=== PATIENT | male | born 1940 | race African-American/Black ===

== ENCOUNTER 2016-12-21 21:10 | Inpatient (IN) | payer MEDICARE, OTHER ==
[~2016-12-21 21:10] MED LIST: ISOVUE-370 76%-LOCM 1 ML ONE
[2016-12-21 22:12] LABS: #Eosinphils 0.3 thou/uL (0.0-0.7); #Lymphocytes 2.7 thou/uL (1.20-3.40); #Monocytes 0.6 thou/uL (0.11-0.59); #Neutrophils 2.5 thou/uL (1.40-6.50); %Basophils 0.7 % (0.0-1.0); %Eosinophils 4.8 % (0.0-10.0); %Lymphocytes 43.1 % (21.0-51.0); %Monocytes 10.4 % (0.0-10.0); Hematocrit 37.5 % (42.0-52.0); Mean Platelet Volume 8.2 fL (7.4-10.4); Red Blood Cell (RBC) Count 4.52 mill/uL (4.70-6.10); White Blood Cell (WBC) Count 6.2 thou/uL (4.8-10.8)
[2016-12-21 22:21] LABS: PTT 27.6 SEC (22.9-36.1); Prothrombin Time 14.8 SEC (12.0-14.7)
--- NOTE | 2016-12-21 22:26 | RAD ---
CHEST ONE VIEW 12/21/16 HISTORY: Hypotension. Dyspnea. COMPARISON: 12/24/15. FINDINGS: The cardiac silhouette is magnified by projection. Pulmonary vasculature remains engorged, similar in appearance to the prior study, with patchy bibasilar infiltrates. Mediastinum is midline with aortic calcification and a dual lead left subclavian cardiac electronic device. No evidence of pneumothorax . Metallic clips overlie the right side of the neck. IMPRESSION: 1. Mild pulmonary vascular congestion. 2. Atherosclerosis. POS: [facility]
[2016-12-21 22:32] LABS: ALT (SGPT) 15 U/L (8-55); AST (SGOT) 15 U/L (5-34); Alkaline Phosphatase 99 U/L (40-150); Anion Gap 14 mmol/L (10-20); BUN (Urea Nitrogen) 19 mg/dL (8.4-25.7); Bilirubin, Total 0.5 mg/dL (0.2-1.2); CK (CPK) 137 U/L (30-200); Calc. Creatinine Clearance 0 mL/min (70-130); Carbon Dioxide 23 mmol/L (23-31); Chloride 109 mmol/L (98-107); Estimated GFR-MDRD 66; Globulin 3.5 g/dL (2.4-3.5); Protein, Total 7.2 g/dL (5.8-8.1)
[2016-12-21 22:36] LABS: Troponin I 0.012 ng/mL (< 0.028)
[2016-12-21] MEDS ORDERED: Furosemide 40 MG/4 ML VIAL ONE (22:46)
--- NOTE | 2016-12-21 23:37 | CT ---
CT ARTERIOGRAM CHEST WITH IV CONTRAST AND 3D MIP IMAGING 12/21/16 HISTORY: Chest pain. Dyspnea. FINDINGS: There is good contrast opacification of the pulmonary arteries and thoracic aorta with normal branchi ng of the great vessels from the aortic arch. There is calcification in the arterial structures. Scat tered areas of atelectasis are present within the lungs. There are healing bilateral rib fractures. N onspecific lymph nodes are scattered about the mediastinum. IMPRESSION: 1. No CT evidence of pulmonary embolus. 2. Atherosclerosis. POS: [facility]
[2016-12-22 01:41] LABS: Troponin I 0.016 ng/mL (< 0.028)
[2016-12-22] MEDS ORDERED: Nitroglycerin 0.4 MG TAB (25 Tab Bottle) SL PRN (03:11)
[2016-12-22] MEDS ORDERED: Benzonatate 100 MG CAP PO PRN (03:11)
[2016-12-22] MEDS ORDERED: Ondansetron HCl/PF 4 MG/2 ML Vial IVP PRN ×2 (03:11)
[2016-12-22] MEDS ORDERED: Loratadine 10 MG TAB PO PRN (03:11)
[2016-12-22] MEDS ORDERED: Calcium Carbonate 500 MG ChewTAB PO PRN (03:11)
[2016-12-22] MEDS ORDERED: hydrALAZINE 20 MG/ML VIAL SLOW IVP PRN (03:11)
[2016-12-22] MEDS ORDERED: Dextrose 50% Abboject 50 ML SYRINGE SLOW IVP PRN (03:11)
[2016-12-22] MEDS ORDERED: traMADol HCl 50 MG TAB PO PRN (03:11)
[2016-12-22] MEDS ORDERED: Bisacodyl 5 MG TAB PO PRN (03:11)
[2016-12-22] MEDS ORDERED: Diabetic Tussin 200 MG/10 ML UDCUP PO PRN (03:11)
[2016-12-22] MEDS ORDERED: cloNIDine 0.1 MG TAB PO PRN (03:11)
[2016-12-22] MEDS ORDERED: Ondansetron ODT 4 MG TAB SL PRN (03:11)
[2016-12-22] MEDS ORDERED: Insulin Regular 300 UNITS/3 ML VIAL SC PRN (03:11)
[2016-12-22] MEDS ORDERED: Dextrose 5% in Water 1,000 ML IV PRN (03:11)
[2016-12-22] MEDS ORDERED: Senokot 8.6 MG TAB PO PRN (03:11)
[2016-12-22] MEDS ORDERED: Mag-Al 1200 mg/1200 mg/30 ML UDCUP PO PRN (03:11)
[2016-12-22] MEDS ORDERED: Acetaminophen 325 MG TAB PO PRN ×2 (03:11)
[2016-12-22] MEDS ORDERED: HYDROcodone/Acetaminophen 5/325 mg Tablet PO PRN (03:11)
[2016-12-22] MEDS ORDERED: Nitroglycerin 0.4 MG TAB (25 Tab Bottle) SL SCH (03:30)
[2016-12-22] MEDS ORDERED: Carvedilol 25 MG TAB PO SCH ×2 (03:30→08:00)
[2016-12-22] MEDS ORDERED: Metoprolol Tartrate 5 MG/5 ML VIAL IVP PRN (04:06)
[2016-12-22 04:47] LABS: #Eosinphils 0.3 thou/uL (0.0-0.7); #Lymphocytes 2.3 thou/uL (1.20-3.40); #Monocytes 0.8 thou/uL (0.11-0.59); #Neutrophils 3.9 thou/uL (1.40-6.50); %Basophils 0.7 % (0.0-1.0); %Eosinophils 4.5 % (0.0-10.0); %Lymphocytes 31.5 % (21.0-51.0); %Monocytes 10.9 % (0.0-10.0); Hematocrit 41.3 % (42.0-52.0); Mean Platelet Volume 8.3 fL (7.4-10.4); Red Blood Cell (RBC) Count 4.98 mill/uL (4.70-6.10); White Blood Cell (WBC) Count 7.4 thou/uL (4.8-10.8)
[2016-12-22 04:51] LABS: Anion Gap 12 mmol/L (10-20); BUN (Urea Nitrogen) 18 mg/dL (8.4-25.7); Calc. Creatinine Clearance 70 mL/min (70-130); Calcium 9.3 mg/dL (7.8-10.44); Carbon Dioxide 27 mmol/L (23-31); Chloride 106 mmol/L (98-107); Estimated GFR-MDRD 66
[2016-12-22 04:52] LABS: Hemoglobin A1c 7.1 % (4.0-6.0)
[2016-12-22 04:57] LABS: Troponin I 0.012 ng/mL (< 0.028)
--- NOTE | 2016-12-22 05:29 | HP ---
DATE OF ADMISSION: 12/21/2016 PRIMARY CARE PHYSICIAN: [facility] and [place], [place]. CHIEF COMPLAINT: Chest pressures associated with shortness of breath. HISTORY OF PRESENT ILLNESS: Mr. Leal is a very pleasant 76-year-old -Pakistani male with pa st medical history of coronary artery disease and chronic diastolic congestive heart failure as well as diabetes and hypertension, who presented to the emergency room with the above-mentioned complaints . History is mainly obtained by the patient himself and electronic medical records have been reviewe d. The case has been discussed with the admitting ER physician, Dr. Aldridge. The patient was last a dmitted to our facility in 07/2016, at which time, he underwent Cardiolite stress test which was unre markable. The patient reports that he has been having on and off chest pain for almost a year now. He has a pa cemaker placed in [place], [place] within the last 6 months and is compliant with his medications. He repo rts the sensation as a squeezing sensation located in the left central chest. He described that he i s having a hard time lying in bed because these symptoms are exaggerated by lying flat. He is sleepi ng up in a recliner. If he lies in bed, he has to sleep propped up with the help of pillows. Today, he had shortness of breath associated with chest discomfort that made him seek emergency room care. Upon presentation, he was hemodynamically stable with blood pressure of 132/87 and pulse of 68. The re is no mention of hypoxia in the emergency room record, but his oxygen saturation noted at 94% on 4 liters oxygen. Further workup revealed normal cardiac enzymes and normal 12-lead EKG, which showed paced rhythm. Md s D-dimer was elevated at 0.[address] he underwent a CT angio of the thorax in the ER. It is negative f or any pulmonary embolism. His chest x-ray did show pulmonary vascular congestion and his BNP was fo und to be elevated to 650. Given these findings and his clinical presentation, presumptive diagnosis of acute CHF has been made and he is being admitted to telemetry floor for further treatment and fur ther investigation. He has received 40 mg of Lasix IV in the emergency room along with aspirin. Cur rently, his symptoms are somewhat better. PAST MEDICAL HISTORY: 1. Coronary artery disease, status post stenting in the past. 2. Chronic diastolic dysfunction with EF measured at 55%. 3. Type 2 diabetes mellitus. 4. Hypertension. 5. Dyslipidemia. 6. Questionable history of atrial fibrillation. PAST SURGICAL HISTORY: 1. Cardiac catheterization. 2. Pacemaker placement in 10/2015. 3. Right carotid endarterectomy. CODE STATUS: FULL CODE. SOCIAL HISTORY: He stopped drinking 4 years ago and he stopped smoking in 1994. Denies any drug abu se. ALLERGIES: No known medication allergies. FAMILY HISTORY: Multiple family members with coronary artery disease. CURRENT HOME MEDICATIONS: Include aspirin 325 mg daily, Plavix 75 mg daily, Lasix 40 mg daily, subli ngual nitroglycerin, atorvastatin 80 mg daily, folic acid 1 mg daily, thiamine 50 mg daily, carvedilo l 25 mg p.o. b.i.d., lisinopril 40 mg daily, amlodipine 10 mg daily, and multivitamin daily. REVIEW OF SYSTEMS: The following complete review of systems was negative, unless otherwise mentioned in the HPI or below: CONSTITUTIONAL: Weight loss or gain, ability to conduct usual activities. SKIN: Rash, itching. EYES: Double vision, pain. ENT/MOUTH: Nose bleeding, neck stiffness, pain, tenderness. CARDIOVASCULAR: Palpitations, dyspnea on exertion, orthopnea. RESPIRATORY: Shortness of breath, wheezing, cough, hemoptysis, fever or night sweats. GASTROINTESTINAL: Poor appetite, abdominal pain, heartburn, nausea, vomiting, constipation, or diarr hea. GENITOURINARY: Urgency, frequency, dysuria, nocturia. MUSCULOSKELETAL: Pain, swelling. NEUROLOGIC/PSYCHIATRIC: Anxiety, depression. ALLERGY/IMMUNOLOGIC: Skin rash, bleeding tendency. LABORATORY AND DIAGNOSTIC DATA: CBC shows WBCs at 6.2 with 41% neutrophils, hemoglobin 11.9, platele t count of 221. D-dimer 0.52. Serum chemistry: Chloride at 109, glucose 131, otherwise unremarkabl e. Troponin 0.012 with CK-MB of 1.9. Creatinine kinase is normal at 137. BNP elevated at 650. Joseline st x-ray by my review shows pulmonary vascular congestion without any evidence of infiltrates. A 12- lead EKG done in the emergency room showed normal sinus rhythm at 98 beats per minute which was repea demar, which showed ventricular paced rhythm at 125 beats per minute and the third EKG showed normal si nus rhythm at 108 beats per minute which is still ventricular paced. PHYSICAL EXAMINATION: VITAL SIGNS: Most recent temperature 98.4, pulse 126, respirations 24, saturating 92% on 4 liter oxy gen, blood pressure 138/67. GENERAL: No acute distress, awake, alert, oriented x3. Appears nontoxic, is able to converse in ful l sentences. No respiratory distress. HEENT: Mucous membrane is moist and pink. No oropharyngeal exudate or erythema. Head is normocepha lic, atraumatic. Pupils are equal, reactive to light and accommodation. Extraocular movements are i ntact. NECK: Supple without any lymphadenopathy, JVD, or bruit. CHEST: Clear to auscultation without any wheezing, rales, or rhonchi; however, decreased breath soun ds at bases are noticed. Rate and rhythm is regular without any murmur, rubs, or gallops. ABDOMEN: Obese, soft, nontender, nondistended with positive bowel sounds. EXTREMITIES: Free of any cyanosis, clubbing, or edema. NEUROLOGIC: Nonfocal. SKIN: Free of any rashes or bruises. Feels warm and dry to touch. PSYCHIATRIC: Normal affect. VASCULAR: +2 pedal pulses felt bilaterally. IMPRESSION AND PLAN: 1. Chest pain and dyspnea. This is most likely acute diastolic congestive heart failure exacerbatio n. Acute coronary syndrome is less likely. We will continue to trend serial cardiac enzymes and sta rt him on IV diuresis. Echocardiogram will be reordered. Because of his recent cardiac stress test a few months ago, at this time, we will not repeat it. We will consult Cardiology for further recomm endations. We will consult [facility] for outpatient followup and cardiac rehabilitation i npatient and outpatient followup. Continue his aspirin, beta jeffrey, statin, and SPRING inhibitor at t his time. Continue Plavix. 2. Acute diastolic congestive heart failure exacerbation. We will continue IV diuresis and monitor strict I's and O's. He will be in a fluid restricted heart healthy diet. 3. Tachycardia. We will repeat the EKG, given the patient's questionable history of atrial fibrilla tion. We will treat him with a beta jeffrey and monitor his symptoms. He is on telemetry at this ti me. 4. Diabetes mellitus. We will start him on insulin sliding scale and do frequent Accu-Cheks. It do es not seem like that he is on any medication for this at home. We will check a hemoglobin A1c as we ll. 5. History of coronary artery disease, status post stenting. The patient is on cardiac prudent medi cations and we will continue them as above. 6. History of hypertension. We will restart his amlodipine, lisinopril, and carvedilol at home dosa ges and monitor response. 7. Chronic diastolic congestive heart failure. 8. Code status: FULL CODE. 9. Deep venous thrombosis and gastrointestinal prophylaxis. 10. A p.r.n. medication order. DISPOSITION: Mr. Leal is being admitted for acute diastolic congestive heart failure exacerbation. Estimated l ength of stay is at least 2-3 midnights. Further management will depend upon his clinical course.
[2016-12-22] MEDS ORDERED: Furosemide 40 MG/4 ML VIAL SLOW IVP SCH (06:00)
[2016-12-22] MEDS: Furosemide 40 MG/4 ML VIAL SLOW IVP SCH ×2 (06:13→13:19)
[2016-12-22] MEDS: Carvedilol 25 MG TAB PO SCH ×2 (08:14→20:19)
[2016-12-22] MEDS: Aspirin 325 MG TAB PO SCH (08:14)
[2016-12-22] MEDS: Multivit, Therapeutic 1 TAB PO SCH (08:14)
[2016-12-22] MEDS: Famotidine 20 MG TAB PO SCH ×2 (08:14→20:19)
[2016-12-22] MEDS: Clopidogrel Bisulfate 75 MG TAB PO SCH (08:14)
[2016-12-22] MEDS: Folic Acid 1 MG TAB PO SCH (08:14)
[2016-12-22] MEDS ORDERED: FLU VACC TS2017-18 (>65YR) 0.5 ML SYRINGE IM ONE (09:00)
[2016-12-22] MEDS ORDERED: Enoxaparin Sodium 40 MG/0.4 ML SYRINGE SC SCH (09:00)
[2016-12-22] MEDS ORDERED: Amlodipine 10 MG TAB PO SCH (09:00)
[2016-12-22] MEDS ORDERED: Prevnar 13-Val Conj/PF 0.5 ML SYRINGE IM ONE (09:00)
[2016-12-22] MEDS ORDERED: Lisinopril 20 MG TAB PO SCH ×2 (09:00)
[2016-12-22] MEDS ORDERED: Aspirin 325 MG TAB PO SCH (09:00)
--- NOTE | 2016-12-22 15:38 | PDOC.EVN ---
Event Note - Event Note Event Note: Patient seen and examined. Chart reviewed. AM labs. Cont diuretics.
--- NOTE | 2016-12-22 17:08 | EKG ---
Test Reason : Blood Pressure : / mmHG Vent. Rate : 125 BPM Atrial Rate : 079 BPM P-R Int : 000 ms QRS Dur : 192 ms QT Int : 418 ms P-R-T Axes : 000 068 -50 degrees QTc Int : 603 ms Electronic ventricular pacemaker When compared with ECG of 22-DEC-2016 00:07, (Unconfirmed) Vent. rate has increased BY 17 BPM Confirmed by MELISA KENNEDY, SDestin ([id number]) on 12/22/2016 5:08:03 PM Referred By: EUNICE Confirmed By:DR. Francis VINCENT MD
[2016-12-22] MEDS ORDERED: Sodium Chloride 0.9% 1,000 ML IV SCH (17:15)
[2016-12-22] MEDS ORDERED: Communication Order-Pharmacy FS SCH (17:15)
--- NOTE | 2016-12-22 17:35 | CON ---
DATE OF SERVICE: 12/22/2016 TYPE OF CONSULTATION: Cardiology Consultation. REASON FOR CONSULTATION: Chest pain. HISTORY OF PRESENT ILLNESS: Mr. Leal is a 76-year-old -Swedish gentleman who comes to the hospital for chest pain and shortness of breath. He has been treated with IV Lasix, diuresed some. He states the pain was tightness in the mid sternal area, similar to what he felt when he needed stents back about a year and a half to two years ago. He had this done at the [place] due through the radial approach. He also had balloon angioplasty by Dr. Owens in the . He has been in the hospital at least twice since last year for the same reason, the first time no stress was done, but an echocardiogram was performed that showed a normal EF. The second time was back in July of this year and a stress was done that showed an EF of 44%, which has decreased from before. This time around, he comes in with chest pain. It was noted on his telemetry monitoring that his spacer was tracking and the heart rate in the 130s, so changes were made and now he is just A sensed, V paced, pacing at about 60-70 beats per minute. On his admission, he had a CT of the chest to make sure he did not have a blood clot and his CT was negative. He only had atherosclerosis of the coronary tree. PAST MEDICAL HISTORY: 1. Coronary artery disease, status post stenting about 2 years ago. 2. Type 2 diabetes. 3. Hypertension. 4. Hyperlipidemia. 5. History of atrial fibrillation in the past. 6. Diastolic heart failure. PAST SURGICAL HISTORY: 1. Cardiac catheterization as above. 2. Pacemaker placement in 10/2015. 3. Right carotid endarterectomy. SOCIAL HISTORY: Quit drinking 4 years ago and has not smoked since 1994. No drug use. OUTPATIENT MEDICATIONS: Include, 1. Aspirin 325 a day. 2. Plavix 75 mg a day. 3. Lasix 40 mg a day. 4. Sublingual nitro p.r.n. 5. Lipitor 80 mg a day. 6. Folic acid. 7. Thiamine. 8. Carvedilol 25 mg b.i.d. 9. Lisinopril 40 mg a day. 10. Amlodipine 10 mg a day. 11. Multivitamin daily. ALLERGIES: No known drug allergies. FAMILY HISTORY: Multiple family members with early coronary disease. REVIEW OF SYSTEMS: A 12-point review of systems was done and is all negative unless stated in the history of present illness. PHYSICAL EXAMINATION: VITAL SIGNS: Temperature 98.2, pulse 74, respiration rate is 18, satting 95% on 2 L, blood pressure 134/69. GENERAL: Awake, alert, oriented x3, in no distress. HEENT: Normocephalic, atraumatic. NECK: Supple. LUNGS: Clear. CARDIOVASCULAR: S1, S2, no S3, S4, no murmurs or rubs. ABDOMEN: Soft, positive bowel sounds. EXTREMITIES: No edema. SKIN: Warm and dry. LABORATORY WORK: Reviewed. CBC is unremarkable. Hemoglobin of 12, platelet count of 232. Coags were unremarkable. Chemistry showed a normal BUN of 18, creatinine 1.28, GFR 66. Hemoglobin A1c is 7.1. BNP was 650, troponin negative x2. Albumin of 3.7. ASSESSMENT AND PLAN: 1. Unstable angina. Continues to have episodes of chest pain. His last left ventricular function was reduced from before from normal to 44%. We will plan on further risk stratification with a heart catheterization. I have spoken with him at length about the risks and benefits of the procedure. The risks include, but not limited to stroke, myocardial infarction, , bleeding and need for blood transfusion, need for vessel repair, need for emergency bypass surgery, limb loss, organ loss, contrast reaction, and kidney reactions with contrast. The patient understands and verbalizes understanding of this. He agrees to proceed. Further recommendation per results of the coronary angiogram. 2. Pacemaker malfunction. pacer was tracking making his heart to be in the 130s. The settings have been changed and he is now just A sensed, V paced, he feels much better. 3. We will follow. [facility]
[2016-12-22] MEDS: Atorvastatin Calcium 40 MG TAB PO SCH (20:19)
[2016-12-23 05:13] LABS: Anion Gap 10 mmol/L (10-20); BUN (Urea Nitrogen) 15 mg/dL (8.4-25.7); BUN/Creatinine Ratio 14.29; Calc. Creatinine Clearance 86 mL/min (70-130); Calcium 8.8 mg/dL (7.8-10.44); Carbon Dioxide 26 mmol/L (23-31); Chloride 107 mmol/L (98-107); Estimated GFR-MDRD 84; Magnesium 1.9 mg/dL (1.6-2.6)
[2016-12-23] MEDS: Sodium Chloride 0.9% 1,000 ML IV SCH ×2 (05:31→14:30)
[2016-12-23] MEDS ORDERED: Heparin 1000 UNIT/NS 500ML(OR) 1,000 ML ONE (06:45)
[2016-12-23] MEDS ORDERED: Potassium Chloride 20 MEQ TAB PO SCH (07:00)
[2016-12-23] MEDS: Carvedilol 25 MG TAB PO SCH ×2 (08:07→21:06)
[2016-12-23] MEDS: Aspirin 325 MG TAB PO SCH (08:08)
[2016-12-23] MEDS: Famotidine 20 MG TAB PO SCH ×2 (08:23→21:06)
[2016-12-23] MEDS ORDERED: FLU VACC TS2017-18 (>65YR) 0.5 ML SYRINGE IM ONE (09:00)
[2016-12-23] MEDS ORDERED: Furosemide 100 MG/10 ML VIAL SLOW IVP SCH (09:15)
[2016-12-23] MEDS: Lisinopril 10 MG TAB PO SCH (09:26)
[2016-12-23] MEDS: Multivit, Therapeutic 1 TAB PO SCH (09:26)
[2016-12-23] MEDS: Folic Acid 1 MG TAB PO SCH (09:26)
[2016-12-23] MEDS: Clopidogrel Bisulfate 75 MG TAB PO SCH (09:28)
--- NOTE | 2016-12-23 11:44 | CON ---
DATE OF CONSULTATION: 12/23/2016 HISTORY: This is a 76-year-old gentleman who seeks care at the [facility]. He presented with chest p ain and shortness of breath of several months' duration. Apparently symptoms got worse recently. Most of his extensive workup has been done at the [facility] in [place] He is due for cardiac catheterization today for his chest pain. When he could not lay down. He has significant orthopnea and PND. Pap was discontinued. He was transferred to [facility]. His echo shows an EF of 44%. He had been coughing and wheezing, he has significant orthopnea and PND for a period of time, in fact he sleeps in a recliner. He snores according to his . He has got witnessed apnea, never had a previous sleep study done. He is a smoker and has quit smoking 20 years ago. No history of TB or known history of asthma. PAST MEDICAL HISTORY: Coronary artery disease, status post stenting and angioplasty, diabetes, hyper tension, hyperlipidemia, atrial fibrillation. PAST SURGICAL HISTORY: Previous caths, stent, pacemaker, right carotid surgery. MEDICATIONS: From home includes vitamins, Thiamine, Coreg 25 b.i.d., Plavix 75, lisinopril 40, amlod ipine 10, folic acid, Lasix 40, atorvastatin and nitro. SOCIAL/FAMILY HISTORY: Unremarkable. PHYSICAL EXAMINATION: VITAL SIGNS: Sats are 94%, blood pressure 129/72, respirations 18. CHEST: Diffuse wheezing. CARDIAC: Sinus tachycardia. ABDOMEN: Soft, no masses. LABORATORY: Electrolytes are normal. Glucose 134. His chest x-ray was otherwise unremarkable. CT angio showed no acute infiltrates. IMPRESSION: 1. Congestive heart failure. 2. Coronary artery disease, status post multiple stents, angioplasty. 3. Probably sleep apnea. 4. Chronic obstructive pulmonary disease. 5. Bronchospasm. PLAN: I have added nebs, steroids to his present regimen. I will follow.
--- NOTE | 2016-12-23 12:17 | PDOC.CTH ---
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 - Objective Vital Signs Temp Pulse Resp BP BP Pulse Ox 12/23/16 12:04 73 17 141/74 H 94 L 12/23/16 12:00 98.0 F 72 16 141/63 H 94 L 12/23/16 09:26 129/72 12/23/16 08:00 98.3 F 73 18 94 L Weight 216 lb 12/22/16 12/23/16 12/24/16 06:59 06:59 06:59 Intake Total 130 1570 Output Total 450 1300 Balance -320 270 - Physical Examination General/Neuro: alert & oriented x3 Neck: no JVD present Lungs: other: (Reduced breath sounds, no creackles. ) Heart: RRR Abdomen: NT/ND Extremities: + edema B (no edema) - Telemetry Telemetry Rhythm: NSR - Labs Result Diagrams: 12/22/16 04:07 12/23/16 04:37 Troponin/CKMB CK-MB (CK-2) 1.9 ng/mL (0-6.6) 12/21/16 22:00 Troponin I 0.012 ng/mL (< 0.028) 12/22/16 04:07 - Assessment/Plan 1. Chest pain 2. Acute on chronic systolic heart failure 3. Hypoxic respiratory insufficiency, improved. PLAN: - Will Restart IV lasix. - Physical exam consistent with a bronchospasm. Agree with steroids and nebs. - LHC can be done as an outpatient at a later date. - Ronald Torre
[2016-12-23] MEDS: Furosemide 100 MG/10 ML VIAL SLOW IVP SCH (13:20)
--- NOTE | 2016-12-23 14:21 | PDOC.PN ---
- Subjective Encounter Start Date: 12/23/16 Encounter Start Time: 14:19 Patient seen and examined. Patient seen at 0700 - No CP/SOB. 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 Required nonrebreather for hypoxia earlier. Was seen by Dr Luana hoff. No overnight events - Objective MAR Reviewed: Yes Vital Signs & Weight: Vital Signs (12 hours) Temp Pulse Resp BP BP Pulse Ox 12/23/16 12:17 98 12/23/16 12:14 63 16 12/23/16 12:04 73 17 141/74 H 94 L 12/23/16 12:00 98.0 F 72 16 141/63 H 94 L 12/23/16 09:26 129/72 12/23/16 08:00 98.3 F 73 18 94 L Weight Weight 216 lb I&O: 12/22/16 12/23/16 12/24/16 06:59 06:59 06:59 Intake Total 130 1570 490 Output Total 450 1300 1000 Balance -320 270 -510 Result Diagrams: 12/22/16 04:07 12/23/16 04:37 Additional Labs: Accuchecks 12/23/16 12/23/16 12/22/16 11:50 04:34 20:36 POC Glucose 166 H 126 H 155 H 12/22/16 17:17 POC Glucose 126 H EKG Reviewed by me: Yes (Tele SR) Phys Exam - Physical Examination Constitutional: NAD HEENT: PERRLA Respiratory: no wheezing, no rhonchi Scat rales at bases, Symmetrical Cardiovascular: RRR, no rub no heaves, pulsations Gastrointestinal: soft, non-tender, no distention, positive bowel sounds Musculoskeletal: edema present (trace) Neurological: non-focal, normal sensation, moves all 4 limbs Psychiatric: normal affect, A&O x 3 Dx/Plan (1) Unstable angina Status: Acute (2) Acute hypoxemic respiratory failure Code(s): J96.01 - ACUTE RESPIRATORY FAILURE WITH HYPOXIA Status: Acute (3) COPD exacerbation Code(s): J44.1 - CHRONIC OBSTRUCTIVE PULMONARY DISEASE W (ACUTE) EXACERBATION Status: Acute (4) Acute on chronic systolic heart failure Code(s): I50.23 - ACUTE ON CHRONIC SYSTOLIC (CONGESTIVE) HEART FAILURE Status : Acute (5) HTN (hypertension) Code(s): I10 - ESSENTIAL (PRIMARY) HYPERTENSION Status: Chronic Qualifiers: Hypertension type: essential hypertension Qualified Code(s): I10 - Essential (primary) hypertension (6) DM type 2 (diabetes mellitus, type 2) Status: Chronic Qualifiers: Diabetes mellitus complication status: without complication Diabetes mellitus jail insulin use: without jail use Qualified Code(s): E11.9 - Type 2 diabetes mellitus without complications (7) Coronary artery disease Code(s): I25.10 - ATHSCL HEART DISEASE OF [place] CORONARY ARTERY W/O ANG PCTRS Status: Chronic (8) Pacemaker malfunction Code(s): T82.111A - BREAKDOWN OF CARDIAC PULSE GENERATOR (BATTERY), INIT Status: Acute Comment: Setting updated. (9) Hypokalemia Code(s): E87.6 - HYPOKALEMIA Status: Acute - Plan cont current plan of care, DVT proph w/SCDs * Cont to monitor * Cath probably as outpt * Cont diuresis * AM labs * Cont to monitor * Cardiology/Pulmonary following * Low threshold to transfer to IMCU * Replace Potassium * Cont ASA/Plavix Review of Systems - Review of Systems Gastrointestinal: negative: Nausea, Vomiting, Abdominal Pain, Diarrhea, Constipation, Melena, Hematochezia, Other Neurological: negative: Weakness, Numbness, Incoordination, Change in Speech, Confusion, Seizures, Other - Medications/Allergies Allergies/Adverse Reactions: Allergies Allergy/AdvReac Type Severity Reaction Status Date / Time No Known Allergies Allergy Verified 12/22/16 03:30 Medications: Current Medications Acetaminophen (Tylenol) 650 mg PO Q4H PRN PRN Reason: Headache/Fever or Pain Hydrocodone Bitart/Acetaminophen (Sewaren 5/325) 1 tab PO Q4H PRN PRN Reason: Moderate Pain (4-6) Al Hydroxide/Mg Hydroxide (Maalox) 30 ml PO Q6H PRN PRN Reason: Heartburn or Indigestion Last Admin: 12/22/16 13:18 Dose: 30 ml Albuterol/Ipratropium (Duoneb) 3 ml NEB [id number] [facility] Last Admin: 12/23/16 12:14 Dose: 3 ml Aspirin (Aspirin) 325 mg PO DAILY [facility] Last Admin: 12/23/16 08:08 Dose: 325 mg Atorvastatin Calcium (Lipitor) 80 mg PO HS [facility] Last Admin: 12/22/16 20:19 Dose: 80 mg Benzonatate (Tessalon) 100 mg PO Q4H PRN PRN Reason: Cough Bisacodyl (Dulcolax) 10 mg PO DAILYPRN PRN PRN Reason: Constipation Calcium Carbonate (Tums) 1,000 mg PO Q4H PRN PRN Reason: Heartburn or Indigestion Carvedilol (Coreg) 25 mg PO BID [facility] Last Admin: 12/23/16 08:07 Dose: 25 mg Clonidine (Catapres) 0.1 mg PO Q4H PRN PRN Reason: Systolic BP > 160 Clopidogrel Bisulfate (Plavix) 75 mg PO DAILY [facility] Last Admin: 12/23/16 09:28 Dose: 75 mg Dextrose/Water (Dextrose 50%) 25 gm SLOW IVP PRN PRN PRN Reason: Hypoglycemia Famotidine (Pepcid) 20 mg PO BID [facility] Last Admin: 12/23/16 08:23 Dose: 20 mg Folic Acid (Folvite) 1 mg PO DAILY [facility] Last Admin: 12/23/16 09:26 Dose: 1 mg Furosemide (Lasix) 80 mg SLOW IVP 0600,1400 [facility] Last Admin: 12/23/16 13:20 Dose: 80 mg Glucagon (Glucagon) 1 mg IM PRN PRN PRN Reason: Hypoglycemia Guaifenesin (Robitussin Sf) 200 mg PO Q4H PRN PRN Reason: Cough Hydralazine HCl (Apresoline) 10 mg SLOW IVP Q4H PRN PRN Reason: Systolic BP > 170 Dextrose/Water (D5w) 1,000 mls @ 0 mls/hr IV .Q0M PRN; As Directed PRN Reason: Hypoglycemia Sodium Chloride (Normal Saline 0.9%) 1,000 mls @ 100 mls/hr IV .Q10H [facility] Last Admin: 12/23/16 05:31 Dose: 1,000 mls Insulin Human Regular (Humulin R) 0 units SC .MODERATE SLIDING SC PRN PRN Reason: Moderate Correctional Scale Insulin Human Regular (Humulin R) 0 units SC .BEDTIME SLIDING SC PRN PRN Reason: Bedtime Correctional Scale Lisinopril (Zestril) 10 mg PO DAILY [facility] Last Admin: 12/23/16 09:26 Dose: 10 mg Loratadine (Claritin) 10 mg PO DAILYPRN PRN PRN Reason: Sinus Symptoms Methylprednisolone Sodium Succinate (Solu-Medrol) 40 mg IVP Q6HR [facility] Last Admin: 12/23/16 13:20 Dose: 40 mg Mometasone Furoate/Formoterol Fumar (Dulera 200 Mcg/5 Mcg Inhaler) 2 puff INH BID-RT [facility] Multivitamins (Theragran) 1 tab PO DAILY [facility] Last Admin: 12/23/16 09:26 Dose: 1 tab Nitroglycerin (Nitrostat) 0.4 mg SL Q5MIN [facility] Ondansetron HCl (Zofran) 4 mg IVP Q6H PRN PRN Reason: Nausea/Vomiting Potassium Chloride (Klor-Con 10) 10 meq PO QPM-WM [facility] Senna (Senokot) 2 tab PO HSPRN PRN PRN Reason: Constipation Sodium Chloride (Flush - Normal Saline) 10 ml IVF Q12HR [facility] Last Admin: 12/23/16 09:28 Dose: 10 ml Sodium Chloride (Flush - Normal Saline) 10 ml IVF PRN PRN PRN Reason: Saline Flush Last Admin: 12/22/16 06:12 Dose: 10 ml Thiamine HCl (Thiamine) 50 mg PO DAILY [facility] Last Admin: 12/23/16 09:27 Dose: 50 mg Tramadol HCl (Ultram) 50 mg PO Q4H PRN PRN Reason: Moderate Pain (4-6)
[2016-12-23] MEDS: Potassium Chloride 10 MEQ TAB PO SCH (17:24)
[2016-12-23] MEDS: Insulin Regular 300 UNITS/3 ML VIAL SC PRN (17:56)
[2016-12-23] MEDS: Mometasone/Formoterol 120 PUFF INHALER INH SCH (18:36)
[2016-12-23] MEDS: Atorvastatin Calcium 40 MG TAB PO SCH (21:09)
[2016-12-24] MEDS: Sodium Chloride 0.9% 1,000 ML IV SCH ×2 (03:16→13:30)
[2016-12-24] MEDS: Furosemide 100 MG/10 ML VIAL SLOW IVP SCH ×2 (05:30→13:50)
[2016-12-24 05:39] LABS: Anion Gap 14 mmol/L (10-20); BUN (Urea Nitrogen) 21 mg/dL (8.4-25.7); Calc. Creatinine Clearance 82 mL/min (70-130); Calcium 9.3 mg/dL (7.8-10.44); Carbon Dioxide 25 mmol/L (23-31); Chloride 103 mmol/L (98-107); Estimated GFR-MDRD 77; Magnesium 2.1 mg/dL (1.6-2.6); Phosphorus 3.2 mg/dL (2.3-4.7)
[2016-12-24] MEDS: Mometasone/Formoterol 120 PUFF INHALER INH SCH (07:00)
[2016-12-24] MEDS: Carvedilol 25 MG TAB PO SCH ×2 (09:05→20:40)
[2016-12-24] MEDS: Folic Acid 1 MG TAB PO SCH (09:05)
[2016-12-24] MEDS: Aspirin 325 MG TAB PO SCH (09:05)
[2016-12-24] MEDS: Multivit, Therapeutic 1 TAB PO SCH (09:05)
[2016-12-24] MEDS: Clopidogrel Bisulfate 75 MG TAB PO SCH (09:05)
[2016-12-24] MEDS: Famotidine 20 MG TAB PO SCH ×2 (09:05→20:39)
[2016-12-24] MEDS: Lisinopril 10 MG TAB PO SCH (09:06)
--- NOTE | 2016-12-24 10:20 | PRG ---
DATE OF SERVICE: 12/24/2016 SUBJECTIVE: Mr. Leal is doing well today. Yesterday, they took him to the catheterization lab, b ut he was in congestive heart failure and the catheterization was canceled. He was sent back upstair s. He was in congestive heart failure. OBJECTIVE: VITAL SIGNS: Blood pressure today is 116/66, pulse 80. LUNGS: Clear. CARDIAC: Normal S1, normal S2. ABDOMEN: Soft, nontender. EXTREMITIES: No edema. Looking into the I's and O's, there is only a modest response to the recorded diuretic. ASSESSMENT: 1. Congestive heart failure, systolic. Clinically, seems to be better. 2. Coronary artery disease with previous stent implantation. 3. Hypercholesterolemia, on medicines. PLAN: 1. Continue intravenous furosemide. 2. Consideration for catheterization on Monday.
--- NOTE | 2016-12-24 13:14 | PRG ---
DATE OF SERVICE: 12/24/2016 SUBJECTIVE: He is better this morning, less cough, less shortness of breath. PHYSICAL EXAMINATION: VITAL SIGNS: Blood pressure 116/66, respirations 18, temperature 98. CHEST: No wheezing. CARDIAC: Normal S1, S2. ABDOMEN: Soft, no masses. LABORATORY DATA: Electrolytes are normal. IMPRESSION: 1. Congestive heart failure 2. Chronic obstructive pulmonary disease. 3. Bronchitis. PLAN: Continue PT and supportive care. I will follow.
[2016-12-24] MEDS: Insulin Regular 300 UNITS/3 ML VIAL SC PRN (16:57)
[2016-12-24] MEDS: Potassium Chloride 10 MEQ TAB PO SCH (17:02)
--- NOTE | 2016-12-24 19:06 | PDOC.PN ---
- Subjective Encounter Start Date: 12/24/16 Encounter Start Time: 10:00 Patient seen and examined. No new complaints. No overnight events. No SOB. Mild SOB on exertion. Feels better overall. - Objective MAR Reviewed: Yes Vital Signs & Weight: Vital Signs (12 hours) Temp Pulse Pulse Pulse Resp BP BP 12/24/16 18:33 71 16 12/24/16 17:06 66 100 157/70 H 12/24/16 15:40 97.8 F 73 20 12/24/16 13:31 63 12 12/24/16 12:30 98 F 69 20 12/24/16 09:06 116/66 12/24/16 08:00 98.4 F 75 16 BP BP Pulse Ox Pulse Ox Pulse Ox 12/24/16 18:33 92 L 12/24/16 17:06 182/82 H 93 L 97 12/24/16 15:40 114/75 93 L 12/24/16 13:31 12/24/16 12:30 131/74 93 L 12/24/16 09:06 12/24/16 08:00 116/66 96 Weight Weight 222 lb 4.8 oz I&O: 12/23/16 12/24/16 12/25/16 06:59 06:59 06:59 Intake Total 0493 011 5439 Output Total 1300 1000 1625 Balance 270 -270 -225 Result Diagrams: 12/22/16 04:07 12/24/16 04:57 Additional Labs: Accuchecks 12/24/16 12/23/16 16:55 21:01 POC Glucose 270 H 185 H EKG Reviewed by me: Yes (Tele SR) Phys Exam - Physical Examination Constitutional: NAD Respiratory: no wheezing, no rales, no rhonchi Cardiovascular: RRR, no rub Gastrointestinal: soft, non-tender, no distention, positive bowel sounds Musculoskeletal: no edema Neurological: moves all 4 limbs Dx/Plan (1) Unstable angina Status: Acute Comment: Cardiology following (2) Acute hypoxemic respiratory failure Code(s): J96.01 - ACUTE RESPIRATORY FAILURE WITH HYPOXIA Status: Acute Comment: Improving (3) COPD exacerbation Code(s): J44.1 - CHRONIC OBSTRUCTIVE PULMONARY DISEASE W (ACUTE) EXACERBATION Status: Acute Comment: Improving (4) Acute on chronic systolic heart failure Code(s): I50.23 - ACUTE ON CHRONIC SYSTOLIC (CONGESTIVE) HEART FAILURE Status : Acute Comment: on IV diuretics (5) HTN (hypertension) Code(s): I10 - ESSENTIAL (PRIMARY) HYPERTENSION Status: Chronic Qualifiers: Hypertension type: essential hypertension Qualified Code(s): I10 - Essential (primary) hypertension (6) DM type 2 (diabetes mellitus, type 2) Status: Chronic Qualifiers: Diabetes mellitus complication status: without complication Diabetes mellitus local intermodal truck driver insulin use: without local intermodal truck driver use Qualified Code(s): E11.9 - Type 2 diabetes mellitus without complications (7) Coronary artery disease Code(s): I25.10 - ATHSCL HEART DISEASE OF [place] CORONARY ARTERY W/O ANG PCTRS Status: Chronic (8) Pacemaker malfunction Code(s): T82.111A - BREAKDOWN OF CARDIAC PULSE GENERATOR (BATTERY), INIT Status: Acute Comment: Setting updated. (9) Hypokalemia Code(s): E87.6 - HYPOKALEMIA Status: Acute Comment: on replacement - Plan cont current plan of care, respiratory therapy, out of bed/ambulate, DVT proph w /SCDs * Cont PO Prednisone with nebs * Cont diuretics * Cardiology/Pulm following * AM labs * Cont Cardiac rehab * Cont other meds as below Review of Systems - Review of Systems Respiratory: SOB with Excertion. negative: Cough, Dry, Shortness of Breath, Hemoptysis, Pleuritic Pain, Sputum, Wheezing Cardiovascular: negative: Chest Pain, Palpitations, Orthopnea, Paroxysmal Noc. Dyspnea, Edema, Light Headedness, Other Gastrointestinal: negative: Nausea, Vomiting, Abdominal Pain, Diarrhea, Constipation, Melena, Hematochezia - Medications/Allergies Allergies/Adverse Reactions: Allergies Allergy/AdvReac Type Severity Reaction Status Date / Time No Known Allergies Allergy Verified 12/22/16 03:30 Medications: Current Medications Acetaminophen (Tylenol) 650 mg PO Q4H PRN PRN Reason: Headache/Fever or Pain Hydrocodone Bitart/Acetaminophen ([place] 5/325) 1 tab PO Q4H PRN PRN Reason: Moderate Pain (4-6) Al Hydroxide/Mg Hydroxide (Maalox) 30 ml PO Q6H PRN PRN Reason: Heartburn or Indigestion Last Admin: 12/22/16 13:18 Dose: 30 ml Albuterol/Ipratropium (Duoneb) 3 ml NEB [id number] [facility] Last Admin: 12/24/16 18:33 Dose: 3 ml Aspirin (Aspirin) 325 mg PO DAILY [facility] Last Admin: 12/24/16 09:05 Dose: 325 mg Atorvastatin Calcium (Lipitor) 80 mg PO HS [facility] Last Admin: 12/23/16 21:09 Dose: 80 mg Benzonatate (Tessalon) 100 mg PO Q4H PRN PRN Reason: Cough Bisacodyl (Dulcolax) 10 mg PO DAILYPRN PRN PRN Reason: Constipation Calcium Carbonate (Tums) 1,000 mg PO Q4H PRN PRN Reason: Heartburn or Indigestion Carvedilol (Coreg) 25 mg PO BID [facility] Last Admin: 12/24/16 09:05 Dose: 25 mg Clonidine (Catapres) 0.1 mg PO Q4H PRN PRN Reason: Systolic BP > 160 Clopidogrel Bisulfate (Plavix) 75 mg PO DAILY [facility] Last Admin: 12/24/16 09:05 Dose: 75 mg Dextrose/Water (Dextrose 50%) 25 gm SLOW IVP PRN PRN PRN Reason: Hypoglycemia Famotidine (Pepcid) 20 mg PO BID [facility] Last Admin: 12/24/16 09:05 Dose: 20 mg Folic Acid (Folvite) 1 mg PO DAILY [facility] Last Admin: 12/24/16 09:05 Dose: 1 mg Furosemide (Lasix) 80 mg SLOW IVP 0600,1400 [facility] Last Admin: 12/24/16 13:50 Dose: 80 mg Glucagon (Glucagon) 1 mg IM PRN PRN PRN Reason: Hypoglycemia Guaifenesin (Robitussin Sf) 200 mg PO Q4H PRN PRN Reason: Cough Hydralazine HCl (Apresoline) 10 mg SLOW IVP Q4H PRN PRN Reason: Systolic BP > 170 Dextrose/Water (D5w) 1,000 mls @ 0 mls/hr IV .Q0M PRN; As Directed PRN Reason: Hypoglycemia Insulin Human Regular (Humulin R) 0 units SC .MODERATE SLIDING SC PRN PRN Reason: Moderate Correctional Scale Last Admin: 12/24/16 16:57 Dose: 6 unit Insulin Human Regular (Humulin R) 0 units SC .BEDTIME SLIDING SC PRN PRN Reason: Bedtime Correctional Scale Lisinopril (Zestril) 10 mg PO DAILY [facility] Last Admin: 12/24/16 09:06 Dose: 10 mg Loratadine (Claritin) 10 mg PO DAILYPRN PRN PRN Reason: Sinus Symptoms Methylprednisolone Sodium Succinate (Solu-Medrol) 40 mg IVP Q6HR [facility] Last Admin: 12/24/16 17:02 Dose: 40 mg Multivitamins (Theragran) 1 tab PO DAILY [facility] Last Admin: 12/24/16 09:05 Dose: 1 tab Nitroglycerin (Nitrostat) 0.4 mg SL Q5MIN [facility] Ondansetron HCl (Zofran) 4 mg IVP Q6H PRN PRN Reason: Nausea/Vomiting Potassium Chloride (Klor-Con 10) 10 meq PO QPM-WM [facility] Last Admin: 12/24/16 17:02 Dose: 10 meq Prednisone (Prednisone) 20 mg PO QAM-WM [facility] Senna (Senokot) 2 tab PO HSPRN PRN PRN Reason: Constipation Sodium Chloride (Flush - Normal Saline) 10 ml IVF Q12HR [facility] Last Admin: 12/24/16 09:06 Dose: 10 ml Sodium Chloride (Flush - Normal Saline) 10 ml IVF PRN PRN PRN Reason: Saline Flush Last Admin: 12/22/16 06:12 Dose: 10 ml Thiamine HCl (Thiamine) 50 mg PO DAILY [facility] Last Admin: 12/24/16 09:05 Dose: 50 mg Tramadol HCl (Ultram) 50 mg PO Q4H PRN PRN Reason: Moderate Pain (4-6)
[2016-12-24] MEDS: Atorvastatin Calcium 40 MG TAB PO SCH (20:39)
[2016-12-25 05:45] LABS: #Lymphocytes 1.3 thou/uL (1.20-3.40); #Monocytes 0.5 thou/uL (0.11-0.59); #Neutrophils 10.5 thou/uL (1.40-6.50); %Eosinophils 0.1 % (0.0-10.0); %Lymphocytes 10.7 % (21.0-51.0); Hematocrit 41.2 % (42.0-52.0); Mean Platelet Volume 8.3 fL (7.4-10.4); White Blood Cell (WBC) Count 12.3 thou/uL (4.8-10.8)
[2016-12-25 05:47] LABS: Anion Gap 12 mmol/L (10-20); BUN (Urea Nitrogen) 26 mg/dL (8.4-25.7); Calc. Creatinine Clearance 85 mL/min (70-130); Calcium 8.8 mg/dL (7.8-10.44); Carbon Dioxide 26 mmol/L (23-31); Chloride 103 mmol/L (98-107); Estimated GFR-MDRD 80
[2016-12-25] MEDS: Furosemide 100 MG/10 ML VIAL SLOW IVP SCH (06:09)
[2016-12-25] MEDS: Clopidogrel Bisulfate 75 MG TAB PO SCH (08:51)
[2016-12-25] MEDS: Famotidine 20 MG TAB PO SCH ×2 (08:51→20:57)
[2016-12-25] MEDS: Multivit, Therapeutic 1 TAB PO SCH (08:51)
[2016-12-25] MEDS: predniSONE 20 MG TAB PO SCH (08:51)
[2016-12-25] MEDS: Carvedilol 25 MG TAB PO SCH ×2 (08:52→20:57)
[2016-12-25] MEDS: Folic Acid 1 MG TAB PO SCH (08:52)
[2016-12-25] MEDS: Lisinopril 10 MG TAB PO SCH (08:52)
[2016-12-25] MEDS: Aspirin 325 MG TAB PO SCH (08:56)
[2016-12-25] MEDS ORDERED: Communication Order-Pharmacy FS SCH (09:15)
--- NOTE | 2016-12-25 09:50 | PRG ---
DATE OF SERVICE: 12/25/2016 HISTORY: Mr. Leal is doing much better, feels better. He is breathing easier. PHYSICAL EXAMINATION: VITAL SIGNS: Blood pressure 136/68, pulse 74 regular. LUNGS: Clear. CARDIAC: Normal S1 and normal S2. ASSESSMENT: 1. Congestive heart failure, improved. 2. Coronary artery disease, stable. 3. Hypercholesterolemia, on medicines. PLAN: Proceed to cardiac catheterization tomorrow.
[2016-12-25] MEDS ORDERED: Furosemide 40 MG/4 ML VIAL SLOW IVP SCH (10:00)
--- NOTE | 2016-12-25 10:20 | PDOC.PN ---
- Subjective Encounter Start Date: 12/25/16 Encounter Start Time: 08:00 -: old records requested/rev Patient seen and examined. No new complaints. No overnight events - Objective MAR Reviewed: Yes Vital Signs & Weight: Vital Signs (12 hours) Temp Pulse Resp BP BP Pulse Ox 12/25/16 08:52 116/66 12/25/16 08:00 97.6 F 74 16 136/68 97 12/25/16 07:50 97.6 F 74 16 97 12/25/16 06:47 94 L 12/25/16 06:45 70 12 12/25/16 04:00 98.6 F 70 20 139/83 93 L 12/24/16 23:44 74 16 92 L Weight Weight 221 lb 1.6 oz I&O: 12/24/16 12/25/16 12/26/16 06:59 06:59 06:59 Intake Total 730 2710 Output Total 1000 2075 Balance -270 635 Result Diagrams: 12/25/16 05:22 12/25/16 05:22 Additional Labs: Accuchecks 12/25/16 12/24/16 12/24/16 05:15 20:16 16:55 POC Glucose 157 H 227 H 270 H EKG Reviewed by me: Yes Phys Exam - Physical Examination Constitutional: NAD HEENT: PERRLA, moist MMs, sclera anicteric Neck: no JVD, supple Respiratory: no wheezing, no rales, no rhonchi Cardiovascular: RRR, no significant murmur, no rub Gastrointestinal: soft, non-tender, no distention, positive bowel sounds Musculoskeletal: no edema, pulses present Neurological: non-focal, normal sensation, moves all 4 limbs Lymphatic: no nodes Psychiatric: normal affect, A&O x 3 Skin: no rash, normal turgor Dx/Plan (1) Acute hypoxemic respiratory failure Code(s): J96.01 - ACUTE RESPIRATORY FAILURE WITH HYPOXIA Status: Resolved Comment: (2) Acute on chronic systolic heart failure Code(s): I50.23 - ACUTE ON CHRONIC SYSTOLIC (CONGESTIVE) HEART FAILURE Status : Acute Comment: on IV diuretics (3) COPD exacerbation Code(s): J44.1 - CHRONIC OBSTRUCTIVE PULMONARY DISEASE W (ACUTE) EXACERBATION Status: Acute Comment: Improving (4) Hypokalemia Code(s): E87.6 - HYPOKALEMIA Status: Acute Comment: on replacement (5) Pacemaker malfunction Code(s): T82.111A - BREAKDOWN OF CARDIAC PULSE GENERATOR (BATTERY), INIT Status: Acute Comment: Setting updated. (6) Unstable angina Status: Acute Comment: Cardiology following (7) Coronary artery disease Code(s): I25.10 - ATHSCL HEART DISEASE OF [place] CORONARY ARTERY W/O ANG PCTRS Status: Chronic (8) DM type 2 (diabetes mellitus, type 2) Status: Chronic Qualifiers: Diabetes mellitus complication status: without complication Diabetes mellitus predatory animal exterminator insulin use: without assisted use Qualified Code(s): E11.9 - Type 2 diabetes mellitus without complications (9) HTN (hypertension) Code(s): I10 - ESSENTIAL (PRIMARY) HYPERTENSION Status: Chronic Qualifiers: Hypertension type: essential hypertension Qualified Code(s): I10 - Essential (primary) hypertension (10) Afib Code(s): I48.91 - UNSPECIFIED ATRIAL FIBRILLATION Status: Chronic Qualifiers: Atrial fibrillation type: chronic Qualified Code(s): I48.2 - Chronic atrial fibrillation - Plan cont current plan of care * plan for cardiac cathteterization tomorrow * medication reviewed as below * symptomatic treatment * now pt is euvolemic * COPD and CHF both controlled * continue current medical therapy. Review of Systems - Review of Systems Constitutional: negative: Fever, Chills, Sweats, Weakness, Malaise, Other ENT: negative: Ear Pain, Ear Discharge, Nose Pain, Nose Discharge, Nose Congestion, Mouth Pain, Mouth Swelling, Throat Pain, Throat Swelling, Other Respiratory: negative: Cough, Dry, Shortness of Breath, Hemoptysis, SOB with Excertion, Pleuritic Pain, Sputum, Wheezing Cardiovascular: negative: Chest Pain, Palpitations, Orthopnea, Paroxysmal Noc. Dyspnea, Edema, Light Headedness, Other Gastrointestinal: negative: Nausea, Vomiting, Abdominal Pain, Diarrhea, Constipation, Melena, Hematochezia, Other Genitourinary: negative: Dysuria, Frequency, Incontinence, Hematuria, Retention , Other Musculoskeletal: negative: Neck Pain, Shoulder Pain, Arm Pain, Back Pain, Hand Pain, Leg Pain, Foot Pain, Other Skin: negative: Rash, Lesions, Reza, Bruising, Other - Medications/Allergies Allergies/Adverse Reactions: Allergies Allergy/AdvReac Type Severity Reaction Status Date / Time No Known Allergies Allergy Verified 12/22/16 03:30 Medications: Current Medications Acetaminophen (Tylenol) 650 mg PO Q4H PRN PRN Reason: Headache/Fever or Pain Hydrocodone Bitart/Acetaminophen ([place] 5/325) 1 tab PO Q4H PRN PRN Reason: Moderate Pain (4-6) Al Hydroxide/Mg Hydroxide (Maalox) 30 ml PO Q6H PRN PRN Reason: Heartburn or Indigestion Last Admin: 12/22/16 13:18 Dose: 30 ml Albuterol/Ipratropium (Duoneb) 3 ml NEB [id number] [facility] Last Admin: 12/25/16 06:45 Dose: 3 ml Aspirin (Aspirin) 325 mg PO DAILY [facility] Last Admin: 12/25/16 08:56 Dose: 325 mg Atorvastatin Calcium (Lipitor) 80 mg PO HS [facility] Last Admin: 12/24/16 20:39 Dose: 80 mg Benzonatate (Tessalon) 100 mg PO Q4H PRN PRN Reason: Cough Bisacodyl (Dulcolax) 10 mg PO DAILYPRN PRN PRN Reason: Constipation Calcium Carbonate (Tums) 1,000 mg PO Q4H PRN PRN Reason: Heartburn or Indigestion Carvedilol (Coreg) 25 mg PO BID [facility] Last Admin: 12/25/16 08:52 Dose: 25 mg Clonidine (Catapres) 0.1 mg PO Q4H PRN PRN Reason: Systolic BP > 160 Clopidogrel Bisulfate (Plavix) 75 mg PO DAILY [facility] Last Admin: 12/25/16 08:51 Dose: 75 mg Dextrose/Water (Dextrose 50%) 25 gm SLOW IVP PRN PRN PRN Reason: Hypoglycemia Diazepam (Valium) 5 mg PO .WILLCALL [facility] Stop: 12/26/16 15:00 Famotidine (Pepcid) 20 mg PO BID [facility] Last Admin: 12/25/16 08:51 Dose: 20 mg Folic Acid (Folvite) 1 mg PO DAILY [facility] Last Admin: 12/25/16 08:52 Dose: 1 mg Furosemide (Lasix) 40 mg SLOW IVP 0600,1400 [facility] Stop: 12/26/16 06:00 Furosemide (Lasix) 40 mg SLOW IVP 1000 [facility] Stop: 12/25/16 12:00 Glucagon (Glucagon) 1 mg IM PRN PRN PRN Reason: Hypoglycemia Guaifenesin (Robitussin Sf) 200 mg PO Q4H PRN PRN Reason: Cough Hydralazine HCl (Apresoline) 10 mg SLOW IVP Q4H PRN PRN Reason: Systolic BP > 170 Dextrose/Water (D5w) 1,000 mls @ 0 mls/hr IV .Q0M PRN; As Directed PRN Reason: Hypoglycemia Insulin Human Regular (Humulin R) 0 units SC .MODERATE SLIDING SC PRN PRN Reason: Moderate Correctional Scale Last Admin: 12/24/16 16:57 Dose: 6 unit Insulin Human Regular (Humulin R) 0 units SC .BEDTIME SLIDING SC PRN PRN Reason: Bedtime Correctional Scale Last Admin: 12/24/16 23:33 Dose: 2 unit Lisinopril (Zestril) 10 mg PO DAILY [facility] Last Admin: 12/25/16 08:52 Dose: 10 mg Loratadine (Claritin) 10 mg PO DAILYPRN PRN PRN Reason: Sinus Symptoms Multivitamins (Theragran) 1 tab PO DAILY [facility] Last Admin: 12/25/16 08:51 Dose: 1 tab Nitroglycerin (Nitrostat) 0.4 mg SL Q5MIN [facility] Ondansetron HCl (Zofran) 4 mg IVP Q6H PRN PRN Reason: Nausea/Vomiting Potassium Chloride (Klor-Con 10) 10 meq PO QPM-WM [facility] Last Admin: 12/24/16 17:02 Dose: 10 meq Prednisone (Prednisone) 20 mg PO QAM-WM [facility] Last Admin: 12/25/16 08:51 Dose: 20 mg Senna (Senokot) 2 tab PO HSPRN PRN PRN Reason: Constipation Sodium Chloride (Flush - Normal Saline) 10 ml IVF Q12HR [facility] Last Admin: 12/25/16 08:56 Dose: 10 ml Sodium Chloride (Flush - Normal Saline) 10 ml IVF PRN PRN PRN Reason: Saline Flush Last Admin: 12/22/16 06:12 Dose: 10 ml Thiamine HCl (Thiamine) 50 mg PO DAILY [facility] Last Admin: 12/25/16 08:51 Dose: 50 mg Tramadol HCl (Ultram) 50 mg PO Q4H PRN PRN Reason: Moderate Pain (4-6)
[2016-12-25] MEDS: Insulin Regular 300 UNITS/3 ML VIAL SC PRN ×2 (11:23→17:14)
[2016-12-25] MEDS: Furosemide 40 MG/4 ML VIAL SLOW IVP SCH (14:15)
--- NOTE | 2016-12-25 14:19 | PRG ---
DATE OF SERVICE: 12/25/2016 SUBJECTIVE: He said he is much better this morning, less short of breath. PHYSICAL EXAMINATION: VITAL SIGNS: Blood pressure is 116/66, temperature 97, O2 sat 97%, pulse 74. CHEST: No wheezing. CARDIAC: Normal S1 and S2. ABDOMEN: Soft. LABORATORY DATA: White count 12,000, hemoglobin and hematocrit is 12 and 41. Electrolytes are delmi l. LV function is better. IMPRESSION: Congestive heart failure, chronic obstructive pulmonary disease, and bronchitis. PLAN: Improved, continue PT and supportive care. DISPOSITION: As per primary care physician.
[2016-12-25] MEDS: Potassium Chloride 10 MEQ TAB PO SCH (17:14)
[2016-12-25] MEDS: Atorvastatin Calcium 40 MG TAB PO SCH (20:57)
[2016-12-26] MEDS: Aspirin 325 MG TAB PO SCH (06:24)
[2016-12-26] MEDS: Lisinopril 10 MG TAB PO SCH (06:25)
[2016-12-26] MEDS: Clopidogrel Bisulfate 75 MG TAB PO SCH (06:27)
[2016-12-26] MEDS: Famotidine 20 MG TAB PO SCH ×2 (06:27→20:47)
[2016-12-26] MEDS: Folic Acid 1 MG TAB PO SCH (06:27)
[2016-12-26] MEDS: predniSONE 20 MG TAB PO SCH (06:27)
[2016-12-26] MEDS: Multivit, Therapeutic 1 TAB PO SCH (06:29)
[2016-12-26] MEDS: Carvedilol 25 MG TAB PO SCH ×2 (07:39→20:47)
[2016-12-26] MEDS: Furosemide 40 MG/4 ML VIAL SLOW IVP SCH (07:39)
[2016-12-26] MEDS ORDERED: Diazepam 5 MG TAB PO SCH (09:00)
--- NOTE | 2016-12-26 10:20 | PDOC.PN ---
- Subjective Encounter Start Date: 12/26/16 Encounter Start Time: 08:45 Patient seen and examined. No new complaints. No overnight events - Objective MAR Reviewed: Yes Vital Signs & Weight: Vital Signs (12 hours) Temp Pulse Resp BP BP Pulse Ox 12/26/16 07:52 96.9 F L 61 16 170/81 H 100 12/26/16 07:24 93 L 12/26/16 07:22 63 20 93 L 12/26/16 06:25 159/73 H 12/26/16 04:00 98.0 F 67 18 159/75 H 92 L 12/26/16 00:11 70 12 Weight Weight 219 lb 1.6 oz I&O: 12/25/16 12/26/16 12/27/16 06:59 06:59 06:59 Intake Total 2710 1320 Output Total 2074 2049 Balance 635 730 Result Diagrams: 12/25/16 05:22 12/25/16 05:22 Additional Labs: Accuchecks 12/26/16 12/25/16 12/25/16 06:06 20:22 16:53 POC Glucose 121 H 181 H 228 H 12/25/16 11:03 POC Glucose 249 H EKG Reviewed by me: Yes Phys Exam - Physical Examination Constitutional: NAD HEENT: PERRLA, moist MMs, sclera anicteric Neck: no JVD, supple Respiratory: no wheezing, no rales, no rhonchi Cardiovascular: no significant murmur, no rub, irregular Gastrointestinal: soft, non-tender, no distention, positive bowel sounds Musculoskeletal: no edema, pulses present Neurological: non-focal, normal sensation, moves all 4 limbs Psychiatric: normal affect, A&O x 3 Skin: no rash, normal turgor Dx/Plan (1) Acute hypoxemic respiratory failure Code(s): J96.01 - ACUTE RESPIRATORY FAILURE WITH HYPOXIA Status: Resolved Comment: (2) Acute on chronic systolic heart failure Code(s): I50.23 - ACUTE ON CHRONIC SYSTOLIC (CONGESTIVE) HEART FAILURE Status : Acute Comment: (3) COPD exacerbation Code(s): J44.1 - CHRONIC OBSTRUCTIVE PULMONARY DISEASE W (ACUTE) EXACERBATION Status: Acute Comment: (4) Hypokalemia Code(s): E87.6 - HYPOKALEMIA Status: Acute Comment: (5) Pacemaker malfunction Code(s): T82.111A - BREAKDOWN OF CARDIAC PULSE GENERATOR (BATTERY), INIT Status: Acute Comment: (6) Unstable angina Status: Acute Comment: (7) Coronary artery disease Code(s): I25.10 - ATHSCL HEART DISEASE OF [place] CORONARY ARTERY W/O ANG PCTRS Status: Chronic (8) DM type 2 (diabetes mellitus, type 2) Status: Chronic Qualifiers: Diabetes mellitus complication status: without complication Diabetes mellitus terminal operator insulin use: without terminal operator use Qualified Code(s): E11.9 - Type 2 diabetes mellitus without complications (9) HTN (hypertension) Code(s): I10 - ESSENTIAL (PRIMARY) HYPERTENSION Status: Chronic Qualifiers: Hypertension type: essential hypertension Qualified Code(s): I10 - Essential (primary) hypertension (10) Afib Code(s): I48.91 - UNSPECIFIED ATRIAL FIBRILLATION Status: Chronic Qualifiers: Atrial fibrillation type: chronic Qualified Code(s): I48.2 - Chronic atrial fibrillation - Plan cont current plan of care, plan discussed w/ family * today plan for cardiac cath * discussed with family bedside * medication reviewed as below * symptomatic treatment * stable otherwise. Review of Systems - Review of Systems ENT: negative: Ear Pain, Ear Discharge, Nose Pain, Nose Discharge, Nose Congestion, Mouth Pain, Mouth Swelling, Throat Pain, Throat Swelling, Other Respiratory: negative: Cough, Dry, Shortness of Breath, Hemoptysis, SOB with Excertion, Pleuritic Pain, Sputum, Wheezing Cardiovascular: negative: Chest Pain, Palpitations, Orthopnea, Paroxysmal Noc. Dyspnea, Edema, Light Headedness, Other Gastrointestinal: negative: Nausea, Vomiting, Abdominal Pain, Diarrhea, Constipation, Melena, Hematochezia, Other Genitourinary: negative: Dysuria, Frequency, Incontinence, Hematuria, Retention , Other Musculoskeletal: negative: Neck Pain, Shoulder Pain, Arm Pain, Back Pain, Hand Pain, Leg Pain, Foot Pain, Other Skin: negative: Rash, Lesions, Reza, Bruising, Other - Medications/Allergies Allergies/Adverse Reactions: Allergies Allergy/AdvReac Type Severity Reaction Status Date / Time No Known Allergies Allergy Verified 12/22/16 03:30 Medications: Current Medications Acetaminophen (Tylenol) 650 mg PO Q4H PRN PRN Reason: Headache/Fever or Pain Hydrocodone Bitart/Acetaminophen ([employer] 5/325) 1 tab PO Q4H PRN PRN Reason: Moderate Pain (4-6) Al Hydroxide/Mg Hydroxide (Maalox) 30 ml PO Q6H PRN PRN Reason: Heartburn or Indigestion Last Admin: 12/22/16 13:18 Dose: 30 ml Albuterol/Ipratropium (Duoneb) 3 ml NEB [id number] [facility] Last Admin: 12/26/16 07:22 Dose: 3 ml Aspirin (Aspirin) 325 mg PO DAILY [facility] Last Admin: 12/26/16 06:24 Dose: 325 mg Atorvastatin Calcium (Lipitor) 80 mg PO HS [facility] Last Admin: 12/25/16 20:57 Dose: 80 mg Benzonatate (Tessalon) 100 mg PO Q4H PRN PRN Reason: Cough Bisacodyl (Dulcolax) 10 mg PO DAILYPRN PRN PRN Reason: Constipation Calcium Carbonate (Tums) 1,000 mg PO Q4H PRN PRN Reason: Heartburn or Indigestion Carvedilol (Coreg) 25 mg PO BID [facility] Last Admin: 12/26/16 07:39 Dose: 25 mg Clonidine (Catapres) 0.1 mg PO Q4H PRN PRN Reason: Systolic BP > 160 Clopidogrel Bisulfate (Plavix) 75 mg PO DAILY [facility] Last Admin: 12/26/16 06:27 Dose: 75 mg Dextrose/Water (Dextrose 50%) 25 gm SLOW IVP PRN PRN PRN Reason: Hypoglycemia Diazepam (Valium) 5 mg PO .WILLCALL [facility] Stop: 12/26/16 15:00 Famotidine (Pepcid) 20 mg PO BID [facility] Last Admin: 12/26/16 06:27 Dose: 20 mg Folic Acid (Folvite) 1 mg PO DAILY [facility] Last Admin: 12/26/16 06:27 Dose: 1 mg Glucagon (Glucagon) 1 mg IM PRN PRN PRN Reason: Hypoglycemia Guaifenesin (Robitussin Sf) 200 mg PO Q4H PRN PRN Reason: Cough Hydralazine HCl (Apresoline) 10 mg SLOW IVP Q4H PRN PRN Reason: Systolic BP > 170 Dextrose/Water (D5w) 1,000 mls @ 0 mls/hr IV .Q0M PRN; As Directed PRN Reason: Hypoglycemia Insulin Human Regular (Humulin R) 0 units SC .MODERATE SLIDING SC PRN PRN Reason: Moderate Correctional Scale Last Admin: 12/25/16 17:14 Dose: 4 unit Insulin Human Regular (Humulin R) 0 units SC .BEDTIME SLIDING SC PRN PRN Reason: Bedtime Correctional Scale Last Admin: 12/24/16 23:33 Dose: 2 unit Lisinopril (Zestril) 10 mg PO DAILY [facility] Last Admin: 12/26/16 06:25 Dose: 10 mg Loratadine (Claritin) 10 mg PO DAILYPRN PRN PRN Reason: Sinus Symptoms Multivitamins (Theragran) 1 tab PO DAILY [facility] Last Admin: 12/26/16 06:29 Dose: 1 tab Nitroglycerin (Nitrostat) 0.4 mg SL Q5MIN [facility] Ondansetron HCl (Zofran) 4 mg IVP Q6H PRN PRN Reason: Nausea/Vomiting Potassium Chloride (Klor-Con 10) 10 meq PO QPM[facility] Last Admin: 12/25/16 17:14 Dose: 10 meq Prednisone (Prednisone) 20 mg PO QAM-WM [facility] Last Admin: 12/26/16 06:27 Dose: 20 mg Senna (Senokot) 2 tab PO HSPRN PRN PRN Reason: Constipation Sodium Chloride (Flush - Normal Saline) 10 ml IVF Q12HR [facility] Last Admin: 12/26/16 09:16 Dose: 10 ml Sodium Chloride (Flush - Normal Saline) 10 ml IVF PRN PRN PRN Reason: Saline Flush Last Admin: 12/26/16 07:40 Dose: 10 ml Thiamine HCl (Thiamine) 50 mg PO DAILY [facility] Last Admin: 12/26/16 06:28 Dose: 50 mg Tramadol HCl (Ultram) 50 mg PO Q4H PRN PRN Reason: Moderate Pain (4-6)
--- NOTE | 2016-12-26 11:01 | PRG ---
DATE OF SERVICE: 12/26/2016 SUBJECTIVE: This morning, he is having difficulty breathing, cough. He is due for a cardiac cathete rization. OBJECTIVE: VITAL SIGNS: Sats 100%, temperature 96, pulse 60, blood pressure 170/80. CHEST: Decreased breath sounds, no wheezing. CARDIAC: Normal S1, S2. ABDOMEN: Soft, no masses. IMPRESSION: 1. Congestive heart failure. 2. Coronary artery disease. 3. Chronic obstructive pulmonary disease. PLAN: Await input from Cardiology; otherwise, continue neb treatments and steroids. We will follow.
[2016-12-26] MEDS ORDERED: Heparin 1000 UNIT/NS 500ML(OR) 1,000 ML ONE (11:32)
[2016-12-26] MEDS ORDERED: Nitroglycerin 100MG/250ML BOT 250 ML ONE (11:55)
[2016-12-26] MEDS ORDERED: Heparin 10,000 UNITS/1 ML VIAL ONE (11:55)
[2016-12-26] MEDS ORDERED: Verapamil 5 MG/2 ML VIAL ONE (11:55)
[2016-12-26] MEDS ORDERED: Midazolam HCl 2 mg/2 ml Vial ONE (12:08)
[2016-12-26] MEDS ORDERED: Fentanyl 100 MCG/2 ML VIAL ONE (12:09)
[2016-12-26] MEDS ORDERED: Clopidogrel Bisulfate 300 MG TAB ONE (13:25)
[2016-12-26] MEDS ORDERED: Nitroglycerin 0.4 MG TAB 1 EACH SL PRN (13:27)
[2016-12-26] MEDS ORDERED: Morphine PF 1 MG/ML SYR IVP PRN (13:33)
[2016-12-26] MEDS ORDERED: Iopamidol 370 76% 100 ML VIAL ONE (17:11)
[2016-12-26] MEDS ORDERED: Iopamidol 370 76% 50 ML VIAL FS ONE (17:11)
[2016-12-26] MEDS: Insulin Regular 300 UNITS/3 ML VIAL SC PRN (17:36)
[2016-12-26] MEDS: Potassium Chloride 10 MEQ TAB PO SCH (17:36)
[2016-12-26] MEDS: Atorvastatin Calcium 40 MG TAB PO SCH (20:47)
[2016-12-27 05:18] LABS: ALT (SGPT) 20 U/L (8-55); AST (SGOT) 19 U/L (5-34); Alkaline Phosphatase 85 U/L (40-150); Anion Gap 10 mmol/L (10-20); BUN (Urea Nitrogen) 24 mg/dL (8.4-25.7); Bilirubin, Total 0.5 mg/dL (0.2-1.2); Calc. Creatinine Clearance 89 mL/min (70-130); Calcium 8.5 mg/dL (7.8-10.44); Carbon Dioxide 28 mmol/L (23-31); Chloride 103 mmol/L (98-107); Estimated GFR-MDRD 86; Globulin 3.4 g/dL (2.4-3.5); Protein, Total 6.9 g/dL (5.8-8.1)
[2016-12-27 05:54] LABS: Hematocrit 41.5 % (42.0-52.0); Neutrophil 51 % (42-75); Reactive Lymphocytes 3 % (0-10); White Blood Cell (WBC) Count 8.3 thou/uL (4.8-10.8)
[2016-12-27 06:41] VITALS: BMI 29.0
[2016-12-27] MEDS: Insulin Regular 300 UNITS/3 ML VIAL SC PRN (09:13)
[2016-12-27] MEDS: Aspirin 325 MG TAB PO SCH (09:14)
[2016-12-27] MEDS: Famotidine 20 MG TAB PO SCH (09:14)
[2016-12-27] MEDS: predniSONE 20 MG TAB PO SCH (09:14)
[2016-12-27] MEDS: Folic Acid 1 MG TAB PO SCH (09:14)
[2016-12-27] MEDS: Clopidogrel Bisulfate 75 MG TAB PO SCH (09:14)
[2016-12-27] MEDS: Carvedilol 25 MG TAB PO SCH (09:14)
[2016-12-27] MEDS: Lisinopril 10 MG TAB PO SCH (09:14)
[2016-12-27] MEDS: Multivit, Therapeutic 1 TAB PO SCH (09:15)
[2016-12-27 13:02] VITALS: BP 157/74; TEMP 98
--- NOTE | 2016-12-27 15:14 | PDOC.PN ---
- Subjective Encounter Start Date: 12/27/16 Encounter Start Time: 06:50 Patient seen and examined. No new complaints. No overnight events - Objective MAR Reviewed: Yes Vital Signs & Weight: Vital Signs (12 hours) Temp Pulse Resp BP BP Pulse Ox 12/27/16 12:13 98.0 F 60 18 157/74 H 92 L 12/27/16 09:14 169/83 H 12/27/16 07:58 97.6 F 64 18 169/83 H 92 L 12/27/16 07:53 97.6 F 64 18 92 L 12/27/16 07:31 72 16 95 12/27/16 04:00 98.1 F 63 20 155/72 H 92 L Weight Weight 220 lb 3.2 oz I&O: 12/26/16 12/27/16 12/28/16 06:59 06:59 06:59 Intake Total 1320 986 Output Total 2050 2200 Balance -480 -8146 Result Diagrams: 12/27/16 04:42 12/27/16 04:42 Additional Labs: Accuchecks 12/26/16 12/26/16 20:41 16:39 POC Glucose 142 H 204 H EKG Reviewed by me: Yes Phys Exam - Physical Examination Constitutional: NAD HEENT: PERRLA, moist MMs, sclera anicteric Neck: no JVD, supple Respiratory: no wheezing, no rales, no rhonchi Cardiovascular: RRR, no significant murmur, no rub Gastrointestinal: soft, non-tender, no distention Musculoskeletal: no edema, pulses present Neurological: non-focal, normal sensation Psychiatric: normal affect, A&O x 3 Skin: no rash, normal turgor Dx/Plan (1) Acute hypoxemic respiratory failure Code(s): J96.01 - ACUTE RESPIRATORY FAILURE WITH HYPOXIA Status: Resolved Comment: (2) Acute on chronic systolic heart failure Code(s): I50.23 - ACUTE ON CHRONIC SYSTOLIC (CONGESTIVE) HEART FAILURE Status : Acute Comment: (3) COPD exacerbation Code(s): J44.1 - CHRONIC OBSTRUCTIVE PULMONARY DISEASE W (ACUTE) EXACERBATION Status: Acute Comment: (4) Hypokalemia Code(s): E87.6 - HYPOKALEMIA Status: Acute Comment: (5) Pacemaker malfunction Code(s): T82.111A - BREAKDOWN OF CARDIAC PULSE GENERATOR (BATTERY), INIT Status: Acute Comment: (6) Unstable angina Status: Acute Comment: (7) Coronary artery disease Code(s): I25.10 - ATHSCL HEART DISEASE OF [place] CORONARY ARTERY W/O ANG PCTRS Status: Chronic (8) DM type 2 (diabetes mellitus, type 2) Status: Chronic Qualifiers: Diabetes mellitus complication status: without complication Diabetes mellitus detention insulin use: without ferry terminal supervisor use Qualified Code(s): E11.9 - Type 2 diabetes mellitus without complications (9) HTN (hypertension) Code(s): I10 - ESSENTIAL (PRIMARY) HYPERTENSION Status: Chronic Qualifiers: Hypertension type: essential hypertension Qualified Code(s): I10 - Essential (primary) hypertension (10) Afib Code(s): I48.91 - UNSPECIFIED ATRIAL FIBRILLATION Status: Chronic Qualifiers: Atrial fibrillation type: chronic Qualified Code(s): I48.2 - Chronic atrial fibrillation - Plan cont current plan of care * medication reviewed as below * symptomatic treatment * see discharge summery * pt is not on anticoagulation as he is high risk for bleeding with dual antiplatelet therapy. Review of Systems - Review of Systems ENT: negative: Ear Pain, Ear Discharge, Nose Pain, Nose Discharge, Nose Congestion, Mouth Pain, Mouth Swelling, Throat Pain, Throat Swelling, Other Respiratory: negative: Cough, Dry, Shortness of Breath, Hemoptysis, SOB with Excertion, Pleuritic Pain, Sputum, Wheezing Cardiovascular: negative: Chest Pain, Palpitations, Orthopnea, Paroxysmal Noc. Dyspnea, Edema, Light Headedness, Other Gastrointestinal: negative: Nausea, Vomiting, Abdominal Pain, Diarrhea, Constipation, Melena, Hematochezia, Other Genitourinary: negative: Dysuria, Frequency, Incontinence, Hematuria, Retention , Other Musculoskeletal: negative: Neck Pain, Shoulder Pain, Arm Pain, Back Pain, Hand Pain, Leg Pain, Foot Pain, Other Skin: negative: Rash, Lesions, Reza, Bruising, Other - Medications/Allergies Allergies/Adverse Reactions: Allergies Allergy/AdvReac Type Severity Reaction Status Date / Time No Known Allergies Allergy Verified 12/22/16 03:30
--- NOTE | 2016-12-27 16:19 | PRG ---
DATE OF SERVICE: 12/27/2016 SUBJECTIVE: Status post cardiac intervention. Less short of breath and less coughing. OBJECTIVE: VITAL SIGNS: Blood pressure is 169/83, sats are 92%, temperature 97.6, and respirations 18. CHEST: Decreased breath sounds. CARDIAC: Normal S1 and S2. No gallops. ABDOMEN: Soft. No masses. IMPRESSION: Congestive heart failure, respiratory failure. PLAN: Continue cardiac care. Continue PT and supportive care. We will follow.
--- NOTE | 2016-12-27 16:43 | DIS ---
DATE OF ADMISSION: 12/22/2016 DATE OF DISCHARGE: 12/27/2016 PRIMARY CARE PHYSICIAN: [facility]. DISCHARGE DISPOSITION: Home. PRIMARY DISCHARGE DIAGNOSES: 1. Acute on chronic diastolic congestive heart failure. 2. Chronic obstructive pulmonary disease exacerbation. 3. Hypokalemia, corrected. 4. Pacemaker malfunction. 5. Unstable angina. 6. Status post cardiac catheterization with stent placement. 7. Acute hypoxic respiratory failure, resolved. SECONDARY DISCHARGE DIAGNOSES: Hypertension, diabetes type 2, coronary artery disease, chronic atrial fibrillation. PRIMARY PROCEDURE/OPERATION: Cardiac catheterization with stent placement. RADIOLOGICAL INVESTIGATION: Chest x-ray showed pulmonary vascular congestion. CT angio negative for pulmonary embolism. Echocardiography showed EF 40%-45% when tachycardic and 50%-60% when heart rate normal, moderate LVH. SIGNIFICANT LABORATORY DATA: WBC 8.3, hemoglobin 12.9, platelet 221. INR 1.1. Sodium 137, creatinine 1.02. LFTs normal. DISCHARGE MEDICATIONS: Amlodipine 10 mg p.o. daily, aspirin 325 mg p.o. daily, Lipitor 80 mg p.o. at bedtime, Coreg 25 mg p.o. b.i.d., Plavix 75 mg p.o. daily , Pepcid 20 mg p.o. b.i.d., folic acid 1 mg p.o. daily, Lasix 40 mg p.o. daily, lisinopril 10 mg p.o. daily, Dulera 2 puffs inhalation b.i.d., multivitamin 1 tablet p.o. daily, nitroglycerin 0.4 mg sublingual p.r.n. for chest pain, prednisone 20 mg p.o. daily for 5 days, thiamine 50 mg daily, Ventolin inhaler 2 puffs q.6 hours p.r.n. CONTRAINDICATIONS: The patient is not on chronic anticoagulation in view of chronic atrial fibrillation because the patient requiring dual antiplatelet therapy and with anticoagulation. The patient is at high risk for bleeding. INPATIENT CONSULTANTS: Dr. Owens was following while in hospital. Dr. Craft was following while in hospital. TEST RESULTS PENDING ON DISCHARGE: None. ALLERGIES: No known drug allergy. DISCHARGE PLAN: Post hospital, the patient will follow up with [facility] as well as primary care physician. HOSPITAL COURSE: A 76-year-old male with the above mentioned medical problem who was admitted by Dr. Hsu. Please see her H&P for further details. This patient was admitted for unstable angina and at the same time, the patient was having acute on chronic congestive heart failure exacerbation and he was also hypoxic on admission, he was admitted to telemetry floor, Cardiology was consulted. Patient was treated with Lasix with significant improvement in his congestion. Cardiology did pacemaker interrogation during this admission and setting was adjusted. Cardiology did a cardiac catheterization and put in 2 stents, the patient was requiring aspirin and Plavix and that is why we did not prescribe any chronic anticoagulation therapy because he is at risk for bleeding. While in hospital, the patient's hypoxia completely improved. His congestive heart failure is now euvolemic. He also had mild COPD flareup and that is why Dr. Craft was following and he has also clinical improvement. During this time, echocardiography showed normal EF and his heart rate was under control and whenever he was tachycardic, then his EF was low. Cardiology cleared him for discharge. The patient is medically stable. All new medication prescription given. The patient is seen and examined at bedside today. Please see my progress note from today for further details. MTDD
--- NOTE | 2016-12-27 17:45 | PDOC.CTH ---
Cardiology Progress Note - Subjective He is doing well. he denies any chest pain, tightness, pressure, SOB. - Objective Vital Signs Temp Pulse Resp BP BP Pulse Ox 12/27/16 12:13 98.0 F 60 18 157/74 H 92 L 12/27/16 09:14 169/83 H 12/27/16 07:58 97.6 F 64 18 169/83 H 92 L 12/27/16 07:53 97.6 F 64 18 92 L 12/27/16 07:31 72 16 95 Weight 220 lb 3.2 oz 12/26/16 12/27/16 12/28/16 06:59 06:59 06:59 Intake Total 1320 986 Output Total 2050 2200 Balance -730 -1214 - Physical Examination General/Neuro: alert & oriented x3, NAD Neck: no JVD present Lungs: CTA, unlabored respirations Heart: RRR Abdomen: NT/ND Extremities: other: (no edema) - Telemetry Telemetry Rhythm: NSR - Labs Result Diagrams: 12/27/16 04:42 12/27/16 04:42 Troponin/CKMB CK-MB (CK-2) 1.9 ng/mL (0-6.6) 12/21/16 22:00 Troponin I 0.012 ng/mL (< 0.028) 12/22/16 04:07 - Assessment/Plan 1. CAD 2. S/P PCI to LCx, RCA and RPL. 3. Acute on chronic diastolic heart failure, improved. PLAN: - May be discharged home, - Aspirin and Plavix for at least one year. Rx for plavix given to him today. - Follow up in the office in 1 month.
--- NOTE | 2017-01-01 08:25 | EKG ---
Test Reason : POST STENT Blood Pressure : / mmHG Vent. Rate : 060 BPM Atrial Rate : 060 BPM P-R Int : 128 ms QRS Dur : 172 ms QT Int : 498 ms P-R-T Axes : 039 -59 120 degrees QTc Int : 498 ms AV sequential or dual chamber electronic pacemaker When compared with ECG of 22-DEC-2016 03:38, Vent. rate has decreased BY 65 BPM Confirmed by Cindy PARNELL ([id number]) on 01/01/2017 8:25:05 AM Referred By: CORI Confirmed By:Cindy PARNELL
--- NOTE | 2017-01-01 08:37 | EKG ---
Test Reason : Blood Pressure : / mmHG Vent. Rate : 060 BPM Atrial Rate : 060 BPM P-R Int : 104 ms QRS Dur : 200 ms QT Int : 512 ms P-R-T Axes : 014 -47 138 degrees QTc Int : 512 ms AV sequential or dual chamber electronic pacemaker When compared with ECG of 26-DEC-2016 14:19, (Unconfirmed) No significant change was found Confirmed by Cindy PARNELL ([id number]) on 01/01/2017 8:37:03 AM Referred By: CORI Confirmed By:Cindy PARNELL
--- NOTE | 2017-02-04 10:00 | EKG ---
Test Reason : Blood Pressure : / mmHG Vent. Rate : 098 BPM Atrial Rate : 098 BPM P-R Int : 000 ms QRS Dur : 194 ms QT Int : 436 ms P-R-T Axes : 000 -31 132 degrees QTc Int : 556 ms Ventricular-paced rhythm Abnormal ECG Confirmed by DEVEN KENNEDY, NATALI Verdugo ([id number]), news video editor JUSTINA FELIX ([id number]) on 02/04/2017 9:59:59 AM Referred By: Confirmed By:NATALI CARVALHO MD
--- NOTE | 2017-02-04 10:00 | EKG ---
Test Reason : Blood Pressure : / mmHG Vent. Rate : 125 BPM Atrial Rate : 066 BPM P-R Int : 000 ms QRS Dur : 188 ms QT Int : 426 ms P-R-T Axes : 000 -42 123 degrees QTc Int : 614 ms Ventricular-paced rhythm Abnormal ECG Confirmed by DEVEN KENNEDY, NATALI Verdugo ([id number]), assignment editor JUSTINA FELIX ([id number]) on 02/04/2017 10:00:01 AM Referred By: Confirmed By:NATALI CARVALHO MD
--- NOTE | 2017-02-04 10:00 | EKG ---
Test Reason : Blood Pressure : / mmHG Vent. Rate : 108 BPM Atrial Rate : 108 BPM P-R Int : 000 ms QRS Dur : 188 ms QT Int : 432 ms P-R-T Axes : 000 -41 112 degrees QTc Int : 578 ms Ventricular-paced rhythm Abnormal ECG Confirmed by DEVEN KENNEDY, NATALI Verdugo ([id number]), department editor JUSTINA FELIX ([id number]) on 02/04/2017 10:00:03 AM Referred By: Confirmed By:NATALI CARVALHO MD
== END 2016-12-27 14:40 | disposition home or self-care (01) | DRG 246 ==
LOC: ERS 21:10 → 2SW 12-22 00:35 → 2NO 12-23 15:02
PROVIDERS: ATTEND Internal Medicine
PROC: 4A023N7 Measurement of Cardiac Sampling and Pressure, Left Heart, Percutaneous Approach (ICD-10-PCS; principal; 2016-12-26)
PROC: 027135Z Dilation of Coronary Artery, Two Arteries with Two Drug-eluting Intraluminal Devices, Percutaneous Approach (ICD-10-PCS; 2016-12-26)
PROC: B2111ZZ Fluoroscopy of Multiple Coronary Arteries using Low Osmolar Contrast (ICD-10-PCS; 2016-12-26)
PROC: B2151ZZ Fluoroscopy of Left Heart using Low Osmolar Contrast (ICD-10-PCS; 2016-12-26)
DX: I11.0 Hypertensive heart disease with heart failure (principal); J96.01 Acute respiratory failure with hypoxia; J44.1 Chronic obstructive pulmonary disease with (acute) exacerbation; T82.111A Breakdown (mechanical) of cardiac pulse generator (battery), initial encounter; E11.9 Type 2 diabetes mellitus without complications; Z79.01 Long term (current) use of anticoagulants; I50.33 Acute on chronic diastolic (congestive) heart failure; Z95.0 Presence of cardiac pacemaker; Z87.891 Personal history of nicotine dependence; Z79.82 Long term (current) use of aspirin; E78.00 Pure hypercholesterolemia, unspecified; Z95.5 Presence of coronary angioplasty implant and graft; E87.6 Hypokalemia; I25.110 Atherosclerotic heart disease of native coronary artery with unstable angina pectoris; I48.2 Chronic atrial fibrillation; Z79.51 Long term (current) use of inhaled steroids
CPT/HCPCS: 36415; 36416; 71010; 71275; 80048; 80053; 80069; 82553; 83036; 83735; 83880; 84100; 84484; 85025; 85347; 85379; 85610; 85730; 92928; 92929; 93005; 93010; 93306; 93458; 93798; 94640; 96374; 99152; 99153; A4216; C1769; C1874; C1887; C9600; C9601; J1644; J1815; J1940; J2250; J2920; J3010; J7506; J7620

== ENCOUNTER 2017-12-15 13:23 | Inpatient (IN) | payer MEDICARE, OTHER, SELFPAY ==
[2017-12-15 14:01] LABS: #Eosinphils 0.3 thou/uL (0.0-0.7); #Lymphocytes 2.2 thou/uL (1.20-3.40); #Monocytes 0.6 thou/uL (0.11-0.59); #Neutrophils 2.2 thou/uL (1.40-6.50); %Basophils 0.3 % (0.0-1.0); %Eosinophils 5.3 % (0.0-10.0); %Lymphocytes 42.4 % (21.0-51.0); %Monocytes 10.6 % (0.0-10.0); %Neutrophils 41.4 % (42.0-75.0); Hemoglobin 12.3 g/dL (14.0-18.0); Mean Corpuscular HGB CONC 31.8 g/dL (32.0-36.0); Mean Corpuscular Hemoglobin 26.1 pg (27.0-31.0); Platelet Count 250 thou/uL (130-400); RBC Distribution Width 13.3 % (11.5-14.5); Red Blood Cell (RBC) Count 4.69 mill/uL (4.70-6.10); White Blood Cell (WBC) Count 5.3 thou/uL (4.8-10.8)
[2017-12-15 14:14] LABS: ALT (SGPT) 19 U/L (8-55); AST (SGOT) 20 U/L (5-34); Albumin 4.1 g/dL (3.4-4.8); Alkaline Phosphatase 114 U/L (40-150); Anion Gap 13 mmol/L (10-20); BUN (Urea Nitrogen) 23 mg/dL (8.4-25.7); Bilirubin, Total 0.3 mg/dL (0.2-1.2); Calc. Creatinine Clearance 0 mL/min (70-130); Calcium 9.2 mg/dL (7.8-10.44); Carbon Dioxide 23 mmol/L (23-31); Chloride 107 mmol/L (98-107); Estimated GFR-MDRD 56; Globulin 3.9 g/dL (2.4-3.5); Glucose 162 mg/dL (83-110); Lipase 31 U/L (8-78); Potassium 3.9 mmol/L (3.5-5.1); Sodium 139 mmol/L (136-145)
[2017-12-15 14:17] LABS: CKMB 2.2 ng/mL (0-6.6); Troponin I Less than 0.010 ng/mL (< 0.028)
--- NOTE | 2017-12-15 14:54 | RAD ---
CHEST 1 VIEW: Date: 12/15/17 HISTORY: Chest pain. COMPARISON: 12/21/16. FINDINGS: Cardiac silhouette is magnified by projection. Pulmonary vasculature upper limits of normal. Mediasti num is midline with aortic calcification and a dual lead left subclavian cardiac electronic device. N o lobar consolidation or evidence of pneumothorax. radiation monitor leads overlie the chest. IMPRESSION: Atherosclerosis. Chronic-type findings are stable. No active cardiopulmonary abnormalities are demons trated. POS: HERLINDA
[2017-12-15 16:01] LABS: Bilirubin Negative (Negative); Blood, Urine Negative (Negative); Clarity CLEAR (Clear); Glucose, Urine (Dipstick) Negative (Negative); Leukocyte Negative (Negative); Nitrite Negative (Negative); Protein, Urine (Dipstick) Negative (Neg-Trace); Specific Gravity, Urine 1.013 (1.002-1.036); Urobilinogen 0.2 mg/dL (0.2-1.0); pH, Urine 5.5 (5.0-9.0)
[2017-12-15] MEDS ORDERED: Ondansetron ODT 4 MG TAB PO PRN (16:13)
[2017-12-15] MEDS ORDERED: Acetaminophen 325 MG TAB PO PRN (16:13)
[2017-12-15] MEDS ORDERED: Zolpidem Tartrate 5 MG TAB PO PRN (16:13)
[2017-12-15 16:28] LABS: Hemoglobin A1c 7.6 % (4.0-6.0)
--- NOTE | 2017-12-15 16:35 | HP ---
DATE OF ADMISSION: 12/15/2017 PRIMARY CARE PROVIDER: [place], Dr. Novak. REASON FOR ADMISSION: Referred to the [facility] by [facility]. HISTORY OF PRESENT ILLNESS: The patient presents with an episode while he was walking 15 minutes wit h tightness in his anterior chest, associated with shortness of breath. He notes no radiation. The discomfort went away when he sat down and rested a while, did not recur. He had no sweats, nausea. PAST MEDICAL HISTORY: Pertinent for coronary artery disease post cardiac catheterization in 12/2016 with a PCI to the left circumflex, right coronary artery and another artery, it is noted to have norm al left ventricular function. He also has hypertension, diet controlled diabetes, history of diastol ic heart failure, dyslipidemia, chronic kidney disease stage 3. CURRENT MEDICATIONS: The patient brought them with him. They are listed as aspirin 81 mg a day, aml odipine 10 mg a day, thiamine 100 mg a day, Coreg 25 mg twice a day, Plavix 75 mg a day, Lasix 40 mg a day and folic acid 1 mg a day. ALLERGIES: No known drug allergies. PAST SURGICAL HISTORY: Cardiac catheterization with PCI x3 one year ago, pacemaker replacement 10/27 15, right carotid endarterectomy. SOCIAL HISTORY: He stopped smoking in 1994, stopped alcohol greater than 5 years ago[address] Denies any dr alvarado. Full code status. , Anjana surrogate decision maker. FAMILY HISTORY: Multiple members with coronary artery disease. REVIEW OF SYSTEMS: General: He has easy fatigue. Denies dizziness, fainting, headache, fever or ch ills. Eyes: No double vision, blurred vision, flashing lights. ENT: No ear pain or drainage. No nasal bleeding. No trouble swallowing. No oral pain. Cardiac: See present illness. No orthopnea or paroxysmal nocturnal dyspnea. Respirations: Occasional dry cough. No asthma or wheezing. Muscu loskeletal: He states his legs swell a bit, but he takes a diuretic for that. No pain in his muscle s or joints. Neurologic: No strokes, seizures or focal weakness. Psychiatric: No anxiety or depre ssion. Skin: No bruises, bleeding or rash. Heme/Lymph: No tender or swollen lymph nodes under his arms. No bruising. PHYSICAL EXAMINATION: GENERAL: Cooperative, pleasant, oriented x3 gentleman. VITAL SIGNS: Blood pressure 116/62, pulse 70, respirations 18, O2 sat 96 on room air. HEENT: Pupils equal, round and reactive to light. Extraocular movements are intact. Sclerae are wh ite. Tympanic membranes are clear. Nose clear. Oral mucous membranes are wet. No oral lesions. NECK: No jugular venous distention, adenopathy or thyromegaly. CHEST: Clear to auscultation and percussion. HEART: Regular rate and rhythm. First and second heart sounds are clear. There are no appreciated murmurs or gallops. ABDOMEN: Soft. Bowel sounds are normal. There is no hepatosplenomegaly, no mass, no rebound. EXTREMITIES: Reveal trace edema in his ankles. No cyanosis or clubbing. PULSES: Carotid, radial, femoral and dorsalis pedis pulses intact. SKIN: Warm and dry. No bruises or rash. HEME/LYMPH: No tender or swollen lymph nodes in his axilla, inguinal or cervical area. He has no pe techial hemorrhages in his mucous membranes or nail beds. NEUROLOGICAL: Cranial nerves II-XII are intact. Deep tendon reflexes symmetric. Moves all extremit ies. IMAGING: EKG, paced rhythm with wide complex ventricular paced, reviewed by me. Chest x-ray, no car diomegaly, CHF or infiltrate. He does have pacemaker in the left upper chest, reviewed by me. LABORATORY DATA: Comp metabolic profile, creatinine 1.48, blood sugar 162, otherwise normal. Cardia c enzymes normal x1. BNP 44.3. CBC, hemoglobin 12.3, white count 5.3, platelet count 250,000. ADMITTING DIAGNOSES: 1. Chest pain in patient with known coronary artery disease, 1 year post percutaneous coronary inter vention. 2. Hypertension. 3. Diabetes mellitus type 2. 4. Diastolic heart failure. 5. Dyslipidemia. 6. Chronic kidney disease stage 3. PLAN: Aspirin. Reinstitute home medicines. Serial enzymes. If enzymes remain negative, exercise C ardiolite stress test. If enzymes are positive, Cardiology consult with his radio artist.
[2017-12-15 21:32] LABS: Troponin I 0.012 ng/mL (< 0.028)
[2017-12-16 04:17] LABS: #Basophils 0.1 thou/uL (0.0-0.2); #Eosinphils 0.3 thou/uL (0.0-0.7); #Monocytes 0.6 thou/uL (0.11-0.59); #Neutrophils 2.1 thou/uL (1.40-6.50); %Basophils 1.1 % (0.0-1.0); %Eosinophils 5.8 % (0.0-10.0); %Lymphocytes 39.6 % (21.0-51.0); %Monocytes 11.2 % (0.0-10.0); %Neutrophils 42.3 % (42.0-75.0); Hemoglobin 12.2 g/dL (14.0-18.0); Mean Corpuscular HGB CONC 31.5 g/dL (32.0-36.0); Mean Corpuscular Hemoglobin 25.9 pg (27.0-31.0); Mean Corpuscular Volume 82.1 fL (78.0-98.0); Platelet Count 235 thou/uL (130-400); RBC Distribution Width 13.3 % (11.5-14.5); Red Blood Cell (RBC) Count 4.71 mill/uL (4.70-6.10)
[2017-12-16 04:42] LABS: Anion Gap 11 mmol/L (10-20); BUN (Urea Nitrogen) 16 mg/dL (8.4-25.7); Calc. Creatinine Clearance 104 mL/min (70-130); Calcium 9.1 mg/dL (7.8-10.44); Carbon Dioxide 25 mmol/L (23-31); Chloride 108 mmol/L (98-107); Estimated GFR-MDRD Greater than 90; Glucose 126 mg/dL (83-110); Sodium 140 mmol/L (136-145)
[2017-12-16] MEDS: Aspirin 325 MG TAB PO SCH (09:07)
[2017-12-16] MEDS: Enoxaparin Sodium 40 MG/0.4 ML SYRINGE SC SCH (09:07)
[2017-12-16] MEDS ORDERED: Regadenoson 0.4 MG/5 ML SYRINGE ONE (10:25)
--- NOTE | 2017-12-16 14:48 | PDOC.PN ---
- Subjective Encounter Start Date: 12/16/17 Encounter Start Time: 09:30 NO MORE CHEST PAIN - Objective Resuscitation Status: Resuscitation Status FULL:Full Resuscitation MAR Reviewed: Yes Vital Signs & Weight: Vital Signs (12 hours) Temp Pulse Resp BP Pulse Ox 12/16/17 11:35 98.5 F 67 16 160/77 H 98 12/16/17 08:04 98.4 F 68 16 157/75 H 96 12/16/17 06:10 98.2 F 68 18 131/72 93 L Weight Weight 247 lb 4.8 oz I&O: 12/15/17 12/16/17 12/17/17 06:59 06:59 06:59 Intake Total 230 Output Total 1350 Balance -1120 Result Diagrams: 12/16/17 03:22 12/16/17 03:22 Phys Exam - Physical Examination HEENT: PERRLA, moist MMs, sclera anicteric, TM's clear, oral pharynx no lesions , 2+ tonsils Neck: no nodes, no JVD, supple, full ROM Respiratory: no wheezing, no rales, no rhonchi, wheezing present, clear to auscultation bilateral Cardiovascular: RRR, no significant murmur, no rub, gallop, irregular Gastrointestinal: soft, non-tender, no distention, positive bowel sounds Musculoskeletal: edema present Neurological: non-focal, normal sensation, moves all 4 limbs Skin: no rash, normal turgor, cap refill <2 seconds Dx/Plan (1) Unstable angina Status: Acute Plan: Serial Troponin negative, requested cardiac stress test Comment: (2) Afib Code(s): I48.91 - UNSPECIFIED ATRIAL FIBRILLATION Status: Chronic Qualifiers: Comment: continue home medcine (3) Coronary artery disease Code(s): I25.10 - ATHSCL HEART DISEASE OF [place] CORONARY ARTERY W/O ANG PCTRS Status: Chronic Qualifiers: Coronary Disease-Associated Artery/Lesion type: [place] artery Associated angina: with unstable angina Comment: continue home meds (4) DM type 2 (diabetes mellitus, type 2) Status: Chronic Qualifiers: - Plan cont current plan of care, out of bed/ambulate, DVT proph w/lovenox, DVT proph w /SCDs * .
--- NOTE | 2017-12-16 15:43 | NM ---
NUCLEAR MEDICINE CARDIAC STRESS TEST WITH EJECTION FRACTION: HISTORY: Chest pain. COPD. CHF. Hypertension. Dyslipidemia. COMPARISON: Nuclear medicine exam from 2017. TECHNIQUE: Stress and rest was performed after the intravenous administration of 30 and 9.8 mCi technetium-99m s estamibi, respectively. FINDINGS: Normal left ventricular uptake of radiotracer. There is inferior wall ischemia. Hypokinesis of inferi or wall and of the septum. Ejection fraction calculated at 53%. IMPRESSION: Hypokinesis of inferior wall and septum with inferior wall reversible ischemia. POS: HERLINDA
[2017-12-16] MEDS ORDERED: Nitroglycerin 0.4 MG TAB (25 Tab Bottle) SL PRN (16:25)
[2017-12-16] MEDS: Carvedilol 25 MG TAB PO SCH (21:11)
[2017-12-16] MEDS: Atorvastatin Calcium 40 MG TAB PO SCH (21:11)
[2017-12-17] MEDS: Enoxaparin Sodium 40 MG/0.4 ML SYRINGE SC SCH (08:24)
[2017-12-17] MEDS: Aspirin 325 MG TAB PO SCH (08:26)
[2017-12-17] MEDS: Folic Acid 1 MG TAB PO SCH (08:28)
[2017-12-17] MEDS: Amlodipine 10 MG TAB PO SCH (08:28)
[2017-12-17] MEDS: Multivitamin W/ Minerals 1 TAB PO SCH (08:28)
[2017-12-17] MEDS: Furosemide 40 MG TAB PO SCH (08:28)
[2017-12-17] MEDS: Lisinopril 20 MG TAB PO SCH (08:28)
[2017-12-17] MEDS: Carvedilol 25 MG TAB PO SCH ×2 (08:28→20:26)
[2017-12-17] MEDS: Clopidogrel Bisulfate 75 MG TAB PO SCH (08:29)
[2017-12-17] MEDS ORDERED: Communication Order-Pharmacy FS SCH (13:30)
--- NOTE | 2017-12-17 14:22 | PDOC.PN ---
- Subjective Encounter Start Date: 12/17/17 Encounter Start Time: 10:45 Subjective: no more chest pain. PCI in 1994 - Objective Resuscitation Status: Resuscitation Status FULL:Full Resuscitation MAR Reviewed: Yes Vital Signs & Weight: Vital Signs (12 hours) Temp Pulse Resp BP BP Pulse Ox 12/17/17 11:32 98.3 F 60 16 105/57 L 92 L 12/17/17 08:28 60 12/17/17 07:10 98.8 F 60 20 146/74 H 92 L 12/17/17 03:52 98.2 F 73 18 115/62 95 Weight Weight 242 lb 11.2 oz I&O: 12/16/17 12/17/17 12/18/17 06:59 06:59 06:59 Intake Total 230 500 Output Total 1350 1150 100 Balance -1120 -650 -100 Result Diagrams: 12/16/17 03:22 12/16/17 03:22 Phys Exam - Physical Examination HEENT: PERRLA, moist MMs, sclera anicteric, TM's clear, oral pharynx no lesions , 2+ tonsils Neck: no nodes, no JVD, supple, full ROM Respiratory: no wheezing, no rales, no rhonchi, wheezing present, clear to auscultation bilateral Cardiovascular: RRR, no significant murmur, no rub, gallop, irregular Gastrointestinal: soft, non-tender, no distention, positive bowel sounds Musculoskeletal: no edema, pulses present Neurological: non-focal, normal sensation, moves all 4 limbs Psychiatric: normal affect, A&O x 3 Skin: no rash, normal turgor, cap refill <2 seconds Dx/Plan (1) Unstable angina Status: Acute (2) Afib Code(s): I48.91 - UNSPECIFIED ATRIAL FIBRILLATION Status: Chronic Qualifiers: Comment: continue home medcine (3) Coronary artery disease Code(s): I25.10 - ATHSCL HEART DISEASE OF [place] CORONARY ARTERY W/O ANG PCTRS Status: Chronic Qualifiers: Coronary Disease-Associated Artery/Lesion type: [place] artery Associated angina: with unstable angina Comment: continue home meds, reversible ischemia on stress test, WILLIAM Lopez , Cath soon. (4) DM type 2 (diabetes mellitus, type 2) Status: Chronic Qualifiers: Diabetes mellitus half-way insulin use: without terminal make up operator use Diabetes mellitus complication status: with circulatory complication Diabetes mellitus complication detail: with other circulatory complications Qualified Code(s): E11.59 - Type 2 diabetes mellitus with other circulatory complications - Plan cont current plan of care, plan discussed w/ family, out of bed/ambulate, DVT proph w/lovenox * .
--- NOTE | 2017-12-17 15:50 | CON ---
DATE OF CONSULTATION: 12/17/2017 HISTORY OF PRESENT ILLNESS: The patient is a pleasant 77-year-old gentleman with a long history of c oronary artery disease who presents with recurrent chest discomfort. The patient underwent coronary angioplasty back in the . More recently, the patient presented with unstable angina in 12/2016 and underwent cardiac catheterization and he was found to have severe coronary artery disease. He scott bsequently underwent PTCA and stent placement. He also has a history of placement of PTCA and stent placement of left circumflex and right coronary and posterior left ventricular branch. The patient a lso has a history of placement of an electronic ventricular pacemaker. The patient states that he smith s been having left-sided chest pain that occurs with and without exertion. The patient states he had an episode that lasted 15 minutes yesterday where he became very weak. He came to the emergency [facility] for further evaluation. The patient denies having any present chest discomfort. PAST MEDICAL HISTORY: Significant for, 1. Coronary artery disease. 2. Hypertension. 3. Dyslipidemia. 4. Chronic renal insufficiency. 5. History of pacemaker placement. PAST SURGICAL HISTORY: He had carotid endarterectomy. SOCIAL HISTORY: Former smoker. FAMILY HISTORY: Strong family history of heart disease. ALLERGIES: None. MEDICATIONS: See nursing list. REVIEW OF SYSTEMS: Ten-point system otherwise unremarkable. PHYSICAL EXAMINATION: GENERAL: Obese gentleman in no acute distress. VITAL SIGNS: Blood pressure 105/57. NECK: No jugular venous distention. LUNGS: Clear to auscultation. HEART: Regular rate and rhythm, normal S1, S2. ABDOMEN: Nondistended. EXTREMITIES: Showed trace edema. LABORATORY DATA AND IMAGING DATA: Sodium 140, potassium 4.0, chloride 108, bicarbonate 25, BUN 16, c reatinine is 0.97, glucose 120, troponin 0.012. White blood cell count 5.0, hemoglobin 12.2, hematoc rit 38.7, platelets 235. EKG reveals electronic ventricular pacemaker. Laboratory revealed him to h ave evidence of inferior ischemia with an ejection fraction of 53%. IMPRESSION: 1. Unstable angina. 2. History of coronary artery disease, status post percutaneous transluminal coronary angioplasty an d stent placement. 3. Hypertension. 4. History of pacemaker placement. 5. Chronic renal insufficiency. 6. Obesity. This gentleman presents with chest pain suggestive of angina. He has had multiple stents placed. Th ere is evidence of ischemia on his stress testing. Would recommend he undergo repeat cardiac cathete rization. Dr. Patricia will see tomorrow and most likely he will undergo this procedure. We will foll ow this patient with you through this hospitalization.
[2017-12-17] MEDS: Atorvastatin Calcium 40 MG TAB PO SCH (20:26)
[2017-12-18 04:12] LABS: Mean Corpuscular HGB CONC 31.6 g/dL (32.0-36.0); Mean Corpuscular Hemoglobin 25.9 pg (27.0-31.0); Mean Platelet Volume 7.8 fL (7.4-10.4); Platelet Count 233 thou/uL (130-400); RBC Distribution Width 13.2 % (11.5-14.5); Red Blood Cell (RBC) Count 4.65 mill/uL (4.70-6.10); White Blood Cell (WBC) Count 5.4 thou/uL (4.8-10.8)
[2017-12-18 04:29] LABS: Anion Gap 14 mmol/L (10-20); BUN (Urea Nitrogen) 14 mg/dL (8.4-25.7); Calc. Creatinine Clearance 98 mL/min (70-130); Calcium 8.9 mg/dL (7.8-10.44); Carbon Dioxide 21 mmol/L (23-31); Chloride 106 mmol/L (98-107); Estimated GFR-MDRD 87; Glucose 140 mg/dL (83-110); Potassium 4.1 mmol/L (3.5-5.1); Sodium 137 mmol/L (136-145)
[2017-12-18] MEDS: Amlodipine 10 MG TAB PO SCH (05:29)
[2017-12-18] MEDS: Lisinopril 20 MG TAB PO SCH (05:31)
[2017-12-18] MEDS: Carvedilol 25 MG TAB PO SCH ×2 (05:31→20:06)
[2017-12-18] MEDS: Clopidogrel Bisulfate 75 MG TAB PO SCH (05:31)
[2017-12-18] MEDS ORDERED: Lidocaine 1% (PF) 30 ML VIAL ONE (10:24)
[2017-12-18] MEDS ORDERED: Iopamidol 370 76% 50 ML VIAL FS ONE (10:34)
[2017-12-18] MEDS ORDERED: Iopamidol 370 76% 100 ML VIAL ONE (10:34)
[2017-12-18] MEDS ORDERED: Fentanyl 100 MCG/2 ML VIAL ONE (11:26)
[2017-12-18] MEDS ORDERED: Midazolam HCl 2 mg/2 ml Vial ONE (11:26)
[2017-12-18] MEDS ORDERED: Heparin 10,000 UNITS/1 ML VIAL ONE (11:40)
[2017-12-18] MEDS ORDERED: Clopidogrel Bisulfate 300 MG TAB ONE (11:55)
[2017-12-18] MEDS: Furosemide 40 MG TAB PO SCH (11:56)
[2017-12-18] MEDS: Multivitamin W/ Minerals 1 TAB PO SCH (11:56)
[2017-12-18] MEDS: Folic Acid 1 MG TAB PO SCH (11:56)
[2017-12-18] MEDS ORDERED: Sodium Chloride 0.9% 1,000 ML IV SCH (12:45)
--- NOTE | 2017-12-18 19:00 | PDOC.PN ---
- Subjective Encounter Start Date: 12/18/17 Encounter Start Time: 08:00 Patient seen and examined for [facility]. No CP. No new complaints. No overnight events - Objective Resuscitation Status: Resuscitation Status FULL:Full Resuscitation MAR Reviewed: Yes Vital Signs & Weight: Vital Signs (12 hours) Temp Pulse Resp BP Pulse Ox 12/18/17 08:15 93 L 12/18/17 08:05 97.9 F 63 18 149/69 H 93 L Weight Weight 241 lb 11.2 oz I&O: 12/17/17 12/18/17 12/19/17 06:59 06:59 06:59 Intake Total 500 240 Output Total 1150 525 Balance -650 -285 Result Diagrams: 12/18/17 03:26 12/18/17 03:26 EKG Reviewed by me: Yes (Tele SR) Phys Exam - Physical Examination Constitutional: NAD Respiratory: no wheezing, no rhonchi Cardiovascular: RRR, no rub Gastrointestinal: soft, non-tender, positive bowel sounds Musculoskeletal: no edema Neurological: moves all 4 limbs Dx/Plan - Plan DVT proph w/SCDs 1. Unstable angina Cath today Cont ASA/Coreg/Lisinopril and Statins 2. HTN Cont above meds 3. DM2 - A1c 7.6 Consult [employer] 4. HLD Cont Statins 5. Obesity BMI 31 6. CKD 2 / Other issues per previous notes Review of Systems - Review of Systems Respiratory: negative: Cough, Dry, Shortness of Breath, Hemoptysis, SOB with Excertion, Pleuritic Pain, Sputum, Wheezing Cardiovascular: negative: chest pain, palpitations, orthopnea, paroxysmal nocturnal dyspnea, edema, light headedness, other - Medications/Allergies Allergies/Adverse Reactions: Allergies Allergy/AdvReac Type Severity Reaction Status Date / Time No Known Allergies Allergy Verified 12/22/16 03:30 Medications: Current Medications Acetaminophen (Tylenol) 650 mg PO Q4H PRN PRN Reason: Headache/Fever/Mild Pain (1-3) Amlodipine Besylate (Norvasc) 10 mg PO DAILY [facility] Last Admin: 12/18/17 05:29 Dose: 10 mg Aspirin (Aspirin Chewable) 81 mg PO DAILY [facility] Last Admin: 12/18/17 05:31 Dose: 81 mg Atorvastatin Calcium (Lipitor) 80 mg PO HS [facility] Last Admin: 12/17/17 20:26 Dose: 80 mg Carvedilol (Coreg) 25 mg PO BID [facility] Last Admin: 12/18/17 05:31 Dose: 25 mg Clopidogrel Bisulfate (Plavix) 75 mg PO DAILY [facility] Last Admin: 12/18/17 05:31 Dose: 75 mg Folic Acid (Folvite) 1 mg PO DAILY [facility] Last Admin: 12/18/17 11:56 Dose: Not Given Furosemide (Lasix) 40 mg PO DAILY [facility] Last Admin: 12/18/17 11:56 Dose: Not Given Iron/Minerals/Multivitamins (Theragran M) 1 tab PO DAILY [facility] Last Admin: 12/18/17 11:56 Dose: Not Given Lisinopril (Zestril) 40 mg PO DAILY [facility] Last Admin: 12/18/17 05:31 Dose: 40 mg Nitroglycerin (Nitrostat) 0.4 mg SL Q5MIN PRN PRN Reason: Chest Pain Ondansetron HCl (Zofran Odt) 4 mg PO Q6H PRN PRN Reason: Nausea/Vomiting Thiamine HCl (Thiamine) 100 mg PO DAILY [facility] Last Admin: 12/18/17 11:56 Dose: Not Given Zolpidem Tartrate (Ambien) 5 mg PO HSPRN PRN PRN Reason: Insomnia
[2017-12-18] MEDS: Atorvastatin Calcium 40 MG TAB PO SCH (20:05)
[2017-12-19 04:19] LABS: #Eosinphils 0.3 thou/uL (0.0-0.7); #Lymphocytes 1.7 thou/uL (1.20-3.40); #Monocytes 0.6 thou/uL (0.11-0.59); #Neutrophils 2.6 thou/uL (1.40-6.50); %Basophils 0.5 % (0.0-1.0); %Eosinophils 5.4 % (0.0-10.0); %Lymphocytes 33.1 % (21.0-51.0); %Monocytes 11.1 % (0.0-10.0); %Neutrophils 49.8 % (42.0-75.0); Hemoglobin 12.6 g/dL (14.0-18.0); Mean Corpuscular HGB CONC 31.9 g/dL (32.0-36.0); Mean Corpuscular Hemoglobin 26.2 pg (27.0-31.0); Mean Corpuscular Volume 82.1 fL (78.0-98.0); Mean Platelet Volume 7.8 fL (7.4-10.4); Platelet Count 232 thou/uL (130-400); RBC Distribution Width 13.2 % (11.5-14.5); Red Blood Cell (RBC) Count 4.81 mill/uL (4.70-6.10); White Blood Cell (WBC) Count 5.2 thou/uL (4.8-10.8)
[2017-12-19 04:39] LABS: ALT (SGPT) 21 U/L (8-55); AST (SGOT) 22 U/L (5-34); Albumin 3.8 g/dL (3.4-4.8); Alkaline Phosphatase 92 U/L (40-150); Anion Gap 13 mmol/L (10-20); BUN (Urea Nitrogen) 14 mg/dL (8.4-25.7); Bilirubin, Total 0.5 mg/dL (0.2-1.2); Calc. Creatinine Clearance 97 mL/min (70-130); Calcium 9.1 mg/dL (7.8-10.44); Carbon Dioxide 20 mmol/L (23-31); Chloride 109 mmol/L (98-107); Estimated GFR-MDRD 86; Globulin 3.4 g/dL (2.4-3.5); Glucose 123 mg/dL (83-110); Magnesium 2.2 mg/dL (1.6-2.6); Potassium 4.2 mmol/L (3.5-5.1); Protein, Total 7.2 g/dL (5.8-8.1); Sodium 138 mmol/L (136-145)
[2017-12-19 05:30] VITALS: BMI 30.9
[2017-12-19] MEDS: Furosemide 40 MG TAB PO SCH (08:36)
[2017-12-19] MEDS: Carvedilol 25 MG TAB PO SCH (08:36)
[2017-12-19] MEDS: Folic Acid 1 MG TAB PO SCH (08:36)
[2017-12-19] MEDS: Multivitamin W/ Minerals 1 TAB PO SCH (08:36)
[2017-12-19] MEDS: Amlodipine 10 MG TAB PO SCH (08:36)
[2017-12-19] MEDS: Clopidogrel Bisulfate 75 MG TAB PO SCH (08:36)
[2017-12-19] MEDS: Lisinopril 20 MG TAB PO SCH (08:41)
--- NOTE | 2017-12-19 08:51 | EKG ---
Test Reason : POST STENTS Blood Pressure : / mmHG Vent. Rate : 060 BPM Atrial Rate : 060 BPM P-R Int : 136 ms QRS Dur : 160 ms QT Int : 472 ms P-R-T Axes : 037 -52 131 degrees QTc Int : 472 ms AV sequential or dual chamber electronic pacemaker When compared with ECG of 15-DEC-2017 13:32, (Unconfirmed) Vent. rate has decreased BY [address] Yelitza BRYSON ([id number]) on 12/19/2017 8:50:41 AM Referred By: CORI Confirmed By:DR. Yelitza BRYSON
[2017-12-19 11:46] VITALS: BP 150/70; TEMP 98.1
--- NOTE | 2017-12-19 15:00 | EKG ---
Test Reason : Blood Pressure : / mmHG Vent. Rate : 064 BPM Atrial Rate : 064 BPM P-R Int : 156 ms QRS Dur : 190 ms QT Int : 484 ms P-R-T Axes : 032 -52 117 degrees QTc Int : 499 ms Electronic ventricular pacemaker When compared with ECG of 18-DEC-2017 13:51, (Unconfirmed) Vent. rate has increased BY [address] Yelitza BRYSON ([id number]) on 12/19/2017 3:00:09 PM Referred By: CORI Confirmed By:DR. Yelitza BRYSON
--- NOTE | 2017-12-19 22:53 | DIS ---
DATE OF ADMISSION: 12/17/2017 DATE OF DISCHARGE: 12/19/2017 DISCHARGE DISPOSITION: Home. FOLLOWUP: Follow up with primary care physician at [facility] in 1 week. Follow up with Dr. Harshad ho Cardiology in 2 weeks. ALLERGIES: No known drug allergies. The patient was seen and examined on the day of discharge. Denies any new complaints. No chest pain , shortness of breath or palpitations. DISCHARGE MEDICATIONS: Same as admission medication. The patient will continue aspirin and Plavix. Sublingual nitroglycerin was added. BRIEF HOSPITAL COURSE: The patient is a 77-year-old male with coronary artery disease who presented to the hospital on 12/15/2017 with chest discomfort. Please refer to the history and physical dated 12/15/[address] Jewels Taylor for further details. The patient was admitted to the hospital with a diagnosis of unstable angina. Troponins remain negat liv. He was evaluated by Cardiology, Dr. Patricia. A cardiac catheterization was performed on 018 with stent placement to the RCA. The patient was found to have severe in-stent restenosis on the RCA. Lifestyle modification was emphasized. He was monitored overnight after stent placement. His creatinine on the day of discharge is 1.02 from 1.48 on admission. He has been cleared by consultan ts for discharge. FINAL DIAGNOSES: 1. Unstable angina. 2. Hypertension. 3. Diabetes mellitus type 2. 4. Hyperlipidemia. 5. Obesity with a BMI of 31. 6. Chronic kidney disease stage 2. 7. Coronary artery disease, status post RCA stent placement this admission for severe in-stent reste nosis.
== END 2017-12-19 13:38 | disposition home or self-care (01) | DRG 247 ==
LOC: ERS 13:23 → 2SW 17:29 → OBSVTOIN 12-17 19:06
PROVIDERS: ADMIT Internal Medicine; ATTEND Internal Medicine
PROC: 027034Z Dilation of Coronary Artery, One Artery with Drug-eluting Intraluminal Device, Percutaneous Approach (ICD-10-PCS; principal; 2017-12-17)
PROC: 4A023N7 Measurement of Cardiac Sampling and Pressure, Left Heart, Percutaneous Approach (ICD-10-PCS; 2017-12-17)
PROC: B2111ZZ Fluoroscopy of Multiple Coronary Arteries using Low Osmolar Contrast (ICD-10-PCS; 2017-12-17)
PROC: B2151ZZ Fluoroscopy of Left Heart using Low Osmolar Contrast (ICD-10-PCS; 2017-12-17)
DX: I25.110 Atherosclerotic heart disease of native coronary artery with unstable angina pectoris (principal); I13.0 Hypertensive heart and chronic kidney disease with heart failure and stage 1 through stage 4 chronic kidney disease, or unspecified chronic kidney disease; I50.32 Chronic diastolic (congestive) heart failure; T82.855A Stenosis of coronary artery stent, initial encounter; I48.91 Unspecified atrial fibrillation; E11.22 Type 2 diabetes mellitus with diabetic chronic kidney disease; N18.3 Chronic kidney disease, stage 3 (moderate); E66.9 Obesity, unspecified; E78.5 Hyperlipidemia, unspecified; Z79.899 Other long term (current) drug therapy; Z79.82 Long term (current) use of aspirin; Z79.02 Long term (current) use of antithrombotics/antiplatelets; Z95.0 Presence of cardiac pacemaker; Z87.891 Personal history of nicotine dependence; Z68.31 Body mass index [BMI] 31.0-31.9, adult
CPT/HCPCS: 36415; 71045; 78452; 80048; 80053; 81003; 82553; 83036; 83690; 83735; 83880; 84484; 85025; 85027; 85347; 92928; 93005; 93010; 93017; 93454; 99152; 99153; A9500; C1769; C1874; C1887; C9600; J1644; J1650; J2001; J2250; J2785; J3010

== ENCOUNTER 2018-05-06 07:07 | Emergency (ER) | payer OTHER, MEDICARE ==
[2018-05-06 07:48] LABS: #Eosinphils 0.3 thou/uL (0.0-0.7); #Lymphocytes 1.6 thou/uL (1.20-3.40); #Monocytes 0.5 thou/uL (0.11-0.59); #Neutrophils 3.1 thou/uL (1.40-6.50); %Basophils 0.9 % (0.0-1.0); %Eosinophils 4.7 % (0.0-10.0); %Lymphocytes 29.4 % (21.0-51.0); %Monocytes 8.9 % (0.0-10.0); %Neutrophils 56.1 % (42.0-75.0); Hemoglobin 12.2 g/dL (14.0-18.0); Mean Corpuscular HGB CONC 32.7 g/dL (32.0-36.0); Mean Corpuscular Hemoglobin 25.6 pg (27.0-31.0); Mean Corpuscular Volume 78.2 fL (78.0-98.0); Mean Platelet Volume 8.7 fL (7.4-10.4); Platelet Count 223 thou/uL (130-400); RBC Distribution Width 13.8 % (11.5-14.5); Red Blood Cell (RBC) Count 4.77 mill/uL (4.70-6.10); White Blood Cell (WBC) Count 5.5 thou/uL (4.8-10.8)
[2018-05-06 08:07] LABS: ALT (SGPT) 24 U/L (8-55); AST (SGOT) 20 U/L (5-34); Albumin 4.1 g/dL (3.4-4.8); Alkaline Phosphatase 133 U/L (40-150); Anion Gap 14 mmol/L (10-20); BUN (Urea Nitrogen) 17 mg/dL (8.4-25.7); Bilirubin, Total 0.5 mg/dL (0.2-1.2); Calc. Creatinine Clearance 0 mL/min (70-130); Calcium 9.8 mg/dL (7.8-10.44); Carbon Dioxide 25 mmol/L (23-31); Chloride 103 mmol/L (98-107); Estimated GFR-MDRD 63; Globulin 3.8 g/dL (2.4-3.5); Glucose 361 mg/dL (83-110); Potassium 4.2 mmol/L (3.5-5.1); Protein, Total 7.9 g/dL (5.8-8.1); Sodium 138 mmol/L (136-145)
--- NOTE | 2018-05-06 09:10 | CT ---
FCT angiogram of brain with and without contrast: DATE: 05/06/2018 12:00 AM HISTORY: Weakness and dizziness COMPARISON: CT of the brain dated August 18, 2015 TECHNIQUE: Noncontrast brain CT performed. Iodinated IV contrast injected. Bolus chasing technique scan performed through the head. Coronal and sagittal 3-D MIP reconstructions. FINDINGS: There is stable moderate chronic small vessel white matter ischemic change. There has been interval d evelopment of a small hypodensity involving the right thalamus on image 14 of series 2 which may refl ect interval remote right thalamic lacunar infarct. No acute infarct, hemorrhage or hydrocephalus is evident. No midline shift is noted. The skull and extrarenal soft tissues appear within normal limits . There are moderate calcifications involving the cavernous and supraclinoid ICAs bilaterally. No hemod ynamically significant stenosis, occlusion or aneurysmal formation is evident. No abnormal region of enhancement is noted. IMPRESSION: No hemodynamically significant stenosis, occlusion or aneurysmal dilation. Stable moderate chronic sm all vessel white matter ischemic change. Interval remote appearing right thalamic lacunar infarct whe n compared to a prior dated August 18, 2015.
[2018-05-06 10:10] LABS: Bilirubin Negative (Negative); Blood, Urine Trace (Negative); Glucose, Urine (Dipstick) >=1000 mg/dL (Negative); Leukocyte Negative (Negative); Nitrite Negative (Negative); Protein, Urine (Dipstick) Negative (Neg-Trace); Urobilinogen 0.2 mg/dL (0.2-1.0)
[2018-05-06 10:13] LABS: Clarity Clear (Clear)
[2018-05-06 10:22] LABS: Bacteria/HPF None Seen HPF (None Seen); Hyaline Casts/LPF NONE SEEN LPF (0-3 Hyaline); RBC/HPF 0-3 HPF (0-3); Squamous Epithelial None Seen HPF (0-3); WBC/HPF 0-3 HPF (0-3)
[2018-05-06] MEDS ORDERED: Aspirin Chewable 81 MG TAB ONE (11:58)
[2018-05-06] MEDS ORDERED: ISOVUE-370 76%-LOCM 1 ML ONE (15:42)
== END 2018-05-06 14:04 | disposition short-term general hospital (02) ==
LOC: ERS 07:07
DX: R42 Dizziness and giddiness (principal); I25.10 Atherosclerotic heart disease of native coronary artery without angina pectoris; E78.5 Hyperlipidemia, unspecified; E11.9 Type 2 diabetes mellitus without complications; I11.0 Hypertensive heart disease with heart failure; I50.9 Heart failure, unspecified; Z79.891 Long term (current) use of opiate analgesic; Z79.82 Long term (current) use of aspirin; Z79.899 Other long term (current) drug therapy
CPT/HCPCS: 70496; 80053; 81003; 81015; 84484; 85025; 93005; 96360; Q9966

== ENCOUNTER 2018-05-11 09:25 | Emergency (ER) | payer OTHER, MEDICARE ==
[2018-05-11 10:46] LABS: #Eosinphils 0.3 thou/uL (0.0-0.7); #Monocytes 0.5 thou/uL (0.11-0.59); #Neutrophils 2.3 thou/uL (1.40-6.50); %Basophils 0.6 % (0.0-1.0); %Eosinophils 6.4 % (0.0-10.0); %Lymphocytes 24.5 % (21.0-51.0); %Monocytes 12.2 % (0.0-10.0); %Neutrophils 56.4 % (42.0-75.0); Hemoglobin 10.9 g/dL (14.0-18.0); Mean Corpuscular HGB CONC 32.7 g/dL (32.0-36.0); Mean Corpuscular Hemoglobin 25.8 pg (27.0-31.0); Mean Corpuscular Volume 79.1 fL (78.0-98.0); Mean Platelet Volume 8.6 fL (7.4-10.4); Platelet Count 219 thou/uL (130-400); RBC Distribution Width 13.7 % (11.5-14.5); Red Blood Cell (RBC) Count 4.21 mill/uL (4.70-6.10); White Blood Cell (WBC) Count 4.1 thou/uL (4.8-10.8)
[2018-05-11 11:09] LABS: Anion Gap 10 mmol/L (10-20); BUN (Urea Nitrogen) 14 mg/dL (8.4-25.7); Calc. Creatinine Clearance 0 mL/min (70-130); Carbon Dioxide 25 mmol/L (23-31); Chloride 104 mmol/L (98-107); Estimated GFR-MDRD 68; Glucose 268 mg/dL (83-110); Sodium 135 mmol/L (136-145)
== END 2018-05-11 11:37 | disposition home or self-care (01) ==
LOC: ERS 09:25
DX: E11.65 Type 2 diabetes mellitus with hyperglycemia (principal); E11.319 Type 2 diabetes mellitus with unspecified diabetic retinopathy without macular edema; E78.5 Hyperlipidemia, unspecified; I25.10 Atherosclerotic heart disease of native coronary artery without angina pectoris; I11.0 Hypertensive heart disease with heart failure; I50.9 Heart failure, unspecified
CPT/HCPCS: 36415; 36416; 80048; 85025; 99284

== ENCOUNTER 2018-11-21 16:44 | Observation (INO) | payer MEDICARE, OTHER ==
--- NOTE | 2018-11-21 18:01 | RAD ---
Frontal view chest COMPARISON: 12/15/2017 CLINICAL HISTORY: Short of breath FINDINGS: There is enlargement of the cardiac silhouette and prominence of pulmonary vasculature. Pat holly bibasilar densities are present. There is left-sided cardiac pacing device redemonstrated. Leads overlie the chest limiting detail. IMPRESSION: CHF. Transcribed Date/Time: 11/21/2018 6:14 PM
[2018-11-21 18:48] LABS: #Eosinphils 0.3 thou/uL (0.0-0.7); #Lymphocytes 1.5 thou/uL (1.20-3.40); #Monocytes 0.5 thou/uL (0.11-0.59); %Basophils 0.3 % (0.0-1.0); %Eosinophils 4.3 % (0.0-10.0); %Lymphocytes 20.1 % (21.0-51.0); %Monocytes 6.6 % (0.0-10.0); %Neutrophils 68.8 % (42.0-75.0); Hemoglobin 10.9 g/dL (14.0-18.0); Mean Corpuscular HGB CONC 32.7 g/dL (32.0-36.0); Mean Corpuscular Hemoglobin 25.8 pg (27.0-31.0); Mean Platelet Volume 7.9 fL (7.4-10.4); Platelet Count 210 thou/uL (130-400); RBC Distribution Width 14.3 % (11.5-14.5); Red Blood Cell (RBC) Count 4.23 mill/uL (4.70-6.10); White Blood Cell (WBC) Count 7.3 thou/uL (4.8-10.8)
[2018-11-21 19:10] LABS: ALT (SGPT) 16 U/L (8-55); AST (SGOT) 18 U/L (5-34); Albumin 3.7 g/dL (3.4-4.8); Alkaline Phosphatase 96 U/L (40-110); Anion Gap 13 mmol/L (10-20); BUN (Urea Nitrogen) 18 mg/dL (8.4-25.7); Bilirubin, Total 0.3 mg/dL (0.2-1.2); Calc. Creatinine Clearance 0 mL/min (70-130); Calcium 8.8 mg/dL (7.8-10.44); Carbon Dioxide 25 mmol/L (23-31); Chloride 107 mmol/L (98-107); Estimated GFR-MDRD 73; Globulin 3.4 g/dL (2.4-3.5); Glucose 137 mg/dL (83-110); Potassium 3.5 mmol/L (3.5-5.1); Protein, Total 7.1 g/dL (5.8-8.1); Sodium 141 mmol/L (136-145)
[2018-11-21] MEDS ORDERED: Furosemide 40 MG/4 ML VIAL ONE (19:46)
[2018-11-21] MEDS ORDERED: Nitroglycerin 0.4 MG TAB (25 Tab Bottle) PO PRN (21:08)
[2018-11-21 22:03] VITALS: BMI 30.9
[2018-11-21] MEDS ORDERED: Acetaminophen 325 MG TAB PO PRN (22:06)
[2018-11-21] MEDS ORDERED: Ondansetron PF 4 MG/2 ML Vial IVP PRN (22:06)
[2018-11-21] MEDS ORDERED: Ondansetron ODT 4 MG TAB SL PRN (22:06)
--- NOTE | 2018-11-21 22:10 | PDOC.EVN ---
Event Note - Event Note Event Note: [id number]
[2018-11-21] MEDS ORDERED: Nitroglycerin 0.4 MG TAB (25 Tab Bottle) SL PRN (23:15)
[2018-11-22] MEDS: Carvedilol 25 MG TAB PO SCH ×3 (00:07→21:14)
[2018-11-22] MEDS: Amlodipine 10 MG TAB PO SCH ×2 (00:07→21:13)
[2018-11-22] MEDS ORDERED: Simethicone Chewable 80 MG TAB PO PRN (00:38)
--- NOTE | 2018-11-22 00:56 | HP ---
CHIEF COMPLAINT: Chest pain and shortness of breath. HISTORY OF PRESENT ILLNESS: Mr. Leal is a 78-year-old male with past medical history of coronary artery disease, COPD, congestive heart failure, atrial fibrillation, hypertension, type 2 diabetes, pacemaker, among others, presents to the emergency room with chest pain and shortness of breath. Initial workup in the emergency room including initial cardiac enzymes 0.02. BNP 74. Chest x-ray shows pulmonary vascular congestion. The patient is being admitted to the hospital for further management. The patient denies fevers, chills, nausea, vomiting, or abdominal pain. PAST MEDICAL HISTORY: 1. Hyperlipidemia. 2. Coronary artery disease. 3. Diabetes, type 2. 4. Hypertension. 5. Congestive heart failure. PAST SURGICAL HISTORY: 1. Cardiac pacemaker. 2. Balloon stents, carotid endarterectomy. SOCIAL HISTORY: He is a former cigarette smoker. Denies alcohol drinking. FAMILY HISTORY: Reviewed and noncontributory. HOME MEDICATIONS: Please see home medication reconciliation form for updated medications. ALLERGIES: NO KNOWN ALLERGIES. REVIEW OF SYSTEMS: Review of 14 systems negative except what is mentioned in the history of present illness. PHYSICAL EXAMINATION: GENERAL: The patient is awake, alert, in moderate distress. VITAL SIGNS: Blood pressure 117/75, pulse is 74, respiratory rate is 23, temperature 98.3, pulse oximetry is 92% on room air. HEAD AND NECK: Normocephalic, atraumatic. Neck is supple. No JVD. CHEST: Fair bilateral air entry. HEART: S1, S2. Regular. ABDOMEN: Soft, nontender. Bowel sounds present. NEUROLOGIC: Awake, alert, oriented. PSYCH: Normal mood. EXTREMITIES: No clubbing or cyanosis. EKG shows sinus rhythm with fusion complexes, nonspecific ST changes. LABORATORY DATA: As mentioned above in the history of present illness. ASSESSMENT: 1. Acute chest pain, rule out acute pain syndrome. 2. Acute dyspnea. 3. Hypertension. 4. Coronary artery disease. 5. Diabetes mellitus, type 2. 6. Congestive heart failure, chronic. PLAN: 1. Admit. 2. Telemetry monitoring. 3. Serial cardiac enzymes. 4. Aspirin. 5. Reconcile home medications. 6. We will keep the patient n.p.o. after midnight to be assessed in the morning for possible stress testing versus further cardiac workup. 7. DVT prophylaxis, SCDs/early ambulation. 8. Expected length of stay at least 1 midnight if patient is stable and further workup negative. Job ID: [id number]
[2018-11-22 01:08] LABS: Troponin I 0.046 ng/mL (< 0.028)
[2018-11-22] MEDS ORDERED: Dextrose 5% in Water 1,000 ML IV PRN (04:17)
[2018-11-22] MEDS ORDERED: Dextrose 50% Abboject 50 ML SYRINGE SLOW IVP PRN (04:17)
[2018-11-22] MEDS: Lisinopril 20 MG TAB PO SCH (08:01)
[2018-11-22] MEDS: Furosemide 40 MG TAB PO SCH (08:01)
[2018-11-22] MEDS: Folic Acid 1 MG TAB PO SCH (08:02)
[2018-11-22] MEDS: Enoxaparin Sodium 40 MG/0.4 ML SYRINGE SC SCH (08:02)
[2018-11-22] MEDS: Thiamine 100 MG TAB PO SCH (08:02)
[2018-11-22] MEDS: Aspirin 325 mg Enteric Coated Tablet PO SCH (08:02)
--- NOTE | 2018-11-22 17:43 | PDOC.HOSPP ---
- Subjective Encounter Date: 11/22/18 Encounter Time: 17:30 Subjective: f/u for CP and known CAD s/p multiple stents with elevated troponin. Current mgmt with ASA, Coreg, Lisinopril. - Objective Vital Signs & Weight: Vital Signs (12 hours) Temp Pulse Resp BP Pulse Ox 11/22/18 15:25 98.5 F 69 16 116/58 L 98 11/22/18 11:00 98.5 F 69 16 151/68 H 95 11/22/18 07:00 98.3 F 70 18 144/67 H 98 Weight Weight 230 lb 1.6 oz I&O: 11/21/18 11/22/18 11/23/18 06:59 06:59 06:59 Intake Total 480 Output Total 1350 Balance -870 Result Diagrams: 11/21/18 18:39 11/21/18 18:39 Additional Labs: Accuchecks 11/22/18 11/22/18 11/22/18 16:39 11:12 06:14 POC Glucose 108 102 101 11/21/18 22:20 POC Glucose 113 H EKG Reviewed by me: Yes (Tele - SR) Hospitalist ROS - Medication Medications: Active Medications Generic Name Dose Route Start Last Admin Trade Name Freq PRN Reason Stop Dose Admin Amlodipine Besylate 10 mg 11/22/18 21:00 11/22/18 00:07 Norvasc PO 10 mg HS YESENIA Administration Aspirin 325 mg 11/22/18 09:00 11/22/18 08:02 Ecotrin PO 325 mg DAILY YESENIA Administration Carvedilol 25 mg 11/22/18 09:00 11/22/18 08:02 Coreg PO Not Given BID YESENIA Enoxaparin Sodium 40 mg 11/22/18 09:00 11/22/18 08:02 Lovenox SC 40 mg 0900 YESENIA Administration Folic Acid 1 mg 11/22/18 09:00 11/22/18 08:02 Folvite PO 1 mg DAILY YESENIA Administration Furosemide 40 mg 11/22/18 09:00 11/22/18 08:01 Lasix PO 40 mg DAILY YESENIA Administration Lisinopril 40 mg 11/22/18 09:00 11/22/18 08:01 Zestril PO 40 mg DAILY YESENIA Administration Simethicone 80 mg 11/22/18 00:38 11/22/18 00:46 Mylicon Chewable PO 80 mg PCHS PRN Administration Gas Pain Sodium Chloride 10 ml 11/22/18 09:00 11/22/18 08:02 Flush - Normal Saline IVF 10 ml Q12HR YESENIA Administration Thiamine HCl 100 mg 11/22/18 09:00 11/22/18 08:02 Thiamine PO 100 mg DAILY YESENIA Administration - Exam General Appearance: NAD, awake alert Eye: PERRL, anicteric sclera ENT: normocephalic atraumatic, no oropharyngeal lesions Neck: supple, symmetric, no JVD, no thyromegaly Heart: RRR, no gallops, no rubs, normal peripheral pulses Respiratory: no rales, no ronchi Respiratory - other findings: diminished in bases Gastrointestinal: soft, non-tender, non-distended, normal bowel sounds, no palpable masses Extremities: no cyanosis, no clubbing, no edema Skin: normal turgor, no lesions Neurological: cranial nerve grossly intact, no focal deficits, no new deficit Musculoskeletal: normal tone, normal strength Psychiatric: normal affect, A&O x 3 Hosp A/P (1) Chest pain Code(s): R07.9 - CHEST PAIN, UNSPECIFIED Status: Acute Plan: Suspect angina given extensive CAD hx, continue ASA, appreciate Cardiology assistance, Cardiolite stress test pending, check 2D echo, consider Imdur for home (2) Dyspnea Code(s): R06.00 - DYSPNEA, UNSPECIFIED Status: Acute Plan: Suspect chronic component given hx of COPD, no acute exacerbation (3) Coronary artery disease Code(s): I25.10 - ATHSCL HEART DISEASE OF [place] CORONARY ARTERY W/O ANG PCTRS Status: Chronic Qualifiers: Coronary Disease-Associated Artery/Lesion type: [place] artery Associated angina: with unstable angina Plan: Continue ASA, Coreg, Lisinopril (4) DM type 2 (diabetes mellitus, type 2) Status: Chronic Qualifiers: Diabetes mellitus prison insulin use: without intermediate manager use Diabetes mellitus complication status: with circulatory complication Diabetes mellitus complication detail: with other circulatory complications Qualified Code(s): E11.59 - Type 2 diabetes mellitus with other circulatory complications Plan: Resume home Glargine, Metformin (5) HTN (hypertension) Code(s): I10 - ESSENTIAL (PRIMARY) HYPERTENSION Status: Chronic Qualifiers: Hypertension type: essential hypertension Qualified Code(s): I10 - Essential (primary) hypertension Plan: Continue Coreg, Amlodipine and Lisinopril - Plan respiratory therapy, out of bed/ambulate, DVT proph w/SCDs Stable currently 2D Echo pending Cardiolite Stress test pending Continue ASA/Coreg/Amlodipine Appreciate Cardiology assistance
[2018-11-22] MEDS ORDERED: FLU VACC TS2019-20(65YR UP)/PF 180 MCG/0.5 ML SYRINGE IM ONE (21:00)
[2018-11-22] MEDS: Insulin Glargine 17 UNITS in Pre-Filled Syringe 1 EACH SC SCH (21:13)
--- NOTE | 2018-11-23 01:17 | CON ---
DATE OF CONSULTATION: 11/22/2018 INDICATION FOR CONSULTATION: This is a 78-year-old gentleman with history of coronary artery disease, who presented with chest discomfort and had indeterminate cardiac enzymes. We were asked to see him. He also has multiple risk factors for coronary artery disease. HISTORY OF PRESENT ILLNESS: Please refer the notes already dictated by my nurse practitioner. This is a 78-year-old gentleman, who has a history of coronary artery disease, has undergone angioplasty and stent placement in the past by Dr. Patricia. Most recently, I believe was about one year ago, back in December, where he underwent angioplasty and stent placement to the right coronary artery. Previously, he had undergone angioplasties and stent placements in the past also. At his last cardiac catheterization in December 2017, he had 100% occlusion of the distal right coronary artery posterolateral branch, and the distal right coronary artery was 99% occluded where previous stents had been placed. He did have collateral filling [id number] from the diagonal branch to the distal right coronary artery. He also had severe stenosis noted in the left circumflex at that time and underwent angioplasty and stent placement for two 90% stenosis in the mid left circumflex and also in the second obtuse marginal branch of the left circumflex. These are relatively large size vessels. He underwent stent placement with 3.5 x 16 mm drug-coated stents. He has been doing relatively well, but says within the last week, he started noticing some chest discomfort. He mainly notices it at night, and he gets up and sits in the side of bed, it goes away. He said he could sit in his recliner during the day and does not have chest pain, but he has had 2 other episodes, one when he was walking with carrying some 10-pound bag of potatoes and a carton of milk or jug of milk in the grocery store, and by the time he got to the front, he said he was short of breath and fatigued. It lasted for about 10 minutes and then resolved after he rested, and then he also had an episode yesterday where he was taking the trash out, he said this lasted about 20 minutes. He notices some chest and bilateral arm pain with diaphoresis and shortness of breath and presented to the emergency room. EKG has not showed any significant changes; however, he does have a pacemaker and appears to be pacing. There are many a time he appears to have a bundle-branch block, so it will be very difficult to determine whether or not he has any significant EKG changes that would indicate ischemia. At this time, he is comfortable. He was given nitroglycerin, he said that is yesterday, and then the pain finally resolved but did not resolve immediately. PAST MEDICAL HISTORY: Significant for coronary artery disease as noted above, diabetes, hypertension, dyslipidemia, and history of congestive heart failure. I do not have a recent echocardiogram in this gentleman. He did have an echocardiogram a couple of years ago from what I can determine. I also do not see any ejection fraction noted at the time of last cardiac catheterization. He also has a history of peripheral vascular disease. He has undergone carotid endarterectomy on the right side and he continues to have a bruit on the left side. SOCIAL HISTORY: Please refer to the notes dictated by my nurse practitioner; however, the results are already in the chart by the [facility]. FAMILY HISTORY: Please refer to the notes dictated by my nurse practitioner; however, the results are already in the chart by the [facility]. MEDICATIONS: Please refer to the notes dictated by my nurse practitioner; however, the results are already in the chart by the [facility]. ALLERGIES: PLEASE REFER TO THE NOTES DICTATED BY MY NURSE PRACTITIONER; HOWEVER, THE RESULTS ARE ALREADY IN THE CHART BY THE [facility]. REVIEW OF SYSTEMS: Please refer to the notes dictated by my nurse practitioner; however, the results are already in the chart by the [facility]. PHYSICAL EXAMINATION: GENERAL: An elderly gentleman, who is in no acute distress at this time. VITAL SIGNS: Blood pressure is 116/58. He is afebrile. Heart rates in the 60s to 70s and shows 100% pacing. At this time, respiratory rate is 16 and O2 saturation is 98%. HEENT: Head to be normocephalic and atraumatic. He has a well-healed surgical incision over the right carotid area. He has a very soft bruit of the left carotid area. CHEST: His chest is actually clear to auscultation. CARDIOVASCULAR: Regular rate and rhythm at this time. He has a well-healed surgical incision over the pacemaker site in the left upper infraclavicular area. ABDOMEN: Obesity with positive bowel sounds. EXTREMITIES: No clubbing or cyanosis. I cannot palpate popliteal or pedal pulses. SKIN: Warm and dry. NEUROLOGICAL: He appears to be intact. LABORATORY DATA: Troponin I on admission was 0.02, increased up to 0.06, is now decreased down to 0.04. His chemistries are normal. Creatinine is 1.17. Potassium was 3.5. BNP was 74.5. His WBC was 7.3, hemoglobin was 10.9, and platelet count was 210,000. IMPRESSION: 1. This is an elderly gentleman with a history of significant coronary artery disease. I am uncertain of the ejection fraction. His last echocardiogram in the hospital at least was in 2017. At that time, it showed an ejection fraction of 40% to 45% when he was tachycardic, and it was mentioned on the echocardiogram that when the heart rate was under better control, ejection fraction was 55% to 60%. 2. Coronary artery disease in a gentleman who has undergone angioplasty and stent placement with probable cardiomyopathy, who presents again with chest discomfort. EKG is indeterminate due to the pacing and bundle-branch block pattern. Also, cardiac enzymes are indeterminate. We will continue to monitor the patient overnight. If he does have any further chest pain, may consider stress testing this gentleman, otherwise would suggest he undergo cardiac catheterization for re-evaluation of his coronary artery stents. He may have had restenosis of the circumflex stents. There was no mention of any significant stenosis in the left anterior descending artery. We will keep the patient n.p.o. overnight and make a decision tomorrow morning about whether to proceed with cardiac catheterization versus stress testing. 3. History of hypertension. This appears to be under reasonable control at this time. We will continue his present medications. 4. History of dyslipidemia. We will continue on his statin medications. 5. Diabetes. This will be dealt with by the primary care service. 6. History of peripheral vascular disease. He does have a left carotid bruit. I do not see a recent carotid ultrasound. He has undergone a carotid endarterectomy on the right side before. He has a history of pacemaker insertion, uncertain when the last time the pacemaker was checked. We will try to determine whether or not he has had a recent interrogation of the device. If not, he may need to undergo interrogation of the pacemaker. At this time, he appears to be relatively stable, and further recommendations will depend on the results of the echocardiogram, which has been ordered. We will await the results of that. I do not see that has been performed just yet, the echocardiogram. If he remains stable, would then probably suggest he undergo a stress test tomorrow morning for nuclear evaluation. Job ID: [id number]
--- NOTE | 2018-11-23 08:21 | CON ---
DATE OF CONSULTATION: PRIMARY CARE DOCTOR: [facility] in [place]. PRIMARY [employer] TACTICAL HELICOPTER: Dr. Patricia. REASON FOR CARDIOLOGY CONSULT: Elevated troponin. CAD with stent placement and the last one was in December 2017. HISTORY OF PRESENT ILLNESS: Mr. Leal is a very pleasant 78-year-old male with a significant history of coronary artery disease with multiple stent placements, last procedure was in December 2017; hypertension; hyperlipidemia; type 2 diabetes; atrial fibrillation; and heart failure. The patient was doing relatively well until 1 week ago, when he started having pressure or tightness like pain to epigastric area, which has happened only when he was sleeping in middle of the night. He woke up several times in middle of the night and after when he sat up for 10 to 15 minutes, the patient's symptom resolved. It has happened in the middle of the night, few times at night. However, two days ago, when he was pushing a garbage can outside, he started feeling that similar symptom of pressure and tightness like chest pain at the epigastric area at the daytime around 1600 hours for 20 to 30 minutes. The patient decided to present to the emergency department for further evaluation and treatment since the symptoms patient had in December 2017, and the patient had a stent placement at that time. The patient denied any shortness of breath, dizziness, lightheadedness, or any other cardiac complaints when the patient was having those symptoms. He did not take any nitroglycerin at home since his nitroglycerin is . However, when he was in ambulance, nitroglycerin was given to the patient and that alleviated the patient's symptoms. He has mild similar symptoms last night around 2300 hours. The patient's telemetry record did not show any abnormal rhythm at that time. He also coming now with mild exertion such as when he was walking to the mailbox and coming back, he was so exhausted and he had to rest for 15 to 30 minutes on the chair. He also complained of swelling of bilateral lower extremities for 1 week. The patient had a cardiac catheterization in December 2017 with drug-eluted stent and also the cardiac catheterization showed severe in-stent restenoses in RCA, occluded RPL, filling from left to right collateral. In 2016, the patient had stent placement in left circumflex, RPL, and RCA. The patient had echocardiogram done in December 2016 with EF 40% to 45% with tachycardic and 55% to 60% in sinus rhythm. Moderate left ventricle hypertrophy. Mildly dilated left atrium and mitral valve. Mild to moderate mitral valve regurgitation and mild tricuspid regurgitation. PAST MEDICAL HISTORY: 1. Coronary artery disease with multiple stent placements. 2. Hyperlipidemia. 3. Diabetes, type 2. 4. Hypertension. 5. Systolic congestive heart failure. 6. Atrial fibrillation in the past. PAST SURGICAL HISTORY: Multiple cardiac catheterizations, the last one was in December 2017, which was by Dr. Patricia. Pacemaker placement in 2015. Right CEA in 2011 at [place]. FAMILY HISTORY: There is strong coronary artery disease in the paternal side. The patient's father due to the myocardial infarction at the age of 51. The patient's sister has congenital heart failure. SOCIAL HISTORY: The patient is . The patient does not have any children. The patient is an ex-smoker, quit in 1994. Ex-EtOH abuse, quit in 2011. At that time, the patient had an EtOH withdrawal and the patient has stayed in the hospital for more than 1 month. He does not exercise. ALLERGIES: NO KNOWN DRUG ALLERGIES. HOME MEDICATIONS: 1. Carvedilol 25 mg twice a day. 2. Vitamin B1 of 100 mg once a day. 3. Plavix 75 mg once a day. 4. Aspirin 81 mg once a day. 5. once a day. 6. Folic acid 1 mg once a day. 7. Amlodipine 10 mg once a day. 8. Lasix 40 mg once a day. 9. Multivitamin 1 tablet once a day. 10. Lisinopril 40 mg once a day. 11. Nitroglycerin 0.4 mg sublingual every 5 minutes p.r.n. 12. Metformin 500 mg twice a day. 13. Insulin Lantus 17 units every night. 14. Refresh one drop each eye four times a day. REVIEW OF SYSTEMS: 12-point review of systems is negative unless otherwise mentioned in the HPI. When he takes metformin 2 tablets twice a day, it causes diarrhea; however, if he is on one tablet twice a day, he has not had any abnormal bowel movement. PHYSICAL EXAMINATION: VITAL SIGNS: Blood pressure 116/58, temperature 98.5, pulse is 69 and sinus rhythm, respiratory rate 16, and O2 saturation 98% on room air. GENERAL: The patient is alert and oriented x4, not in acute distress. HEAD: Normocephalic and atraumatic. EYES: Extraocular muscle movement. ENT: Mouth, oral, and nasal mucosa moist without lesion. NECK: Supple. Normal range of motion. No JVD. RESPIRATORY: Clear to auscultate bilaterally. No wheezing, rales, or rhonchi noted. CARDIOVASCULAR: Regular rate and rhythm. Normal S1 and S2. No S3 or S4. No significant murmur, hives, or thrill noted. 2+ pulses in bilateral upper and lower extremities. No edema in the lower extremity at this moment. Carotid pulses are present without bruits or thrill. ABDOMEN: Soft, nontender. No mass to palpate. Bowel sounds are present. MUSCULOSKELETAL: The patient is able to move all extremities. The patient denied claudication in the lower extremities. NEUROLOGIC: The patient is alert and oriented x4. Nonfocal. PSYCHIATRIC: The patient's mood is appropriate. LABORATORY DATA: 12-lead EKG shows V-pacing and heart rate of 70s, with AFib. WBC 7.3, hemoglobin 10.9, hematocrit 33.4, and platelets 210. Sodium 141, potassium 3.5, BUN 18, creatinine 1.17, glucose 137, calcium 8.8, AST 18, and ALT 16. Troponin 0.021, 0.060, and 0.046. BNP 74.5. DIAGNOSTIC DATA: Chest x-ray showing the patient has enlargement of cardiac silhouette and prominence of pulmonary vasculature. ASSESSMENT AND PLAN: 1. Chest pain, acute pain syndrome. The patient underwent cardiac catheterization twice in 2017 and 2017. The patient's cardiac enzyme is negative. The patient's 12-lead EKG does not show the ST-segment change or T-wave inversion. The patient is going to have another stress test tomorrow to rule out any acute coronary artery disease. He has been on carvedilol 25 mg twice a day, aspirin 325 mg, and Plavix. 2. Hypertension. The patient's blood pressure has been stable with current medication. 3. Coronary artery disease with history of stent placement, last case was in December 2017. He has been on aspirin at 325 mg once a day and carvedilol 25 mg twice a day. He is on Lovenox and lisinopril 40 mg once a day. We would like to continue to monitor on the telemetry. 4. Chronic systolic heart failure. Echo in 2017 showed the patient's EF is less than 50%. The patient's condition is stable at this moment with Lasix 40 mg once a day, carvedilol 25 mg twice a day, and lisinopril 40 mg once a day. We would like to continue with current medications. 5. Diabetes, type 2, which is managed by primary care doctor. 6. Pacemaker placement. Since Dr. Patricia is out of office tomorrow, Dr. Leach is going to follow up with this patient. Job ID: [id number]
[2018-11-23] MEDS: Thiamine 100 MG TAB PO SCH (08:55)
[2018-11-23] MEDS: Lisinopril 20 MG TAB PO SCH (08:55)
[2018-11-23] MEDS: Folic Acid 1 MG TAB PO SCH (08:55)
[2018-11-23] MEDS: Aspirin 325 mg Enteric Coated Tablet PO SCH (08:55)
[2018-11-23] MEDS: Enoxaparin Sodium 40 MG/0.4 ML SYRINGE SC SCH (08:56)
[2018-11-23] MEDS: Carvedilol 25 MG TAB PO SCH ×2 (12:47→21:32)
[2018-11-23] MEDS: Furosemide 40 MG TAB PO SCH (12:47)
--- NOTE | 2018-11-23 14:14 | PDOC.CPN ---
- Subjective Date: 11/23/18 Time: 14:22 Interval history: The pt seen and examined. No overnight events. No cardiac complaints. - Objective Allergies/Adverse Reactions: Allergies Allergy/AdvReac Type Severity Reaction Status Date / Time No Known Allergies Allergy Verified 11/21/18 22:05 Visit Medications: Current Medications Amlodipine Besylate (Norvasc) 10 mg PO [facility] Last Admin: 11/22/18 21:13 Dose: 10 mg Aspirin (Ecotrin) 325 mg PO DAILY [facility] Last Admin: 11/23/18 08:55 Dose: 325 mg Carvedilol (Coreg) 25 mg PO BID [facility] Last Admin: 11/23/18 12:47 Dose: 25 mg Dextrose/Water (Dextrose 50%) 25 gm SLOW IVP PRN PRN PRN Reason: Hypoglycemia Enoxaparin Sodium (Lovenox) 40 mg SC 0900 [facility] Last Admin: 11/23/18 08:56 Dose: 40 mg Folic Acid (Folvite) 1 mg PO DAILY [facility] Last Admin: 11/23/18 08:55 Dose: 1 mg Furosemide (Lasix) 40 mg PO DAILY [facility] Last Admin: 11/23/18 12:47 Dose: 40 mg Glucagon (Glucagon) 1 mg IM PRN PRN PRN Reason: Hypoglycemia Insulin Glargine 17 units/ (Miscellaneous Medication) 0.17 mls @ 0 mls/hr SC [facility] Last Admin: 11/22/18 21:13 Dose: 0.17 mls Dextrose/Water (D5w) 1,000 mls @ 0 mls/hr IV .Q0M PRN PRN Reason: Hypoglycemia Lisinopril (Zestril) 40 mg PO DAILY [facility] Last Admin: 11/23/18 08:55 Dose: 40 mg Nitroglycerin (Nitrostat) 0.4 mg PO Q5MIN PRN PRN Reason: Chest Pain Nitroglycerin (Nitrostat) 0.4 mg SL Q5MIN PRN PRN Reason: Chest Pain Simethicone (Mylicon Chewable) 80 mg PO [facility] PRN PRN Reason: Gas Pain Last Admin: 11/22/18 00:46 Dose: 80 mg Sodium Chloride (Flush - Normal Saline) 10 ml IVF Q12HR [facility] Last Admin: 11/23/18 08:55 Dose: 10 ml Sodium Chloride (Flush - Normal Saline) 10 ml IVF PRN PRN PRN Reason: Saline Flush Thiamine HCl (Thiamine) 100 mg PO DAILY [facility] Last Admin: 11/23/18 08:55 Dose: 100 mg Vital Signs & Weight: Vital Signs Temp Pulse Resp BP BP Pulse Ox 11/23/18 12:45 97.8 F 65 20 130/67 96 11/23/18 08:05 98.1 F 66 16 130/64 92 L 11/23/18 04:17 68 18 138/64 93 L Weight 230 lb 1.6 oz - Physical Exam General: alert & oriented x3 HEENT: mucus membranes moist Neck: supple neck Cardiac: regular rate and rhythm, S1/S2 Lungs: clear to auscultation Neuro: cranial nerve 2-12 intact Extremities: no cyanosis Skin: clear Musculoskeletal: normal range of motion - Labs Result Diagrams: 11/21/18 18:39 11/21/18 18:39 Troponin/CKMB Troponin I 0.046 ng/mL (< 0.028) H 11/22/18 00:36 - Telemetry Sinus rhythms and dysrhythmias: sinus rhythm - Assessment/Plan Assessment/Plan: 1. CP - Stress test was done today and the result is pending for now; No episodes at HS 2. CAD with hx of multiple stent (last procedure was in 12/2017) - On BBlocker, Lisinopril, Lipitor and ASA; will resume Plavix if Stress test is normal 3. Chronic systolic HF - On BBlocker,Lisinopril, and Lasix 4. Hx of PM placement 5. HTN - stable 6. HLD - 8. DM type 2 - 9. Prox Afib - remains in SR 10. hx of Rt CEA in 2011 - APR reviewed * From Monday, Dr Patricai will f/u with the pt. Pt. seen and eval. by me. The stress test does not indicate any significant ischemia. From a cardiac standpoint he could be d/c'd and f/u as an outpt. in the next 2-[address] Patricia. adri
--- NOTE | 2018-11-23 14:20 | NM ---
Radionucleotide stress and rest myocardial perfusion scan with CT attenuation correction and SPECT im aging HISTORY: Chest pain. COMPARISON: 12/16/2017. FINDINGS: Lexiscan protocol. There is heterogeneous uptake of radiotracer throughout the left ventric ular myocardium on the stress and rest images. On the stress and rest images, there is diminished uptake of the inferior wall. Planar images show elevation of the diaphragm, likely resulting in diaph ragmatic attenuation. Subtraction images of the CT attenuation corrected portion of the exam and evaluation of the images suggest no significant reversibility QGS analysis of gated SPECT images shows relative hypokinesis of the inferior wall and septum. Ejecti on fraction calculated at 49%. IMPRESSION: Scar and/or diaphragmatic attenuation most likely account for the fixed defect at the inf erior wall. No reliable evidence of ischemia. Borderline ejection fraction of 49%.
[2018-11-23] MEDS ORDERED: Regadenoson 0.4 MG/5 ML SYRINGE ONE (19:54)
[2018-11-23] MEDS ORDERED: Atorvastatin Calcium 40 MG TAB PO SCH (21:00)
[2018-11-23] MEDS: Amlodipine 10 MG TAB PO SCH (21:32)
[2018-11-23] MEDS: Insulin Glargine 17 UNITS in Pre-Filled Syringe 1 EACH SC SCH (21:32)
--- NOTE | 2018-11-24 01:12 | DIS ---
DATE OF ADMISSION: 11/21/2018 DATE OF DISCHARGE: 11/23/2018 CONSULTANTS: Dr. Leach, Cardiology Service. FINAL DIAGNOSES: 1. Chest pain, acute coronary syndrome was ruled out. 2. Coronary artery disease with history of multiple stenting. 3. Chronic systolic heart failure, on beta jeffrey, lisinopril, and Lasix. 4. History of pacemaker placement. 5. Hypertension. 6. Hyperlipidemia. 7. Diabetes mellitus type 2. 8. Paroxysmal atrial fibrillation, currently in sinus rhythm. 9. History of right carotid endarterectomy. HOSPITAL COURSE: The patient was a 78-year-old male with past medical history of coronary artery disease, COPD, congestive heart failure, atrial fibrillation, hypertension, type 2 diabetes, pacemaker among others, who presented to the emergency room with chest pain and shortness of breath. Initial workup in the emergency room showed cardiac enzymes, troponin 0.02 and BNP of 74. Chest x-ray showed pulmonary vascular congestion. The patient was admitted to the hospital for further management. He denied any fever, chills, nausea, vomiting, or abdominal pain. At the time of ER visit, his blood pressure was 117/75, pulse was 74, temperature 98.3, and he was saturating 92% on room air. He got admitted to the hospital on aspirin. Serial cardiac enzymes were done and Cardiology consultation was requested. The patient was seen by Dr. Leach for consultation. She requested cardiac stress test, which was done and there was no any acute ischemia. Ejection fraction of the left ventricle was calculated at 49%. The patient was cleared by Cardiology for discharge. He is doing well. His blood pressure is 130/67, pulse is 65, temperature is 97.8, respiratory rate is 20, and O2 saturation is 96% on room air. He is seen and examined before he is discharged. DISPOSITION: Home. ACTIVITIES: As tolerated. MEDICATIONS: At the time of discharge: 1. Amlodipine 10 mg at bedtime. 2. Aspirin 81 mg once a day. 3. Atorvastatin 80 mg at bedtime. 4. Carvedilol 25 mg twice a day. 5. Folic acid 1 mg once a day. 6. Furosemide 40 mg once a day. 7. Insulin Lantus 17 units at bedtime, subcu. 8. Clopidogrel 75 mg once a day. FOLLOWUP: He is going to follow up with Dr. Patricia in 2 weeks and [facility]. Job ID: [id number]
[2018-11-24 08:24] VITALS: BP 138/65; TEMP 98.1
--- NOTE | 2018-11-24 14:41 | EKG ---
Test Reason : Blood Pressure : / mmHG Vent. Rate : 070 BPM Atrial Rate : 070 BPM P-R Int : 138 ms QRS Dur : 190 ms QT Int : 496 ms P-R-T Axes : 039 -44 120 degrees QTc Int : 535 ms Demand pacemaker; interpretation is based on intrinsic rhythm Sinus rhythm with Fusion complexes Left axis deviation Non-specific intra-ventricular conduction block Abnormal ECG Confirmed by AKUA POWELL DO [id number]), editorial assistant HUGO WARREN ([id number]) on 11/24/2018 2:41:25 PM Referred By: Confirmed By:AKUA POWELL DO
--- NOTE | 2018-11-26 10:46 | STRESS ---
Acquisition Time: 2018-11-23 10:21:25 Total Exercise Time: 00:01:00 Test Indications: CHEST PAIN Medications: Protocol: LEXISCAN Max HR: 082 BPM 56% of Pred: 144 BPM Max BP: 144/064 mmHG Max Work Load: 1.0 METS RESTING ECG: NORMAL SINUS RHYTHM AT 62 BPM WITH LEFT AXIS DEVIATION AND COMPLETE LEFT BUNDLE BRANCH BLOCK SYMPTOMS: NONE NORMAL BP RESPONSE ECTOPY: NONE ECG STRESS: NO SIGNIFICANT CHANGES INTERPRETATION: AWAIT NUCLEAR IMAGES FOR DEFINITIVE DIAGNOSIS Confirmed by MONICA FUENTES ([id number]), editorial project manager ULISES LONDON ([id number]) on 11/26/2018 10:46:05 AM Referred By: MUSA LOYA Confirmed By:MONICA FUENTES
== END 2018-11-24 08:15 | disposition home or self-care (01) ==
LOC: ERS 16:44 → 2SW 21:51 → 2NO 11-22 14:52 → 2SW 11-22 14:57
PROVIDERS: ADMIT Internal Medicine; ATTEND Internal Medicine
DX: R07.89 Other chest pain (principal); I25.10 Atherosclerotic heart disease of native coronary artery without angina pectoris; I11.0 Hypertensive heart disease with heart failure; I50.22 Chronic systolic (congestive) heart failure; I08.1 Rheumatic disorders of both mitral and tricuspid valves; E11.9 Type 2 diabetes mellitus without complications; E78.5 Hyperlipidemia, unspecified; I48.0 Paroxysmal atrial fibrillation; J44.9 Chronic obstructive pulmonary disease, unspecified; Z79.82 Long term (current) use of aspirin; Z79.84 Long term (current) use of oral hypoglycemic drugs; Z79.899 Other long term (current) drug therapy; Z87.891 Personal history of nicotine dependence; Z95.0 Presence of cardiac pacemaker; Z95.5 Presence of coronary angioplasty implant and graft
CPT/HCPCS: 71045; 78452; 80053; 82962 ×4; 83880; 84484 ×3; 85025; 90662; 93005; 93017; 93306; 94760; 96372 ×2; 96374; 99285; A9500; G0008; G0378 ×5; 36415; 36416; 90471; J1650; J1815; J1940; J2785

== ENCOUNTER 2018-12-13 23:11 | Inpatient (IN) | payer MEDICARE, OTHER ==
[2018-12-13 23:27] LABS: #Eosinphils 0.3 thou/uL (0.0-0.7); #Lymphocytes 2.1 thou/uL (1.20-3.40); #Monocytes 0.5 thou/uL (0.11-0.59); #Neutrophils 3.2 thou/uL (1.40-6.50); %Basophils 0.7 % (0.0-1.0); %Eosinophils 5.3 % (0.0-10.0); %Lymphocytes 33.5 % (21.0-51.0); %Monocytes 8.5 % (0.0-10.0); Mean Corpuscular HGB CONC 32.3 g/dL (32.0-36.0); Mean Corpuscular Volume 80.5 fL (78.0-98.0); Mean Platelet Volume 7.8 fL (7.4-10.4); Platelet Count 230 thou/uL (130-400); Red Blood Cell (RBC) Count 4.25 mill/uL (4.70-6.10); White Blood Cell (WBC) Count 6.1 thou/uL (4.8-10.8)
[2018-12-13] MEDS ORDERED: Mag-Al 1200 mg/1200 mg/30 ML UDCUP ONE (23:30)
[2018-12-13] MEDS ORDERED: Lidocaine Viscous Sol 2% 15 ml UD Cup ONE (23:30)
--- NOTE | 2018-12-13 23:30 | RAD ---
EXAM: Single view of the chest HISTORY: Chest pain COMPARISON: 11/21/2018 FINDINGS: Single view of the chest shows an enlarged but stable cardiomediastinal silhouette. The pa cemaker is unchanged in position. Increased interstitial markings are present. There may be a small left pleural effusion. Degenerative changes in the spine. IMPRESSION: Possible small left pleural effusion
[2018-12-13 23:53] LABS: ALT (SGPT) 19 U/L (8-55); AST (SGOT) 18 U/L (5-34); Albumin 4.1 g/dL (3.4-4.8); Alkaline Phosphatase 100 U/L (40-110); Anion Gap 14 mmol/L (10-20); BUN (Urea Nitrogen) 19 mg/dL (8.4-25.7); Bilirubin, Total 0.3 mg/dL (0.2-1.2); CK (CPK) 142 U/L (30-200); Calc. Creatinine Clearance 0 mL/min (70-130); Calcium 9.4 mg/dL (7.8-10.44); Carbon Dioxide 23 mmol/L (23-31); Chloride 108 mmol/L (98-107); Estimated GFR-MDRD 66; Globulin 3.6 g/dL (2.4-3.5); Glucose 157 mg/dL (83-110); Potassium 3.6 mmol/L (3.5-5.1); Protein, Total 7.7 g/dL (5.8-8.1); Sodium 141 mmol/L (136-145)
[2018-12-14] MEDS ORDERED: Aspirin 81 mg Enteric Coated Tablet ONE (01:19)
[2018-12-14] MEDS ORDERED: Aspirin Chewable 81 MG TAB ONE ×3 (01:19→01:21)
[2018-12-14] MEDS ORDERED: Ketorolac Tromethamine 30 MG/ML VIAL ONE (02:01)
[2018-12-14] MEDS ORDERED: Ketamine 50 MG/ML (10ML VIAL) ONE (02:41)
[2018-12-14] MEDS ORDERED: Succinylcholine Chloride 20 MG/ML 10 ml SYRINGE FS ONE (02:51)
[2018-12-14] MEDS ORDERED: Sodium Bicarb 50 MEQ/50 ML VIAL ONE ×2 (02:54→03:46)
[2018-12-14 03:06] LABS: Troponin I 0.011 ng/mL (< 0.028)
[2018-12-14] MEDS ORDERED: fentaNYL Citrate/PF 2,000 MCG in Sodium Chloride 0.9% 60 ML IV SCH (03:13)
[2018-12-14 03:29] LABS: Actual Bicarbonate (HCO3a) 18.8 mEq/L (22-28); Analyzer IN Cardio ER; Base Excess (BEa) -16.3 mEq/L (-2.0 to +3.0); Calcium, Ionized 1.24 mmol/L (1.12-1.30); Carboxyhemoglobin (COHb) 0.1 gm% (0.0-3.0); Hemoglobin (Hb) 13.1 g/dL (14.0-18.0); Potassium - ABG Lab 4.71 mmol/L (3.70-5.30)
[2018-12-14 03:30] LABS: CO2 Tension 105.6 mmHg (35.0-45.0); Puncture Site LRA; pH, Arterial 6.87 (7.35-7.45)
[2018-12-14 03:40] LABS: Actual Bicarbonate (HCO3a) 17.6 mEq/L (22-28); Analyzer IN Cardio ER; Base Excess (BEa) -11.2 mEq/L (-2.0 to +3.0); CO2 Tension 51.9 mmHg (35.0-45.0); Calcium, Ionized 1.13 mmol/L (1.12-1.30); Carboxyhemoglobin (COHb) 0.2 gm% (0.0-3.0); Hemoglobin (Hb) 12.1 g/dL (14.0-18.0); O2 Tension (PaO2) 70.2 mmHg (> 70.0); Potassium - ABG Lab 4.17 mmol/L (3.70-5.30)
[2018-12-14 03:47] LABS: pH, Arterial 7.15 (7.35-7.45)
[2018-12-14 03:48] LABS: ALV-art Gradient 577.925 (0-20); Puncture Site LBA
[2018-12-14] MEDS ORDERED: DOBUTamine 500 mg/250 ml 250 ML ONE (03:55)
[2018-12-14] MEDS ORDERED: Enoxaparin Sodium 100 MG/ML SYRINGE ONE (04:01)
[2018-12-14] MEDS ORDERED: Enoxaparin Sodium 30 MG/0.3 ML SYRINGE ONE ×2 (04:01→04:07)
[2018-12-14] MEDS ORDERED: Norepinephrine 8 MG/0.9% NS 250 ML ONE (04:02)
[2018-12-14] MEDS ORDERED: Norepinephrine 8 MG/0.9% NS 250 ML IVPB SCH (04:06)
[2018-12-14] MEDS ORDERED: DOPamine 400 MG/D5W 250 ML 250 ML ONE (05:22)
[2018-12-14 05:26] VITALS: BMI 31.9
--- NOTE | 2018-12-14 05:35 | PDOC.HHP ---
Hospitalist HPI - History of Present Illness Chest pain History of Present Illness: Patient is a 78 year old male with PMH CAD, COPD, CHF, atrial fibrillation, HTN , T2DM, PPM who presented to the ED after developing shortness of breath and chest pain 5pm, it resolved on its own, when patient went to bed, he had to sit on the side of the bed, started sweating and complained of chest pain, pain continued to come and go and family went to ED at that point. Patient normally goes to [facility], Anjana at bedside [phone] who is next of kin. She does not know who his doctors are but all are with [facility]. Patient has DM on insulin, pacemaker, stents (does not remember when last once placed). Patient does not smoke, quit 30 years ago. confirms full code, patient has had this level of illness before and she believes he would want full measures. He took 2 nitro and ASA at home. Patient was originally slightly hypotensive, got fluids and BP recovered, pain resolved with GI cocktail, EKG initially Vpaced, patient was originally slated for transfer to [place], EMS was about to take patient, however patient pain came back, repeat BP was systolic 80s, patient was then kept in ED , decompensated rapidly, became hypoxic, I discussed with Dr Wayne who also discussed with Dr Johnson of cardiology and Dr Silvestre of ICU, who has already seen patient. Patient was intubated when ABG performed and revealed pH 6.9, at that time patient had recieved pain medication however was anxious and hyperventilating and was given ketamine however BP and sats continued to drop so was intubated at that time. Hospitalist ROS - Review of Systems ROS unobtainable: due to endotracheal tube Hospitalist History - Past Medical History Other Medical History: HLD CAD T2DM HTN CHF - Past Surgical History Other Surgical History: pacemaker endartarectomy stents - Family History Other Family History: reviewed and noncontributory - Social History Smoking Status: Former smoker - Exam General - other findings: intubated, sedated Eye: PERRL ENT: normocephalic atraumatic, moist mucosa ENT - other findings: ET tube in place Neck: supple, no JVD Heart: RRR, no murmur, no gallops, no rubs Respiratory: CTAB, no wheezes, no rales Gastrointestinal: soft, non-tender, non-distended, normal bowel sounds Extremities: no cyanosis, no clubbing, no edema Skin: no lesions, no rashes Neurological - other findings: intubated, sedated Musculoskeletal: normal tone, normal strength Psychiatric - other findings: unable to evaluate Hospitalist Results - Labs Result Diagrams: 12/13/18 23:17 12/13/18 23:17 Lab results: WBC 6.1 thou/uL (4.8-10.8) 12/13/18 23:17 Hgb 11.0 g/dL (14.0-18.0) L 12/13/18 23:17 Hct 34.2 % (42.0-52.0) L 12/13/18 23:17 MCV 80.5 fL (78.0-98.0) 12/13/18 23:17 Plt Count 230 thou/uL (130-400) 12/13/18 23:17 Neutrophils % 52.0 % (42.0-75.0) 12/13/18 23:17 ABG pH 7.15 (7.35-7.45) L* 12/14/18 03:36 ABG pCO2 51.9 mmHg (35.0-45.0) H 12/14/18 03:36 ABG pO2 70.2 mmHg (> 70.0) H 12/14/18 03:36 Sodium 141 mmol/L (136-145) 12/13/18 23:17 Potassium 3.6 mmol/L (3.5-5.1) 12/13/18 23:17 Chloride 108 mmol/L (98-107) H 12/13/18 23:17 Carbon Dioxide 23 mmol/L (23-31) 12/13/18 23:17 BUN 19 mg/dL (8.4-25.7) 12/13/18 23:17 Creatinine 1.29 mg/dL (0.7-1.3) 12/13/18 23:17 Glucose 157 mg/dL (83-110) H 12/13/18 23:17 Lactic Acid 2.7 mmol/L (0.5-2.2) H 12/14/18 02:33 Calcium 9.4 mg/dL (7.8-10.44) 12/13/18 23:17 Total Bilirubin 0.3 mg/dL (0.2-1.2) 12/13/18 23:17 AST 18 U/L (5-34) 12/13/18 23:17 ALT 19 U/L (8-55) 12/13/18 23:17 Alkaline Phosphatase 100 U/L (40-110) 12/13/18 23:17 Creatine Kinase 142 U/L (30-200) 12/13/18 23:17 Troponin I 0.011 ng/mL (< 0.028) 12/14/18 02:33 Serum Total Protein 7.7 g/dL (5.8-8.1) 12/13/18 23:17 Albumin 4.1 g/dL (3.4-4.8) 12/13/18 23:17 Lipase 33 U/L (8-78) 12/13/18 23:17 Hospitalist H&P A/P - Problem (1) Acute respiratory failure with hypoxia Code(s): J96.01 - ACUTE RESPIRATORY FAILURE WITH HYPOXIA Status: Acute Assessment and Plan: currently intubated and sedated in ICU, appreciate evaluation by critical care Dr Silvestre (2) Acute on chronic systolic heart failure Code(s): I50.23 - ACUTE ON CHRONIC SYSTOLIC (CONGESTIVE) HEART FAILURE Status : Acute (3) Chest pain Code(s): R07.9 - CHEST PAIN, UNSPECIFIED Status: Acute Qualifiers: Ischemic chest pain type: unstable angina pectoris Assessment and Plan: Dr Johnson discussed case with ER physician and will follow along with us. trend troponins. - follow up echocardiogram (4) DM type 2 (diabetes mellitus, type 2) Status: Chronic Qualifiers: Diabetes mellitus intermodal truck driver insulin use: without intermodal truck driver use Diabetes mellitus complication status: with circulatory complication Diabetes mellitus complication detail: with other circulatory complications Qualified Code(s): E11.59 - Type 2 diabetes mellitus with other circulatory complications Assessment and Plan: will order q6h SSI and A1c (5) HTN (hypertension) Code(s): I10 - ESSENTIAL (PRIMARY) HYPERTENSION Status: Chronic Qualifiers: Hypertension type: essential hypertension Qualified Code(s): I10 - Essential (primary) hypertension Assessment and Plan: hold home meds for now, address BP if becomes elevated (6) Shock Code(s): R57.9 - SHOCK, UNSPECIFIED Status: Acute Assessment and Plan: on levophed, continue for goal MAP 65 while inital workup pending (7) Full code status Code(s): Z78.9 - OTHER SPECIFIED HEALTH STATUS Status: Acute Assessment and Plan: Patient normally goes to [place], Anjana at bedside [phone] who is next of kin. She confirms full code. - Plan Plan: 62 minutes critical care time, patinet critically ill with one or more organ system failure and requiring ventilator to sustain life
[2018-12-14] MEDS ORDERED: Dextrose 50% Abboject 50 ML SYRINGE IVP PRN (05:41)
[2018-12-14] MEDS ORDERED: Dextrose 5% in Water 1,000 ML IV PRN ×2 (05:41→06:37)
[2018-12-14] MEDS ORDERED: Sodium Chloride 0.45% 1,000 ML IV SCH (05:45)
[2018-12-14] MEDS ORDERED: DOPamine 400 MG/D5W 250 ML 250 ML IVPB SCH (05:45)
[2018-12-14 05:46] LABS: Actual Bicarbonate (HCO3a) 21.8 mEq/L (22-28); Base Excess (BEa) -4.1 mEq/L (-2.0 to +3.0); CO2 Tension 43.3 mmHg (35.0-45.0); Calcium, Ionized 1.13 mmol/L (1.12-1.30); Carboxyhemoglobin (COHb) 0.7 gm% (0.0-3.0); Hemoglobin (Hb) 11.6 g/dL (14.0-18.0); O2 Tension (PaO2) 69.6 mmHg (> 70.0); Potassium - ABG Lab 4.28 mmol/L (3.70-5.30); pH, Arterial 7.32 (7.35-7.45)
[2018-12-14] MEDS ORDERED: Propofol 1,000 MG/100 ML VIAL IV ONE (05:46)
[2018-12-14] MEDS: Propofol 1,000 MG/100 ML VIAL IV PRN ×3 (06:00→21:51)
[2018-12-14] MEDS ORDERED: DISCONTINUE PREVIOUS NARCOTIC PAIN MEDICATIONS AND BENZODIAZEPINES FS SCH (06:06)
[2018-12-14] MEDS ORDERED: Morphine 2 MG/ML SYRINGE SLOW IVP PRN (06:06)
[2018-12-14] MEDS ORDERED: Fentanyl BOLUS 250 ML IVPB PRN (06:06)
[2018-12-14] MEDS ORDERED: Propofol BOLUS 1,000 MG/100 ML VIAL IV PRN (06:06)
[2018-12-14 06:12] LABS: Lactic Acid 2.3 mmol/L (0.5-2.2)
[2018-12-14 06:22] LABS: #Lymphocytes 1.6 thou/uL (1.20-3.40); #Monocytes 0.8 thou/uL (0.11-0.59); #Neutrophils 7.3 thou/uL (1.40-6.50); %Basophils 0.1 % (0.0-1.0); %Eosinophils 0.4 % (0.0-10.0); %Lymphocytes 16.5 % (21.0-51.0); %Monocytes 8.6 % (0.0-10.0); %Neutrophils 74.4 % (42.0-75.0); Hemoglobin 10.6 g/dL (14.0-18.0); Mean Corpuscular HGB CONC 31.2 g/dL (32.0-36.0); Mean Corpuscular Hemoglobin 25.2 pg (27.0-31.0); Mean Corpuscular Volume 80.7 fL (78.0-98.0); Mean Platelet Volume 7.7 fL (7.4-10.4); Platelet Count 259 thou/uL (130-400); White Blood Cell (WBC) Count 9.8 thou/uL (4.8-10.8)
[2018-12-14 06:25] LABS: Troponin I 2.252 ng/mL (< 0.028)
[2018-12-14 06:28] LABS: Puncture Site RA
[2018-12-14 06:29] LABS: ALV-art Gradient 589.275 (0-20)
[2018-12-14] MEDS ORDERED: Bisacodyl 5 MG TAB PO PRN (06:37)
[2018-12-14] MEDS ORDERED: Acetaminophen 325 MG TAB PO PRN (06:37)
[2018-12-14] MEDS ORDERED: Dextrose 50% Abboject 50 ML SYRINGE SLOW IVP PRN (06:37)
[2018-12-14] MEDS ORDERED: Bisacodyl 10 MG SUPP PR PRN (06:37)
[2018-12-14] MEDS ORDERED: Ondansetron PF 4 MG/2 ML Vial IVP PRN (06:37)
[2018-12-14] MEDS ORDERED: HYDROcodone/Acetaminophen 5/325 mg Tablet PO PRN (06:37)
[2018-12-14] MEDS ORDERED: Senokot S 8.6-50 MG TAB PO PRN (06:37)
[2018-12-14 06:41] LABS: Anion Gap 12 mmol/L (10-20); BUN (Urea Nitrogen) 22 mg/dL (8.4-25.7); Calc. Creatinine Clearance 66 mL/min (70-130); Calcium 8.1 mg/dL (7.8-10.44); Carbon Dioxide 26 mmol/L (23-31); Chloride 107 mmol/L (98-107); Estimated GFR-MDRD 56; Glucose 193 mg/dL (83-110); Sodium 141 mmol/L (136-145)
[2018-12-14 07:23] LABS: CKMB 41.3 ng/mL (0-6.6)
--- NOTE | 2018-12-14 07:57 | RAD ---
Exam: Chest one view HISTORY:Chest pain Comparison: 12/13/2018 FINDINGS: Cardiac silhouette:Persistent upper normal cardiac silhouette. Aorta: Stable atherosclerosis Pulmonary vessels: Prominent Costophrenic angles: Small bilateral effusions may be present LUNGS: Increasing bilateral perihilar interstitial and alveolar. Pneumothorax: None Pacemaker: Stable left-sided transvenous pacemaker Osseous abnormalities: None IMPRESSION: Congestive heart failure
--- NOTE | 2018-12-14 08:03 | RAD ---
CHEST 1 VIEW: HISTORY: Respiratory failure, chest pain, ___ edema, hypertension. COMPARISON: Earlier exam of 12/14/2018. FINDINGS: Life support tubes remain in place and stable. Improvement in the bilateral interstitial and alveola r edema from the early study with some persistent disease and small left pleural effusion. IMPRESSION: Overall improvement in the appearance of the chest. Continued short-term followup. POS: TPC
--- NOTE | 2018-12-14 08:05 | RAD ---
PORTABLE CHEST: HISTORY: Line placement. COMPARISON: Earlier exam of the same day. FINDINGS: Heart size is within normal limits. Endotracheal and NG tubes are in satisfactory position. A righ t subclavian line is now present. Catheter tip overlies the superior vena cava and there are no sign s of pneumothorax. The interstitial alveolar lung changes are definitely increased as compared to th e prior examination of 12/13/2018. IMPRESSION: 1. Worsening pulmonary edema change as compared to 12/13/2018. 2. Endotracheal and nasogastric tubes in satisfactory position. 3. Placement of a right subclavian line. No signs of pneumothorax. POS: OFF
--- NOTE | 2018-12-14 08:07 | RAD ---
PORTABLE SUPINE CHEST: HISTORY: Intubation. COMPARISON: Prior exam. FINDINGS: An endotracheal tube has been placed in satisfactory position. The NG tube is difficult to definitel y visualize on this exam. The parahilar lung markings are again noted consistent with pulmonary shauna a change. This actually appears slightly worsened as compared to that prior study. IMPRESSION: 1. Worsening pulmonary edema. 2. Endotracheal tube in satisfactory position. The tip of the nasogastric tube is not definitely vi sualized on this exam. POS: OFF
[2018-12-14] MEDS ORDERED: Heparin 25,000 units/D5W 500 ML IV SCH ×2 (08:15→16:00)
[2018-12-14] MEDS ORDERED: Heparin 10,000 UNITS/ 10 ML VIAL SLOW IVP SCH ×6 (08:15→16:00)
--- NOTE | 2018-12-14 08:24 | CON ---
DATE OF CONSULTATION: 12/14/2018 CRITICAL CARE TIME: 4:30 a.m. to 6:00 a.m., 90 minutes total critical care time. HISTORY OF PRESENT ILLNESS: Mr. Annika Leal is a gentleman, 78 years of age. He was recently in the hospital and underwent a nuclear stress testing, which showed diminished uptake in the inferior wall. No significant reversibility with the interpretation of the nuclear study. Ejection fraction was calculated at 49%. He has been having chest pain on and off apparently since discharge. He came to the emergency room just before midnight and requested to be transferred to the [facility]. As they were in the process of moving him from the emergency department to the ambulance, he started having chest pain again. He became hypotensive, short of breath and eventually was intubated. Chest radiograph had changed dramatically showing diffuse infiltrates consistent with pulmonary edema. I was consulted to assist in his management because of difficulty ventilating him. PAST MEDICAL HISTORY: Remarkable for: 1. Diabetes. 2. History of coronary artery disease. 3. History of cardiac catheterization documented in Dr. Leach notes from November. 4. History of COPD. 5. History of atrial fibrillation. 6. History of hypertension. 7. History of pacemaker. 8. History of lipid disorder. 9. History of multiple coronary stents. 10. History of carotid endarterectomy. SOCIAL HISTORY: He is a former smoker nondrinker. ALLERGIES: HE HAS NO REPORTED DRUG ALLERGIES. MEDICATIONS: Prior to admission based on the last discharge summary were remarkable for a baby aspirin every day, statin if I would recall correctly Norvasc. The computer system is not letting me pull up the discharge summary at this time, but I did review this earlier. I have written admission orders for the ICU. REVIEW OF SYSTEMS: Not obtainable. PHYSICAL EXAMINATION: GENERAL: He is on Levophed. VITAL SIGNS: Blood pressure is 110 systolic when he arrived in the ICU. He is afebrile. Respiratory rate was per mechanical ventilation at a rate of 30. He is 100% on oxygen. When I saw him in the emergency department, he was on one of the trauma ventilators and his saturations were in the low 70s. He switched to bilevel when he arrived in the ICU. We have now weaned him down to 60% oxygen and a PEEP from 14-12. HEAD AND NECK: Unremarkable. LUNGS: Remarkable for rhonchi bilaterally. HEART: Regular rhythm. ABDOMEN: Soft. EXTREMITIES: Without edema. NEURO: Could not be assessed. LABORATORY DATA: White count is 9.8, hemoglobin 10.6, platelets 259. Electrolytes are normal. Creatinine is 1.48. Blood gas showed a pH of 6.87 at 2:48 a.m. this morning, 7.15 at 3:36 a.m. and last blood gas 7.32, CO2 43, and PO2 69. IMPRESSION: 1. Flash pulmonary edema, most likely secondary to coronary artery disease ? secondary to a plaque rupture. His initial troponin was normal, but it now is 3.5 and CK-MB is 41. 2. He appears to be stabilizing. Job ID: [id number] [facility]
[2018-12-14] MEDS ORDERED: Sodium Bicarb 50 MEQ/50 ML Abboject 8.4% SYRINGE ONE (09:00)
[2018-12-14] MEDS ORDERED: Aspirin 81 mg Enteric Coated Tablet PO SCH (09:00)
[2018-12-14] MEDS ORDERED: EPINEPHrine 1 MG/10 ML Abboject SYRINGE ONE (09:00)
[2018-12-14] MEDS ORDERED: EPINEPHRINE IN SOD CHLOR,ISO 1 MG/10 ML SYRINGE IV ONE (09:00)
[2018-12-14] MEDS ORDERED: Aspirin 325 MG TAB PO SCH (09:00)
[2018-12-14] MEDS ORDERED: Aspirin Chewable 81 MG TAB PO SCH (09:00)
[2018-12-14] MEDS ORDERED: Enoxaparin Sodium 40 MG/0.4 ML SYRINGE SC SCH (09:00)
[2018-12-14] MEDS: Clopidogrel Bisulfate 75 MG TAB PO SCH (09:42)
[2018-12-14] MEDS: Famotidine 20 MG TAB PO SCH ×2 (09:42→20:09)
[2018-12-14] MEDS ORDERED: Sodium Chloride 0.9% 500 ML IV SCH (11:30)
[2018-12-14 11:57] LABS: Bilirubin Small (Negative); Blood, Urine Moderate (Negative); Glucose, Urine (Dipstick) Negative (Negative); Leukocyte Small (Negative); Nitrite Negative (Negative); Protein, Urine (Dipstick) 30 mg/dL (Neg-Trace); Urobilinogen 0.2 mg/dL (Less than 2)
[2018-12-14 12:04] LABS: Clarity CLOUDY (Clear)
[2018-12-14 12:05] LABS: Bacteria/HPF 1+ HPF (None Seen); Squamous Epithelial 0-3 HPF (0-3)
[2018-12-14 12:06] LABS: Urine Culture Reflex Yes Yes
[2018-12-14 12:07] LABS: INR-International Normal Ratio 1.1; PTT 31.7 SEC (22.9-36.1); Prothrombin Time 14.3 SEC (12.0-14.7)
[2018-12-14 12:17] LABS: Creatinine, Urine 396.51 mg/dL (63-166); Protein, Urine Random Quant 76 mg/dL (1-14); Sodium, Urine Less than 20 mmol/L (Not Available)
[2018-12-14 12:19] LABS: Urea Nitrogen, Random Urine Greater than 1200 mg/dl
[2018-12-14 12:24] LABS: ALT (SGPT) 23 U/L (8-55); AST (SGOT) 70 U/L (5-34); Albumin 3.4 g/dL (3.4-4.8); Alkaline Phosphatase 83 U/L (40-110); Anion Gap 12 mmol/L (10-20); BUN (Urea Nitrogen) 24 mg/dL (8.4-25.7); Bilirubin, Total 0.4 mg/dL (0.2-1.2); Calc. Creatinine Clearance 76 mL/min (70-130); Calcium 8.3 mg/dL (7.8-10.44); Carbon Dioxide 24 mmol/L (23-31); Chloride 110 mmol/L (98-107); Estimated GFR-MDRD 66; Glucose 106 mg/dL (83-110); Potassium 3.2 mmol/L (3.5-5.1); Protein, Total 6.4 g/dL (5.8-8.1); Sodium 143 mmol/L (136-145)
[2018-12-14] MEDS: fentaNYL Citrate/PF 2,000 MCG in Sodium Chloride 0.9% 60 ML IV SCH ×2 (13:23→22:39)
--- NOTE | 2018-12-14 14:19 | EKG ---
Test Reason : Blood Pressure : / mmHG Vent. Rate : 063 BPM Atrial Rate : 063 BPM P-R Int : 186 ms QRS Dur : 160 ms QT Int : 482 ms P-R-T Axes : 066 -57 157 degrees QTc Int : 493 ms Electronic ventricular pacemaker When compared with ECG of 14-DEC-2018 04:05, (Unconfirmed) Vent. rate has decreased BY [address] Sue HUA ([id number]) on 12/14/2018 2:18:40 PM Referred By: LICO Confirmed By:DR. Sue HUA
--- NOTE | 2018-12-14 14:28 | PDOC.HOSPP ---
- Subjective Encounter Date: 12/14/18 Encounter Time: 14:23 Subjective: 78 y/o male with known history of COPD, CHF, CAD, A fib, DM, HTN and others who presented with recurrent chest pain associated with SOB and hypotension. Treated initially with IVF with improvement of hypotension. Acute CT was ruled out with serial troponin and he was to be transfered to [facility] but chest pain recurred associated with respiratory distress and hypotension hence was intubated emergently and started on pressors. Still on pressors as well as heparin anticoagulation. patient is making little or no urine. - Objective Vital Signs & Weight: Vital Signs (12 hours) Temp Pulse Resp BP Pulse Ox 12/14/18 12:36 99.3 F 12/14/18 12:00 98.6 F 30 H 12/14/18 11:03 72 115/58 L 12/14/18 10:37 102 F H 104 H 16 100 12/14/18 10:00 30 H 12/14/18 08:00 30 H 100 12/14/18 07:25 62 138/67 12/14/18 07:00 97.7 F 12/14/18 06:00 97.5 F L 30 H 12/14/18 05:16 78 12/14/18 05:15 93 L Weight Admit Weight 242 lb 1.081 oz Weight 242 lb 1.081 oz Most Recent Monitor Data Heart Rate from ECG 85 NIBP 85/54 NIBP BP-Mean 64 Respiration from ECG 30 SpO2 95 I&O: 12/13/18 12/14/18 12/15/18 06:59 06:59 06:59 Intake Total 0 Output Total 40 100 Balance -40 -100 Result Diagrams: 12/14/18 06:06 12/14/18 11:35 Additional Labs: Accuchecks 12/14/18 12/14/18 09:56 02:23 POC Glucose 139 H 177 H Hospitalist ROS - Medication Medications: Active Medications Generic Name Dose Route Start Last Admin Trade Name Freq PRN Reason Stop Dose Admin Aspirin 81 mg 12/14/18 09:00 12/14/18 09:45 Ecotrin PO Not Given DAILY YESENIA Clopidogrel Bisulfate 75 mg 12/14/18 09:00 12/14/18 09:42 Plavix PO 75 mg DAILY [facility] Administration Famotidine 20 mg 12/14/18 09:00 12/14/18 09:42 Pepcid PO 20 mg BID YESENIA Administration Sodium Chloride 1,000 mls @ 50 mls/hr 12/14/18 05:45 12/14/18 05:55 1/2 Normal Saline IV 1,000 mls .Q20H YESENIA Administration Fentanyl Citrate 2,000 mcg/ 100 mls @ 0 mls/hr 12/14/18 06:06 12/14/18 13:23 Sodium Chloride IV 01/13/19 06:06 100 mls INF YESENIA Administration Protocol Per Protocol Potassium Chloride 40 meq 12/14/18 13:45 12/14/18 13:48 Klor-Con PER TUBE 12/14/18 15:00 40 meq NOW YESENIA Administration Propofol 1,000 mg 12/14/18 06:06 12/14/18 13:48 Diprivan IV 01/13/19 06:06 1,000 mg INF PRN Administration TO ACHIEVE GOAL RASS Protocol Sodium Chloride 10 ml 12/14/18 09:00 12/14/18 09:44 Flush - Normal Saline IVF 10 ml Q12HR YESENIA Administration Sodium Chloride 10 ml 12/14/18 07:00 12/14/18 09:43 Flush - Normal Saline IVF 10 ml PRN PRN Administration Saline Flush - Exam General - other findings: sedated Eye: anicteric sclera ENT: normocephalic atraumatic ENT - other findings: ET and NG tubes noted Neck: no JVD Heart: RRR Respiratory - other findings: ventilator transmitted sound heard in all lung zones Gastrointestinal: soft, non-distended, normal bowel sounds Gastrointestinal - other findings: obese Extremities: no edema Skin - other findings: rather dry skin Neurological - other findings: sedated Hosp A/P (1) Acute CT Code(s): I21.9 - ACUTE MYOCARDIAL INFARCTION, UNSPECIFIED Status: Acute (2) Acute respiratory failure with hypoxia Code(s): J96.01 - ACUTE RESPIRATORY FAILURE WITH HYPOXIA Status: Acute (3) Acute on chronic systolic heart failure Code(s): I50.23 - ACUTE ON CHRONIC SYSTOLIC (CONGESTIVE) HEART FAILURE Status : Acute (4) Shock Code(s): R57.9 - SHOCK, UNSPECIFIED Status: Acute (5) Flash pulmonary edema Code(s): J81.0 - ACUTE PULMONARY EDEMA Status: Acute (6) Paroxysmal atrial fibrillation Code(s): I48.0 - PAROXYSMAL ATRIAL FIBRILLATION Status: Acute (7) SLIM (acute kidney injury) Code(s): N17.9 - ACUTE KIDNEY FAILURE, UNSPECIFIED Status: Acute (8) Volume depletion Code(s): E86.9 - VOLUME DEPLETION, UNSPECIFIED Status: Acute (9) Chest pain Code(s): R07.9 - CHEST PAIN, UNSPECIFIED Status: Acute Qualifiers: Ischemic chest pain type: unstable angina pectoris (10) Hypokalemia Code(s): E87.6 - HYPOKALEMIA Status: Acute (11) DM type 2 (diabetes mellitus, type 2) Status: Chronic Qualifiers: Diabetes mellitus detention insulin use: without detention use Diabetes mellitus complication status: with circulatory complication Diabetes mellitus complication detail: with other circulatory complications Qualified Code(s): E11.59 - Type 2 diabetes mellitus with other circulatory complications - Plan Continue antithrombotoc therapy Give NS 500 bolus to see if urine output will improve. Increase NS to 80 cc/hr given clinical picture of volume depletion and low urinary sodium. Continue Pressors as per 3d specialist. Cardiology following. Replete serum potassium. Get Repeat BMP and magnesium in the am. Monitor blood glucose and treat with insulin.
[2018-12-14] MEDS: Lorazepam 2 MG/ML VIAL SLOW IVP PRN ×2 (14:45→16:57)
[2018-12-14] MEDS: Sodium Chloride 0.45% 1,000 ML IV SCH ×2 (14:48→21:39)
[2018-12-14 15:17] LABS: CKMB 43.4 ng/mL (0-6.6)
--- NOTE | 2018-12-14 17:31 | CON ---
DATE OF CONSULTATION: 12/14/2018 REASON FOR CONSULTATION: Non-STEMI. HISTORY OF PRESENT ILLNESS: Mr. Leal is a pleasant 78-year-old gentleman, who comes to the hospital for chest pain. He presented yesterday with chest pain and EKG was a paced rhythm. He has a history of coronary artery disease with previous stenting to the circumflex and RCA. He presented about 2 years ago with in-stent restenosis and he had a very complex intervention on the circumflex, but with good results. He also had in-stent restenosis of an RCA stent that was left alone as it was subtotaled and he had very good collaterals from left to right. He had done well. He comes in with chest pain. Suddenly, he became extremely short of breath, went into flash pulmonary edema, had to be intubated. On my evaluation, he remains intubated and sedated. He has been off sedation for a little bit and is following commands, but still somewhat sedated. PAST MEDICAL HISTORY: 1. Coronary artery disease, status post stenting in 2016 and again 2017. 2. Type 2 diabetes. 3. Hypertension. 4. Hyperlipidemia. 5. History of atrial fibrillation in the past. 6. Systolic heart failure. PAST SURGICAL HISTORY: 1. Cardiac catheterization and stenting as above. 2. Pacemaker placement in 2016. 3. Right carotid endarterectomy. SOCIAL HISTORY: Quit drinking about 6 years ago. Stop smoking in 1994. No drug use. OUTPATIENT MEDICATIONS: 1. Insulin. 2. Plavix 75 mg a day. 3. Atorvastatin 80 mg a day. 4. Aspirin 81 a day. 5. Metformin 500 mg b.i.d. 6. Vitamin B1. 7. Sublingual nitro p.r.n. 8. Multivitamin daily. 9. Lisinopril 40 mg a day. 10. Lasix 40 mg a day. 11. Folic acid. 12. Carvedilol 25 mg b.i.d. 13. Refresh Celluvisc. 14. Amlodipine 10 mg at bedtime. ALLERGIES: NO KNOWN DRUG ALLERGIES. FAMILY HISTORY: Noncontributory. REVIEW OF SYSTEMS: Unobtainable as the patient is intubated. PHYSICAL EXAMINATION: VITAL SIGNS: Temperature 99.1, pulse 72, respiratory rate 20, saturating 97% on 40% FiO2, and blood pressure 151/69. GENERAL: Sedated and intubated. HEENT: Normocephalic and atraumatic. NECK: Supple. LUNGS: Mild crackles at bases. CARDIOVASCULAR: S1 and S2. No S3 or S4. There is a grade 2/6 systolic murmur at the right upper sternal border. ABDOMEN: Soft. Positive bowel sounds. EXTREMITIES: 1+ edema. SKIN: Warm and dry. LABORATORY DATA: Laboratory work was reviewed. White count of 6, hemoglobin 11 , hematocrit of 34, and platelet count 230. Coags were reviewed. ABGs were reviewed. Initial ABG with pH of 6.8 up to 7.32, and the latest one chemistries were reviewed. His troponin initially was normal at 0.01, but has since increased to 2.2, then 3.5 and most recently at 20. CK-MB at 43. UA seems to be positive for possible UTI. EKG was reviewed. ASSESSMENT: 1. Uak-PS-sckdlwaib myocardial infarction. 2. Flash pulmonary edema. 3. Acute hypoxic respiratory insufficiency. 4. Ischemic cardiomyopathy. PLAN: 1. He had a recent stress test that was negative for ischemia, only inferior scar with an EF of 49%. The echocardiogram was very difficult technically and cannot see much of the LV but looks similar to the one done about a month ago. 2. Once he is more stable, we will plan on doing a heart catheterization for further risk stratification. 3. Continue supportive care. 4. Continue to wean the ventilator per Pulmonary Critical Care. Thank you for letting us participate in the care of your patient. We will follow. 45 minutes critical care at bedside. Job ID: [id number] [facility]
[2018-12-14] MEDS: Atorvastatin Calcium 40 MG TAB PO SCH (20:09)
[2018-12-14] MEDS: Enoxaparin Sodium 100 MG/ML SYRINGE SC SCH (20:09)
[2018-12-14] MEDS: Insulin Glargine 17 UNITS in Pre-Filled Syringe 1 EACH SC SCH (20:10)
[2018-12-14] MEDS ORDERED: Non-Formulary Item 1 EACH (Atorvastatin Calcium [Atorvastatin Calcium] 80 MG) PO SCH (21:00)
--- NOTE | 2018-12-14 22:50 | PDOC.EVN ---
Event Note - Event Note Event Note: Notified by RN, patient with 1 of 2 cultures positive for gram positive cocci ( clusters). No WBC count, but patient had spiked a temp during the day. Will add-on procalcitonin level. 1 time dose of Vanc given, as per Dr. Castaneda. Day team to assess and continue abx if indicated. Urine culture pending.
[2018-12-14] MEDS ORDERED: Vancomycin HCl 1 GM in Premix Bag 1 BAG IVPB SCH (23:00)
[2018-12-14 23:12] LABS: Critical Call Chem Troponin I RESULT DECREASING
[2018-12-15] LABS: CKMB 18.7 ng/mL (0-6.6); Critical Call CKMB RESULT DECREASING
[2018-12-15 05:17] LABS: Anion Gap 14 mmol/L (10-20); BUN (Urea Nitrogen) 22 mg/dL (8.4-25.7); Calc. Creatinine Clearance 80 mL/min (70-130); Calcium 7.8 mg/dL (7.8-10.44); Carbon Dioxide 22 mmol/L (23-31); Chloride 108 mmol/L (98-107); Estimated GFR-MDRD 70; Glucose 80 mg/dL (83-110); Sodium 141 mmol/L (136-145)
[2018-12-15 05:27] LABS: Potassium 2.9 mmol/L (3.5-5.1)
[2018-12-15] MEDS ORDERED: Potassium Chloride 40 MEQ in Premix Bag 1 BAG IVPB SCH (05:45)
[2018-12-15 05:48] LABS: Band 3 % (5-11); Eosinophils 2 % (0-10); Hemoglobin 9.5 g/dL (14.0-18.0); Lymphocytes 26 % (21-51); MDiff Complete? YES; Mean Corpuscular HGB CONC 33.2 g/dL (32.0-36.0); Mean Corpuscular Hemoglobin 26.3 pg (27.0-31.0); Mean Corpuscular Volume 79.2 fL (78.0-98.0); Mean Platelet Volume 8.1 fL (7.4-10.4); Monocytes 9 % (0-10); Neutrophil 60 % (42-75); Platelet Count 200 thou/uL (130-400); Platelet Morphology Comment Appears Adequate; RBC Distribution Width 15.3 % (11.5-14.5); Red Blood Cell (RBC) Count 3.61 mill/uL (4.70-6.10); White Blood Cell (WBC) Count 5.6 thou/uL (4.8-10.8)
[2018-12-15] MEDS: Propofol 1,000 MG/100 ML VIAL IV PRN ×2 (06:01→22:17)
[2018-12-15 06:29] LABS: Critical Call Chem Troponin I RESULT DECREASING
[2018-12-15 06:45] LABS: Actual Bicarbonate (HCO3a) 19.2 mEq/L (22-28); Base Excess (BEa) -1.1 mEq/L (-2.0 to +3.0); Calcium, Ionized 1.06 mmol/L (1.12-1.30); Carboxyhemoglobin (COHb) 0.5 gm% (0.0-3.0); Hemoglobin (Hb) 9.9 g/dL (14.0-18.0); O2 Tension (PaO2) 67.6 mmHg (> 70.0); Potassium - ABG Lab 3.17 mmol/L (3.70-5.30)
[2018-12-15 06:54] LABS: CKMB 14.7 ng/mL (0-6.6); Critical Call CKMB RESULT DECREASING
[2018-12-15 07:35] LABS: CO2 Tension 20.2 mmHg (35.0-45.0); Puncture Site LRA
[2018-12-15] MEDS: fentaNYL Citrate/PF 2,000 MCG in Sodium Chloride 0.9% 60 ML IV SCH (08:41)
[2018-12-15] MEDS: Enoxaparin Sodium 100 MG/ML SYRINGE SC SCH ×2 (09:32→20:10)
[2018-12-15] MEDS: Aspirin Chewable 81 MG TAB PO SCH (09:33)
[2018-12-15] MEDS: Famotidine 20 MG TAB PO SCH ×2 (09:33→20:10)
[2018-12-15] MEDS: Clopidogrel Bisulfate 75 MG TAB PO SCH (09:33)
--- NOTE | 2018-12-15 11:31 | PDOC.HOSPP ---
- Subjective Encounter Date: 12/15/18 Encounter Time: 10:29 Subjective: 78 y/o male with known history of COPD, CHF, CAD, A fib, DM, HTN and others who presented with recurrent chest pain associated with SOB and hypotension. Treated initially with IVF with improvement of hypotension. Acute [place] was ruled out with serial troponin and he was to be transfered to [facility] but chest pain recurred associated with respiratory distress and hypotension hence was intubated emergently and started on pressors. Hemodynamically improved but still intubated. Had a transient fever and 1/2 bottles of blood culture grew gram positive on 12/14/2018 hence recieved 1 dose of IV vanc. - Objective Vital Signs & Weight: Vital Signs (12 hours) Temp Pulse Resp BP Pulse Ox 12/15/18 11:15 77 96/52 L 12/15/18 10:00 13 12/15/18 08:00 13 100 12/15/18 07:00 99.6 F 12/15/18 06:37 76 105/56 L 12/15/18 06:00 20 12/15/18 04:00 99.1 F 20 12/15/18 02:25 75 96/51 L 12/15/18 02:00 20 12/15/18 00:00 99.6 F 20 Weight Admit Weight 242 lb 1.081 oz Weight 242 lb 1.081 oz Most Recent Monitor Data Heart Rate from ECG 78 NIBP 96/52 NIBP BP-Mean 66 Respiration from ECG 15 SpO2 100 I&O: 12/14/18 12/15/18 12/16/18 06:59 06:59 06:59 Intake Total 0 2036.4 Output Total 40 933 45 Balance -40 1103.4 -45 Result Diagrams: 12/15/18 03:55 12/15/18 03:55 Additional Labs: Accuchecks 12/15/18 12/15/18 12/14/18 10:11 04:00 22:09 POC Glucose 93 82 91 12/14/18 16:10 POC Glucose 121 H Hospitalist ROS - Medication Medications: Active Medications Generic Name Dose Route Start Last Admin Trade Name Freq PRN Reason Stop Dose Admin Aspirin 81 mg 12/15/18 09:00 12/15/18 09:33 Aspirin Chewable PO 81 mg DAILY YESENIA Administration Atorvastatin Calcium 80 mg 12/14/18 21:00 12/14/18 20:09 Lipitor PO 80 mg HS YESENIA Administration Clopidogrel Bisulfate 75 mg 12/14/18 09:00 12/15/18 09:33 Plavix PO 75 mg DAILY YESENIA Administration Enoxaparin Sodium 100 mg 12/14/18 21:00 12/15/18 09:32 Lovenox SC 100 mg 0900,2100 YESENIA Administration Famotidine 20 mg 12/14/18 09:00 12/15/18 09:33 Pepcid PO 20 mg BID YESENIA Administration Fentanyl Citrate 2,000 mcg/ 100 mls @ 0 mls/hr 12/14/18 06:06 12/15/18 08:41 Sodium Chloride IV 01/13/19 06:06 100 mls INF YESENIA Administration Protocol Per Protocol Insulin Glargine 17 units/ 0.17 mls @ 0 mls/hr 12/14/18 21:00 12/14/18 20:10 Miscellaneous Medication SC 0.17 mls HS YESENIA Administration Sodium Chloride 1,000 mls @ 80 mls/hr 12/14/18 14:45 12/14/18 21:39 1/2 Normal Saline IV 1,000 mls .[id number] YESENIA Administration Lorazepam 2 mg 12/14/18 06:06 12/14/18 16:57 Ativan SLOW IVP 01/13/19 06:06 2 mg Q1H PRN Administration Breakthrough agitation Potassium Chloride 40 meq 12/15/18 08:45 12/15/18 09:35 Klor-Con PER TUBE 12/15/18 12:46 40 meq Q4H YESENIA Administration Propofol 1,000 mg 12/14/18 06:06 12/15/18 06:01 Diprivan IV 01/13/19 06:06 1,000 mg INF PRN Administration TO ACHIEVE GOAL RASS Protocol Sodium Chloride 10 ml 12/14/18 09:00 12/14/18 20:47 Flush - Normal Saline IVF 10 ml Q12HR YESENIA Administration Sodium Chloride 10 ml 12/14/18 07:00 12/14/18 09:43 Flush - Normal Saline IVF 10 ml PRN PRN Administration Saline Flush - Exam General - other findings: sedated. Eye: anicteric sclera Eye - other findings: ET and OG tubes in place ENT: normocephalic atraumatic Neck: symmetric, no JVD Heart: RRR Respiratory: no wheezes, no ronchi, normal chest expansion Respiratory - other findings: fair air entry with ventilator transmitted sound Gastrointestinal: soft, non-distended, normal bowel sounds Gastrointestinal - other findings: Armando catheter in place Extremities: no cyanosis, no edema Neurological - other findings: Sedated Hosp A/P (1) UTI (urinary tract infection) Status: Acute (2) Positive blood culture Code(s): R78.81 - BACTEREMIA Status: Acute (3) Fever Code(s): R50.9 - FEVER, UNSPECIFIED Status: Acute (4) Acute [place] Code(s): I21.9 - ACUTE MYOCARDIAL INFARCTION, UNSPECIFIED Status: Acute (5) Acute respiratory failure with hypoxia Code(s): J96.01 - ACUTE RESPIRATORY FAILURE WITH HYPOXIA Status: Acute (6) Acute on chronic systolic heart failure Code(s): I50.23 - ACUTE ON CHRONIC SYSTOLIC (CONGESTIVE) HEART FAILURE Status : Acute (7) Shock Code(s): R57.9 - SHOCK, UNSPECIFIED Status: Acute (8) Flash pulmonary edema Code(s): J81.0 - ACUTE PULMONARY EDEMA Status: Acute (9) Paroxysmal atrial fibrillation Code(s): I48.0 - PAROXYSMAL ATRIAL FIBRILLATION Status: Acute (10) SLIM (acute kidney injury) Code(s): N17.9 - ACUTE KIDNEY FAILURE, UNSPECIFIED Status: Acute (11) Volume depletion Code(s): E86.9 - VOLUME DEPLETION, UNSPECIFIED Status: Acute (12) Chest pain Code(s): R07.9 - CHEST PAIN, UNSPECIFIED Status: Acute Qualifiers: Ischemic chest pain type: unstable angina pectoris (13) Hypokalemia Code(s): E87.6 - HYPOKALEMIA Status: Acute (14) DM type 2 (diabetes mellitus, type 2) Status: Chronic Qualifiers: Diabetes mellitus correction insulin use: without ocean transportation intermediary use Diabetes mellitus complication status: with circulatory complication Diabetes mellitus complication detail: with other circulatory complications Qualified Code(s): E11.59 - Type 2 diabetes mellitus with other circulatory complications (15) Anemia Code(s): D64.9 - ANEMIA, UNSPECIFIED Status: Acute - Plan Start empirical antibiotic for possible UTI. Positive blood culture considered contaminant. No further vancomycin. We will get repeat culture is patient spike temp again. Continue antithrombotoc therapy Replete serum potassium. Vent management as per musculoskeletal physician AMI treatment as per cardiology Monitor blood glucose and treat with insulin. Monitor electrolytes and correct as needed
[2018-12-15] MEDS: cefTRIAXone\\ROCEPHIN 1 GM in Sodium Chloride 0.9% 100 ML IVPB SCH (11:59)
[2018-12-15] MEDS: Sodium Chloride 0.45% 1,000 ML IV SCH (12:03)
--- NOTE | 2018-12-15 12:15 | PDOC.CPN ---
- Subjective Date: 12/15/18 Time: 12:14 Interval history: Remains sedated and intubated. - Review of Systems ROS unobtainable: due to endotracheal tube - Objective Allergies/Adverse Reactions: Allergies Allergy/AdvReac Type Severity Reaction Status Date / Time No Known Allergies Allergy Verified 11/21/18 22:05 Visit Medications: Current Medications Acetaminophen (Tylenol) 650 mg PO Q4H PRN PRN Reason: Headache/Fever/Mild Pain (1-3) Hydrocodone Bitart/Acetaminophen ([place] 5/325) 1 tab PO Q4H PRN PRN Reason: Moderate Pain (4-6) Aspirin (Aspirin Chewable) 81 mg PO DAILY [facility] Last Admin: 12/15/18 09:33 Dose: 81 mg Atorvastatin Calcium (Lipitor) 80 mg PO HS [facility] Last Admin: 12/14/18 20:09 Dose: 80 mg Bisacodyl (Dulcolax) 10 mg AL DAILYPRN PRN PRN Reason: Constipation Bisacodyl (Dulcolax) 10 mg PO DAILYPRN PRN PRN Reason: Constipation Clopidogrel Bisulfate (Plavix) 75 mg PO DAILY [facility] Last Admin: 12/15/18 09:33 Dose: 75 mg Dextrose/Water (Dextrose 50%) 25 gm IVP PRN PRN PRN Reason: HYPOGLYCEMIA PROTOCOL Enoxaparin Sodium (Lovenox) 100 mg SC 0900,2100 [facility] Last Admin: 12/15/18 09:32 Dose: 100 mg Famotidine (Pepcid) 20 mg PO BID [facility] Last Admin: 12/15/18 09:33 Dose: 20 mg Glucagon (Glucagon) 1 mg IM PRN PRN PRN Reason: HYPOGLYCEMIA PROTOCOL Norepinephrine Bitartrate (Levophed) 250 mls @ 0 mls/hr IVPB INF [facility]; Protocol Dopamine HCl/Dextrose (Dopamine 400 Mg/D5w 250 Ml) 250 mls @ 0 mls/hr IVPB INF YESENIA; Protocol Dextrose/Water (D5w) 1,000 mls @ 0 mls/hr IV INF PRN PRN Reason: HYPOGLYCEMIA PROTOCOL Fentanyl Citrate 2,000 mcg/ (Sodium Chloride) 100 mls @ 0 mls/hr IV INF YESENIA; Protocol Stop: 01/13/19 06:06 Last Admin: 12/15/18 08:41 Dose: 100 mls Fentanyl Citrate (Fentanyl Bolus) 250 mls @ 0 mls/hr IVPB PRN PRN PRN Reason: Breakthrough pain/agitation Stop: 01/13/19 06:06 Insulin Glargine 17 units/ (Miscellaneous Medication) 0.17 mls @ 0 mls/hr SC HS [facility] Last Admin: 12/14/18 20:10 Dose: 0.17 mls Sodium Chloride (1/2 Normal Saline) 1,000 mls @ 80 mls/hr IV .[id number] [facility] Last Admin: 12/15/18 12:03 Dose: 1,000 mls Ceftriaxone Sodium 1 gm/ (Sodium Chloride) 100 mls @ 200 mls/hr IVPB 1200 YESENIA Last Admin: 12/15/18 11:59 Dose: 100 mls Insulin Human Lispro (Humalog) 0 units SC .MILD SLIDING SCALE PRN PRN Reason: Mild Correctional Scale Insulin Human Regular (Humulin R) 0 units SC .MODERATE SLIDING SC PRN; Protocol PRN Reason: MODERATE SLIDING SCALE Lorazepam (Ativan) 2 mg SLOW IVP Q1H PRN PRN Reason: Breakthrough agitation Stop: 01/13/19 06:06 Last Admin: 12/14/18 16:57 Dose: 2 mg Morphine Sulfate (Morphine) 2 mg SLOW IVP Q1H PRN PRN Reason: BREAKTHROUGH PAIN/Agitation Stop: 01/13/19 06:06 Discontinue Previous Narcotic Pain Medications And Benzodiazepines 1 each FS .ONE [facility] Stop: 01/13/19 06:06 Ondansetron HCl (Zofran) 4 mg IVP Q6H PRN PRN Reason: Nausea/Vomiting Potassium Chloride (Klor-Con) 40 meq PER TUBE Q4H [facility] Stop: 12/15/18 12:46 Last Admin: 12/15/18 11:59 Dose: 40 meq Propofol (Diprivan) 1,000 mg IV INF PRN; Protocol PRN Reason: TO ACHIEVE GOAL RASS Stop: 01/13/19 06:06 Last Admin: 12/15/18 06:01 Dose: 1,000 mg Propofol (Diprivan Bolus) 20 mg IV Q5MIN PRN PRN Reason: BREAKTHROUGH AGITATION Stop: 01/13/19 06:06 Senna/Docusate Sodium (Senokot S) 2 tab PO BID PRN PRN Reason: Constipation Sodium Chloride (Flush - Normal Saline) 10 ml IVF Q12HR [facility] Last Admin: 12/15/18 09:00 Dose: 10 ml Sodium Chloride (Flush - Normal Saline) 10 ml IVF PRN PRN PRN Reason: Saline Flush Last Admin: 12/14/18 09:43 Dose: 10 ml Vital Signs & Weight: Vital Signs Temp Pulse Resp BP Pulse Ox 12/15/18 11:15 77 96/52 L 12/15/18 10:00 13 12/15/18 08:00 13 100 12/15/18 07:00 99.6 F 12/15/18 06:37 76 105/56 L 12/15/18 06:00 20 12/15/18 04:00 99.1 F 20 12/15/18 02:25 75 96/51 L 12/15/18 02:00 20 Admit Weight 242 lb 1.081 oz Weight 242 lb 1.081 oz - Physical Exam General: no apparent distress HEENT: mucus membranes moist, normocephaly Neck: supple neck Cardiac: regular rate and rhythm Lungs: clear to auscultation Neuro: other (sedated, intubated) Abdomen: active bowel sounds Extremities: 1+ LE edema Skin: clear Musculoskeletal: no fluid collection - Labs Result Diagrams: 12/15/18 03:55 12/15/18 03:55 Troponin/CKMB CK-MB (CK-2) 14.7 ng/mL (0-6.6) H* 12/15/18 03:55 Troponin I 11.475 ng/mL (< 0.028) H* 12/15/18 03:55 - Telemetry Sinus rhythms and dysrhythmias: sinus rhythm - Assessment/Plan Assessment/Plan: 1. NSTEMI 2. Acute on chronic systolic and diastolic heart failure 3. Flash pulmonary edema 4. Acute hypoxic respiratory insufficiency 5. CAD 6. Hypokalemia PLAN: - Replace K. - Will plan on [facility] monday - Wean vent per pulmonary - Continue full anticoagulation. - Critical Care Time Critical care time (mins): 45
[2018-12-15] MEDS ORDERED: predniSONE 20 MG TAB PO SCH (12:30)
[2018-12-15] MEDS ORDERED: Magnesium 2 GM/50 ML 2 GM in Premix Bag 1 BAG IVPB SCH (12:45)
--- NOTE | 2018-12-15 13:06 | PRG ---
DATE OF SERVICE: 12/15/2018 SERVICE: Pulmonary Medicine. INTERVAL HISTORY: The patient has had a profound improvement in oxygenation over the last 24 hours. He went from bilevel, has been subsequently changed over to pressure support ventilation. His FiO2 has been weaned down to the mid 20s. His PEEP has been dropped to 5. He is on minimal settings at this point. We made a fairly large change. If he sustains this for the next 2 hours, we will likely consider a spontaneous breathing trial today. Otherwise, he cannot provide additional elements of the history, because he is requiring some sedation to maintain comfort. PHYSICAL EXAMINATION: VITAL SIGNS: Afebrile, pulse 82, blood pressure 98/48, respirations 11, and saturation 97% on 27% FiO2, PEEP of 5. GENERAL: The patient is intubated and sedated. HEENT: Normocephalic and atraumatic. Sclerae white. Conjunctivae pink. Oral mucosa is moist without lesions. LUNGS: Decent air entry. Dependent crackles are present. There is a prolonged expiratory phase. No wheezing is appreciated; however. HEART: Normal rate. Regular. ABDOMEN: Soft, nontender, and nondistended. Bowel sounds are absent. NEUROLOGIC: Grossly nonfocal. LABORATORY DATA: WBC 5.6, hemoglobin 9.5, and platelets 200,000. A pH of 7.60, pCO2 of 20, pO2 of 67, corresponding to a saturation of 95%. Potassium 2.9. Magnesium 1.9. Creatinine 1.22, which is gently downtrending. Troponin 11, which is also downtrending. Procalcitonin 0.5. Urinalysis is minimally remarkable. Blood cultures growing coag-negative Staph in 1/2. Urine cultures negative to-date. IMAGING: Echocardiogram demonstrates 40% to 50% ejection fraction. Left atrium is mildly dilated. Small effusion is present without any tamponade physiology. ASSESSMENT: 1. Acute hypoxic and hypercapnic respiratory failure. 2. Acute on chronic systolic heart failure. 3. Chronic obstructive pulmonary disease with acute exacerbation. 4. Flash pulmonary edema, suspected. DISCUSSION AND PLAN: At this point, he has returned to pretty close to euvolemia. As such, I will back off the diuretics. Potassium and magnesium will be aggressively replaced today. We will initiate some nebulized medications, and steroids. His chest x-ray demonstrates some degree of hyperexpansion. Pulmonary/Critical Care will continue to follow along. If he meets criteria, extubation will be considered shortly. CRITICAL CARE TIME: 30 minutes. Job ID: [id number]
[2018-12-15] MEDS ORDERED: Norepinephrine 8 MG/0.9% NS 250 ML ONE (13:50)
[2018-12-15] MEDS: Norepinephrine 8 MG/0.9% NS 250 ML IVPB SCH ×3 (14:00→22:25)
[2018-12-15] MEDS ORDERED: Sodium Chloride 0.9% 1,000 ML IV SCH (14:15)
[2018-12-15] MEDS ORDERED: Vasopressin 40 UNIT, Admixture Fee 1 EACH in Sodium Chloride 0.9% 100 ML IV SCH (14:30)
[2018-12-15 14:39] LABS: Base Excess (BEa) -7.1 mEq/L (-2.0 to +3.0); CO2 Tension 34.6 mmHg (35.0-45.0); Calcium, Ionized 1.11 mmol/L (1.12-1.30); Carboxyhemoglobin (COHb) 0.7 gm% (0.0-3.0); Hemoglobin (Hb) 10.8 g/dL (14.0-18.0); O2 Tension (PaO2) 54.6 mmHg (> 70.0); Potassium - ABG Lab 4.53 mmol/L (3.70-5.30); Puncture Site LRA; pH, Arterial 7.33 (7.35-7.45)
[2018-12-15] MEDS ORDERED: DOPamine 400 MG/D5W 250 ML 250 ML ONE (15:02)
[2018-12-15] MEDS ORDERED: DOBUTamine 500 mg/250 ml 250 ML ONE (15:04)
[2018-12-15] MEDS ORDERED: EPINEPHrine 1 MG/10 ML Abboject SYRINGE IVP SCH (15:45)
[2018-12-15] MEDS: EPINEPHrine 4 MG in Dextrose 5% in Water 250 ML IV SCH (15:55)
--- NOTE | 2018-12-15 16:08 | RAD ---
Exam: Chest one view: HISTORY: Hypoxemia, decreased blood pressure COMPARISON: 12/14/2018 FINDINGS: Stable life-support tubes. Possibly slightly progressive bilateral interstitial and alveolar opacity changes particularly in the perihilar regions and small pleural effusions IMPRESSION: Possibly slightly progressive bilateral parenchymal changes.
[2018-12-15 16:39] LABS: Hemoglobin 11.1 g/dL (14.0-18.0)
[2018-12-15 17:01] LABS: Anion Gap 22 mmol/L (10-20); BUN (Urea Nitrogen) 20 mg/dL (8.4-25.7); Calc. Creatinine Clearance 60 mL/min (70-130); Calcium 7.5 mg/dL (7.8-10.44); Carbon Dioxide 12 mmol/L (23-31); Chloride 110 mmol/L (98-107); Estimated GFR-MDRD 50; Glucose 186 mg/dL (83-110); Potassium 5.5 mmol/L (3.5-5.1); Sodium 138 mmol/L (136-145)
[2018-12-15 17:07] LABS: Troponin I 14.171 ng/mL (< 0.028)
[2018-12-15 17:08] LABS: Lactic Acid 6.1 mmol/L (0.5-2.2)
[2018-12-15] MEDS ORDERED: Calcium Chloride 1 GM/10 ML Abboject SYRINGE IVP SCH (17:30)
[2018-12-15] MEDS ORDERED: Sodium Bicarb 50 MEQ/50 ML VIAL IVP SCH (17:30)
[2018-12-15] MEDS: Atorvastatin Calcium 40 MG TAB PO SCH (20:10)
[2018-12-15 20:56] LABS: Actual Bicarbonate (HCO3a) 13.6 mEq/L (22-28); CO2 Tension 30.3 mmHg (35.0-45.0); Calcium, Ionized 1.19 mmol/L (1.12-1.30); Carboxyhemoglobin (COHb) 0.6 gm% (0.0-3.0); Hemoglobin (Hb) 12.2 g/dL (14.0-18.0); O2 Tension (PaO2) 75.1 mmHg (> 70.0); pH, Arterial 7.27 (7.35-7.45)
[2018-12-15 21:35] LABS: Puncture Site RRA
[2018-12-15 21:36] LABS: ALV-art Gradient 592.895 (0-20)
[2018-12-15] MEDS: Insulin Glargine 17 UNITS in Pre-Filled Syringe 1 EACH SC SCH (22:17)
[2018-12-15] MEDS: HumaLOG 300 UNITS/3 ML VIAL SC PRN (22:21)
[2018-12-15 23:35] LABS: CKMB 103.5 ng/mL (0-6.6)
[2018-12-16] MEDS: EPINEPHrine 4 MG in Dextrose 5% in Water 250 ML IV SCH ×3 (00:09→10:21)
--- NOTE | 2018-12-16 00:25 | PRG ---
DATE OF SERVICE: SUBJECTIVE: I was called to his bedside given worsening hypotension. He had a non-STEMI. His troponin was already coming down from 20, trending down all the way down to 11. After the episode of hypotension, it went up to 14 and now it is up to 109. He remains on both epinephrine and norepinephrine. I added 5 mcg per hour of dobutamine as he needs a little bit of forward flow as well. I had a long conversation with his about his prognosis and the situation and possibly taken him down to the cardiac catheterization technician for an emergent revascularization and possibly placing an Impella for LV support as he is in cardiogenic shock versus a balloon pump. The currently is not interested in any invasive interventions. She tells me that he would not be interested in any invasive interventions. She wants him to be treated medically and supported medically. He is severely ill. I told her that we can continue doing. We are trying to wean some of these pressors and inotrope down, but I am hopeful that he will make it through the night, but he is extremely ill and would not be unexpected. She understands, verbalized understanding of this, but she continues to want him to be conservative with his care. Reviewed vital signs. Physical exam is unchanged from this morning, except for his blood pressure currently in the 130s on inotropic and pressor support. He is still responsive with the peripheral pulses. ASSESSMENT: 1. Cardiogenic shock. 2. Acute IN 3. Fever 2 days ago? no recurrence. 4. Acute hypoxic respiratory insufficiency. RECOMMENDATIONS: 1. Continue supportive care with inotropic support and pressor support. 2. Currently, the family wants to be conservative and not do a heart catheterization or placing an Impella or balloon pump. 3. Severely ill and would not be unexpected. Forty-five minutes of critical care were delivered at bedside this evening. Job ID: [id number] MTDD
[2018-12-16] MEDS: Propofol 1,000 MG/100 ML VIAL IV PRN ×3 (03:57→21:39)
[2018-12-16] MEDS: DOBUTamine 500 mg/250 ml 250 ML IVPB SCH ×2 (03:57→21:44)
[2018-12-16] MEDS: HumaLOG 300 UNITS/3 ML VIAL SC PRN (04:11)
[2018-12-16 04:26] LABS: Hemoglobin 9.6 g/dL (14.0-18.0)
[2018-12-16 04:43] LABS: Albumin 2.9 g/dL (3.4-4.8); Anion Gap 14 mmol/L (10-20); BUN (Urea Nitrogen) 19 mg/dL (8.4-25.7); BUN/Creatinine Ratio 12.42; Calc. Creatinine Clearance 64 mL/min (70-130); Calcium 7.9 mg/dL (7.8-10.44); Carbon Dioxide 17 mmol/L (23-31); Chloride 107 mmol/L (98-107); Estimated GFR-MDRD 54; Glucose 338 mg/dL (83-110); Lactic Acid 4.2 mmol/L (0.5-2.2); Sodium 134 mmol/L (136-145)
[2018-12-16 05:32] LABS: CKMB 95.5 ng/mL (0-6.6); Critical Call CKMB RESULT DECREASING
[2018-12-16] MEDS: fentaNYL Citrate/PF 2,000 MCG in Sodium Chloride 0.9% 60 ML IV SCH (07:20)
[2018-12-16] MEDS: Enoxaparin Sodium 100 MG/ML SYRINGE SC SCH ×2 (09:29→21:30)
[2018-12-16] MEDS: Famotidine 20 MG TAB PO SCH ×2 (09:29→21:31)
[2018-12-16] MEDS: Aspirin Chewable 81 MG TAB PO SCH (09:29)
[2018-12-16] MEDS: Clopidogrel Bisulfate 75 MG TAB PO SCH (09:29)
[2018-12-16] MEDS: predniSONE 20 MG TAB PO SCH (09:30)
[2018-12-16] MEDS ORDERED: Insulin Regular 300 UNITS/3 ML VIAL SC PRN (09:53)
[2018-12-16] MEDS: Insulin Regular 300 UNITS/3 ML VIAL SC PRN ×2 (10:20→16:21)
--- NOTE | 2018-12-16 11:38 | PDOC.HOSPP ---
- Subjective Encounter Date: 12/16/18 Encounter Time: 10:35 Subjective: 78 y/o male with known history of COPD, CHF, CAD, A fib, DM, HTN and others who presented with recurrent chest pain associated with SOB and hypotension. Treated initially with IVF with improvement of hypotension. Acute MO was ruled out with serial troponin and he was to be transfered to [facility] but chest pain recurred associated with respiratory distress and hypotension hence was intubated emergently and started on pressors. Troponin subsequent bumped tremendously. Hemodynamics improved but patient developed hypotension requiring multiple pressors and ionotropic agent for cardiogenic shock. S/p thrombolysis on 12/15/2018. Still requriing presssors and ionotrope but hemodynamics is stable. No further fever. - Objective Vital Signs & Weight: Vital Signs (12 hours) Temp Pulse Resp BP Pulse Ox 12/16/18 10:44 80 139/65 12/16/18 10:00 19 12/16/18 08:00 99.0 F 12/16/18 07:21 93 139/65 12/16/18 07:20 93 19 99 12/16/18 06:00 19 12/16/18 04:00 99.1 F 20 12/16/18 02:00 19 12/16/18 00:00 99.3 F 19 Weight Admit Weight 242 lb 1.081 oz Weight 242 lb 1.081 oz Most Recent Monitor Data Heart Rate from ECG 89 NIBP 149/66 NIBP BP-Mean 93 Respiration from ECG 19 SpO2 100 I&O: 12/15/18 12/16/18 12/17/18 06:59 06:59 06:59 Intake Total 2036.4 4795.1 136.2 Output Total 933 1595 480 Balance 1103.4 3200.1 -343.8 Result Diagrams: 12/16/18 04:00 12/16/18 04:00 Additional Labs: Accuchecks 12/16/18 12/16/18 12/15/18 09:45 04:11 22:18 POC Glucose 267 H 337 H 311 H 12/15/18 14:09 POC Glucose 97 Hospitalist ROS - Medication Medications: Active Medications Generic Name Dose Route Start Last Admin Trade Name Freq PRN Reason Stop Dose Admin Albuterol/Ipratropium 3 ml 12/15/18 13:00 12/16/18 07:20 Duoneb NEB 3 ml [id number] YESENIA Administration Aspirin 81 mg 12/15/18 09:00 12/16/18 09:29 Aspirin Chewable PO 81 mg DAILY YESENIA Administration Atorvastatin Calcium 80 mg 12/14/18 21:00 12/15/18 20:10 Lipitor PO 80 mg HS YESENIA Administration Clopidogrel Bisulfate 75 mg 12/14/18 09:00 12/16/18 09:29 Plavix PO 75 mg DAILY YESENIA Administration Enoxaparin Sodium 100 mg 12/14/18 21:00 12/16/18 09:29 Lovenox SC 100 mg 0900,2100 YESENIA Administration Famotidine 20 mg 12/14/18 09:00 12/16/18 09:29 Pepcid PO 20 mg BID YESENIA Administration Fentanyl Citrate 2,000 mcg/ 100 mls @ 0 mls/hr 12/14/18 06:06 12/16/18 07:20 Sodium Chloride IV 01/13/19 06:06 100 mls INF YESENIA Administration Protocol Per Protocol Insulin Glargine 17 units/ 0.17 mls @ 0 mls/hr 12/14/18 21:00 12/15/18 22:17 Miscellaneous Medication SC 0.17 mls HS YESENIA Administration Ceftriaxone Sodium 1 gm/ 100 mls @ 200 mls/hr 12/15/18 12:00 12/15/18 11:59 Sodium Chloride IVPB 100 mls 1200 YESENIA Administration Norepinephrine Bitartrate 250 mls @ 0 mls/hr 12/15/18 14:15 12/15/18 22:25 Levophed IVPB 250 mls INF YESENIA Administration Protocol Titrate Vasopressin 40 unit/ 102 mls @ 0 mls/hr 12/15/18 14:30 12/15/18 14:47 Miscellaneous Medication 1 IV 102 mls each/ Sodium Chloride INF YESENIA Administration Protocol As Directed Dobutamine HCl/Dextrose 250 mls @ 16.47 mls/hr 12/15/18 15:15 12/16/18 03:57 Dobutamine 500 Mg/250 Ml IVPB 250 mls INF YESENIA Administration 5 MCG/KG/MIN Epinephrine 4 mg/ Dextrose/ 254 mls @ 0 mls/hr 12/15/18 16:30 12/16/18 10:21 Water IV 254 mls INF YESENIA Administration Protocol Titrate Insulin Human Regular 0 units 12/14/18 05:41 12/16/18 10:20 Humulin R SC 6 unit .MODERATE SLIDING SC PRN Administration MODERATE SLIDING SCALE Protocol Prednisone 40 mg 12/16/18 08:00 12/16/18 09:30 Prednisone PO 12/20/18 08:01 40 mg QAM-WM YESENIA Administration Propofol 1,000 mg 12/14/18 06:06 12/16/18 03:57 Diprivan IV 01/13/19 06:06 1,000 mg INF PRN Administration TO ACHIEVE GOAL RASS Protocol Sodium Chloride 10 ml 12/14/18 09:00 12/16/18 10:01 Flush - Normal Saline IVF 10 ml Q12HR YESENIA Administration Sodium Chloride 10 ml 12/14/18 07:00 12/14/18 09:43 Flush - Normal Saline IVF 10 ml PRN PRN Administration Saline Flush - Exam General - other findings: sedated Eye: PERRL ENT: normocephalic atraumatic Neck: no JVD Heart: RRR Respiratory: no wheezes, no rales, no ronchi, normal chest expansion Respiratory - other findings: fair air entry with vent transmitted sound Gastrointestinal: soft, non-distended, normal bowel sounds Extremities: no cyanosis Extremities - other findings: mild edema of left hand Neurological - other findings: sedated Hosp A/P (1) Cardiogenic shock Code(s): R57.0 - CARDIOGENIC SHOCK Status: Acute (2) Acute MO Code(s): I21.9 - ACUTE MYOCARDIAL INFARCTION, UNSPECIFIED Status: Acute (3) UTI (urinary tract infection) Status: Acute (4) Positive blood culture Code(s): R78.81 - BACTEREMIA Status: Acute (5) Fever Code(s): R50.9 - FEVER, UNSPECIFIED Status: Acute (6) Acute respiratory failure with hypoxia Code(s): J96.01 - ACUTE RESPIRATORY FAILURE WITH HYPOXIA Status: Acute (7) Acute on chronic systolic heart failure Code(s): I50.23 - ACUTE ON CHRONIC SYSTOLIC (CONGESTIVE) HEART FAILURE Status : Acute (8) Flash pulmonary edema Code(s): J81.0 - ACUTE PULMONARY EDEMA Status: Acute (9) Paroxysmal atrial fibrillation Code(s): I48.0 - PAROXYSMAL ATRIAL FIBRILLATION Status: Acute (10) SLIM (acute kidney injury) Code(s): N17.9 - ACUTE KIDNEY FAILURE, UNSPECIFIED Status: Acute (11) Volume depletion Code(s): E86.9 - VOLUME DEPLETION, UNSPECIFIED Status: Acute (12) Chest pain Code(s): R07.9 - CHEST PAIN, UNSPECIFIED Status: Acute Qualifiers: Ischemic chest pain type: unstable angina pectoris (13) Hypokalemia Code(s): E87.6 - HYPOKALEMIA Status: Acute (14) DM type 2 (diabetes mellitus, type 2) Status: Chronic Qualifiers: Diabetes mellitus half-way insulin use: without terminal operations supervisor use Diabetes mellitus complication status: with circulatory complication Diabetes mellitus complication detail: with other circulatory complications Qualified Code(s): E11.59 - Type 2 diabetes mellitus with other circulatory complications (15) Anemia Code(s): D64.9 - ANEMIA, UNSPECIFIED Status: Acute (16) COPD with acute exacerbation Code(s): J44.1 - CHRONIC OBSTRUCTIVE PULMONARY DISEASE W (ACUTE) EXACERBATION Status: Acute (17) Hypophosphatemia Code(s): E83.39 - OTHER DISORDERS OF PHOSPHORUS METABOLISM Status: Acute - Plan Continue pressors and ionotrope. Wean as tolerated. Medical mgt of acute MO to continue and patients spouse did not invasive treatment Continue empirical antibiotic for possible UTI/COPD exacerbation. Positive blood culture considered contaminant. No further vancomycin. Continue antithrombotoc therapy. Replete serum potassium. Vent management as per hand silvering supervisor Monitor blood glucose and treat with insulin. Cahnge to moderate sliding scale Monitor electrolytes and correct as needed
[2018-12-16] MEDS: cefTRIAXone\\ROCEPHIN 1 GM in Sodium Chloride 0.9% 100 ML IVPB SCH (11:45)
--- NOTE | 2018-12-16 11:57 | PRG ---
DATE OF SERVICE: 12/16/2018 SERVICE: Pulmonary Medicine. INTERVAL HISTORY: The patient did extremely poorly yesterday. As we are weaning our pressure support, in PEEP, he had a sudden onset of tachycardia with a wide-complex. His troponin started up trending once again, and he dropped his pressures. All this happened over a period of 30 to 45 minutes. Ultimately, he got escalated up to four pressors. This did not have any significant improvement in his symptoms. He was too unstable to go anywhere else and we elected to give him tPA in the event that he was either having an acute AK, or an acute PE. Whatever happened, he ended up starting to stabilize afterwards and over the night, he is on half as much epinephrine, still on the dobutamine, but the norepinephrine and vasopressin have been deescalated completely. His mentation is there. He is not following any simple commands, but he does have purposeful movement. His urine output has actually picked up remarkably. Otherwise, there is no interval change to his condition. He did not have any fevers overnight. PHYSICAL EXAMINATION: VITAL SIGNS: Afebrile. Pulse 89, blood pressure 149/66, respirations are19, and saturation 100%, currently on 63% FiO2 and a PEEP of 5. GENERAL: The patient is intubated and sedated. HEENT: Normocephalic and atraumatic. Sclerae white. Conjunctivae pink. Oral mucosa is moist without lesions. LUNGS: Wonderful air entry. There is crackles present today. No prolonged expiratory phase or wheezing is appreciated. HEART: Normal rate, regular. ABDOMEN: Soft, nontender, and nondistended. Bowel sounds are positive. MUSCULOSKELETAL: No cyanosis or clubbing. There is no pitting in the bilateral lower extremities. NEUROLOGIC: Grossly nonfocal. LABORATORY DATA: Hemoglobin 9.6. PH 7.27, pCO2 of 30, PO2 of 75. Albumin 2.9 and phosphorus 2.0. Potassium 4.0 and sodium 134. Creatinine is gently downtrending to 1.53. Lactate has improved to 4.2, troponin has improved. Blood cultures x2 are unremarkable. Urine culture is negative to date. IMAGING: Chest x-ray demonstrates endotracheal tube roughly 4 cm above the level of the sherry. There is interstitial fullness throughout bilateral lung darby as well as cephalization noted. That being said, it appears to be better than presentation, but a little bit worse than yesterday morning. ASSESSMENT: 1. Acute hypoxic respiratory failure. 2. Cardiogenic shock. 3. Acute systolic heart failure. 4. [id number] elevation myocardial infarction. 5. Acute kidney injury, improving. 6. Chronic obstructive pulmonary disease with acute exacerbation. DISCUSSION AND PLAN: At this point, the patient seems to be settling down fairly well. We will continue to wean pressors and FiO2 through time. Hopefully over the next 24 to 48 hours, we will be able to liberate him from mechanical ventilation. The tPA is the thing that helped him. It is not clear whether or not this resolved an AK we could not see on EKG, or whether this improved a pulmonary embolism. Either way, within a couple of hours after this medication, his heart started to strengthen up. Phosphorus will be replaced and we will continue to trend laboratories through time. Pulmonary Critical Care will continue to follow along. CRITICAL CARE TIME: 120 minutes. Job ID: [id number] MTDD
[2018-12-16] MEDS ORDERED: Sodium Phosphate 30 MMOL in Sodium Chloride 0.9% 250 ML 250 ML IVPB SCH (12:00)
--- NOTE | 2018-12-16 13:03 | PDOC.CPN ---
- Subjective Date: 12/16/18 Time: 12:58 Interval history: Remains intubated and sedated. - Review of Systems ROS unobtainable: due to endotracheal tube - Objective Allergies/Adverse Reactions: Allergies Allergy/AdvReac Type Severity Reaction Status Date / Time No Known Allergies Allergy Verified 11/21/18 22:05 Visit Medications: Current Medications Acetaminophen (Tylenol) 650 mg PO Q4H PRN PRN Reason: Headache/Fever/Mild Pain (1-3) Hydrocodone Bitart/Acetaminophen (Merrill 5/325) 1 tab PO Q4H PRN PRN Reason: Moderate Pain (4-6) Albuterol/Ipratropium (Duoneb) 3 ml NEB [id number] [facility] Last Admin: 12/16/18 07:20 Dose: 3 ml Aspirin (Aspirin Chewable) 81 mg PO DAILY [facility] Last Admin: 12/16/18 09:29 Dose: 81 mg Atorvastatin Calcium (Lipitor) 80 mg PO HS [facility] Last Admin: 12/15/18 20:10 Dose: 80 mg Bisacodyl (Dulcolax) 10 mg VT DAILYPRN PRN PRN Reason: Constipation Bisacodyl (Dulcolax) 10 mg PO DAILYPRN PRN PRN Reason: Constipation Clopidogrel Bisulfate (Plavix) 75 mg PO DAILY [facility] Last Admin: 12/16/18 09:29 Dose: 75 mg Dextrose/Water (Dextrose 50%) 25 gm IVP PRN PRN PRN Reason: HYPOGLYCEMIA PROTOCOL Enoxaparin Sodium (Lovenox) 100 mg SC 0900,2100 [facility] Last Admin: 12/16/18 09:29 Dose: 100 mg Famotidine (Pepcid) 20 mg PO BID [facility] Last Admin: 12/16/18 09:29 Dose: 20 mg Glucagon (Glucagon) 1 mg IM PRN PRN PRN Reason: HYPOGLYCEMIA PROTOCOL Dextrose/Water (D5w) 1,000 mls @ 0 mls/hr IV INF PRN PRN Reason: HYPOGLYCEMIA PROTOCOL Fentanyl Citrate 2,000 mcg/ (Sodium Chloride) 100 mls @ 0 mls/hr IV INF [facility]; Protocol Stop: 01/13/19 06:06 Last Admin: 12/16/18 07:20 Dose: 100 mls Fentanyl Citrate (Fentanyl Bolus) 250 mls @ 0 mls/hr IVPB PRN PRN PRN Reason: Breakthrough pain/agitation Stop: 12/08/19 06:06 Insulin Glargine 17 units/ (Miscellaneous Medication) 0.17 mls @ 0 mls/hr SC HS [facility] Last Admin: 12/15/18 22:17 Dose: 0.17 mls Ceftriaxone Sodium 1 gm/ (Sodium Chloride) 100 mls @ 200 mls/hr IVPB 1200 YESENIA Last Admin: 12/16/18 11:45 Dose: 100 mls Dobutamine HCl/Dextrose (Dobutamine 500 Mg/250 Ml) 250 mls @ 16.47 mls/hr IVPB INF [facility] Last Admin: 12/16/18 03:57 Dose: 250 mls Epinephrine 4 mg/ Dextrose/ (Water) 254 mls @ 0 mls/hr IV INF YESENIA; Protocol Last Admin: 12/16/18 10:21 Dose: 254 mls Sodium Phosphate 30 mmol/ (Sodium Chloride) 260 mls @ 43.333 mls/hr IVPB NOW [facility] Stop: 12/16/18 17:59 Last Admin: 12/16/18 12:32 Dose: 260 mls Insulin Human Regular (Humulin R) 0 units SC .MODERATE SLIDING SC PRN; Protocol PRN Reason: MODERATE SLIDING SCALE Last Admin: 12/16/18 10:20 Dose: 6 unit Insulin Human Regular (Humulin R) 0 units SC .AGGRESSIVE SLIDING PRN; Protocol PRN Reason: AGGRESSIVE SLIDING SCALE Discontinue Previous Narcotic Pain Medications And Benzodiazepines 1 each FS .ONE [facility] Stop: 01/13/19 06:06 Ondansetron HCl (Zofran) 4 mg IVP Q6H PRN PRN Reason: Nausea/Vomiting Prednisone (Prednisone) 40 mg PO QA-[facility] Stop: 12/20/18 08:01 Last Admin: 12/16/18 09:30 Dose: 40 mg Propofol (Diprivan) 1,000 mg IV INF PRN; Protocol PRN Reason: TO ACHIEVE GOAL RASS Stop: 01/13/19 06:06 Last Admin: 12/16/18 11:45 Dose: 1,000 mg Propofol (Diprivan Bolus) 20 mg IV Q5MIN PRN PRN Reason: BREAKTHROUGH AGITATION Stop: 01/13/19 06:06 Senna/Docusate Sodium (Senokot S) 2 tab PO BID PRN PRN Reason: Constipation Sodium Chloride (Flush - Normal Saline) 10 ml IVF Q12HR YESENIA Last Admin: 12/16/18 10:01 Dose: 10 ml Sodium Chloride (Flush - Normal Saline) 10 ml IVF PRN PRN PRN Reason: Saline Flush Last Admin: 12/14/18 09:43 Dose: 10 ml Vital Signs & Weight: Vital Signs Temp Pulse Resp BP Pulse Ox 12/16/18 12:00 98.8 F 19 12/16/18 10:44 80 139/65 12/16/18 10:00 19 12/16/18 08:00 99.0 F 19 100 12/16/18 07:21 93 139/65 12/16/18 07:20 93 19 99 12/16/18 06:00 19 12/16/18 04:00 99.1 F 20 12/16/18 02:00 19 Admit Weight 242 lb 1.081 oz Weight 242 lb 1.081 oz - Physical Exam General: other (S/I) HEENT: normocephaly Neck: supple neck Cardiac: regular rate and rhythm, no murmur Lungs: clear to auscultation Neuro: no lateralizing findings, other Abdomen: active bowel sounds, soft, non-tender Extremities: 1+ LE edema Skin: clear Musculoskeletal: no fluid collection - Labs Result Diagrams: 12/16/18 04:00 12/16/18 04:00 Troponin/CKMB CK-MB (CK-2) 95.5 ng/mL (0-6.6) H* 12/16/18 04:00 Troponin I 70.271 ng/mL (< 0.028) H* 12/16/18 04:00 - Telemetry Sinus rhythms and dysrhythmias: other (Paced.) - Assessment/Plan Assessment/Plan: 1. Acute NH 2. Acute on chronic systolic and diastolic heart failure 3. Flash pulmonary edema 4. Acute hypoxic respiratory insufficiency 5. CAD 6. Cardiogenic shock. PLAN: - Spoke with family yesterday and they wish to do conservative therapy for now. - He has improved since TPA given yesterday. - He is down to just needing Epi drip, dobutamine drip is mainly to improve forward flow. - Likely had Acute NH yesterday tipping him over into cardiogenic shock. I offered emergent LHC and possible Impella or Balloon pump placement and family decided on conservative therapy. - Continue full anticoagulation now after TPA. - Continue supportive care. Wean pressors as tolerated.
[2018-12-16] MEDS: Atorvastatin Calcium 40 MG TAB PO SCH (21:30)
[2018-12-16] MEDS: Insulin Glargine 17 UNITS in Pre-Filled Syringe 1 EACH SC SCH (21:31)
[2018-12-17 05:09] LABS: Phosphorus 2.4 mg/dL (2.3-4.7)
[2018-12-17 05:14] LABS: #Lymphocytes 1.1 thou/uL (1.20-3.40); #Monocytes 0.6 thou/uL (0.11-0.59); #Neutrophils 4.9 thou/uL (1.40-6.50); %Basophils 0.5 % (0.0-1.0); %Eosinophils 0.4 % (0.0-10.0); %Lymphocytes 16.2 % (21.0-51.0); %Monocytes 9.3 % (0.0-10.0); %Neutrophils 73.6 % (42.0-75.0); Hemoglobin 7.8 g/dL (14.0-18.0); Mean Corpuscular HGB CONC 32.4 g/dL (32.0-36.0); Mean Corpuscular Hemoglobin 25.6 pg (27.0-31.0); Mean Corpuscular Volume 79.1 fL (78.0-98.0); Mean Platelet Volume 7.9 fL (7.4-10.4); Platelet Count 165 thou/uL (130-400); RBC Distribution Width 14.8 % (11.5-14.5); Red Blood Cell (RBC) Count 3.04 mill/uL (4.70-6.10); White Blood Cell (WBC) Count 6.7 thou/uL (4.8-10.8)
[2018-12-17] MEDS ORDERED: Pantoprazole 40 MG VIAL IVP SCH (09:00)
[2018-12-17] MEDS ORDERED: Sodium Chloride 0.9% (PF) 10 ML VIAL FS PRN (09:04)
[2018-12-17] MEDS: predniSONE 20 MG TAB PO SCH (09:29)
[2018-12-17] MEDS: Aspirin Chewable 81 MG TAB PO SCH (09:29)
[2018-12-17] MEDS: Pantoprazole 40 MG VIAL IVP SCH (09:29)
[2018-12-17] MEDS: Clopidogrel Bisulfate 75 MG TAB PO SCH (09:29)
[2018-12-17] MEDS: Propofol 1,000 MG/100 ML VIAL IV PRN ×3 (09:29→20:36)
[2018-12-17] MEDS: Enoxaparin Sodium 100 MG/ML SYRINGE SC SCH (09:33)
[2018-12-17 10:39] LABS: Iron 10 ug/dL (65-175); Iron Binding Capacity, Total 186 mcg/dL (261-462)
[2018-12-17 10:55] LABS: Actual Bicarbonate (HCO3a) 22.6 mEq/L (22-28); Base Excess (BEa) -2.9 mEq/L (-2.0 to +3.0); CO2 Tension 41.7 mmHg (35.0-45.0); Calcium, Ionized 1.17 mmol/L (1.12-1.30); Carboxyhemoglobin (COHb) 0.2 gm% (0.0-3.0); Hemoglobin (Hb) 9.8 g/dL (14.0-18.0); O2 Tension (PaO2) 67.8 mmHg (> 70.0); Potassium - ABG Lab 3.69 mmol/L (3.70-5.30); pH, Arterial 7.35 (7.35-7.45)
[2018-12-17 10:59] LABS: ALV-art Gradient 186.665 (0-20); Puncture Site RBA
[2018-12-17] MEDS ORDERED: Iopamidol 370 76% 100 ML VIAL ONE (11:25)
[2018-12-17] MEDS ORDERED: Iopamidol 370 76% 50 ML VIAL FS ONE (11:25)
--- NOTE | 2018-12-17 12:48 | PDOC.HOSPP ---
- Subjective Encounter Date: 12/17/18 Encounter Time: 10:46 Subjective: 78 y/o male with known history of COPD, CHF, CAD, A fib, DM, HTN and others who presented with recurrent chest pain associated with SOB and hypotension. Treated initially with IVF with improvement of hypotension. Acute TN was ruled out with serial troponin and he was to be transfered to [facility] but chest pain recurred associated with respiratory distress and hypotension hence was intubated emergently and started on pressors. Troponin subsequent bumped tremendously. Hemodynamics improved but patient later developed hypotension requiring multiple pressors and ionotropic agent for cardiogenic shock. S/p thrombolysis on 12/15/2018 as patient spouse did not want invasive treatmnt. Clinically improved. Off pressors and ionotropes. Still intubated. No further fever. - Objective Vital Signs & Weight: Vital Signs (12 hours) Temp Pulse Resp BP 12/17/18 11:06 78 105/58 L 12/17/18 07:40 93 91/51 L 12/17/18 06:00 17 12/17/18 04:00 98.8 F 17 12/17/18 02:00 17 Weight Admit Weight 242 lb 1.081 oz Weight 242 lb 1.081 oz Most Recent Monitor Data Heart Rate from ECG 80 NIBP 108/60 NIBP BP-Mean 76 Respiration from ECG 14 SpO2 98 I&O: 12/16/18 12/17/18 12/18/18 06:59 06:59 06:59 Intake Total 4795.1 1992.7 Output Total 1595 3004 Balance 3200.1 -1011.3 Result Diagrams: 12/17/18 04:15 12/16/18 04:00 Additional Labs: Accuchecks 12/17/18 12/17/18 12/16/18 09:59 04:27 21:36 POC Glucose 98 86 128 H 12/16/18 16:16 POC Glucose 208 H Hospitalist ROS - Medication Medications: Active Medications Generic Name Dose Route Start Last Admin Trade Name Freq PRN Reason Stop Dose Admin Albuterol/Ipratropium 3 ml 12/15/18 13:00 12/17/18 07:40 Duoneb NEB 3 ml [id number] YESENIA Administration Aspirin 81 mg 12/15/18 09:00 12/17/18 09:29 Aspirin Chewable PO 81 mg DAILY YESENIA Administration Atorvastatin Calcium 80 mg 12/14/18 21:00 12/16/18 21:30 Lipitor PO 80 mg HS YESENIA Administration Clopidogrel Bisulfate 75 mg 12/14/18 09:00 12/17/18 09:29 Plavix PO 75 mg DAILY YESENIA Administration Enoxaparin Sodium 100 mg 12/14/18 21:00 12/17/18 09:33 Lovenox SC 100 mg 0900,2100 YESENIA Administration Fentanyl Citrate 2,000 mcg/ 100 mls @ 0 mls/hr 12/14/18 06:06 12/16/18 07:20 Sodium Chloride IV 01/13/19 06:06 100 mls INF YESENIA Administration Protocol Per Protocol Insulin Glargine 17 units/ 0.17 mls @ 0 mls/hr 12/14/18 21:00 12/16/18 21:31 Miscellaneous Medication SC 0.17 mls HS YESENIA Administration Ceftriaxone Sodium 1 gm/ 100 mls @ 200 mls/hr 12/15/18 12:00 12/16/18 11:45 Sodium Chloride IVPB 100 mls 1200 YESENIA Administration Dobutamine HCl/Dextrose 250 mls @ 16.47 mls/hr 12/15/18 15:15 12/16/18 21:44 Dobutamine 500 Mg/250 Ml IVPB 250 mls INF YESENIA Administration 5 MCG/KG/MIN Epinephrine 4 mg/ Dextrose/ 254 mls @ 0 mls/hr 12/15/18 16:30 12/16/18 10:21 Water IV 254 mls INF YESENIA Administration Protocol Titrate Insulin Human Regular 0 units 12/14/18 05:41 12/16/18 16:21 Humulin R SC 4 unit .MODERATE SLIDING SC PRN Administration MODERATE SLIDING SCALE Protocol Pantoprazole Sodium 40 mg 12/17/18 09:00 12/17/18 09:29 Protonix IVP 40 mg DAILY YESENIA Administration Prednisone 40 mg 12/16/18 08:00 12/17/18 09:29 Prednisone PO 12/20/18 08:01 40 mg QAM-WM YESENIA Administration Propofol 1,000 mg 12/14/18 06:06 12/17/18 09:29 Diprivan IV 01/13/19 06:06 1,000 mg INF PRN Administration TO ACHIEVE GOAL RASS Protocol Sodium Chloride 10 ml 12/14/18 09:00 12/17/18 09:33 Flush - Normal Saline IVF 10 ml Q12HR YESENIA Administration Sodium Chloride 10 ml 12/14/18 07:00 12/14/18 09:43 Flush - Normal Saline IVF 10 ml PRN PRN Administration Saline Flush Sodium Chloride 10 ml 12/17/18 09:04 12/17/18 09:29 Normal Saline Pf FS 10 ml PRN PRN Administration RECONSTITUTION - Exam General Appearance: awake alert Eye: anicteric sclera ENT: normocephalic atraumatic ENT - other findings: ET and OG tubes in place Neck: symmetric, no JVD Heart: RRR Respiratory: no wheezes, no ronchi, normal chest expansion Respiratory - other findings: fair air entry with ventilator transmitted sound. Gastrointestinal: soft, non-distended, normal bowel sounds Extremities: no edema Neurological - other findings: sedated Hosp A/P (1) Cardiogenic shock Code(s): R57.0 - CARDIOGENIC SHOCK Status: Acute (2) Acute TN Code(s): I21.9 - ACUTE MYOCARDIAL INFARCTION, UNSPECIFIED Status: Acute (3) UTI (urinary tract infection) Status: Acute (4) Positive blood culture Code(s): R78.81 - BACTEREMIA Status: Acute (5) Fever Code(s): R50.9 - FEVER, UNSPECIFIED Status: Acute (6) Acute respiratory failure with hypoxia Code(s): J96.01 - ACUTE RESPIRATORY FAILURE WITH HYPOXIA Status: Acute (7) Acute on chronic systolic heart failure Code(s): I50.23 - ACUTE ON CHRONIC SYSTOLIC (CONGESTIVE) HEART FAILURE Status : Acute (8) Flash pulmonary edema Code(s): J81.0 - ACUTE PULMONARY EDEMA Status: Acute (9) Paroxysmal atrial fibrillation Code(s): I48.0 - PAROXYSMAL ATRIAL FIBRILLATION Status: Acute (10) SLIM (acute kidney injury) Code(s): N17.9 - ACUTE KIDNEY FAILURE, UNSPECIFIED Status: Acute (11) Volume depletion Code(s): E86.9 - VOLUME DEPLETION, UNSPECIFIED Status: Acute (12) Chest pain Code(s): R07.9 - CHEST PAIN, UNSPECIFIED Status: Acute Qualifiers: Ischemic chest pain type: unstable angina pectoris (13) Hypokalemia Code(s): E87.6 - HYPOKALEMIA Status: Acute (14) DM type 2 (diabetes mellitus, type 2) Status: Chronic Qualifiers: Diabetes mellitus longterm insulin use: without longterm use Diabetes mellitus complication status: with circulatory complication Diabetes mellitus complication detail: with other circulatory complications Qualified Code(s): E11.59 - Type 2 diabetes mellitus with other circulatory complications (15) Anemia Code(s): D64.9 - ANEMIA, UNSPECIFIED Status: Acute (16) COPD with acute exacerbation Code(s): J44.1 - CHRONIC OBSTRUCTIVE PULMONARY DISEASE W (ACUTE) EXACERBATION Status: Acute (17) Hypophosphatemia Code(s): E83.39 - OTHER DISORDERS OF PHOSPHORUS METABOLISM Status: Acute (18) Acute blood loss anemia Code(s): D62 - ACUTE POSTHEMORRHAGIC ANEMIA Status: Acute (19) Iron deficiency anemia Code(s): D50.9 - IRON DEFICIENCY ANEMIA, UNSPECIFIED Status: Acute - Plan Replete iron store with IV iron therapy. Get stool occult blood. Monitor H/H and transfuse as needed Get repeat blood cultures. patient had 2/2 coag positive staph in blood. Continue empirical antibiotic for possible UTI/COPD exacerbation. 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 Monitor electrolytes and correct as needed
[2018-12-17 13:01] LABS: Hemoglobin 7.9 g/dL (14.0-18.0)
[2018-12-17] MEDS: cefTRIAXone\\ROCEPHIN 1 GM in Sodium Chloride 0.9% 100 ML IVPB SCH (13:27)
[2018-12-17] MEDS ORDERED: Lidocaine 1% (PF) 30 ML VIAL ONE (14:14)
[2018-12-17] MEDS ORDERED: Heparin (Artline) 1,000 ML ONE (14:14)
[2018-12-17] MEDS: Sodium Chloride 0.9% 1,000 ML IV SCH (14:40)
[2018-12-17] MEDS ORDERED: Heparin 10,000 UNITS/1 ML VIAL ONE ×2 (15:46→16:00)
[2018-12-17] MEDS ORDERED: Norepinephrine 4 MG/4 ML VIAL ONE ×2 (16:00→16:06)
[2018-12-17] MEDS ORDERED: Heparin (Artline) 500 ML ONE (16:13)
[2018-12-17] MEDS ORDERED: TICAGRELOR 90 MG TABLET ONE (16:13)
[2018-12-17] MEDS ORDERED: Norepinephrine 8 MG/0.9% NS 250 ML IVPB SCH (16:30)
[2018-12-17] MEDS ORDERED: Norepinephrine 8 MG in Dextrose 5% in Water 242 ML IVPB SCH (16:30)
--- NOTE | 2018-12-17 16:53 | EKG ---
Test Reason : Blood Pressure : / mmHG Vent. Rate : 081 BPM Atrial Rate : 080 BPM P-R Int : 000 ms QRS Dur : 166 ms QT Int : 466 ms P-R-T Axes : 000 -47 135 degrees QTc Int : 541 ms Ventricular-paced rhythm Abnormal ECG When compared with ECG of 14-DEC-2018 06:24, Vent. rate has increased BY [address] Sue HUA (3) on 12/17/2018 4:53:08 PM Referred By: LICO Confirmed By:DR. Sue HUA
--- NOTE | 2018-12-17 16:54 | EKG ---
Test Reason : Blood Pressure : / mmHG Vent. Rate : 109 BPM Atrial Rate : 109 BPM P-R Int : 146 ms QRS Dur : 164 ms QT Int : 384 ms P-R-T Axes : 087 -07 170 degrees QTc Int : 517 ms Atrial-sensed ventricular-paced rhythm Abnormal ECG When compared with ECG of 15-DEC-2018 06:27, (Unconfirmed) Vent. rate has increased BY [address] Sue HUA (3) on 12/17/2018 4:54:28 PM Referred By: ADDY Confirmed By:DR. Sue HUA
[2018-12-17] MEDS: Insulin Glargine 17 UNITS in Pre-Filled Syringe 1 EACH SC SCH (21:47)
[2018-12-17] MEDS: Atorvastatin Calcium 40 MG TAB PO SCH (21:48)
[2018-12-17] MEDS: Iron, Sodium Ferric Gluconate 250 MG in Sodium Chloride 0.9% 100 ML IVPB SCH (22:01)
[2018-12-17 23:13] LABS: Hemoglobin 7.8 g/dL (14.0-18.0)
[2018-12-18] MEDS: Propofol 1,000 MG/100 ML VIAL IV PRN ×2 (01:16→05:08)
[2018-12-18 05:42] LABS: #Lymphocytes 1.4 thou/uL (1.20-3.40); #Monocytes 0.8 thou/uL (0.11-0.59); #Neutrophils 5.7 thou/uL (1.40-6.50); %Basophils 0.1 % (0.0-1.0); %Eosinophils 0.3 % (0.0-10.0); %Monocytes 10.6 % (0.0-10.0); Hemoglobin 6.3 g/dL (14.0-18.0); Mean Corpuscular HGB CONC 33.1 g/dL (32.0-36.0); Mean Corpuscular Hemoglobin 26.3 pg (27.0-31.0); Mean Corpuscular Volume 79.4 fL (78.0-98.0); Mean Platelet Volume 8.2 fL (7.4-10.4); Platelet Count 217 thou/uL (130-400); RBC Distribution Width 14.8 % (11.5-14.5); Red Blood Cell (RBC) Count 2.38 mill/uL (4.70-6.10); White Blood Cell (WBC) Count 7.9 thou/uL (4.8-10.8)
[2018-12-18 06:05] LABS: ALT (SGPT) 233 U/L (8-55); AST (SGOT) 125 U/L (5-34); Albumin 2.8 g/dL (3.4-4.8); Alkaline Phosphatase 85 U/L (40-110); Anion Gap 11 mmol/L (10-20); BUN (Urea Nitrogen) 18 mg/dL (8.4-25.7); Bilirubin, Total 0.3 mg/dL (0.2-1.2); Calc. Creatinine Clearance 87 mL/min (70-130); Calcium 7.8 mg/dL (7.8-10.44); Carbon Dioxide 24 mmol/L (23-31); Chloride 111 mmol/L (98-107); Estimated GFR-MDRD 77; Globulin 2.9 g/dL (2.4-3.5); Glucose 86 mg/dL (83-110); Magnesium 2.3 mg/dL (1.6-2.6); Potassium 3.7 mmol/L (3.5-5.1); Protein, Total 5.7 g/dL (5.8-8.1); Sodium 142 mmol/L (136-145)
[2018-12-18] MEDS ORDERED: Furosemide 40 MG/4 ML VIAL ONE (06:21)
[2018-12-18 06:56] LABS: Phosphorus 3.3 mg/dL (2.3-4.7)
[2018-12-18] MEDS: Sodium Chloride 0.9% 1,000 ML IV SCH (07:53)
[2018-12-18] MEDS: predniSONE 20 MG TAB PO SCH (08:30)
[2018-12-18] MEDS: Clopidogrel Bisulfate 75 MG TAB PO SCH (08:30)
[2018-12-18] MEDS: Iron, Sodium Ferric Gluconate 250 MG in Sodium Chloride 0.9% 100 ML IVPB SCH (08:30)
[2018-12-18] MEDS: Aspirin Chewable 81 MG TAB PO SCH (08:30)
[2018-12-18] MEDS: Pantoprazole 40 MG VIAL IVP SCH (08:31)
[2018-12-18 09:22] LABS: Hemoglobin 8.1 g/dL (14.0-18.0)
[2018-12-18] MEDS: Polyethylene Glycol 3350 17 GM Packet PER TUBE SCH (10:17)
[2018-12-18] MEDS: cefTRIAXone\\ROCEPHIN 1 GM in Sodium Chloride 0.9% 100 ML IVPB SCH (11:32)
--- NOTE | 2018-12-18 12:34 | PDOC.HOSPP ---
- Subjective Encounter Date: 12/18/18 Encounter Time: 11:32 Subjective: 78 y/o male with known history of COPD, CHF, CAD, A fib, DM, HTN and others who presented with recurrent chest pain associated with SOB and hypotension. Treated initially with IVF with improvement of hypotension. Acute PA was ruled out with serial troponin and he was to be transfered to [facility] but chest pain recurred associated with respiratory distress and hypotension hence was intubated emergently and started on pressors. Hemodynamics improved but patient later developed hypotension requiring multiple pressors and ionotropic agent for cardiogenic shock. S/p thrombolysis on 12/15/2018 as patient spouse did not want invasive treatment. Clinically improved. Spouse later agreed to [facility] and patient had cardiac cath 12/17/2018 with stent placement for instent restenosis. Off pressors and ionotropes. Still intubated but otherwise comfortable. - Objective Vital Signs & Weight: Vital Signs (12 hours) Temp Pulse BP Pulse Ox 12/18/18 10:28 87 143/86 H 12/18/18 08:00 98 12/18/18 07:21 79 125/60 12/18/18 07:00 98.0 F 12/18/18 04:00 99.1 F Weight Admit Weight 242 lb 1.081 oz Weight 242 lb 1.081 oz Most Recent Monitor Data Heart Rate from ECG 93 NIBP 153/74 NIBP BP-Mean 100 Respiration from ECG 20 SpO2 98 I&O: 12/17/18 12/18/18 12/19/18 06:59 06:59 06:59 Intake Total 1992.7 1907.8 177.7 Output Total 3004 3645 435 Balance -1011.3 -1737.2 -257.3 Result Diagrams: 12/18/18 09:06 12/18/18 04:35 Additional Labs: Accuchecks 12/18/18 12/17/18 12/17/18 09:52 22:29 17:48 POC Glucose 83 114 H 157 H Hospitalist ROS - Medication Medications: Active Medications Generic Name Dose Route Start Last Admin Trade Name Freq PRN Reason Stop Dose Admin Albuterol/Ipratropium 3 ml 12/15/18 13:00 12/18/18 07:21 Duoneb NEB 3 ml [id number] YESENIA Administration Aspirin 81 mg 12/15/18 09:00 12/18/18 08:30 Aspirin Chewable PO 81 mg DAILY YESENIA Administration Atorvastatin Calcium 80 mg 12/14/18 21:00 12/17/18 21:48 Lipitor PO 80 mg HS YESENIA Administration Clopidogrel Bisulfate 75 mg 12/14/18 09:00 12/18/18 08:30 Plavix PO 75 mg DAILY YESENIA Administration Fentanyl Citrate 2,000 mcg/ 100 mls @ 0 mls/hr 12/14/18 06:06 12/16/18 07:20 Sodium Chloride IV 01/13/19 06:06 100 mls INF YESENIA Administration Protocol Per Protocol Insulin Glargine 17 units/ 0.17 mls @ 0 mls/hr 12/14/18 21:00 12/17/18 21:47 Miscellaneous Medication SC 0.17 mls HS YESENIA Administration Ceftriaxone Sodium 1 gm/ 100 mls @ 200 mls/hr 12/15/18 12:00 12/18/18 11:32 Sodium Chloride IVPB 100 mls 1200 YESENIA Administration Sodium Chloride 1,000 mls @ 50 mls/hr 12/17/18 13:45 12/18/18 07:53 Normal Saline 0.9% IV 1,000 mls .Q20H YESENIA Administration Norepinephrine Bitartrate 8 mg 250 mls @ 0 mls/hr 12/17/18 16:30 12/17/18 17: 31 / Dextrose/Water IVPB 250 mls INF YESENIA Administration Protocol As Directed Insulin Human Regular 0 units 12/14/18 05:41 12/16/18 16:21 Humulin R SC 4 unit .MODERATE SLIDING SC PRN Administration MODERATE SLIDING SCALE Protocol Ondansetron HCl 4 mg 12/14/18 06:37 12/18/18 11:32 Zofran IVP 4 mg Q6H PRN Administration Nausea/Vomiting Pantoprazole Sodium 40 mg 12/17/18 09:00 12/18/18 08:31 Protonix IVP 40 mg DAILY YESENIA Administration Polyethylene Glycol 17 gm 12/18/18 09:00 12/18/18 10:17 Miralax PER TUBE 17 gm DAILY YESENIA Administration Prednisone 40 mg 12/16/18 08:00 12/18/18 08:30 Prednisone PO 12/20/18 08:01 40 mg QAM-WM YESENIA Administration Propofol 1,000 mg 12/14/18 06:06 12/18/18 05:08 Diprivan IV 01/13/19 06:06 1,000 mg INF PRN Administration TO ACHIEVE GOAL RASS Protocol Sodium Chloride 10 ml 12/14/18 09:00 12/18/18 08:51 Flush - Normal Saline IVF 10 ml Q12HR YESENIA Administration Sodium Chloride 10 ml 12/14/18 07:00 12/14/18 09:43 Flush - Normal Saline IVF 10 ml PRN PRN Administration Saline Flush Sodium Chloride 10 ml 12/17/18 09:04 12/17/18 09:29 Normal Saline Pf FS 10 ml PRN PRN Administration RECONSTITUTION - Exam General Appearance: awake alert Eye: anicteric sclera ENT: normocephalic atraumatic ENT - other findings: ET and NG tubes in place Neck: symmetric, no JVD Heart: RRR Respiratory - other findings: fair air entry bilaterally with vent transmitted sound Gastrointestinal: soft, non-tender, non-distended, normal bowel sounds Extremities - other findings: mild edema of both hands. No edema of lower extremities Neurological: cranial nerve grossly intact Neurological - other findings: obeying simple commands Hosp A/P (1) Cardiogenic shock Code(s): R57.0 - CARDIOGENIC SHOCK Status: Acute (2) Acute PA Code(s): I21.9 - ACUTE MYOCARDIAL INFARCTION, UNSPECIFIED Status: Acute (3) UTI (urinary tract infection) Status: Acute (4) Positive blood culture Code(s): R78.81 - BACTEREMIA Status: Acute (5) Fever Code(s): R50.9 - FEVER, UNSPECIFIED Status: Acute (6) Acute respiratory failure with hypoxia Code(s): J96.01 - ACUTE RESPIRATORY FAILURE WITH HYPOXIA Status: Acute (7) Acute on chronic systolic heart failure Code(s): I50.23 - ACUTE ON CHRONIC SYSTOLIC (CONGESTIVE) HEART FAILURE Status : Acute (8) Flash pulmonary edema Code(s): J81.0 - ACUTE PULMONARY EDEMA Status: Acute (9) Paroxysmal atrial fibrillation Code(s): I48.0 - PAROXYSMAL ATRIAL FIBRILLATION Status: Acute (10) SLIM (acute kidney injury) Code(s): N17.9 - ACUTE KIDNEY FAILURE, UNSPECIFIED Status: Acute (11) Volume depletion Code(s): E86.9 - VOLUME DEPLETION, UNSPECIFIED Status: Acute (12) Chest pain Code(s): R07.9 - CHEST PAIN, UNSPECIFIED Status: Acute Qualifiers: Ischemic chest pain type: unstable angina pectoris (13) Hypokalemia Code(s): E87.6 - HYPOKALEMIA Status: Acute (14) DM type 2 (diabetes mellitus, type 2) Status: Chronic Qualifiers: Diabetes mellitus logging specialist insulin use: without senior care use Diabetes mellitus complication status: with circulatory complication Diabetes mellitus complication detail: with other circulatory complications Qualified Code(s): E11.59 - Type 2 diabetes mellitus with other circulatory complications (15) Anemia Code(s): D64.9 - ANEMIA, UNSPECIFIED Status: Acute (16) COPD with acute exacerbation Code(s): J44.1 - CHRONIC OBSTRUCTIVE PULMONARY DISEASE W (ACUTE) EXACERBATION Status: Acute (17) Hypophosphatemia Code(s): E83.39 - OTHER DISORDERS OF PHOSPHORUS METABOLISM Status: Acute (18) Acute blood loss anemia Code(s): D62 - ACUTE POSTHEMORRHAGIC ANEMIA Status: Acute (19) Iron deficiency anemia Code(s): D50.9 - IRON DEFICIENCY ANEMIA, UNSPECIFIED Status: Acute - Plan Monitor H/H and transfuse as needed Get repeat blood cultures. patient had 2/2 coag positive staph in blood which was considered contaminant Continue empirical antibiotic for possible UTI/COPD exacerbation. Vent management as per bilingual customer service Monitor blood glucose and treat with insulin. Monitor electrolytes and correct as needed Tube feeding contemplated.
[2018-12-18] MEDS: Furosemide 40 MG/4 ML VIAL ONE (12:53)
[2018-12-18] MEDS ORDERED: Furosemide 100 MG/10 ML VIAL SLOW IVP SCH (13:00)
--- NOTE | 2018-12-18 15:42 | PDOC.PALCO ---
Palliative Care Consult - Consult Details Requesting Physician: Dr Silvestre Reason for Consult: goals of care, family support Family Members Present: - Pertinent HPI Presented to the emergency room 12/14 for shortness of brehat and chest pain that onset at 5pm, resolved without interventions, and at bedtime he experienced diaphoresis, angina, patient took two nitro and asa and family transported patient to the emergency room. Patient is usually seen at the [facility]. Decompensated in the emergency room and patient was intubated and admitted for further medical management. - Pertinent PMH CAD, DM II, HTN, CHF, HDL - Social History Smoking Status: Former smoker Smoking: quit greater than 1 year Alcohol Use: none Drug Use History: none Living Situation: ( 30+ years) - Medications MAR Reviewed: Yes - Allergies Allergies/Adverse Reactions: Allergies Allergy/AdvReac Type Severity Reaction Status Date / Time No Known Allergies Allergy Verified 11/21/18 22:05 - Subjective Extubated this afternoon. Awake and alert. Complains of being hard of hearing and "tired", slight dry cough. Denies shortness of breath, chest pain or discomfort, nausea, vomiting, headache, blurry vision, difficultly swallowing, numbness, tingling to extremities. Armando in place draining to bedside. - Objective Vital Signs: Vital Signs - Most Recent Temp Pulse Resp BP Pulse Ox 100.4 F H 108 H 30 H 132/65 92 L 12/18/18 12:00 12/18/18 13:01 12/18/18 13:01 12/18/18 12:58 12/18/18 13:01 Palliative Performance Scale: 30 - Physical Exam Constitutional: NAD HEENT: moist MMs, sclera anicteric, EOMI Respiratory: unlabored breathing Cardiovascular: irregular Gastrointestinal: soft, non-tender, positive bowel sounds Musculoskeletal: pulses present, no cyanosis, edema present Deviation from normal: Edema to hands, negative to feet Neurological: moves all 4 limbs Psychiatric: normal affect Deviation from normal: ALert and oreinted, slight confusion Skin: cap refill <2 seconds - Problem List (1) Palliative care encounter Code(s): Z51.5 - ENCOUNTER FOR PALLIATIVE CARE Current Visit: Yes Status: Acute (2) Full code status Code(s): Z78.9 - OTHER SPECIFIED HEALTH STATUS Current Visit: Yes Status: Acute (3) Acute on chronic systolic heart failure Code(s): I50.23 - ACUTE ON CHRONIC SYSTOLIC (CONGESTIVE) HEART FAILURE Current Visit: No Status: Acute (4) Acute hypoxemic respiratory failure Code(s): J96.01 - ACUTE RESPIRATORY FAILURE WITH HYPOXIA Current Visit: No Status: Resolved - Plan/Recommendations Plan: Tatiana Mantilla and Lucina Ruiz RN's for Palliative Care also engaged with patient. Extubated today, awake and alert. Patient and 30+ years. Care for son at home. [facility], was going to be transferred from the emergency room before he became medically unstable to transfer. Introduced Palliative Care. Due to patient recently being extubated Palliative Care will follow up and discuss the following: *Resuscitation status *Goals of care in relation to disease trajectory and possible resources that may be needed at home *Continue support for Please also refer to Palliative Care notes for additional information/visits under notes section. [45] minutes spent on this encounter with >50% of the time in counseling and coordination of care. Thank you for this very appropriate consult.
--- NOTE | 2018-12-18 19:03 | PRG ---
DATE OF SERVICE: 12/17/2018 SUBJECTIVE: Events over the weekend have been reviewed. Apparently, he had flash pulmonary edema, again almost coded. He is empirically given tPA, which led to resolution of his symptoms. I talked to Dr. Patricia today, he plans to take him to the [facility] lab technician later today. His hemodynamics have been stable since the event over the weekend. OBJECTIVE: HEAD AND NECK: Unremarkable. He makes eye contact. LUNGS: Clear. HEART: Regular rhythm. ABDOMEN: Soft. EXTREMITIES: Without asymmetry or edema. LABORATORY DATA: White count 6.7, hemoglobin 7.8, platelets 165,000. Electrolytes have not been ordered. Blood gas shows a pH of 7.35, CO2 of 41, PO2 of 67. Sodium 137, potassium 3.6, chloride 110, bicarb 1.1. IMPRESSION: 1. Respiratory failure associated with flash pulmonary edema, likely related to coronary artery disease. 2. Myocardial infarction. 3. Status post tPA. PLAN: Cardiac catheterization, hopefully something will be amenable to percutaneous intervention. If so, then we can consider weaning and extubation tomorrow. He appears to have suffered no neurological insults, considering his multiple decompensations. Critical care time 30 minutes. Job ID: [id number]
--- NOTE | 2018-12-18 19:36 | PRG ---
DATE OF SERVICE: 12/18/2018 SUBJECTIVE: Annika Leal quickly made eye contact. Moved all his extremities to commands. OBJECTIVE: VITAL SIGNS: Heart rate was in the 80s to 100 range this morning. LUNGS: Clear. HEART: Regular rhythm. ABDOMEN: Soft. EXTREMITIES: Without asymmetry. LABORATORY DATA: White count 7.9, hemoglobin 6.3, received blood. His followup hemoglobin was 8.1, platelets 217,000. Sodium 142, potassium 3.7, chloride 111, bicarb 24, BUN 18, creatinine 1.12. Blood gas yesterday showed a pH 7.35, CO2 of 41, pO2 of 67. Oximetry was in the high 90s today when I was in the room. IMPRESSION: Status post coronary stenting with in-stent stenosis, likely was the culprit lesion for his flash pulmonary edema. Hopefully, he is fixed and will be stable. I recommended extubation. This has been done successfully. He has had no postextubation respiratory distress. He is given 60 mg of Lasix IV at the time of extubation and has had an excellent diuresis this afternoon. He will remain in the critical care unit for now. Dr. Patricia's assistance is appreciated. CRITICAL CARE TIME: 35 minutes. Job ID: [id number]
--- NOTE | 2018-12-18 20:03 | PDOC.CPN ---
- Subjective Date: 12/18/18 Time: 20:01 Interval history: He was extubated this afternoon. Doing much better. No chest pain. - Review of Systems General: denies: fever/chills, weight/appetite/sleep changes, night sweats, fatigue Respiratory: reports: cough. denies: congestion, shortness of breath, exercise intolerance Cardiovascular: denies: chest pain, palpitation, edema, paroxysmal nocturnal dyspnea, orthopnea Gastrointestinal: denies: nausea, vomiting, diarrhea, constipation, abd pain, GI bleeding Musculoskeletal: denies: pain, tenderness, stiffness, swelling, arthritis/ arthralgias Neurological: denies: numbness, syncope, seizure, weakness - Objective Allergies/Adverse Reactions: Allergies Allergy/AdvReac Type Severity Reaction Status Date / Time No Known Allergies Allergy Verified 11/21/18 22:05 Visit Medications: Current Medications Acetaminophen (Tylenol) 650 mg PO Q4H PRN PRN Reason: Headache/Fever/Mild Pain (1-3) Hydrocodone Bitart/Acetaminophen ([place] 5/325) 1 tab PO Q4H PRN PRN Reason: Moderate Pain (4-6) Albuterol/Ipratropium (Duoneb) 3 ml NEB [id number] [facility] Last Admin: 12/18/18 19:04 Dose: 3 ml Aspirin (Aspirin Chewable) 81 mg PO DAILY [facility] Last Admin: 12/18/18 08:30 Dose: 81 mg Atorvastatin Calcium (Lipitor) 80 mg PO HS [facility] Last Admin: 12/17/18 21:48 Dose: 80 mg Bisacodyl (Dulcolax) 10 mg PA DAILYPRN PRN PRN Reason: Constipation Bisacodyl (Dulcolax) 10 mg PO DAILYPRN PRN PRN Reason: Constipation Clopidogrel Bisulfate (Plavix) 75 mg PO DAILY [facility] Last Admin: 12/18/18 08:30 Dose: 75 mg Dextrose/Water (Dextrose 50%) 25 gm IVP PRN PRN PRN Reason: HYPOGLYCEMIA PROTOCOL Glucagon (Glucagon) 1 mg IM PRN PRN PRN Reason: HYPOGLYCEMIA PROTOCOL Dextrose/Water (D5w) 1,000 mls @ 0 mls/hr IV INF PRN PRN Reason: HYPOGLYCEMIA PROTOCOL Insulin Glargine 17 units/ (Miscellaneous Medication) 0.17 mls @ 0 mls/hr SC [facility] Last Admin: 12/17/18 21:47 Dose: 0.17 mls Sodium Chloride (Normal Saline 0.9%) 1,000 mls @ 50 mls/hr IV .Q20H [facility] Last Admin: 12/18/18 07:53 Dose: 1,000 mls Insulin Human Regular (Humulin R) 0 units SC .MODERATE SLIDING SC PRN; Protocol PRN Reason: MODERATE SLIDING SCALE Last Admin: 12/16/18 16:21 Dose: 4 unit Ondansetron HCl (Zofran) 4 mg IVP Q6H PRN PRN Reason: Nausea/Vomiting Last Admin: 12/18/18 11:32 Dose: 4 mg Pantoprazole Sodium (Protonix) 40 mg IVP DAILY [facility] Last Admin: 12/18/18 08:31 Dose: 40 mg Polyethylene Glycol (Miralax) 17 gm PER TUBE DAILY [facility] Last Admin: 12/18/18 10:17 Dose: 17 gm Prednisone (Prednisone) 20 mg PO QAM-WM [facility] Stop: 12/20/18 08:01 Propofol (Diprivan) 1,000 mg IV INF PRN; Protocol PRN Reason: TO ACHIEVE GOAL RASS Stop: 01/13/19 06:06 Last Admin: 12/18/18 05:08 Dose: 1,000 mg Propofol (Diprivan Bolus) 20 mg IV Q5MIN PRN PRN Reason: BREAKTHROUGH AGITATION Stop: 01/13/19 06:06 Senna/Docusate Sodium (Senokot S) 2 tab PO BID PRN PRN Reason: Constipation Sodium Chloride (Flush - Normal Saline) 10 ml IVF Q12HR [facility] Last Admin: 12/18/18 08:51 Dose: 10 ml Sodium Chloride (Flush - Normal Saline) 10 ml IVF PRN PRN PRN Reason: Saline Flush Last Admin: 12/14/18 09:43 Dose: 10 ml Sodium Chloride (Normal Saline Pf) 10 ml FS PRN PRN PRN Reason: RECONSTITUTION Last Admin: 12/17/18 09:29 Dose: 10 ml Vital Signs & Weight: Vital Signs Temp Pulse Resp BP Pulse Ox 12/18/18 19:04 119 H 30 H 100 12/18/18 16:00 98.8 F 100 12/18/18 13:01 108 H 30 H 92 L 12/18/18 12:58 101 H 132/65 12/18/18 12:55 106 H 24 H 12/18/18 12:00 100.4 F H 17 12/18/18 10:28 87 143/86 H Admit Weight 242 lb 1.081 oz Weight 242 lb 1.081 oz - Physical Exam General: alert & oriented x3 HEENT: mucus membranes moist Neck: supple neck Cardiac: regular rate and rhythm Lungs: clear to auscultation Neuro: grossly intact Abdomen: active bowel sounds Extremities: no edema Skin: clear Musculoskeletal: no pain - Labs Result Diagrams: 12/18/18 09:06 12/18/18 04:35 Troponin/CKMB CK-MB (CK-2) 95.5 ng/mL (0-6.6) H* 12/16/18 04:00 Troponin I 70.271 ng/mL (< 0.028) H* 12/16/18 04:00 - Telemetry Sinus rhythms and dysrhythmias: sinus rhythm - Assessment/Plan Assessment/Plan: 1. Acute [place] 2. Acute on chronic systolic and diastolic heart failure 3. Flash pulmonary edema 4. Acute hypoxic respiratory insufficiency 5. CAD 6. Cardiogenic shock. PLAN: - Off pressors and innotropes. - S/P PCI to LCx. MARGE. - Off the vent, doing much better. - ADEBAYO for 1 yr minimum.
[2018-12-18] MEDS: Insulin Glargine 17 UNITS in Pre-Filled Syringe 1 EACH SC SCH (21:28)
[2018-12-18] MEDS: Atorvastatin Calcium 40 MG TAB PO SCH (21:28)
[2018-12-18 23:09] LABS: Hemoglobin 8.1 g/dL (14.0-18.0)
[2018-12-19 04:54] LABS: ALT (SGPT) 185 U/L (8-55); AST (SGOT) 85 U/L (5-34); Alkaline Phosphatase 88 U/L (40-110); Anion Gap 10 mmol/L (10-20); BUN (Urea Nitrogen) 16 mg/dL (8.4-25.7); Bilirubin, Total 0.4 mg/dL (0.2-1.2); Calc. Creatinine Clearance 87 mL/min (70-130); Calcium 8.2 mg/dL (7.8-10.44); Carbon Dioxide 27 mmol/L (23-31); Chloride 110 mmol/L (98-107); Estimated GFR-MDRD 77; Globulin 2.9 g/dL (2.4-3.5); Glucose 84 mg/dL (83-110); Magnesium 2.1 mg/dL (1.6-2.6); Potassium 3.4 mmol/L (3.5-5.1); Protein, Total 5.9 g/dL (5.8-8.1); Sodium 144 mmol/L (136-145)
[2018-12-19 04:56] LABS: Phosphorus 2.4 mg/dL (2.3-4.7)
[2018-12-19 05:15] LABS: Band 2 % (5-11); Eosinophils 1 % (0-10); Hemoglobin 7.5 g/dL (14.0-18.0); Lymphocytes 17 % (21-51); MDiff Complete? YES; Mean Corpuscular HGB CONC 32.1 g/dL (32.0-36.0); Mean Corpuscular Hemoglobin 25.6 pg (27.0-31.0); Mean Corpuscular Volume 79.6 fL (78.0-98.0); Monocytes 8 % (0-10); Neutrophil 72 % (42-75); Platelet Count 194 thou/uL (130-400); RBC Distribution Width 14.9 % (11.5-14.5); Red Blood Cell (RBC) Count 2.91 mill/uL (4.70-6.10); White Blood Cell (WBC) Count 7.2 thou/uL (4.8-10.8)
[2018-12-19] MEDS: Sodium Chloride 0.9% 1,000 ML IV SCH (07:55)
[2018-12-19] MEDS: Polyethylene Glycol 3350 17 GM Packet PER TUBE SCH (07:57)
[2018-12-19] MEDS ORDERED: predniSONE 20 MG TAB PO SCH (08:00)
[2018-12-19] MEDS: Pantoprazole 40 MG VIAL IVP SCH (08:58)
--- NOTE | 2018-12-19 09:10 | RAD ---
PORTABLE CHEST 1 VIEW: DATE 12/19/2018. TIME: 12:45 a.m. HISTORY: CHF, respiratory distress. FINDINGS/IMPRESSION: Comparison is made with the exam of 12/15/2018. Endotracheal and nasogastric tubes have been removed in the interim. A left-sided pacing device and right subclavian central line remain in place. The heart size is borderline. There is mild prominen ce of pulmonary vascularity with bibasilar infiltrates, left larger than right, and accompanying effu sions. No pneumothoraces are seen. POS: HERLINDA
[2018-12-19] MEDS ORDERED: Potassium Chloride 20 MEQ TAB PO SCH (09:30)
[2018-12-19] MEDS: Insulin Regular 300 UNITS/3 ML VIAL SC PRN ×2 (10:51→16:17)
[2018-12-19] MEDS ORDERED: Clopidogrel Bisulfate 75 MG TAB PO SCH (13:00)
[2018-12-19] MEDS ORDERED: Aspirin Chewable 81 MG TAB PO SCH (13:00)
[2018-12-19] MEDS: Loperamide HCl 2 MG CAP PO PRN ×2 (13:13→18:38)
--- NOTE | 2018-12-19 13:29 | PRG ---
DATE OF SERVICE: 12/19/2018 OBJECTIVE: VITAL SIGNS: Mr. Leal's heart rate in the 80s, blood pressure 114/58, respiratory rate is 20, and oximetry is 96%. LUNGS: Clear. HEART: Regular rhythm. S1 and S2 are normal. ABDOMEN: Soft and nontender. EXTREMITIES: Without edema. LABORATORY DATA: White count 7.2, hemoglobin 7.5, platelets 194. Sodium 144, potassium 3.4, chloride 110, bicarb 27, BUN 16, creatinine 1.12, glucose 84. AST is 85 and ALT is 185. IMPRESSION: 1. Status post cardiogenic shock secondary to critical coronary lesion that now has been stented. 2. Pulmonary edema secondary to coronary ischemia. Chest radiograph is slowly improving. 3. Anemia with hemoglobin 11 on presentation this admission and a decreased mean corpuscular volume. It is unclear whether or not he has had a screening colonoscopy. 4. Mild hyperchloremic acidosis secondary to volume resuscitation. 5. Volume resuscitation and diuresis. 6. Elevated liver enzymes? Fatty liver. 7. Past history of coronary artery disease with in-stent stenosis this admission. 8. Status post tPA this admission when he developed recurrence of flash pulmonary edema. Overall, he appears to be stabilizing. The only problem is he has had 6 bowel movements today. It would not be unreasonable to give him Imodium if this persists. 9. Clostridium difficile was ordered by the hospitalist. His prednisone will be discontinued at this point. Sedation protocol is still on his MAR and will be discontinued. 10. He is not on any antibiotics at this time, which I feel is appropriate. Decision to move out of the Critical Care Unit will be made by Cardiology. Job ID: [id number]
--- NOTE | 2018-12-19 15:05 | PDOC.HOSPP ---
- Subjective Encounter Date: 12/19/18 Encounter Time: 11:22 Subjective: 78 y/o male with known history of COPD, CHF, CAD, A fib, DM, HTN and others who presented with recurrent chest pain associated with SOB and hypotension. Treated initially with IVF with improvement of hypotension. Acute NV was ruled out with serial troponin and he was to be transfered to [facility] but chest pain recurred associated with respiratory distress and hypotension hence was intubated emergently and started on pressors. Hemodynamics improved but patient later developed recurrent flash pulm edema associated hypotension requiring multiple pressors and ionotropic agent for cardiogenic shock hence was treated with thrombolysis on 12/15/2018 as patient's spouse did not want invasive treatment. Spouse later agreed to [facility] and patient had cardiac cath 12/17/2018 with stent placement for instent restenosis. Off pressors and ionotropes. Extubated 12/18/2018 and doing well. Having frequent loose stools after receiving miralax for constipation. - Objective Vital Signs & Weight: Vital Signs (12 hours) Temp Pulse Pulse Pulse Resp BP BP 12/19/18 13:55 85 85 116/63 131/57 L 12/19/18 13:01 91 23 H 12/19/18 12:00 98.8 F 12/19/18 08:00 12/19/18 07:11 12/19/18 07:10 83 18 12/19/18 07:00 98.8 F 12/19/18 04:00 98.9 F Pulse Ox Pulse Ox Pulse Ox 12/19/18 13:55 97 98 12/19/18 13:01 100 12/19/18 12:00 12/19/18 08:00 96 12/19/18 07:11 100 12/19/18 07:10 100 12/19/18 07:00 12/19/18 04:00 Weight Admit Weight 242 lb 1.081 oz Weight 242 lb 1.081 oz Most Recent Monitor Data Heart Rate from ECG 86 NIBP 131/57 NIBP BP-Mean 86 Respiration from ECG 20 SpO2 94 I&O: 12/18/18 12/19/18 12/20/18 06:59 06:59 06:59 Intake Total 1907.8 1613.7 1537 Output Total 0315 4255 415 Balance -1737.2 -2641.3 1122 Result Diagrams: 12/19/18 04:00 12/19/18 04:00 Additional Labs: Accuchecks 12/19/18 12/19/18 12/18/18 10:48 04:05 21:27 POC Glucose 179 H 89 145 H 12/18/18 16:12 POC Glucose 112 H Hospitalist ROS - Medication Medications: Active Medications Generic Name Dose Route Start Last Admin Trade Name Freq PRN Reason Stop Dose Admin Albuterol/Ipratropium 3 ml 12/15/18 13:00 12/19/18 13:01 Duoneb NEB 3 ml [id number] YESENIA Administration Atorvastatin Calcium 80 mg 12/14/18 21:00 12/18/18 21:28 Lipitor PO 80 mg HS YESENIA Administration Insulin Glargine 17 units/ 0.17 mls @ 0 mls/hr 12/14/18 21:00 12/18/18 21:28 Miscellaneous Medication SC 0.17 mls HS YESENIA Administration Insulin Human Regular 0 units 12/14/18 05:41 12/19/18 10:51 Humulin R SC 2 unit .MODERATE SLIDING SC PRN Administration MODERATE SLIDING SCALE Protocol Loperamide HCl 2 mg 12/19/18 12:45 12/19/18 13:13 Imodium PO 2 mg PRN PRN Administration Diarrhea/Loose Stools Ondansetron HCl 4 mg 12/14/18 06:37 12/18/18 11:32 Zofran IVP 4 mg Q6H PRN Administration Nausea/Vomiting Pantoprazole Sodium 40 mg 12/17/18 09:00 12/19/18 08:58 Protonix IVP 40 mg DAILY YESENIA Administration Polyethylene Glycol 17 gm 12/18/18 09:00 12/19/18 07:57 Miralax PER TUBE Not Given DAILY YESENIA Sodium Chloride 10 ml 12/14/18 09:00 12/19/18 09:00 Flush - Normal Saline IVF 10 ml Q12HR YESENIA Administration Sodium Chloride 10 ml 12/14/18 07:00 12/14/18 09:43 Flush - Normal Saline IVF 10 ml PRN PRN Administration Saline Flush Sodium Chloride 10 ml 12/17/18 09:04 12/17/18 09:29 Normal Saline Pf FS 10 ml PRN PRN Administration RECONSTITUTION - Exam General Appearance: awake alert General - other findings: fatigued Eye: anicteric sclera ENT: normocephalic atraumatic Neck: symmetric, no JVD Heart: RRR Respiratory: no wheezes, no ronchi Respiratory - other findings: fair air entry with bibasal crackles Gastrointestinal: soft, non-tender, non-distended, normal bowel sounds Extremities: no cyanosis, no edema Neurological: cranial nerve grossly intact, no focal deficits Psychiatric: A&O x 3 Hosp A/P (1) Cardiogenic shock Code(s): R57.0 - CARDIOGENIC SHOCK Status: Acute (2) Acute NV Code(s): I21.9 - ACUTE MYOCARDIAL INFARCTION, UNSPECIFIED Status: Acute (3) UTI (urinary tract infection) Status: Acute (4) Positive blood culture Code(s): R78.81 - BACTEREMIA Status: Acute (5) Fever Code(s): R50.9 - FEVER, UNSPECIFIED Status: Acute (6) Acute respiratory failure with hypoxia Code(s): J96.01 - ACUTE RESPIRATORY FAILURE WITH HYPOXIA Status: Acute (7) Acute on chronic systolic heart failure Code(s): I50.23 - ACUTE ON CHRONIC SYSTOLIC (CONGESTIVE) HEART FAILURE Status : Acute (8) Flash pulmonary edema Code(s): J81.0 - ACUTE PULMONARY EDEMA Status: Acute (9) Paroxysmal atrial fibrillation Code(s): I48.0 - PAROXYSMAL ATRIAL FIBRILLATION Status: Acute (10) SLIM (acute kidney injury) Code(s): N17.9 - ACUTE KIDNEY FAILURE, UNSPECIFIED Status: Acute (11) Volume depletion Code(s): E86.9 - VOLUME DEPLETION, UNSPECIFIED Status: Acute (12) Chest pain Code(s): R07.9 - CHEST PAIN, UNSPECIFIED Status: Acute Qualifiers: Ischemic chest pain type: unstable angina pectoris (13) Hypokalemia Code(s): E87.6 - HYPOKALEMIA Status: Acute (14) DM type 2 (diabetes mellitus, type 2) Status: Chronic Qualifiers: Diabetes mellitus jail insulin use: without jail use Diabetes mellitus complication status: with circulatory complication Diabetes mellitus complication detail: with other circulatory complications Qualified Code(s): E11.59 - Type 2 diabetes mellitus with other circulatory complications (15) Anemia Code(s): D64.9 - ANEMIA, UNSPECIFIED Status: Acute (16) COPD with acute exacerbation Code(s): J44.1 - CHRONIC OBSTRUCTIVE PULMONARY DISEASE W (ACUTE) EXACERBATION Status: Acute (17) Hypophosphatemia Code(s): E83.39 - OTHER DISORDERS OF PHOSPHORUS METABOLISM Status: Acute (18) Acute blood loss anemia Code(s): D62 - ACUTE POSTHEMORRHAGIC ANEMIA Status: Acute (19) Iron deficiency anemia Code(s): D50.9 - IRON DEFICIENCY ANEMIA, UNSPECIFIED Status: Acute (20) Frequent loose stools Code(s): R19.7 - DIARRHEA, UNSPECIFIED Status: Acute (21) GI bleeding Code(s): K92.2 - GASTROINTESTINAL HEMORRHAGE, UNSPECIFIED Status: Suspected - Plan DC IVF Get C dif toxin assay. Monitor H/H and transfuse as needed Continue empirical antibiotic for possible UTI/COPD exacerbation. 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 Monitor electrolytes and correct as needed Awaiting GI input.
--- NOTE | 2018-12-19 18:43 | PDOC.CPN ---
- Subjective Date: 12/19/18 Time: 18:41 Interval history: He has had several bowel movements today. He had a laxative yesterday apparently. He denies any chest pain, tightness, pressure. His stool os dark brown but nurse tells me it does not look like melena. His Hgb has dropped since admission. - Review of Systems General: denies: fever/chills, weight/appetite/sleep changes, night sweats, fatigue Respiratory: denies: cough, congestion, shortness of breath, exercise intolerance Cardiovascular: denies: chest pain, palpitation, edema, paroxysmal nocturnal dyspnea, orthopnea Gastrointestinal: denies: nausea, vomiting, diarrhea, constipation, abd pain, GI bleeding Musculoskeletal: denies: pain, tenderness, stiffness, swelling, arthritis/ arthralgias Neurological: denies: numbness, syncope, seizure, weakness - Objective Allergies/Adverse Reactions: Allergies Allergy/AdvReac Type Severity Reaction Status Date / Time No Known Allergies Allergy Verified 11/21/18 22:05 Visit Medications: Current Medications Acetaminophen (Tylenol) 650 mg PO Q4H PRN PRN Reason: Headache/Fever/Mild Pain (1-3) Hydrocodone Bitart/Acetaminophen ([place] 5/325) 1 tab PO Q4H PRN PRN Reason: Moderate Pain (4-6) Albuterol/Ipratropium (Duoneb) 3 ml NEB [id number] [facility] Last Admin: 12/19/18 13:01 Dose: 3 ml Aspirin (Aspirin Chewable) 81 mg PO DAILY [facility] Atorvastatin Calcium (Lipitor) 80 mg PO HS [facility] Last Admin: 12/18/18 21:28 Dose: 80 mg Bisacodyl (Dulcolax) 10 mg AR DAILYPRN PRN PRN Reason: Constipation Bisacodyl (Dulcolax) 10 mg PO DAILYPRN PRN PRN Reason: Constipation Clopidogrel Bisulfate (Plavix) 75 mg PO DAILY [facility] Dextrose/Water (Dextrose 50%) 25 gm IVP PRN PRN PRN Reason: HYPOGLYCEMIA PROTOCOL Glucagon (Glucagon) 1 mg IM PRN PRN PRN Reason: HYPOGLYCEMIA PROTOCOL Dextrose/Water (D5w) 1,000 mls @ 0 mls/hr IV INF PRN PRN Reason: HYPOGLYCEMIA PROTOCOL Insulin Glargine 17 units/ (Miscellaneous Medication) 0.17 mls @ 0 mls/hr SC [facility] Last Admin: 12/18/18 21:28 Dose: 0.17 mls Insulin Human Regular (Humulin R) 0 units SC .MODERATE SLIDING SC PRN; Protocol PRN Reason: MODERATE SLIDING SCALE Last Admin: 12/19/18 16:17 Dose: 2 unit Loperamide HCl (Imodium) 2 mg PO PRN PRN PRN Reason: Diarrhea/Loose Stools Last Admin: 12/19/18 18:38 Dose: 2 mg Ondansetron HCl (Zofran) 4 mg IVP Q6H PRN PRN Reason: Nausea/Vomiting Last Admin: 12/18/18 11:32 Dose: 4 mg Pantoprazole Sodium (Protonix) 40 mg IVP DAILY [facility] Last Admin: 12/19/18 08:58 Dose: 40 mg Polyethylene Glycol (Miralax) 17 gm PER TUBE DAILY [facility] Last Admin: 12/19/18 07:57 Dose: Not Given Senna/Docusate Sodium (Senokot S) 2 tab PO BID PRN PRN Reason: Constipation Sodium Chloride (Flush - Normal Saline) 10 ml IVF Q12HR [facility] Last Admin: 12/19/18 09:00 Dose: 10 ml Sodium Chloride (Flush - Normal Saline) 10 ml IVF PRN PRN PRN Reason: Saline Flush Last Admin: 12/14/18 09:43 Dose: 10 ml Sodium Chloride (Normal Saline Pf) 10 ml FS PRN PRN PRN Reason: RECONSTITUTION Last Admin: 12/17/18 09:29 Dose: 10 ml Vital Signs & Weight: Vital Signs Temp Pulse Pulse Pulse Resp BP BP 12/19/18 16:00 98.8 F 12/19/18 13:55 85 85 116/63 131/57 L 12/19/18 13:01 91 23 H 12/19/18 12:00 98.8 F 12/19/18 08:00 12/19/18 07:11 12/19/18 07:10 83 18 12/19/18 07:00 98.8 F Pulse Ox Pulse Ox Pulse Ox 12/19/18 16:00 12/19/18 13:55 97 98 12/19/18 13:01 100 12/19/18 12:00 12/19/18 08:00 96 12/19/18 07:11 100 12/19/18 07:10 100 12/19/18 07:00 Admit Weight 242 lb 1.081 oz Weight 242 lb 1.081 oz - Physical Exam General: alert & oriented x3, no apparent distress HEENT: mucus membranes moist Neck: supple neck Cardiac: regular rate and rhythm, no murmur Lungs: clear to auscultation Neuro: grossly intact Abdomen: active bowel sounds Extremities: no edema Skin: clear Musculoskeletal: no pain - Labs Result Diagrams: 12/19/18 04:00 12/19/18 04:00 Troponin/CKMB CK-MB (CK-2) 95.5 ng/mL (0-6.6) H* 12/16/18 04:00 Troponin I 70.271 ng/mL (< 0.028) H* 12/16/18 04:00 - Telemetry Sinus rhythms and dysrhythmias: sinus rhythm - Assessment/Plan Assessment/Plan: 1. Acute [place] 2. Acute on chronic systolic and diastolic heart failure 3. Flash pulmonary edema 4. Acute hypoxic respiratory insufficiency 5. CAD 6. Cardiogenic shock. 7. Anemia PLAN: - Would want his Hgb to be closer to 10. - Will give one unit PRBC's. - S/P PCI to LCx, MARGE. - ADEBAYO for 1 yr minimum. - Would keep in ICU overnight and after blood transfusion if stable transfer to telemetry. - Out of the seven bowel movements one looked black melena like but the rest have been brown.
[2018-12-19] MEDS: Atorvastatin Calcium 40 MG TAB PO SCH (20:09)
[2018-12-19] MEDS: Insulin Glargine 17 UNITS in Pre-Filled Syringe 1 EACH SC SCH (20:10)
[2018-12-20 04:14] LABS: #Eosinphils 0.2 thou/uL (0.0-0.7); #Lymphocytes 1.6 thou/uL (1.20-3.40); #Monocytes 0.8 thou/uL (0.11-0.59); #Neutrophils 4.1 thou/uL (1.40-6.50); %Basophils 0.4 % (0.0-1.0); %Lymphocytes 23.6 % (21.0-51.0); %Monocytes 11.7 % (0.0-10.0); %Neutrophils 61.3 % (42.0-75.0); Hemoglobin 7.5 g/dL (14.0-18.0); Mean Corpuscular HGB CONC 32.3 g/dL (32.0-36.0); Mean Corpuscular Hemoglobin 25.5 pg (27.0-31.0); Mean Platelet Volume 7.5 fL (7.4-10.4); Platelet Count 205 thou/uL (130-400); RBC Distribution Width 14.9 % (11.5-14.5); Red Blood Cell (RBC) Count 2.93 mill/uL (4.70-6.10); White Blood Cell (WBC) Count 6.6 thou/uL (4.8-10.8)
[2018-12-20 04:25] LABS: Phosphorus 2.3 mg/dL (2.3-4.7)
[2018-12-20 04:26] LABS: ALT (SGPT) 138 U/L (8-55); AST (SGOT) 56 U/L (5-34); Alkaline Phosphatase 85 U/L (40-110); Anion Gap 7 mmol/L (10-20); BUN (Urea Nitrogen) 10 mg/dL (8.4-25.7); Bilirubin, Total 0.4 mg/dL (0.2-1.2); Calc. Creatinine Clearance 100 mL/min (70-130); Calcium 8.1 mg/dL (7.8-10.44); Carbon Dioxide 26 mmol/L (23-31); Chloride 111 mmol/L (98-107); Estimated GFR-MDRD 90; Globulin 2.9 g/dL (2.4-3.5); Glucose 89 mg/dL (83-110); Potassium 3.2 mmol/L (3.5-5.1); Protein, Total 5.9 g/dL (5.8-8.1); Sodium 141 mmol/L (136-145)
[2018-12-20] MEDS ORDERED: Potassium Chloride 20 MEQ TAB PO SCH (08:00)
[2018-12-20] MEDS ORDERED: Potassium Phosphate 30 MMOL in Sodium Chloride 0.9% 500 ML IVPB SCH (08:00)
--- NOTE | 2018-12-20 08:47 | CON ---
DATE OF CONSULTATION: 12/19/2018 REASON FOR CONSULTATION: Anemia, positive occult blood in stool. HISTORY OF PRESENT ILLNESS: Mr. Roblero is a very pleasant 78-year-old male with longstanding coronary artery disease, status post stent placement done. The patient also has had a pacemaker implant in the past. The patient was hospitalized almost 5 days ago with acute NV, flash pulmonary edema, heart failure, He was on the ventilator until yesterday. He was extubated yesterday and done well since extubation. He is awake, alert, and communicative. Apparently , the patient has had stent occlusion and has had a revision done. He also had a dose of tPA a couple of days ago. The patient's admitting hemoglobin was 11.9. It is dropping down to slowly and he has been transfused. Admitting hemoglobin is 7.9 , dropping to 6.3 and today 7.5. Hematocrit is 23.2. Platelet count is 194,000. The patient had a fecal occult blood testing because of drop in blood count. The fecal occult blood came back positive. The stool is dark, but not actually black. The patient denies abdominal pain, nausea, or vomiting. No prior history of peptic ulcer. No hematochezia. Bowel movements are regular. He had a colonoscopy at [facility] at least 2 or 3 times. He tells me one time he had 8 polyps removed and had to go back in 6 months' time to have repeat colonoscopy. He exactly does not recall how long it was ago. Bowel movements are fairly regular. He has not seen any black tarry stool, anemia, or hematochezia. At the present time, denies any indigestion, heartburn, abdominal pain, nausea, or vomiting. No other relevant history. MEDICAL ILLNESSES: 1. Longstanding coronary artery disease, status post stent placement. 2. Type 2 diabetes mellitus. 3. Hypertension. 4. Hyperlipidemia. 5. Atrial fibrillation. 6. Systolic heart failure. SURGERIES: 1. Cardiac cath with stenting. 2. Pacemaker implant in 2016. 3. Right carotid endarterectomy. SOCIAL HISTORY: The patient stopped smoking in 1995. Stopped drinking alcohol 6 years ago. No history of drug use. ALLERGIES: NONE. MEDICATIONS: List which reviewed, which include: 1. Insulin. 2. Plavix. 3. Atorvastatin. 4. Aspirin. 5. He is also on metformin. 6. Vitamin B1. 7. Nitroglycerin p.r.n. 8. Multivitamin. 9. Lisinopril. 10. Lasix. 11. Folic acid. 12. Coreg 25 mg twice a day. 13. Amlodipine 10 mg once a day. FAMILY HISTORY: Unremarkable. There is no family history of any stroke. No history of any cancer significant. REVIEW OF SYSTEMS: A 10-point system reviewed. CONSTITUTIONAL: No history of fever. No weight loss. Has good exercise tolerance until recently when he came into heart failure and acute NV. HEAD: No syncope. No chronic headache. EYES: No impaired vision. No diplopia. ENT: No hearing loss. No nose bleed. No sore throat. LUNGS: No chronic coughing, hemoptysis, dyspnea. CARDIOVASCULAR SYSTEM: He came with some dyspnea and was found to have heart failure. At the present time, no dyspnea. No chest pain. No palpitations. GI: No abdominal pain. No nausea or vomiting. No dysphagia or odynophagia. : No dysuria or hematuria. MUSCULOSKELETAL: Nonrelevant. NEUROLOGIC: Nonrelevant. ENDOCRINE: Nonrelevant. HEMATOLOGICAL: Nonrelevant. PHYSICAL EXAMINATION: GENERAL: He is a very pleasant, obese, male, appears very comfortable. He is awake, alert, oriented to time, place, and person. VITAL SIGNS: Afebrile. Pulse is 80, blood pressure is 134/63. HEENT: Conjunctivae are clear. NECK: Supple. No adenitis or thyromegaly noted. CARDIOVASCULAR SYSTEM: First and second heart sounds are normal. LUNGS: Clear to auscultation. ABDOMEN: Soft. No organomegaly. No tenderness. No masses. EXTREMITIES: Reveal no edema. LABORATORY DATA: From today WBC 7200, hemoglobin 7.5, hematocrit 23.2, MCV 79.6 , platelet count 194,000, polymorphs 72, lymphocytes 17. Chemistry panel; sodium 144, potassium 3.4, chloride 110, bicarb 27, BUN is 16, creatinine 1.12, glucose 84, calcium 8.2, magnesium 2.1, bilirubin 0.4, AST is 85, ALT 185, alkaline phosphatase 88, albumin 3, total protein 5.9. Fecal occult blood test in the stool is positive. IMPRESSION: 1. A 78-year-old with acute myocardial infarction, flash pulmonary edema, heart failure. He also had respiratory failure and was kept on the ventilator. He is off the ventilator at the present time. There are no specific GI symptoms. 2. Occult gastrointestinal bleed, anemia, most likely from the blood thinners and aspirin. Also, he got some tPA couple of days ago. There is no overt bleeding. 3. Hypertension. 4. Diabetes mellitus. 5. Hyperlipidemia. 6. Coronary artery disease, status post myocardial infarction and stent placement. 7. Pacemaker implant. I did discuss the case with Dr. Patricia and he feels he should probably wait for couple of weeks before endoscopic studies. The patient has no overt bleeding. He has somewhat positive stool guaiac. RECOMMENDATION: 1. IV PPI. 2. Serial H and H. 3. Transfuse p.r.n. _Will hold off endoscopic studies, because of recent NV and stent revision. Job ID: [id number] MIRIAM
[2018-12-20] MEDS: Clopidogrel Bisulfate 75 MG TAB PO SCH (09:08)
[2018-12-20] MEDS: Aspirin Chewable 81 MG TAB PO SCH (09:08)
[2018-12-20] MEDS: Pantoprazole 40 MG VIAL IVP SCH (09:10)
[2018-12-20] MEDS: Polyethylene Glycol 3350 17 GM Packet PER TUBE SCH (09:11)
--- NOTE | 2018-12-20 11:02 | PDOC.HOSPP ---
- Subjective Encounter Date: 12/20/18 Encounter Time: 11:00 Subjective: 78 y/o male with known history of COPD, CHF, CAD, A fib, DM, HTN and others who presented with recurrent chest pain associated with SOB and hypotension. Treated initially with IVF with improvement of hypotension. Acute CA was ruled out with serial troponin and he was to be transfered to [facility] but chest pain recurred associated with respiratory distress and hypotension hence was intubated emergently and started on pressors. Hemodynamics improved but patient later developed recurrent flash pulm edema associated hypotension requiring multiple pressors and ionotropic agent for cardiogenic shock hence was treated with thrombolysis on 12/15/2018 as patient's spouse did not want invasive treatment. Spouse later agreed to [facility] and patient had cardiac cath with stent placement for instent restenosis on 12/17/2018. Extubated 12/18/2018. Loose stools have subsided. Feeling great - Objective Vital Signs & Weight: Vital Signs (12 hours) Temp Pulse Resp Pulse Ox 12/20/18 08:00 98.9 F 96 12/20/18 07:08 97 12/20/18 07:06 86 21 H 97 12/20/18 04:00 98.8 F 12/19/18 23:44 78 22 H 95 Weight Admit Weight 242 lb 1.081 oz Weight 242 lb 1.081 oz Most Recent Monitor Data Heart Rate from ECG 113 NIBP 131/69 NIBP BP-Mean 89 Respiration from ECG 21 SpO2 99 I&O: 12/19/18 12/20/18 12/21/18 06:59 06:59 06:59 Intake Total 1613.7 1897 240 Output Total 4255 1530 200 Balance -2641.3 367 40 Result Diagrams: 12/20/18 03:50 12/20/18 03:50 Additional Labs: Accuchecks 12/20/18 12/19/18 12/19/18 03:57 20:06 16:06 POC Glucose 92 170 H 157 H Hospitalist ROS - Medication Medications: Active Medications Generic Name Dose Route Start Last Admin Trade Name Freq PRN Reason Stop Dose Admin Albuterol/Ipratropium 3 ml 12/15/18 13:00 12/20/18 07:06 Duoneb NEB 3 ml [id number] YESENIA Administration Aspirin 81 mg 12/20/18 09:00 12/20/18 09:08 Aspirin Chewable PO 81 mg DAILY YESENIA Administration Atorvastatin Calcium 80 mg 12/14/18 21:00 12/19/18 20:09 Lipitor PO 80 mg HS YESENIA Administration Clopidogrel Bisulfate 75 mg 12/20/18 09:00 12/20/18 09:08 Plavix PO 75 mg DAILY YESENIA Administration Insulin Glargine 17 units/ 0.17 mls @ 0 mls/hr 12/14/18 21:00 12/19/18 20:10 Miscellaneous Medication SC 0.17 mls HS YESENIA Administration Potassium Phosphate 30 mmol/ 510 mls @ 83.3 mls/hr 12/20/18 08:00 12/20/18 09 :10 Sodium Chloride IVPB 12/20/18 12:00 510 mls NOW YESENIA Administration Insulin Human Regular 0 units 12/14/18 05:41 12/19/18 16:17 Humulin R SC 2 unit .MODERATE SLIDING SC PRN Administration MODERATE SLIDING SCALE Protocol Loperamide HCl 2 mg 12/19/18 12:45 12/19/18 18:38 Imodium PO 2 mg PRN PRN Administration Diarrhea/Loose Stools Ondansetron HCl 4 mg 12/14/18 06:37 12/18/18 11:32 Zofran IVP 4 mg Q6H PRN Administration Nausea/Vomiting Pantoprazole Sodium 40 mg 12/17/18 09:00 12/20/18 09:10 Protonix IVP 40 mg DAILY YESENIA Administration Sodium Chloride 10 ml 12/14/18 09:00 12/20/18 09:10 Flush - Normal Saline IVF 10 ml Q12HR YESENIA Administration Sodium Chloride 10 ml 12/14/18 07:00 12/14/18 09:43 Flush - Normal Saline IVF 10 ml PRN PRN Administration Saline Flush Sodium Chloride 10 ml 12/17/18 09:04 12/17/18 09:29 Normal Saline Pf FS 10 ml PRN PRN Administration RECONSTITUTION - Exam General Appearance: awake alert Eye: anicteric sclera ENT: normocephalic atraumatic Neck: supple, symmetric, no JVD Heart: RRR, no murmur Respiratory: no wheezes, no rales, no ronchi, normal chest expansion Gastrointestinal: soft, non-tender, non-distended Extremities: no cyanosis, no edema Neurological: cranial nerve grossly intact, no focal deficits Psychiatric: normal affect, A&O x 3 Hosp A/P (1) Cardiogenic shock Code(s): R57.0 - CARDIOGENIC SHOCK Status: Acute (2) Acute CA Code(s): I21.9 - ACUTE MYOCARDIAL INFARCTION, UNSPECIFIED Status: Acute (3) UTI (urinary tract infection) Status: Acute (4) Positive blood culture Code(s): R78.81 - BACTEREMIA Status: Acute (5) Fever Code(s): R50.9 - FEVER, UNSPECIFIED Status: Acute (6) Acute respiratory failure with hypoxia Code(s): J96.01 - ACUTE RESPIRATORY FAILURE WITH HYPOXIA Status: Acute (7) Acute on chronic systolic heart failure Code(s): I50.23 - ACUTE ON CHRONIC SYSTOLIC (CONGESTIVE) HEART FAILURE Status : Acute (8) Flash pulmonary edema Code(s): J81.0 - ACUTE PULMONARY EDEMA Status: Acute (9) Paroxysmal atrial fibrillation Code(s): I48.0 - PAROXYSMAL ATRIAL FIBRILLATION Status: Acute (10) SLIM (acute kidney injury) Code(s): N17.9 - ACUTE KIDNEY FAILURE, UNSPECIFIED Status: Acute (11) Volume depletion Code(s): E86.9 - VOLUME DEPLETION, UNSPECIFIED Status: Acute (12) Chest pain Code(s): R07.9 - CHEST PAIN, UNSPECIFIED Status: Acute Qualifiers: Ischemic chest pain type: unstable angina pectoris (13) Hypokalemia Code(s): E87.6 - HYPOKALEMIA Status: Acute (14) DM type 2 (diabetes mellitus, type 2) Status: Chronic Qualifiers: Diabetes mellitus intermediate accountant insulin use: without intermediate accountant use Diabetes mellitus complication status: with circulatory complication Diabetes mellitus complication detail: with other circulatory complications Qualified Code(s): E11.59 - Type 2 diabetes mellitus with other circulatory complications (15) Anemia Code(s): D64.9 - ANEMIA, UNSPECIFIED Status: Acute (16) COPD with acute exacerbation Code(s): J44.1 - CHRONIC OBSTRUCTIVE PULMONARY DISEASE W (ACUTE) EXACERBATION Status: Acute (17) Hypophosphatemia Code(s): E83.39 - OTHER DISORDERS OF PHOSPHORUS METABOLISM Status: Acute (18) Acute blood loss anemia Code(s): D62 - ACUTE POSTHEMORRHAGIC ANEMIA Status: Acute (19) Iron deficiency anemia Code(s): D50.9 - IRON DEFICIENCY ANEMIA, UNSPECIFIED Status: Acute (20) Frequent loose stools Code(s): R19.7 - DIARRHEA, UNSPECIFIED Status: Acute (21) GI bleeding Code(s): K92.2 - GASTROINTESTINAL HEMORRHAGE, UNSPECIFIED Status: Suspected - Plan Replete potassium with potassium phosphate given associated low phosphate. Give IV iron.Monitor H/H and transfuse as needed Monitor blood glucose and treat with insulin. Monitor electrolytes and correct as needed Awaiting GI input. Transfer to Tele PT eval and treat.
[2018-12-20] MEDS: Iron, Sodium Ferric Gluconate 250 MG in Sodium Chloride 0.9% 100 ML IVPB SCH ×2 (12:04→21:30)
[2018-12-20] MEDS ORDERED: Nitroglycerin 0.4 MG TAB (25 Tab Bottle) ONE (13:45)
--- NOTE | 2018-12-20 15:40 | PRG ---
DATE OF SERVICE: 12/20/2018 SUBJECTIVE: Annika Leal did well overnight. He is in a chair all morning. He is moved out to telemetry today. He had an episode of chest pain that resolved with nitroglycerin once he was on the telemetry unit. When I evaluated him, he denied having any pain or shortness of breath. OBJECTIVE: VITAL SIGNS: Heart rate 79, respiratory rate 20, oximetry is 98% on 3 L, and blood pressure 120/63. LUNGS: Clear. HEART: Regular rhythm. ABDOMEN: Soft. IMPRESSION: 1. Coronary artery disease with history of multiple stents. 2. Status post stenting recently for in-stent stenosis with a lesion that was felt to be causing flash pulmonary edema. We will continue to follow. I have discussed the above with Dr. Patricia. Continue the current plan of care. He might benefit from transfusing him up to a hemoglobin of 10. Job ID: [id number]
--- NOTE | 2018-12-20 18:55 | PDOC.CPN ---
- Subjective Date: 12/20/18 Time: 18:53 Interval history: He had an episode of chest pain that improved with SL nitro. Currently no more chest pain. EKG remains unchanged for now. No overt bleeding as far as he can tell. - Review of Systems General: denies: fever/chills, weight/appetite/sleep changes, night sweats, fatigue Respiratory: denies: cough, congestion, shortness of breath, exercise intolerance Cardiovascular: denies: chest pain, palpitation, edema, paroxysmal nocturnal dyspnea, orthopnea Gastrointestinal: denies: nausea, vomiting, diarrhea, constipation, abd pain, GI bleeding Musculoskeletal: denies: pain, tenderness, stiffness, swelling, arthritis/ arthralgias Neurological: denies: numbness, syncope, seizure, weakness - Objective Allergies/Adverse Reactions: Allergies Allergy/AdvReac Type Severity Reaction Status Date / Time No Known Allergies Allergy Verified 11/21/18 22:05 Visit Medications: Current Medications Acetaminophen (Tylenol) 650 mg PO Q4H PRN PRN Reason: Headache/Fever/Mild Pain (1-3) Hydrocodone Bitart/Acetaminophen ([place] 5/325) 1 tab PO Q4H PRN PRN Reason: Moderate Pain (4-6) Albuterol/Ipratropium (Duoneb) 3 ml NEB [id number] [facility] Last Admin: 12/20/18 18:27 Dose: 3 ml Aspirin (Aspirin Chewable) 81 mg PO DAILY [facility] Last Admin: 12/20/18 09:08 Dose: 81 mg Atorvastatin Calcium (Lipitor) 80 mg PO HS [facility] Last Admin: 12/19/18 20:09 Dose: 80 mg Bisacodyl (Dulcolax) 10 mg [place] DAILYPRN PRN PRN Reason: Constipation Bisacodyl (Dulcolax) 10 mg PO DAILYPRN PRN PRN Reason: Constipation Clopidogrel Bisulfate (Plavix) 75 mg PO DAILY [facility] Last Admin: 12/20/18 09:08 Dose: 75 mg Dextrose/Water (Dextrose 50%) 25 gm IVP PRN PRN PRN Reason: HYPOGLYCEMIA PROTOCOL Glucagon (Glucagon) 1 mg IM PRN PRN PRN Reason: HYPOGLYCEMIA PROTOCOL Dextrose/Water (D5w) 1,000 mls @ 0 mls/hr IV INF PRN PRN Reason: HYPOGLYCEMIA PROTOCOL Insulin Glargine 17 units/ (Miscellaneous Medication) 0.17 mls @ 0 mls/hr SC HS YESENIA Last Admin: 12/19/18 20:10 Dose: 0.17 mls Ferric Sodium Gluconate Complex 250 mg/ Sodium Chloride 120 mls @ 60 mls/hr IVPB Q12H [facility] Stop: 12/21/18 00:59 Last Admin: 12/20/18 12:04 Dose: 120 mls Insulin Human Regular (Humulin R) 0 units SC .MODERATE SLIDING SC PRN; Protocol PRN Reason: MODERATE SLIDING SCALE Last Admin: 12/19/18 16:17 Dose: 2 unit Loperamide HCl (Imodium) 2 mg PO PRN PRN PRN Reason: Diarrhea/Loose Stools Last Admin: 12/19/18 18:38 Dose: 2 mg Ondansetron HCl (Zofran) 4 mg IVP Q6H PRN PRN Reason: Nausea/Vomiting Last Admin: 12/18/18 11:32 Dose: 4 mg Pantoprazole Sodium (Protonix) 40 mg IVP DAILY [facility] Last Admin: 12/20/18 09:10 Dose: 40 mg Senna/Docusate Sodium (Senokot S) 2 tab PO BID PRN PRN Reason: Constipation Sodium Chloride (Flush - Normal Saline) 10 ml IVF Q12HR [facility] Last Admin: 12/20/18 09:10 Dose: 10 ml Sodium Chloride (Flush - Normal Saline) 10 ml IVF PRN PRN PRN Reason: Saline Flush Last Admin: 12/14/18 09:43 Dose: 10 ml Sodium Chloride (Normal Saline Pf) 10 ml FS PRN PRN PRN Reason: RECONSTITUTION Last Admin: 12/17/18 09:29 Dose: 10 ml Vital Signs & Weight: Vital Signs Temp Pulse Pulse Pulse Resp BP BP 12/20/18 18:27 101 H 16 12/20/18 16:44 98.1 F 84 28 H 12/20/18 14:31 79 20 12/20/18 12:00 98.9 F 12/20/18 11:07 93 96 144/79 H 115/67 12/20/18 08:00 98.9 F 12/20/18 07:08 12/20/18 07:06 86 21 H BP Pulse Ox 12/20/18 18:27 93 L 12/20/18 16:44 88/53 L 97 12/20/18 14:31 98 12/20/18 12:00 12/20/18 11:07 12/20/18 08:00 96 12/20/18 07:08 97 12/20/18 07:06 97 Admit Weight 242 lb 1.081 oz Weight 242 lb 1.081 oz - Physical Exam General: alert & oriented x3 HEENT: normocephaly Neck: midline trachea Cardiac: regular rate and rhythm Lungs: clear to auscultation Neuro: grossly intact Abdomen: active bowel sounds, soft, non-tender Extremities: no edema Skin: clear Musculoskeletal: no pain - Labs Result Diagrams: 12/20/18 03:50 12/20/18 03:50 Troponin/CKMB CK-MB (CK-2) 95.5 ng/mL (0-6.6) H* 12/16/18 04:00 Troponin I 70.271 ng/mL (< 0.028) H* 12/16/18 04:00 - Telemetry Sinus rhythms and dysrhythmias: sinus rhythm - Assessment/Plan Assessment/Plan: 1. Acute CO 2. Acute on chronic systolic and diastolic heart failure 3. Flash pulmonary edema 4. Acute hypoxic respiratory insufficiency 5. CAD 6. Cardiogenic shock. 7. Anemia PLAN: - Would want his Hgb to be closer to 10. Agree with 2 units PRBC's transfusion. - S/P PCI to LCx, MARGE. - ADEBAYO for 1 yr minimum. - No overt bleeding for now.
[2018-12-20] MEDS: Atorvastatin Calcium 40 MG TAB PO SCH (21:25)
[2018-12-20] MEDS: Insulin Glargine 17 UNITS in Pre-Filled Syringe 1 EACH SC SCH (21:25)
[2018-12-21 04:40] LABS: Eosinophils 6 % (0-10); Hemoglobin 10.3 g/dL (14.0-18.0); Lymphocytes 20 % (21-51); MDiff Complete? YES; Mean Corpuscular HGB CONC 32.5 g/dL (32.0-36.0); Mean Corpuscular Hemoglobin 25.8 pg (27.0-31.0); Mean Corpuscular Volume 79.4 fL (78.0-98.0); Mean Platelet Volume 8.2 fL (7.4-10.4); Monocytes 5 % (0-10); Neutrophil 69 % (42-75); Platelet Count 240 thou/uL (130-400); Platelet Morphology Comment Appears Adequate; RBC Distribution Width 15.5 % (11.5-14.5); Red Blood Cell (RBC) Count 3.99 mill/uL (4.70-6.10); White Blood Cell (WBC) Count 8.5 thou/uL (4.8-10.8)
[2018-12-21 04:44] LABS: ALT (SGPT) 121 U/L (8-55); AST (SGOT) 47 U/L (5-34); Albumin 3.5 g/dL (3.4-4.8); Alkaline Phosphatase 95 U/L (40-110); Anion Gap 13 mmol/L (10-20); BUN (Urea Nitrogen) 9 mg/dL (8.4-25.7); Bilirubin, Total 0.6 mg/dL (0.2-1.2); Calc. Creatinine Clearance 95 mL/min (70-130); Calcium 8.8 mg/dL (7.8-10.44); Carbon Dioxide 25 mmol/L (23-31); Chloride 108 mmol/L (98-107); Estimated GFR-MDRD 86; Globulin 3.3 g/dL (2.4-3.5); Glucose 97 mg/dL (83-110); Magnesium 2.1 mg/dL (1.6-2.6); Potassium 3.6 mmol/L (3.5-5.1); Protein, Total 6.8 g/dL (5.8-8.1); Sodium 142 mmol/L (136-145)
[2018-12-21 04:49] LABS: Phosphorus 3.1 mg/dL (2.3-4.7)
[2018-12-21] MEDS: Aspirin Chewable 81 MG TAB PO SCH (09:14)
[2018-12-21] MEDS: Clopidogrel Bisulfate 75 MG TAB PO SCH (09:14)
[2018-12-21] MEDS: Pantoprazole 40 MG VIAL IVP SCH (09:15)
[2018-12-21] MEDS ORDERED: Carvedilol 3.125 MG TAB PO SCH ×4 (10:45→21:00)
--- NOTE | 2018-12-21 11:04 | PRG ---
DATE OF SERVICE: 12/21/2018 SUBJECTIVE: Annika Leal says he is feeling well. He wants to go home. He has had no chest pain since yesterday. He was transfused up to just over a hemoglobin of 10. OBJECTIVE: VITAL SIGNS: He is afebrile. Heart rate is 95, respiratory rate is 18, oximetry is 95% on 3 L, blood pressure 138/65. LUNGS: Clear. HEART: Regular rhythm. ABDOMEN: Soft. His last colonoscopy 10 months ago showed no colon lesions. IMPRESSION: 1. Anemia. TIBC is less than 250, so it suggests that this is not iron deficiency anemia, even though he has low percent saturation, low total iron. It is more likely be anemia of chronic disease. 2. Critical coronary artery disease. 3. Chest pain yesterday, suggestive of angina. 4. Status post flash pulmonary edema, which ultimately led to tPA and then later coronary artery stenting. He is stable at this point in time. He probably needs to be more active before he is discharged home given that he had been having chest pain for quite some time prior to admission to the hospital. Job ID: [id number]
[2018-12-21 12:07] VITALS: TEMP 98.6
[2018-12-21 13:07] VITALS: BP 157/74
--- NOTE | 2018-12-21 16:01 | PDOC.CPN ---
- Subjective Date: 12/21/18 Time: 15:59 Interval history: He is doing very well. No chest pain. He has been walking around the halls without issues. - Review of Systems General: denies: fever/chills, weight/appetite/sleep changes, night sweats, fatigue Respiratory: denies: cough, congestion, shortness of breath, exercise intolerance Cardiovascular: denies: chest pain, palpitation, edema, paroxysmal nocturnal dyspnea, orthopnea Gastrointestinal: denies: nausea, vomiting, diarrhea, constipation, abd pain, GI bleeding Musculoskeletal: denies: pain, tenderness, stiffness, swelling, arthritis/ arthralgias Neurological: denies: numbness, syncope, seizure, weakness - Objective Allergies/Adverse Reactions: Allergies Allergy/AdvReac Type Severity Reaction Status Date / Time No Known Allergies Allergy Verified 11/21/18 22:05 Visit Medications: Current Medications Acetaminophen (Tylenol) 650 mg PO Q4H PRN PRN Reason: Headache/Fever/Mild Pain (1-3) Hydrocodone Bitart/Acetaminophen ([place] 5/325) 1 tab PO Q4H PRN PRN Reason: Moderate Pain (4-6) Albuterol/Ipratropium (Duoneb) 3 ml NEB [id number] [facility] Last Admin: 12/21/18 12:47 Dose: 3 ml Aspirin (Aspirin Chewable) 81 mg PO DAILY [facility] Last Admin: 12/21/18 09:14 Dose: 81 mg Atorvastatin Calcium (Lipitor) 80 mg PO HS [facility] Last Admin: 12/20/18 21:25 Dose: 80 mg Bisacodyl (Dulcolax) 10 mg [place] DAILYPRN PRN PRN Reason: Constipation Bisacodyl (Dulcolax) 10 mg PO DAILYPRN PRN PRN Reason: Constipation Carvedilol (Coreg) 3.125 mg PO BID [facility] Clopidogrel Bisulfate (Plavix) 75 mg PO DAILY [facility] Last Admin: 12/21/18 09:14 Dose: 75 mg Dextrose/Water (Dextrose 50%) 25 gm IVP PRN PRN PRN Reason: HYPOGLYCEMIA PROTOCOL Glucagon (Glucagon) 1 mg IM PRN PRN PRN Reason: HYPOGLYCEMIA PROTOCOL Dextrose/Water (D5w) 1,000 mls @ 0 mls/hr IV INF PRN PRN Reason: HYPOGLYCEMIA PROTOCOL Insulin Glargine 17 units/ (Miscellaneous Medication) 0.17 mls @ 0 mls/hr SC HS [facility] Last Admin: 12/20/18 21:25 Dose: 0.17 mls Insulin Human Regular (Humulin R) 0 units SC .MODERATE SLIDING SC PRN; Protocol PRN Reason: MODERATE SLIDING SCALE Last Admin: 12/19/18 16:17 Dose: 2 unit Loperamide HCl (Imodium) 2 mg PO PRN PRN PRN Reason: Diarrhea/Loose Stools Last Admin: 12/19/18 18:38 Dose: 2 mg Ondansetron HCl (Zofran) 4 mg IVP Q6H PRN PRN Reason: Nausea/Vomiting Last Admin: 12/18/18 11:32 Dose: 4 mg Pantoprazole Sodium (Protonix) 40 mg IVP DAILY [facility] Last Admin: 12/21/18 09:15 Dose: 40 mg Senna/Docusate Sodium (Senokot S) 2 tab PO BID PRN PRN Reason: Constipation Sodium Chloride (Flush - Normal Saline) 10 ml IVF Q12HR [facility] Last Admin: 12/21/18 09:15 Dose: 10 ml Sodium Chloride (Flush - Normal Saline) 10 ml IVF PRN PRN PRN Reason: Saline Flush Last Admin: 12/14/18 09:43 Dose: 10 ml Sodium Chloride (Normal Saline Pf) 10 ml FS PRN PRN PRN Reason: RECONSTITUTION Last Admin: 12/17/18 09:29 Dose: 10 ml Vital Signs & Weight: Vital Signs Temp Pulse Pulse Pulse Pulse Resp BP 12/21/18 12:47 88 18 12/21/18 11:51 98.6 F 94 18 12/21/18 11:02 128 H 88 98 157/74 H 12/21/18 07:26 97.7 F 95 18 12/21/18 06:35 90 16 12/21/18 05:00 12/21/18 04:00 98.3 F 95 20 BP BP Pulse Ox Pulse Ox Pulse Ox Pulse Ox 12/21/18 12:47 91 L 12/21/18 11:51 139/69 93 L 12/21/18 11:02 186/84 H 88 L 93 L 92 L 12/21/18 07:26 138/65 95 12/21/18 06:35 90 L 12/21/18 05:00 98 12/21/18 04:00 148/72 H 93 L Admit Weight 242 lb 1.081 oz Weight 241 lb - Physical Exam General: alert & oriented x3 HEENT: mucus membranes moist Neck: supple neck Cardiac: regular rate and rhythm, no murmur Lungs: clear to auscultation Neuro: grossly intact Abdomen: active bowel sounds, soft, non-tender Extremities: no edema Skin: clear Musculoskeletal: no pain - Labs Result Diagrams: 12/21/18 03:50 12/21/18 03:50 Troponin/CKMB CK-MB (CK-2) 95.5 ng/mL (0-6.6) H* 12/16/18 04:00 Troponin I 70.271 ng/mL (< 0.028) H* 12/16/18 04:00 - Telemetry Sinus rhythms and dysrhythmias: sinus rhythm - Assessment/Plan Assessment/Plan: 1. Acute [place] 2. Acute on chronic systolic and diastolic heart failure 3. Flash pulmonary edema 4. Acute hypoxic respiratory insufficiency 5. CAD 6. Cardiogenic shock. 7. Anemia PLAN: - Feels much better after transfusion. - S/P PCI to LCx, MARGE. - ADEBAYO for 1 yr minimum. - No evidence of active bleeding. - May discharge home/. - Follow up in the office as scheduled.
--- NOTE | 2018-12-23 04:34 | PDOC.EVN ---
Event Note - Event Note Event Note: Discharge summary dictated. #[id number]
--- NOTE | 2018-12-23 05:03 | DIS ---
DATE OF ADMISSION: 12/14/2018 DATE OF DISCHARGE: 12/21/2018 PRIMARY CARE PROVIDER: [facility]. DISCHARGE DIAGNOSES: 1. Cardiogenic shock. 2. Acute myocardial infarction. 3. Acute respiratory failure with hypoxia. 4. Acute on chronic systolic heart failure. 5. Recurrent flash pulmonary edema. 6. Paroxysmal atrial fibrillation. 7. Acute kidney injury. 8. Volume depletion. 9. Sepsis: Present on admission. 10. Fever. 11. Chronic obstructive pulmonary disease with acute exacerbation. 12. Urinary tract infection: Present on admission. 13. Hypophosphatemia. 14. Acute blood loss anemia. 15. Iron deficiency anemia. 16. Acute gastrointestinal bleeding. 17. Type 2 diabetes mellitus. 18. Hypokalemia. 19. Chest pain. 20. Positive blood culture, considered contaminant. CONSULTS: 1. Pulmonary and Critical Care. 2. Cardiology. PROCEDURES PERFORMED: 1. Endotracheal tube placement. 2. Central line placement. 3. Thrombolysis for acute myocardial infarction. 4. Left heart catheterization with stent placement. HOSPITAL COURSE: A 78-year-old male with known history of Crohn's, COPD, CHF, coronary artery disease, paroxysmal atrial fibrillation, diabetes and hypertension, amongst others, who presented to the hospital with recurrent chest pain associated with shortness of breath. The patient was found to be hypotensive. He was treated initially with IV fluids with improvement in hypotension. Serial troponin obtained initially was unremarkable and the patient was deemed stable for transfer to [facility] for further evaluation of chest pain. However, before transportation could be effected, the patient developed recurrence of chest pain, but this time was associated with respiratory distress and hypotension. The patient decompensated acutely and was in respiratory distress and hypoxemic, and was subsequently intubated emergently and started on pressors. Further evaluation with troponin showed acute elevation in troponin. The patient however was requiring significant pressure support on the ventilator, hence was deemed not to be appropriate for cardiac catheterization at that point and was treated medically with antithrombotic therapy with anticoagulation and antiplatelet. Hemodynamics did improve and the patient was doing well and extubation was considered, but he however decompensated again with acute development of flash pulmonary edema and cardiogenic shock requiring inotropic agent as well as multiple pressors. At this point, discussion was had with the patient's spouse for emergent cardiac catheterization, but spouse declined this, hence the patient received thrombolysis with tPA. Hemodynamics improved subsequently and pressors and inotropic agents were weaned off. Further discussion with was had and at this point, she was amenable to invasive treatment and the patient was taken to record label internship and had left heart catheterization where he was found to have in-stent restenosis requiring two stent placement. Post stent placement, the patient recovered and was hemodynamically stable with improvement in respiratory status and was subsequently extubated on December 18, 2018. Hospital course was complicated by development of acute kidney injury, which was felt to be prerenal related to cardiogenic shock as well as diuretic therapy. With improvement of hemodynamics and holding of diuretics, renal function improved. The patient also had acute drop in hemoglobin and had some bloody drainage from the NG tube. He also had an episode of frequent loose stools with one of the stool being bloody, hence GI bleeding was considered in view of the recent thrombolysis. He was treated with Protonix and GI consult was obtained, but it was felt that now it is not the time for further evaluation. The patient also was found to have iron deficiency anemia and was treated with both IV iron therapy and blood transfusion to get the hemoglobin above 10 as recommended by Cardiology. Post extubation, the patient made significant strides in his recovery and was walking around, hence was subsequently discharged home. PHYSICAL EXAMINATION: VITAL SIGNS: Temperature 98.6, pulse 94, respiratory rate 18, SpO2 of 93% on room air, blood pressure is 139/69. GENERAL: Healthy-looking elderly male, in no obvious distress. Afebrile, anicteric, and acyanotic. HEENT: Normocephalic, atraumatic. Oral mucosa is moist. CARDIOVASCULAR: Regular rhythm and rate with normal heart sounds 1 and 2. RESPIRATORY: Fair air entry bilaterally with few transmitted breath sounds. GI: Full, soft, nontender, nondistended with normal bowel sounds. EXTREMITIES: Grossly normal looking, atraumatic with no obvious edema or erythema. INVESTOR RELATIONS ANALYST: Conscious, alert, oriented x3 with appropriate mental status. Cranial nerves 2 through 12 are grossly intact. The patient is ambulant. DISCHARGE CONDITION: Improved. DISCHARGE DISPOSITION: Home. FOLLOWUP: 1. With [facility] in 7 days. 2. With log preparer, Dr. Patricia on December 26, at 11:00. 3. With [facility] on January 11, at 1 p.m. DISCHARGE MEDICATIONS: 1. Aspirin 81 mg p.o. daily. 2. Plavix 75 mg p.o. daily. 3. Folic acid 1 mg p.o. daily. 4. Insulin 17 units subcutaneously daily at bedtime. 5. Metformin 500 mg p.o. b.i.d. 6. Multivitamin with iron and folic acid 1 tablet p.o. daily. 7. Thiamine 100 mg p.o. daily. 8. Sublingual nitroglycerin 0.4 mg q.5 p.r.n. for chest pain. 9. Lipitor 80 mg p.o. daily at bedtime. 10. Carvedilol 3.125 mg p.o. b.i.d. 11. Lasix 20 mg p.o. daily. 12. Lisinopril 20 mg p.o. daily. This discharge took more than 40 minutes. Job ID: [id number]
--- NOTE | 2018-12-23 16:18 | EKG ---
Test Reason : Blood Pressure : / mmHG Vent. Rate : 093 BPM Atrial Rate : 093 BPM P-R Int : 136 ms QRS Dur : 180 ms QT Int : 442 ms P-R-T Axes : 093 -31 123 degrees QTc Int : 549 ms Atrial-sensed ventricular-paced rhythm Abnormal ECG When compared with ECG of 15-DEC-2018 14:18, Vent. rate has decreased BY [address] Yelitza BRYSON ([id number]) on 12/23/2018 4:17:58 PM Referred By: CORI Confirmed By:DR. Yelitza BRYSON
== END 2018-12-21 17:00 | disposition home or self-care (01) | DRG 853 ==
LOC: ERS 23:11 → CCU 12-14 05:09 → 2NO 12-20 13:39
PROVIDERS: ADMIT Internal Medicine; ATTEND Internal Medicine
PROC: 3E033XZ Introduction of Vasopressor into Peripheral Vein, Percutaneous Approach (ICD-10-PCS; 2018-12-14)
PROC: 0BH17EZ Insertion of Endotracheal Airway into Trachea, Via Natural or Artificial Opening (ICD-10-PCS; 2018-12-14)
PROC: 5A1945Z Respiratory Ventilation, 24-96 Consecutive Hours (ICD-10-PCS; 2018-12-14)
PROC: 3E03317 Introduction of Other Thrombolytic into Peripheral Vein, Percutaneous Approach (ICD-10-PCS; 2018-12-15)
PROC: 027035Z Dilation of Coronary Artery, One Artery with Two Drug-eluting Intraluminal Devices, Percutaneous Approach (ICD-10-PCS; principal; 2018-12-17)
PROC: B2111ZZ Fluoroscopy of Multiple Coronary Arteries using Low Osmolar Contrast (ICD-10-PCS; 2018-12-17)
PROC: 30233N1 Transfusion of Nonautologous Red Blood Cells into Peripheral Vein, Percutaneous Approach (ICD-10-PCS; 2018-12-19)
DX: A41.9 Sepsis, unspecified organism (principal); J96.01 Acute respiratory failure with hypoxia; I50.23 Acute on chronic systolic (congestive) heart failure; I21.4 Non-ST elevation (NSTEMI) myocardial infarction; R57.0 Cardiogenic shock; J81.0 Acute pulmonary edema; I25.110 Atherosclerotic heart disease of native coronary artery with unstable angina pectoris; N17.9 Acute kidney failure, unspecified; N39.0 Urinary tract infection, site not specified; J44.1 Chronic obstructive pulmonary disease with (acute) exacerbation; D62 Acute posthemorrhagic anemia; E87.2 Acidosis; K92.2 Gastrointestinal hemorrhage, unspecified; K50.90 Crohn's disease, unspecified, without complications; E78.5 Hyperlipidemia, unspecified; I48.0 Paroxysmal atrial fibrillation; E86.9 Volume depletion, unspecified; E87.6 Hypokalemia; E11.59 Type 2 diabetes mellitus with other circulatory complications; I25.5 Ischemic cardiomyopathy; E83.39 Other disorders of phosphorus metabolism; Z51.5 Encounter for palliative care; R19.7 Diarrhea, unspecified; Z87.891 Personal history of nicotine dependence; Z95.0 Presence of cardiac pacemaker; Z95.5 Presence of coronary angioplasty implant and graft; Z79.02 Long term (current) use of antithrombotics/antiplatelets; Z79.82 Long term (current) use of aspirin; Z79.4 Long term (current) use of insulin; Z79.899 Other long term (current) drug therapy
CPT/HCPCS: 36415; 36416; 36430; 71045; 76942; 80048; 80053; 80069; 81001; 82271; 82274; 82550; 82553; 82570; 82728; 82805; 83540; 83550; 83605; 83690; 83735; 84100; 84145; 84156; 84300; 84484; 84540; 85007; 85014; 85018; 85025; 85027; 85347; 85379; 85520; 85610; 85730; 86850; 86900; 86901; 87040; 87086; 87149; 87324; 87449; 92928; 93005; 93010; 93306; 93454; 93798; 94002; 94003; 94640; 94760; C1769; C1874; C9113; C9600; J0171; J0696; J1250; J1265; J1644; J1650; J1815; J1885; J1940; J2001; J2060; J2405; J2704; J2916; J2997; J3010; J3370; J3475; J3480; J3490; J7050; J7070; J7512; J7620; P9016; Q9967

== ENCOUNTER 2020-03-12 18:20 | Inpatient (IN) | payer MEDICARE, OTHER, SELFPAY ==
[2020-03-12 19:04] LABS: #Eosinphils 0.4 thou/uL (0.0-0.7); #Lymphocytes 2.2 thou/uL (1.20-3.40); #Monocytes 0.7 thou/uL (0.11-0.59); %Basophils 0.8 % (0.0-1.0); %Eosinophils 7.5 % (0.0-10.0); %Lymphocytes 41.4 % (21.0-51.0); %Monocytes 12.5 % (0.0-10.0); %Neutrophils 37.8 % (42.0-75.0); Hemoglobin 11.3 g/dL (14.0-18.0); Mean Corpuscular HGB CONC 31.8 g/dL (32.0-36.0); Mean Corpuscular Hemoglobin 25.7 pg (27.0-31.0); Mean Corpuscular Volume 81.1 fL (78.0-98.0); Mean Platelet Volume 7.8 fL (7.4-10.4); Platelet Count 243 thou/uL (130-400); RBC Distribution Width 13.8 % (11.5-14.5); Red Blood Cell (RBC) Count 4.37 mill/uL (4.70-6.10); White Blood Cell (WBC) Count 5.4 thou/uL (4.8-10.8)
[2020-03-12 19:50] LABS: ALT (SGPT) 26 U/L (8-55); AST (SGOT) 23 U/L (5-34); Albumin 3.8 g/dL (3.4-4.8); Alkaline Phosphatase 107 U/L (40-110); Anion Gap 16 mmol/L (10-20); BUN (Urea Nitrogen) 17 mg/dL (8.4-25.7); Bilirubin, Total 0.2 mg/dL (0.2-1.2); Calc. Creatinine Clearance 0 mL/min (70-130); Calcium 8.9 mg/dL (7.8-10.44); Carbon Dioxide 24 mmol/L (23-31); Chloride 106 mmol/L (98-107); Glucose 128 mg/dL (83-110); Potassium 3.6 mmol/L (3.5-5.1); Protein, Total 7.8 g/dL (5.8-8.1); Sodium 142 mmol/L (136-145)
[2020-03-12 21:59] LABS: Phosphorus 3.4 mg/dL (2.3-4.7)
[2020-03-12] MEDS ORDERED: Aspirin Chewable 81 MG TAB ONE (23:52)
[2020-03-13 01:53] LABS: Troponin I 0.038 ng/mL (< 0.028)
[2020-03-13] MEDS ORDERED: Acetaminophen 650 MG Suppository PR PRN (02:05)
[2020-03-13] MEDS ORDERED: Acetaminophen 325 MG TAB PO PRN (02:05)
[2020-03-13] MEDS ORDERED: Nitroglycerin 0.4 MG TAB (25 Tab Bottle) SL PRN ×2 (02:21→08:45)
[2020-03-13] MEDS ORDERED: Dextrose 5% in Water 1,000 ML IV PRN (02:25)
[2020-03-13] MEDS ORDERED: HumaLOG 300 UNITS/3 ML VIAL SC PRN ×2 (02:25)
[2020-03-13] MEDS ORDERED: Dextrose 50% Abboject 50 ML SYRINGE SLOW IVP PRN (02:25)
[2020-03-13 02:59] LABS: #Basophils 0.1 thou/uL (0.0-0.2); #Eosinphils 0.3 thou/uL (0.0-0.7); #Lymphocytes 2.4 thou/uL (1.20-3.40); #Monocytes 0.7 thou/uL (0.11-0.59); #Neutrophils 3.7 thou/uL (1.40-6.50); %Basophils 0.7 % (0.0-1.0); %Lymphocytes 33.9 % (21.0-51.0); %Monocytes 9.2 % (0.0-10.0); %Neutrophils 52.2 % (42.0-75.0); Hemoglobin 11.5 g/dL (14.0-18.0); Mean Corpuscular Hemoglobin 25.9 pg (27.0-31.0); Mean Corpuscular Volume 80.9 fL (78.0-98.0); Mean Platelet Volume 7.9 fL (7.4-10.4); Platelet Count 234 thou/uL (130-400); RBC Distribution Width 13.8 % (11.5-14.5); Red Blood Cell (RBC) Count 4.43 mill/uL (4.70-6.10); White Blood Cell (WBC) Count 7.1 thou/uL (4.8-10.8)
[2020-03-13] MEDS ORDERED: Aspirin 325 MG TAB PO SCH (03:00)
[2020-03-13 03:19] LABS: Anion Gap 13 mmol/L (10-20); BUN (Urea Nitrogen) 15 mg/dL (8.4-25.7); Calc. Creatinine Clearance 92 mL/min (70-130); Calcium 8.9 mg/dL (7.8-10.44); Carbon Dioxide 25 mmol/L (23-31); Cardiac Risk 2.8 (Less than 4.5); Chloride 107 mmol/L (98-107); Cholesterol 139 mg/dl (< 200 Desired); Glucose 137 mg/dL (83-110); HDL Cholesterol 49 mg/dL (>60 Neg Risk); LDL Cholesterol, Calculated 79 mg/dL; Potassium 3.9 mmol/L (3.5-5.1); Sodium 141 mmol/L (136-145); Triglycerides 53 mg/dL (Less than 150)
[2020-03-13 03:27] LABS: Troponin I 0.045 ng/mL (< 0.028)
[2020-03-13 05:14] LABS: Lactic Acid 0.9 mmol/L (0.5-2.2)
[2020-03-13 06:46] LABS: SARS-CoV-2 PCR by NAA Not Detected (NotDetected)
[2020-03-13] MEDS ORDERED: Famotidine 20 MG TAB ONE (08:57)
[2020-03-13] MEDS ORDERED: Folic Acid 1 MG TAB ONE (09:50)
[2020-03-13] MEDS ORDERED: Clopidogrel Bisulfate 75 MG TAB ONE (09:50)
[2020-03-13] MEDS: Furosemide 20 MG TAB PO SCH (09:55)
[2020-03-13] MEDS: metFORMIN 500 MG TAB PO SCH (09:55)
[2020-03-13] MEDS: Folic Acid 1 MG TAB PO SCH (09:55)
[2020-03-13] MEDS: Clopidogrel Bisulfate 75 MG TAB PO SCH (09:55)
[2020-03-13] MEDS: Famotidine 20 MG TAB PO SCH ×2 (09:55→20:45)
[2020-03-13] MEDS ORDERED: Ondansetron ODT 4 MG TAB SL PRN (19:15)
[2020-03-13] MEDS ORDERED: Ondansetron PF 4 MG/2 ML Vial IVP PRN (19:15)
[2020-03-13] MEDS: Atorvastatin Calcium 40 MG TAB PO SCH (20:45)
[2020-03-13] MEDS: Carvedilol 6.25 MG TAB PO SCH (20:45)
[2020-03-13] MEDS: Insulin Glargine 17 UNITS in Pre-Filled Syringe 1 EACH SC SCH (22:31)
[2020-03-14] MEDS: metFORMIN 500 MG TAB PO SCH (09:58)
[2020-03-14] MEDS: Aspirin Chewable 81 MG TAB PO SCH (09:58)
[2020-03-14] MEDS: Lisinopril 20 MG TAB PO SCH (09:59)
[2020-03-14] MEDS: Multivitamin W/ Minerals 1 TAB PO SCH (09:59)
[2020-03-14] MEDS: Furosemide 20 MG TAB PO SCH (09:59)
[2020-03-14] MEDS: Famotidine 20 MG TAB PO SCH ×2 (10:00→20:08)
[2020-03-14] MEDS: Thiamine 100 MG TAB PO SCH (10:01)
[2020-03-14] MEDS: Folic Acid 1 MG TAB PO SCH (10:02)
[2020-03-14] MEDS: Carvedilol 6.25 MG TAB PO SCH ×3 (10:06→16:12)
[2020-03-14] MEDS: Clopidogrel Bisulfate 75 MG TAB PO SCH (10:06)
[2020-03-14] MEDS: Atorvastatin Calcium 40 MG TAB PO SCH (20:09)
[2020-03-15] MEDS: Insulin Glargine 17 UNITS in Pre-Filled Syringe 1 EACH SC SCH ×2 (04:01→21:33)
[2020-03-15] MEDS: Famotidine 20 MG TAB PO SCH ×2 (08:50→21:32)
[2020-03-15] MEDS: Ezetimibe 10 MG TAB PO SCH (08:50)
[2020-03-15] MEDS: Multivitamin W/ Minerals 1 TAB PO SCH (08:50)
[2020-03-15] MEDS: Thiamine 100 MG TAB PO SCH (08:50)
[2020-03-15] MEDS: Furosemide 20 MG TAB PO SCH (08:50)
[2020-03-15] MEDS: Aspirin Chewable 81 MG TAB PO SCH (08:50)
[2020-03-15] MEDS: Lisinopril 20 MG TAB PO SCH (08:51)
[2020-03-15] MEDS: Folic Acid 1 MG TAB PO SCH (08:51)
[2020-03-15] MEDS: Carvedilol 6.25 MG TAB PO SCH ×3 (08:51→16:41)
[2020-03-15] MEDS: metFORMIN 500 MG TAB PO SCH (08:51)
[2020-03-15] MEDS ORDERED: Communication Order-Pharmacy FS SCH (20:30)
[2020-03-15] MEDS: Atorvastatin Calcium 40 MG TAB PO SCH (21:32)
[2020-03-16 05:33] LABS: #Eosinphils 0.4 thou/uL (0.0-0.7); #Monocytes 0.6 thou/uL (0.11-0.59); #Neutrophils 3.1 thou/uL (1.40-6.50); %Basophils 0.7 % (0.0-1.0); %Eosinophils 6.8 % (0.0-10.0); %Lymphocytes 32.2 % (21.0-51.0); %Monocytes 10.4 % (0.0-10.0); %Neutrophils 49.9 % (42.0-75.0); Hemoglobin 12.2 g/dL (14.0-18.0); Mean Corpuscular HGB CONC 34.9 g/dL (32.0-36.0); Mean Corpuscular Hemoglobin 28.4 pg (27.0-31.0); Mean Corpuscular Volume 81.5 fL (78.0-98.0); Mean Platelet Volume 7.8 fL (7.4-10.4); Platelet Count 229 thou/uL (130-400); RBC Distribution Width 13.7 % (11.5-14.5); White Blood Cell (WBC) Count 6.2 thou/uL (4.8-10.8)
[2020-03-16 05:51] LABS: Anion Gap 13 mmol/L (10-20); BUN (Urea Nitrogen) 18 mg/dL (8.4-25.7); Calc. Creatinine Clearance 91 mL/min (70-130); Calcium 8.7 mg/dL (7.8-10.44); Carbon Dioxide 22 mmol/L (23-31); Chloride 106 mmol/L (98-107); Glucose 89 mg/dL (83-110); Potassium 3.7 mmol/L (3.5-5.1); Sodium 137 mmol/L (136-145)
[2020-03-16] MEDS: Sodium Chloride 0.9% 1,000 ML IV SCH ×2 (06:04→16:43)
[2020-03-16] MEDS: Folic Acid 1 MG TAB PO SCH (06:47)
[2020-03-16] MEDS: Multivitamin W/ Minerals 1 TAB PO SCH (06:48)
[2020-03-16] MEDS: Lisinopril 20 MG TAB PO SCH (06:48)
[2020-03-16] MEDS: Thiamine 100 MG TAB PO SCH (06:48)
[2020-03-16] MEDS: Ezetimibe 10 MG TAB PO SCH (06:48)
[2020-03-16] MEDS: Aspirin Chewable 81 MG TAB PO SCH (06:48)
[2020-03-16] MEDS: Famotidine 20 MG TAB PO SCH ×2 (06:48→21:19)
[2020-03-16] MEDS: Carvedilol 6.25 MG TAB PO SCH ×3 (06:50→16:45)
[2020-03-16] MEDS ORDERED: Iopamidol 370 76% 100 ML VIAL ONE (09:45)
[2020-03-16] MEDS ORDERED: Midazolam HCl 2 mg/2 ml Vial ONE (14:55)
[2020-03-16] MEDS ORDERED: Fentanyl 100 MCG/2 ML VIAL ONE (14:55)
[2020-03-16] MEDS ORDERED: Acetaminophen/Codeine 30-300mg Tablet PO PRN (15:14)
[2020-03-16] MEDS ORDERED: Sodium Chloride 0.9% 200 ML IV PRN (15:14)
[2020-03-16] MEDS: Furosemide 20 MG TAB PO SCH (16:45)
[2020-03-16] MEDS: metFORMIN 500 MG TAB PO SCH (16:45)
[2020-03-16] MEDS ORDERED: Communication Order-Pharmacy FS SCH (17:24)
[2020-03-16 18:14] LABS: Hemoglobin A1c 6.8 % (4.0-6.0)
[2020-03-16] MEDS: Atorvastatin Calcium 40 MG TAB PO SCH (21:18)
[2020-03-16] MEDS: Insulin Glargine 17 UNITS in Pre-Filled Syringe 1 EACH SC SCH (21:19)
[2020-03-17] MEDS: Sodium Chloride 0.9% 1,000 ML IV SCH ×2 (00:43→13:19)
[2020-03-17 05:06] LABS: #Eosinphils 0.5 thou/uL (0.0-0.7); #Lymphocytes 1.9 thou/uL (1.20-3.40); #Monocytes 0.6 thou/uL (0.11-0.59); %Basophils 0.8 % (0.0-1.0); %Eosinophils 7.8 % (0.0-10.0); %Lymphocytes 31.3 % (21.0-51.0); %Monocytes 10.3 % (0.0-10.0); %Neutrophils 49.8 % (42.0-75.0); Hemoglobin 11.9 g/dL (14.0-18.0); Mean Corpuscular HGB CONC 32.9 g/dL (32.0-36.0); Mean Corpuscular Hemoglobin 26.2 pg (27.0-31.0); Mean Corpuscular Volume 79.6 fL (78.0-98.0); Mean Platelet Volume 7.5 fL (7.4-10.4); Platelet Count 252 thou/uL (130-400); RBC Distribution Width 13.7 % (11.5-14.5); Red Blood Cell (RBC) Count 4.53 mill/uL (4.70-6.10); White Blood Cell (WBC) Count 5.9 thou/uL (4.8-10.8)
[2020-03-17] MEDS: Lisinopril 20 MG TAB PO SCH (05:19)
[2020-03-17] MEDS: Carvedilol 6.25 MG TAB PO SCH (05:20)
[2020-03-17 05:25] LABS: Anion Gap 14 mmol/L (10-20); BUN (Urea Nitrogen) 15 mg/dL (8.4-25.7); Calc. Creatinine Clearance 96 mL/min (70-130); Calcium 8.8 mg/dL (7.8-10.44); Carbon Dioxide 22 mmol/L (23-31); Chloride 107 mmol/L (98-107); Glucose 97 mg/dL (83-110); Potassium 3.9 mmol/L (3.5-5.1); Sodium 139 mmol/L (136-145)
[2020-03-17] MEDS ORDERED: Vancomycin 1.5 GRAM/300 ML BAG ONE (06:04)
[2020-03-17] MEDS ORDERED: Albumin 5% 500 ML ONE (06:28)
[2020-03-17] MEDS ORDERED: Midazolam HCl 2 mg/2 ml Vial ONE (06:32)
[2020-03-17] MEDS ORDERED: Fentanyl 100 MCG/2 ML VIAL ONE (06:32)
[2020-03-17] MEDS ORDERED: Midazolam HCl 5 mg/5 ml Vial ONE (06:32)
[2020-03-17] MEDS ORDERED: Dexmedetomidine 200 MCG/2 ML VIAL ONE (06:33)
[2020-03-17] MEDS ORDERED: Vecuronium 10 MG VIAL ONE ×3 (06:33→11:02)
[2020-03-17] MEDS ORDERED: CABG-Vancomycin 1.5 GM in Sodium Chloride 0.9% 250 ML 300 ML IVPB SCH (06:45)
[2020-03-17] MEDS ORDERED: Heparin 10,000 UNITS/1 ML VIAL 30,000 UNITS in Sodium Chloride 0.9% 1,000 ML FS SCH (07:00)
[2020-03-17] MEDS ORDERED: Insulin Regular 300 UNITS/3 ML VIAL ONE (09:52)
[2020-03-17] MEDS ORDERED: PHENYLEPHRINE-NS 100 MCG/ML 10 ML SYRINGE ONE ×3 (10:12→11:02)
[2020-03-17] MEDS ORDERED: Ketorolac Tromethamine 30 MG/ML VIAL ONE (11:02)
[2020-03-17] MEDS ORDERED: Thrombin 5000 UNITS/5 ML VIAL ONE (11:02)
[2020-03-17] MEDS ORDERED: Calcium Chloride 1 GM/10 ML Abboject SYRINGE ONE (11:02)
[2020-03-17] MEDS ORDERED: Ondansetron PF 4 MG/2 ML Vial ONE (11:02)
[2020-03-17] MEDS ORDERED: Mannitol 12.5 GM/50 ML ONE (11:02)
[2020-03-17] MEDS ORDERED: Heparin 5,000 UNITS/ML VIAL ONE (11:02)
[2020-03-17] MEDS ORDERED: Nitroglycerin 50 MG/250 ML BOT ONE (11:02)
[2020-03-17] MEDS ORDERED: Lidocaine 2% PF 100 mg/5 ml Syringe ONE (11:02)
[2020-03-17] MEDS ORDERED: Glycopyrrolate 0.2 MG/ML 5 ML SYRINGE ONE (11:02)
[2020-03-17] MEDS ORDERED: Papaverine 60 MG/2 ML VIAL ONE (11:02)
[2020-03-17] MEDS ORDERED: ePHEDrine 50 MG/ML VIAL ONE (11:02)
[2020-03-17] MEDS ORDERED: Protamine Sulfate 250 MG/25 ML VIAL ONE (11:02)
[2020-03-17] MEDS ORDERED: Aminocaproic Acid 5 GM/20 ML VIAL ONE (11:02)
[2020-03-17] MEDS ORDERED: Cardioplegic Soln 1,000 ML BAG ONE (11:02)
[2020-03-17] MEDS ORDERED: Norepinephrine 4 MG/4 ML VIAL ONE (11:02)
[2020-03-17] MEDS ORDERED: Heparin 30,000 units/30 ml VIAL ONE (11:02)
[2020-03-17] MEDS ORDERED: Sodium Bicarb 50 MEQ/50 ML Abboject 8.4% SYRINGE ONE (11:02)
[2020-03-17] MEDS ORDERED: Ondansetron PF 4 MG/2 ML Vial IVP PRN (12:48)
[2020-03-17] MEDS ORDERED: HYDROcodone/Acetaminophen 5/325 mg Tablet PO PRN (12:48)
[2020-03-17] MEDS ORDERED: Hetastarch 6% 500 ML 500 ML IVPB PRN (12:48)
[2020-03-17] MEDS ORDERED: Morphine 2 MG/ML VIAL SLOW IVP PRN (12:48)
[2020-03-17] MEDS ORDERED: Bisacodyl 5 MG TAB PO PRN (12:48)
[2020-03-17] MEDS ORDERED: niCARdipine 25 MG in Sodium Chloride 0.9% 250 ML 240 ML IVPB PRN (12:48)
[2020-03-17] MEDS ORDERED: Mag-Al 1200 mg/1200 mg/30 ML UDCUP PO PRN (12:48)
[2020-03-17] MEDS ORDERED: Norepinephrine 8 MG/0.9% NS 250 ML IVPB PRN (12:48)
[2020-03-17] MEDS ORDERED: Nitroglycerin 50 MG/250 ML BOT 250 ML IVPB PRN (12:48)
[2020-03-17] MEDS ORDERED: Bisacodyl 10 MG SUPP PR PRN (12:48)
[2020-03-17] MEDS ORDERED: Post-Op Insulin Drip Protocol IVPB ONE (12:48)
[2020-03-17] MEDS ORDERED: hydrALAZINE 20 MG/ML VIAL SLOW IVP PRN (12:48)
[2020-03-17] MEDS ORDERED: Potassium Chloride 20 MEQ/100 ML PREMIX BAG IVPB PRN (12:48)
[2020-03-17] MEDS ORDERED: Fentanyl 100 MCG/2 ML VIAL SLOW IVP PRN (12:48)
[2020-03-17] MEDS ORDERED: Acetaminophen 325 MG TAB PO PRN (12:48)
[2020-03-17] MEDS ORDERED: Guaifenesin DM 100-10/5 ML UDCUP PO PRN (12:48)
[2020-03-17] MEDS ORDERED: Insulin Regular 300 UNITS/3 ML VIAL SC PRN (13:00)
[2020-03-17] MEDS ORDERED: HUMULIN R 100 UNITS in Sodium Chloride 0.9% 100 ML IVPB SCH (13:00)
[2020-03-17] MEDS ORDERED: Dextrose 5% in Water 1,000 ML IV PRN (13:00)
[2020-03-17] MEDS ORDERED: Dextrose 50% Abboject 50 ML SYRINGE SLOW IVP PRN (13:00)
[2020-03-17 13:08] LABS: #Eosinphils 0.2 thou/uL (0.0-0.7); #Lymphocytes 1.5 thou/uL (1.20-3.40); #Monocytes 1.1 thou/uL (0.11-0.59); #Neutrophils 12.5 thou/uL (1.40-6.50); %Basophils 0.1 % (0.0-1.0); %Eosinophils 1.4 % (0.0-10.0); %Lymphocytes 9.9 % (21.0-51.0); %Monocytes 7.1 % (0.0-10.0); %Neutrophils 81.6 % (42.0-75.0); Hemoglobin 10.8 g/dL (14.0-18.0); Mean Corpuscular HGB CONC 32.5 g/dL (32.0-36.0); Mean Corpuscular Hemoglobin 26.4 pg (27.0-31.0); Mean Corpuscular Volume 81.2 fL (78.0-98.0); Mean Platelet Volume 7.5 fL (7.4-10.4); Platelet Count 238 thou/uL (130-400); White Blood Cell (WBC) Count 15.3 thou/uL (4.8-10.8)
[2020-03-17 13:14] LABS: Actual Bicarbonate (HCO3a) 22.8 mEq/L (22-28); Base Excess (BEa) -3.4 mEq/L (-2.0 to +3.0); CO2 Tension 45.7 mmHg (35.0-45.0); Calcium, Ionized (arterial) 0.99 mmol/L (1.12-1.30); Carboxyhemoglobin (COHb) 0.1 gm% (0.0-3.0); Hemoglobin (Hb) 11.4 g/dL (14.0-18.0); O2 Tension (PaO2), arterial 73.6 mmHg (> 70.0); Potassium - ABG Lab 4.07 mmol/L (3.70-5.30); Puncture Site Arterial Line; pH, Arterial 7.32 (7.35-7.45)
[2020-03-17 13:15] LABS: INR-International Normal Ratio 1.3; Prothrombin Time 16.5 sec (12.0-14.7)
[2020-03-17] MEDS: Docusate 100 MG CAP PO SCH ×2 (13:20→22:42)
[2020-03-17 13:41] LABS: Anion Gap 14 mmol/L (10-20); BUN (Urea Nitrogen) 14 mg/dL (8.4-25.7); Calc. Creatinine Clearance 111 mL/min (70-130); Calcium 6.9 mg/dL (7.8-10.44); Carbon Dioxide 21 mmol/L (23-31); Chloride 110 mmol/L (98-107); Glucose 136 mg/dL (83-110); Potassium 4.1 mmol/L (3.5-5.1); Sodium 141 mmol/L (136-145)
[2020-03-17] MEDS: Fentanyl 100 MCG/2 ML VIAL SLOW IVP PRN ×2 (14:09→19:21)
[2020-03-17 19:23] LABS: Hemoglobin 10.8 g/dL (14.0-18.0)
[2020-03-17 20:03] LABS: Potassium 4.6 mmol/L (3.5-5.1)
[2020-03-17] MEDS: Famotidine/PF 20 mg/2ml Vial SLOW IVP SCH (22:42)
[2020-03-18] MEDS: HYDROcodone/Acetaminophen 5/325 mg Tablet PO PRN ×3 (02:11→21:22)
[2020-03-18] MEDS: Sodium Chloride 0.9% 1,000 ML IV SCH (02:16)
[2020-03-18 04:13] LABS: #Eosinphils 0.1 thou/uL (0.0-0.7); #Lymphocytes 1.5 thou/uL (1.20-3.40); #Monocytes 0.8 thou/uL (0.11-0.59); #Neutrophils 5.8 thou/uL (1.40-6.50); %Eosinophils 0.6 % (0.0-10.0); %Lymphocytes 18.5 % (21.0-51.0); %Neutrophils 70.8 % (42.0-75.0); Mean Corpuscular HGB CONC 33.3 g/dL (32.0-36.0); Mean Corpuscular Hemoglobin 26.9 pg (27.0-31.0); Mean Corpuscular Volume 80.7 fL (78.0-98.0); Mean Platelet Volume 7.8 fL (7.4-10.4); Platelet Count 250 thou/uL (130-400); RBC Distribution Width 13.9 % (11.5-14.5); Red Blood Cell (RBC) Count 3.72 mill/uL (4.70-6.10); White Blood Cell (WBC) Count 8.2 thou/uL (4.8-10.8)
[2020-03-18 04:35] LABS: Anion Gap 13 mmol/L (10-20); BUN (Urea Nitrogen) 16 mg/dL (8.4-25.7); Calc. Creatinine Clearance 100 mL/min (70-130); Calcium 7.3 mg/dL (7.8-10.44); Carbon Dioxide 20 mmol/L (23-31); Chloride 110 mmol/L (98-107); Glucose 119 mg/dL (83-110); Potassium 3.9 mmol/L (3.5-5.1); Sodium 139 mmol/L (136-145)
[2020-03-18] MEDS: Famotidine/PF 20 mg/2ml Vial SLOW IVP SCH (07:36)
[2020-03-18] MEDS: Docusate 100 MG CAP PO SCH ×2 (07:36→21:20)
[2020-03-18] MEDS: Insulin Regular 300 UNITS/3 ML VIAL SC PRN (11:10)
[2020-03-18] MEDS ORDERED: Guaifenesin DM 100-10/5 ML UDCUP PO PRN (13:47)
[2020-03-18] MEDS ORDERED: Zolpidem Tartrate 5 MG TAB PO PRN (13:47)
[2020-03-18] MEDS ORDERED: Nitroglycerin 0.4 MG TAB (25 Tab Bottle) SL PRN (13:47)
[2020-03-18] MEDS ORDERED: Mineral Oil ENEMA PR PRN (13:47)
[2020-03-18] MEDS ORDERED: diphenhydrAMINE 25 MG CAP PO PRN (13:47)
[2020-03-18] MEDS ORDERED: Bisacodyl 5 MG TAB PO PRN (13:47)
[2020-03-18] MEDS: CARBOXYMETHYLCELLULOSE SODIUM R EYE SCH (13:47)
[2020-03-18] MEDS ORDERED: Bisacodyl 10 MG SUPP PR PRN (13:47)
[2020-03-18] MEDS ORDERED: Mag-Al 1200 mg/1200 mg/30 ML UDCUP PO PRN (13:47)
[2020-03-18] MEDS: Artificial Tear Sol 15 ML BOT R EYE SCH ×3 (15:38→21:20)
[2020-03-18] MEDS: Furosemide 40 MG/4 ML VIAL SLOW IVP SCH (15:39)
[2020-03-18] MEDS: Carvedilol 3.125 MG TAB PO SCH (21:20)
[2020-03-19 04:35] LABS: #Eosinphils 0.2 thou/uL (0.0-0.7); #Lymphocytes 1.9 thou/uL (1.20-3.40); #Monocytes 1.1 thou/uL (0.11-0.59); #Neutrophils 6.4 thou/uL (1.40-6.50); %Basophils 0.2 % (0.0-1.0); %Eosinophils 2.4 % (0.0-10.0); %Lymphocytes 19.7 % (21.0-51.0); %Monocytes 11.1 % (0.0-10.0); %Neutrophils 66.7 % (42.0-75.0); Hemoglobin 10.3 g/dL (14.0-18.0); Mean Corpuscular HGB CONC 32.5 g/dL (32.0-36.0); Mean Corpuscular Hemoglobin 26.6 pg (27.0-31.0); Mean Corpuscular Volume 81.8 fL (78.0-98.0); Platelet Count 221 thou/uL (130-400); RBC Distribution Width 14.2 % (11.5-14.5); Red Blood Cell (RBC) Count 3.88 mill/uL (4.70-6.10); White Blood Cell (WBC) Count 9.6 thou/uL (4.8-10.8)
[2020-03-19 04:55] LABS: Anion Gap 13 mmol/L (10-20); BUN (Urea Nitrogen) 23 mg/dL (8.4-25.7); Calc. Creatinine Clearance 75 mL/min (70-130); Calcium 8.2 mg/dL (7.8-10.44); Carbon Dioxide 21 mmol/L (23-31); Chloride 108 mmol/L (98-107); Glucose 136 mg/dL (83-110); Potassium 4.3 mmol/L (3.5-5.1); Sodium 138 mmol/L (136-145)
[2020-03-19] MEDS: Furosemide 40 MG/4 ML VIAL SLOW IVP SCH (06:02)
[2020-03-19 06:40] VITALS: BMI 32.8
[2020-03-19] MEDS: CARBOXYMETHYLCELLULOSE SODIUM R EYE SCH ×2 (08:25→08:26)
[2020-03-19] MEDS: Carvedilol 3.125 MG TAB PO SCH ×2 (08:37→21:10)
[2020-03-19] MEDS: Docusate 100 MG CAP PO SCH ×2 (08:37→21:11)
[2020-03-19] MEDS: Artificial Tear Sol 15 ML BOT R EYE SCH ×4 (08:37→21:10)
[2020-03-19] MEDS: Insulin Regular 300 UNITS/3 ML VIAL SC PRN (11:54)
[2020-03-19] MEDS: Atorvastatin Calcium 40 MG TAB PO SCH (21:10)
[2020-03-20 04:41] LABS: Anion Gap 12 mmol/L (10-20); BUN (Urea Nitrogen) 18 mg/dL (8.4-25.7); Calc. Creatinine Clearance 107 mL/min (70-130); Calcium 8.3 mg/dL (7.8-10.44); Carbon Dioxide 24 mmol/L (23-31); Chloride 106 mmol/L (98-107); Glucose 120 mg/dL (83-110); Potassium 4.2 mmol/L (3.5-5.1); Sodium 138 mmol/L (136-145)
[2020-03-20 05:24] LABS: #Eosinphils 0.3 thou/uL (0.0-0.7); #Lymphocytes 2.2 thou/uL (1.20-3.40); #Monocytes 1.3 thou/uL (0.11-0.59); #Neutrophils 5.5 thou/uL (1.40-6.50); %Basophils 0.2 % (0.0-1.0); %Eosinophils 3.1 % (0.0-10.0); %Lymphocytes 23.7 % (21.0-51.0); %Monocytes 14.1 % (0.0-10.0); %Neutrophils 58.9 % (42.0-75.0); Hemoglobin 9.8 g/dL (14.0-18.0); Mean Corpuscular HGB CONC 32.4 g/dL (32.0-36.0); Mean Corpuscular Hemoglobin 26.5 pg (27.0-31.0); Mean Corpuscular Volume 81.8 fL (78.0-98.0); Mean Platelet Volume 8.1 fL (7.4-10.4); Platelet Count 212 thou/uL (130-400); RBC Distribution Width 14.2 % (11.5-14.5); RBC Morphology Normal; White Blood Cell (WBC) Count 9.4 thou/uL (4.8-10.8)
[2020-03-20] MEDS: metFORMIN 500 MG TAB PO SCH (08:37)
[2020-03-20] MEDS: Artificial Tear Sol 15 ML BOT R EYE SCH ×4 (08:37→21:06)
[2020-03-20] MEDS: Lisinopril 2.5 MG TAB PO SCH (08:37)
[2020-03-20] MEDS: Docusate 100 MG CAP PO SCH ×2 (08:37→21:07)
[2020-03-20 12:50] LABS: Actual Bicarbonate (HCO3a) 24.9 mEq/L (22-28); Analyzer IN Cardio OR; Base Excess (BEa) -0.6 mEq/L (-2.0 to +3.0); CO2 Tension 44.6 mmHg (35.0-45.0); Calcium, Ionized (arterial) 1.16 mmol/L (1.12-1.30); Carboxyhemoglobin (COHb) 0.4 gm% (0.0-3.0); Hemoglobin (Hb) 11.8 g/dL (14.0-18.0); O2 Tension (PaO2), arterial 405.2 mmHg (> 70.0); Potassium - ABG Lab 3.98 mmol/L (3.70-5.30); pH, Arterial 7.37 (7.35-7.45)
[2020-03-20 12:51] LABS: Actual Bicarbonate (HCO3a) 22.1 mEq/L (22-28); Analyzer IN Cardio OR; Base Excess (BEa) -3.3 mEq/L (-2.0 to +3.0); CO2 Tension 40.9 mmHg (35.0-45.0); Calcium, Ionized (arterial) 1.13 mmol/L (1.12-1.30); Carboxyhemoglobin (COHb) 0.3 gm% (0.0-3.0); Hemoglobin (Hb) 11.3 g/dL (14.0-18.0); O2 Tension (PaO2), arterial 129.5 mmHg (> 70.0); Potassium - ABG Lab 4.22 mmol/L (3.70-5.30); pH, Arterial 7.35 (7.35-7.45)
[2020-03-20 12:51] LABS: Actual Bicarbonate (HCO3a) 23.9 mEq/L (22-28); Analyzer IN Cardio OR; Base Excess (BEa) -0.7 mEq/L (-2.0 to +3.0); Calcium, Ionized (arterial) 0.96 mmol/L (1.12-1.30); Hemoglobin (Hb) 6.7 g/dL (14.0-18.0); O2 Tension (PaO2), arterial 474.2 mmHg (> 70.0); Potassium - ABG Lab 4.61 mmol/L (3.70-5.30); pH, Arterial 7.41 (7.35-7.45)
[2020-03-20 12:51] LABS: Analyzer IN Cardio OR; CO2 Tension 47.7 mmHg (35.0-45.0); Calcium, Ionized (arterial) 0.97 mmol/L (1.12-1.30); Carboxyhemoglobin (COHb) 0.7 gm% (0.0-3.0); Hemoglobin (Hb) 7.8 g/dL (14.0-18.0); O2 Tension (PaO2), arterial 380.3 mmHg (> 70.0); pH, Arterial 7.32 (7.35-7.45)
[2020-03-20 12:51] LABS: Actual Bicarbonate (HCO3v) 23 mEq/L (22-28); Analyzer IN Cardio OR; Calcium, Ionized (venous) 0.96 mmol/L (1.16-1.32); Chloride (VBG) 108 mmol/L (98-106); Hemoglobin (Hb) 7.2 g/dL (12.6-17.4); Potassium (VBG) 4.62 mmol/L (3.70-5.30)
[2020-03-20 12:52] LABS: Actual Bicarbonate (HCO3a) 21.8 mEq/L (22-28); Analyzer IN Cardio OR; Base Excess (BEa) -3.3 mEq/L (-2.0 to +3.0); CO2 Tension 39.2 mmHg (35.0-45.0); Calcium, Ionized (arterial) 0.91 mmol/L (1.12-1.30); Carboxyhemoglobin (COHb) 0.2 gm% (0.0-3.0); Hemoglobin (Hb) 10.5 g/dL (14.0-18.0); O2 Tension (PaO2), arterial 242.4 mmHg (> 70.0); Potassium - ABG Lab 4.08 mmol/L (3.70-5.30); pH, Arterial 7.36 (7.35-7.45)
[2020-03-20 12:52] LABS: Puncture Site Arterial Line
[2020-03-20 12:53] LABS: Puncture Site Arterial Line
[2020-03-20 12:53] LABS: Puncture Site Arterial Line
[2020-03-20 12:54] LABS: Puncture Site Arterial Line
[2020-03-20 12:54] LABS: Puncture Site Arterial Line
[2020-03-20] MEDS: Carvedilol 6.25 MG TAB PO SCH ×2 (16:05→22:38)
[2020-03-20] MEDS: Atorvastatin Calcium 40 MG TAB PO SCH (21:07)
[2020-03-21] MEDS: Artificial Tear Sol 15 ML BOT R EYE SCH (07:55)
[2020-03-21] MEDS: Lisinopril 2.5 MG TAB PO SCH (07:55)
[2020-03-21] MEDS: metFORMIN 500 MG TAB PO SCH (07:55)
[2020-03-21] MEDS: Carvedilol 6.25 MG TAB PO SCH (07:55)
[2020-03-21] MEDS: Docusate 100 MG CAP PO SCH (07:55)
[2020-03-21] MEDS ORDERED: Aspirin Chewable 81 MG TAB PO SCH (09:00)
[2020-03-21 12:32] VITALS: BP 128/59; TEMP 98.4
== END 2020-03-21 13:17 | disposition home or self-care (01) | DRG 234 ==
LOC: ERS 18:20 → INTOOBSV 23:35 → ERHOLD 23:35 → 2NO 03-13 18:54 → OBSVTOIN 03-14 12:25 → CCU 03-17 06:04 → 2NO 03-18 12:35
PROVIDERS: ADMIT Student in an Organized Health Care Education/Training Program; ATTEND Internal Medicine
PROC: 4A023N7 Measurement of Cardiac Sampling and Pressure, Left Heart, Percutaneous Approach (ICD-10-PCS; 2020-03-16)
PROC: B2151ZZ Fluoroscopy of Left Heart using Low Osmolar Contrast (ICD-10-PCS; 2020-03-16)
PROC: B2111ZZ Fluoroscopy of Multiple Coronary Arteries using Low Osmolar Contrast (ICD-10-PCS; 2020-03-16)
PROC: 02100Z8 Bypass Coronary Artery, One Artery from Right Internal Mammary, Open Approach (ICD-10-PCS; principal; 2020-03-17)
PROC: 021009W Bypass Coronary Artery, One Artery from Aorta with Autologous Venous Tissue, Open Approach (ICD-10-PCS; 2020-03-17)
PROC: 06BQ4ZZ Excision of Left Saphenous Vein, Percutaneous Endoscopic Approach (ICD-10-PCS; 2020-03-17)
PROC: 5A1221Z Performance of Cardiac Output, Continuous (ICD-10-PCS; 2020-03-17)
DX: T82.855A Stenosis of coronary artery stent, initial encounter (principal); N17.9 Acute kidney failure, unspecified; I25.790 Atherosclerosis of other coronary artery bypass graft(s) with unstable angina pectoris; I24.9 Acute ischemic heart disease, unspecified; Z20.822 Contact with and (suspected) exposure to COVID-19; I49.3 Ventricular premature depolarization; Z79.4 Long term (current) use of insulin; E78.5 Hyperlipidemia, unspecified; I11.0 Hypertensive heart disease with heart failure; I48.0 Paroxysmal atrial fibrillation; E66.9 Obesity, unspecified; E11.59 Type 2 diabetes mellitus with other circulatory complications; E78.00 Pure hypercholesterolemia, unspecified; Y84.0 Cardiac catheterization as the cause of abnormal reaction of the patient, or of later complication, without mention of misadventure at the time of the procedure; I25.5 Ischemic cardiomyopathy; I50.9 Heart failure, unspecified; J42 Unspecified chronic bronchitis; Z79.82 Long term (current) use of aspirin; Z79.899 Other long term (current) drug therapy; Z95.0 Presence of cardiac pacemaker; Z95.5 Presence of coronary angioplasty implant and graft; Z68.30 Body mass index [BMI] 30.0-30.9, adult; I25.2 Old myocardial infarction; Z79.01 Long term (current) use of anticoagulants; Z87.891 Personal history of nicotine dependence
CPT/HCPCS: 36415; 36416; 36430; 71045; 71250; 76942; 80048; 80053; 80061; 82805; 83036; 83605; 83735; 83880; 84100; 84484; 85025; 85610; 85730; 86850; 86900; 86901; 87635; 93005; 93010; 93306; 93458; 93798; 94150; 94760; 96374; 99152; G0378; J0360; J1642; J1644; J1815; J1885; J1940; J2001; J2150; J2250; J2405; J2440; J2720; J3010; J3370; J3475; J3480; J3490; P9016; P9035; P9045; Q9967; S0017; S0028; U0003; U0005

== ENCOUNTER 2021-01-10 07:47 | Observation (INO) | payer MEDICARE, OTHER ==
[2021-01-10 08:32] LABS: #Eosinphils 0.3 thou/uL (0.0-0.7); #Lymphocytes 1.7 thou/uL (1.20-3.40); #Monocytes 0.5 thou/uL (0.11-0.59); #Neutrophils 1.9 thou/uL (1.40-6.50); %Basophils 0.4 % (0.0-1.0); %Eosinophils 6.6 % (0.0-10.0); %Lymphocytes 38.6 % (21.0-51.0); %Monocytes 11.1 % (0.0-10.0); %Neutrophils 43.3 % (42.0-75.0); Hemoglobin 11.4 g/dL (14.0-18.0); Mean Corpuscular HGB CONC 32.4 g/dL (32.0-36.0); Mean Corpuscular Hemoglobin 26.2 pg (27.0-31.0); Mean Platelet Volume 7.4 fL (7.4-10.4); Platelet Count 208 thou/uL (130-400); RBC Distribution Width 13.8 % (11.5-14.5); Red Blood Cell (RBC) Count 4.36 mill/uL (4.70-6.10); White Blood Cell (WBC) Count 4.4 thou/uL (4.8-10.8)
[2021-01-10 09:24] LABS: Albumin 3.7 g/dL (3.4-4.8)
[2021-01-10 09:25] LABS: Chloride 108 mmol/L (98-107); Potassium 3.7 mmol/L (3.5-5.1); Sodium 140 mmol/L (136-145)
[2021-01-10 09:26] LABS: Globulin 3.7 g/dL (2.4-3.5); Glucose 100 mg/dL (83-110); Protein, Total 7.4 g/dL (5.8-8.1)
[2021-01-10 09:28] LABS: Anion Gap 12 mmol/L (10-20); Bilirubin, Total 0.3 mg/dL (0.2-1.2); Carbon Dioxide 24 mmol/L (23-31)
[2021-01-10 09:29] LABS: Alkaline Phosphatase 79 U/L (40-110)
[2021-01-10 09:30] LABS: BUN (Urea Nitrogen) 14 mg/dL (8.4-25.7); Calc. Creatinine Clearance 0 mL/min (70-130)
[2021-01-10 09:31] LABS: AST (SGOT) 22 U/L (5-34)
[2021-01-10 09:32] LABS: ALT (SGPT) 17 U/L (8-55); Lipase 22 U/L (8-78)
[2021-01-10] MEDS ORDERED: Acetaminophen/Codeine 30-300mg Tablet ONE (09:56)
[2021-01-10] MEDS ORDERED: Nitroglycerin 0.4 MG TAB (25 Tab Bottle) SL PRN ×2 (10:27→11:14)
[2021-01-10] MEDS ORDERED: Ondansetron PF 4 MG/2 ML Vial IVP PRN (10:27)
[2021-01-10] MEDS ORDERED: Acetaminophen 325 MG TAB PO PRN (10:27)
[2021-01-10] MEDS ORDERED: Enoxaparin Sodium 40 MG/0.4 ML SYRINGE SC SCH (10:30)
[2021-01-10] MEDS ORDERED: Aspirin 325 MG TAB ONE (10:40)
[2021-01-10 12:13] LABS: Cardiac Risk 2.8 (Less than 4.5)
[2021-01-10 12:17] LABS: Troponin I 0.022 ng/mL (< 0.028)
[2021-01-10 12:22] LABS: SARS-CoV-2 NAA Rapid Test Not Detected (NotDetected)
[2021-01-10] MEDS ORDERED: Enoxaparin Sodium 40 MG/0.4 ML SYRINGE ONE (13:44)
[2021-01-10 15:16] LABS: Troponin I 0.019 ng/mL (< 0.028)
[2021-01-10 17:50] VITALS: BMI 28.7
[2021-01-10] MEDS: Carvedilol 6.25 MG TAB PO SCH (20:36)
[2021-01-10] MEDS ORDERED: Atorvastatin Calcium 40 MG TAB PO SCH (21:00)
[2021-01-11] MEDS: Carvedilol 6.25 MG TAB PO SCH (08:31)
[2021-01-11] MEDS ORDERED: Thiamine 100 MG TAB PO SCH (09:00)
[2021-01-11] MEDS ORDERED: Clopidogrel Bisulfate 75 MG TAB PO SCH (09:00)
[2021-01-11] MEDS ORDERED: Enoxaparin Sodium 40 MG/0.4 ML SYRINGE SC SCH (09:00)
[2021-01-11] MEDS ORDERED: Aspirin Chewable 81 MG TAB PO SCH ×2 (09:00)
[2021-01-11] MEDS ORDERED: Furosemide 20 MG TAB PO SCH (09:00)
[2021-01-11] MEDS ORDERED: Folic Acid 1 MG TAB PO SCH (09:00)
[2021-01-11] MEDS ORDERED: Lisinopril 2.5 MG TAB PO SCH (09:00)
[2021-01-11 12:24] VITALS: BP 119/57; TEMP 97.5
== END 2021-01-11 14:20 | disposition home or self-care (01) ==
LOC: ERS 07:47 → ERHOLD 10:25 → 2SW 17:35
PROVIDERS: ADMIT Internal Medicine; ATTEND Internal Medicine
DX: J06.9 Acute upper respiratory infection, unspecified (principal); R05.9 Cough, unspecified; J44.9 Chronic obstructive pulmonary disease, unspecified; I10 Essential (primary) hypertension; E11.9 Type 2 diabetes mellitus without complications; I25.10 Atherosclerotic heart disease of native coronary artery without angina pectoris; I48.0 Paroxysmal atrial fibrillation; E78.5 Hyperlipidemia, unspecified; Z20.822 Contact with and (suspected) exposure to COVID-19; Z79.4 Long term (current) use of insulin; Z79.02 Long term (current) use of antithrombotics/antiplatelets; Z79.82 Long term (current) use of aspirin; Z79.899 Other long term (current) drug therapy; Z79.84 Long term (current) use of oral hypoglycemic drugs; Z87.891 Personal history of nicotine dependence; Z95.0 Presence of cardiac pacemaker; Z95.1 Presence of aortocoronary bypass graft; Z95.5 Presence of coronary angioplasty implant and graft
CPT/HCPCS: 0240U; 36415; 71045; 80053; 80061; 83690; 83880; 84484; 85025; 85379; 93005; 93306; 94640; 94760; 96372; G0378; J1650; J7620

== ENCOUNTER 2022-09-08 14:01 | Emergency (ER) | payer MEDICARE, OTHER ==
[2022-09-08 16:02] LABS: #Eosinphils 0.3 thou/uL (0.0-0.7); #Monocytes 0.7 thou/uL (0.11-0.59); #Neutrophils 3.7 thou/uL (1.40-6.50); %Basophils 0.6 % (0.0-1.0); %Eosinophils 3.9 % (0.0-10.0); %Lymphocytes 27.5 % (21.0-51.0); %Monocytes 10.3 % (0.0-10.0); %Neutrophils 57.5 % (42.0-75.0); Hematocrit 34.9 % (42.0-52.0); Hemoglobin 10.9 g/dL (14.0-18.0); Mean Corpuscular HGB CONC 31.2 g/dL (32.0-36.0); Mean Corpuscular Hemoglobin 24.8 pg (27.0-31.0); Mean Corpuscular Volume 79.3 fl (78.0-98.0); Mean Platelet Volume 9.6 fL (7.4-10.4); Platelet Count 264 10x3/uL (130-400); RBC Distribution Width 16.7 % (11.5-14.5); White Blood Cell (WBC) Count 6.4 10x3/uL (4.8-10.8)
[2022-09-08 16:13] LABS: INR-International Normal Ratio 1.1; PTT 28.1 sec (22.9-36.1); Prothrombin Time 14.2 sec (12.0-14.7)
[2022-09-08 16:26] LABS: ALT (SGPT) 19 U/L (8-55); AST (SGOT) 23 U/L (5-34); Albumin 3.9 g/dL (3.4-4.8); Alkaline Phosphatase 87 U/L (40-110); Anion Gap 13 mmol/L (10-20); BUN (Urea Nitrogen) 20 mg/dL (8.4-25.7); Bilirubin, Total 0.3 mg/dL (0.2-1.2); Calc. Creatinine Clearance 0 mL/min (70-130); Calcium 9.7 mg/dL (7.8-10.44); Carbon Dioxide 25 mmol/L (23-31); Chloride 106 mmol/L (98-107); Estimated GFR 75; Globulin 4.1 g/dL (2.4-3.5); Glucose 113 mg/dL (83-110); Potassium 4.2 mmol/L (3.5-5.1); Sodium 140 mmol/L (136-145)
== END 2022-09-08 17:15 | disposition home or self-care (01) ==
LOC: ERS 14:01
DX: R04.0 Epistaxis (principal); T17.1XXA Foreign body in nostril, initial encounter; E78.5 Hyperlipidemia, unspecified; I25.10 Atherosclerotic heart disease of native coronary artery without angina pectoris; E11.9 Type 2 diabetes mellitus without complications; I11.0 Hypertensive heart disease with heart failure; I50.9 Heart failure, unspecified; Z87.891 Personal history of nicotine dependence; Z79.82 Long term (current) use of aspirin; Z79.899 Other long term (current) drug therapy; Z79.4 Long term (current) use of insulin; Z79.84 Long term (current) use of oral hypoglycemic drugs
CPT/HCPCS: 36415; 80053; 85025; 85610; 85730; 99283

== ENCOUNTER 2024-01-11 07:16 | Emergency (ER) | payer OTHER ==
[2024-01-11 08:28] LABS: #Basophils 0.05 10x3/uL (0.0-0.2); %Basophils 0.9 % (0.0-1.0); %Eosinophils 4.1 % (0.0-10.0); %Lymphocytes 29.6 % (21.0-51.0); %Monocytes 13.7 % (0.0-10.0); %Neutrophils 51.5 % (42.0-75.0); Hematocrit 32.3 % (42.0-52.0); Mean Corpuscular Hemoglobin 23.8 pg (27.0-31.0); Mean Corpuscular Volume 76.7 fL (78.0-98.0); Mean Platelet Volume 9.7 fL (7.4-10.4); Platelet Count 282 10x3/uL (130-400); RBC Distribution Width 17.3 % (11.5-14.5); Red Blood Cell (RBC) Count 4.21 mill/uL (4.70-6.10)
[2024-01-11 08:51] LABS: ALT (SGPT) 14 U/L (8-55); AST (SGOT) 25 U/L (5-34); Albumin 3.3 g/dL (3.4-4.8); Alkaline Phosphatase 97 U/L (40-110); Anion Gap 14 mmol/L (10-20); BUN (Urea Nitrogen) 11 mg/dL (8.4-25.7); Bilirubin, Total 0.5 mg/dL (0.2-1.2); Calc. Creatinine Clearance 0 mL/min (70-130); Calcium 8.7 mg/dL (7.8-10.44); Carbon Dioxide 22 mmol/L (23-31); Chloride 110 mmol/L (98-107); Estimated GFR 86; Globulin 3.8 g/dL (2.4-3.5); Glucose 94 mg/dL (83-110); Potassium 4.3 mmol/L (3.5-5.1); Protein, Total 7.1 g/dL (5.8-8.1); Sodium 142 mmol/L (136-145)
[2024-01-11 08:56] LABS: Troponin I 0.014 ng/mL (< 0.028)
== END 2024-01-11 09:20 | disposition home or self-care (01) ==
LOC: ERS 07:16
DX: J18.9 Pneumonia, unspecified organism (principal); E11.9 Type 2 diabetes mellitus without complications; I11.0 Hypertensive heart disease with heart failure; I50.9 Heart failure, unspecified; Z87.891 Personal history of nicotine dependence; E78.5 Hyperlipidemia, unspecified; Z79.899 Other long term (current) drug therapy; Z79.84 Long term (current) use of oral hypoglycemic drugs; Z79.4 Long term (current) use of insulin
CPT/HCPCS: 71045; 80053; 83735; 83880; 84484; 85025; 93005

== ENCOUNTER 2024-01-17 00:45 | Emergency (ER) | payer OTHER ==
[2024-01-17 02:11] LABS: #Basophils 0.05 10x3/uL (0.0-0.2); %Basophils 0.9 % (0.0-1.0); %Eosinophils 4.4 % (0.0-10.0); %Lymphocytes 34.3 % (21.0-51.0); %Monocytes 11.6 % (0.0-10.0); %Neutrophils 48.6 % (42.0-75.0); Hematocrit 35.4 % (42.0-52.0); Hemoglobin 10.7 g/dL (14.0-18.0); Mean Corpuscular HGB CONC 30.2 g/dL (32.0-36.0); Mean Corpuscular Hemoglobin 23.6 pg (27.0-31.0); Mean Corpuscular Volume 78.1 fL (78.0-98.0); Mean Platelet Volume 9.6 fL (7.4-10.4); Platelet Count 295 10x3/uL (130-400); RBC Distribution Width 17.2 % (11.5-14.5); Red Blood Cell (RBC) Count 4.53 mill/uL (4.70-6.10)
[2024-01-17 02:25] LABS: Prothrombin Time 13.5 sec (12.0-14.7)
[2024-01-17 02:50] LABS: ALT (SGPT) 15 U/L (8-55); AST (SGOT) 19 U/L (5-34); Albumin 3.4 g/dL (3.4-4.8); Alkaline Phosphatase 103 U/L (40-110); Anion Gap 15 mmol/L (10-20); BUN (Urea Nitrogen) 19 mg/dL (8.4-25.7); Bilirubin, Total 0.4 mg/dL (0.2-1.2); Calc. Creatinine Clearance 0 mL/min (70-130); Carbon Dioxide 21 mmol/L (23-31); Chloride 110 mmol/L (98-107); Estimated GFR 86; Globulin 4.4 g/dL (2.4-3.5); Glucose 138 mg/dL (83-110); Potassium 3.9 mmol/L (3.5-5.1); Protein, Total 7.8 g/dL (5.8-8.1); Sodium 142 mmol/L (136-145)
== END 2024-01-17 03:18 | disposition home or self-care (01) ==
LOC: ERS 00:45
DX: K62.5 Hemorrhage of anus and rectum (principal); I11.0 Hypertensive heart disease with heart failure; I50.9 Heart failure, unspecified; E78.5 Hyperlipidemia, unspecified; E11.9 Type 2 diabetes mellitus without complications; Z79.84 Long term (current) use of oral hypoglycemic drugs; Z86.73 Personal history of transient ischemic attack (TIA), and cerebral infarction without residual deficits; Z79.82 Long term (current) use of aspirin; Z79.02 Long term (current) use of antithrombotics/antiplatelets; Z79.4 Long term (current) use of insulin; Z87.891 Personal history of nicotine dependence; Z79.899 Other long term (current) drug therapy
CPT/HCPCS: 36415; 80053; 82274; 85025; 85610; 85730; 99283

== ENCOUNTER 2024-02-01 00:20 | Inpatient (IN) | payer MEDICARE, OTHER ==
[2024-02-01 00:56] LABS: #Basophils 0.04 10x3/uL (0.0-0.2); %Basophils 0.6 % (0.0-1.0); %Lymphocytes 30.9 % (21.0-51.0); %Monocytes 12.9 % (0.0-10.0); %Neutrophils 50.4 % (42.0-75.0); Hematocrit 28.1 % (42.0-52.0); Hemoglobin 8.7 g/dL (14.0-18.0); Mean Corpuscular Volume 77.4 fL (78.0-98.0); Mean Platelet Volume 9.8 fL (7.4-10.4); Platelet Count 323 10x3/uL (130-400); RBC Distribution Width 17.5 % (11.5-14.5); Red Blood Cell (RBC) Count 3.63 mill/uL (4.70-6.10)
[2024-02-01] MEDS ORDERED: Nitroglycerin 2% Ointment 1 INCH/1 GM Packet ONE (00:56)
[2024-02-01] MEDS ORDERED: Furosemide 40 MG (4 mL) VIAL ONE (00:56)
[2024-02-01] MEDS ORDERED: Ipratropium/Albuterol 3 ML NEB ONE (00:56)
[2024-02-01 01:09] LABS: ALT (SGPT) 16 U/L (8-55); AST (SGOT) 31 U/L (5-34); Albumin 3.2 g/dL (3.4-4.8); Alkaline Phosphatase 87 U/L (40-110); Anion Gap 16 mmol/L (10-20); BUN (Urea Nitrogen) 15 mg/dL (8.4-25.7); Bilirubin, Total 0.4 mg/dL (0.2-1.2); Calc. Creatinine Clearance 0 mL/min (70-130); Calcium 8.6 mg/dL (7.8-10.44); Carbon Dioxide 18 mmol/L (23-31); Chloride 110 mmol/L (98-107); Estimated GFR 82; Globulin 4.2 g/dL (2.4-3.5); Glucose 120 mg/dL (83-110); Potassium 3.9 mmol/L (3.5-5.1); Protein, Total 7.4 g/dL (5.8-8.1); Sodium 140 mmol/L (136-145)
[2024-02-01 01:16] LABS: Troponin I 0.015 ng/mL (< 0.028)
[2024-02-01] MEDS ORDERED: Ondansetron ODT 4 MG TAB SL PRN (03:45)
[2024-02-01] MEDS ORDERED: Acetaminophen 325 MG TAB PO PRN ×2 (03:45→06:32)
[2024-02-01] MEDS ORDERED: Ondansetron PF 4 MG/2 ML Vial IVP PRN (03:45)
[2024-02-01 04:26] LABS: Troponin I 0.016 ng/mL (< 0.028)
[2024-02-01 05:15] VITALS: BMI 30.9
[2024-02-01] MEDS ORDERED: Insulin Regular, Human 100 UNIT/ML 10 ML VIAL SC PRN (06:30)
[2024-02-01] MEDS ORDERED: Dextrose 5% in Water 1,000 ML IV PRN (06:30)
[2024-02-01] MEDS ORDERED: Glucagon 1 MG/ML KIT IM PRN (06:30)
[2024-02-01] MEDS ORDERED: Dextrose 50% Abboject 50 ML SYRINGE SLOW IVP PRN (06:30)
[2024-02-01] MEDS ORDERED: Calcium Carbonate 500 MG ChewTAB PO PRN (06:32)
[2024-02-01] MEDS: Aspirin 81 mg Enteric Coated Tablet PO SCH ×2 (08:58→09:03)
[2024-02-01] MEDS ORDERED: THIAMINE HCL 50 MG PO SCH (09:00)
[2024-02-01] MEDS ORDERED: Non-Formulary Item 1 EACH (Multivitamin [Multivitamin] 1 EACH Tablet) PO SCH (09:00)
[2024-02-01] MEDS: Famotidine 20 MG TAB PO SCH (09:02)
[2024-02-01] MEDS: Carvedilol 3.125 MG TAB PO SCH (09:02)
[2024-02-01] MEDS: Folic Acid 1 MG TAB PO SCH (09:02)
[2024-02-01] MEDS: Senokot S 8.6-50 MG TAB PO SCH (09:02)
[2024-02-01] MEDS: Lisinopril 10 MG TAB PO SCH (09:02)
[2024-02-01] MEDS: Thiamine 100 MG TAB PO SCH (09:03)
[2024-02-01] MEDS: Amlodipine 5 MG TAB PO SCH (09:03)
[2024-02-01] MEDS: Multivit, Therapeutic 1 TAB PO SCH (09:03)
[2024-02-01] MEDS: Clopidogrel Bisulfate 75 MG TAB PO SCH (09:03)
[2024-02-01] MEDS: Heparin 5,000 UNITS/ML VIAL SC SCH (09:03)
[2024-02-01 09:11] LABS: Magnesium 1.8 mg/dL (1.6-2.6)
[2024-02-01 09:12] LABS: Troponin I 0.025 ng/mL (< 0.028)
[2024-02-01 10:26] LABS: Cardiac Risk 2.8 (Less than 4.5)
[2024-02-01] MEDS ORDERED: Iopamidol-370 76% 500 ML MDV (1 ML CHARGE) ONE (14:42)
[2024-02-01] MEDS: Furosemide 40 MG (4 mL) VIAL SLOW IVP SCH (15:22)
[2024-02-01] MEDS: Atorvastatin Calcium 40 MG TAB PO SCH (21:02)
[2024-02-01] MEDS: Insulin Glargine 30 UNITS/0.3 ML VIAL SC SCH (21:02)
[2024-02-02 04:40] LABS: #Basophils 0.04 10x3/uL (0.0-0.2); %Basophils 0.8 % (0.0-1.0); %Eosinophils 6.3 % (0.0-10.0); %Lymphocytes 34.2 % (21.0-51.0); %Monocytes 13.3 % (0.0-10.0); %Neutrophils 45.2 % (42.0-75.0); Hematocrit 32.3 % (42.0-52.0); Hemoglobin 9.7 g/dL (14.0-18.0); Mean Corpuscular Hemoglobin 23.3 pg (27.0-31.0); Mean Corpuscular Volume 77.6 fL (78.0-98.0); Mean Platelet Volume 9.9 fL (7.4-10.4); Platelet Count 324 10x3/uL (130-400); RBC Distribution Width 17.4 % (11.5-14.5); Red Blood Cell (RBC) Count 4.16 mill/uL (4.70-6.10)
[2024-02-02 05:37] LABS: ALT (SGPT) 15 U/L (8-55); AST (SGOT) 20 U/L (5-34); Albumin 3.3 g/dL (3.4-4.8); Alkaline Phosphatase 92 U/L (40-110); Anion Gap 14 mmol/L (10-20); BUN (Urea Nitrogen) 12 mg/dL (8.4-25.7); Bilirubin, Total 0.6 mg/dL (0.2-1.2); Calc. Creatinine Clearance 88 mL/min (70-130); Calcium 9.1 mg/dL (7.8-10.44); Carbon Dioxide 25 mmol/L (23-31); Chloride 104 mmol/L (98-107); Estimated GFR 77; Globulin 4.3 g/dL (2.4-3.5); Glucose 107 mg/dL (83-110); Potassium 3.4 mmol/L (3.5-5.1); Protein, Total 7.6 g/dL (5.8-8.1); Sodium 140 mmol/L (136-145)
[2024-02-02] MEDS ORDERED: Amlodipine 10 MG TAB PO SCH (09:00)
[2024-02-02] MEDS: Spironolactone 25 MG TAB PO SCH (10:36)
[2024-02-02] MEDS: Dapagliflozin Propanediol 10 MG TAB PO SCH (10:37)
[2024-02-02] MEDS: Sacubitril 49 MG/Valsartan 51 MG TABLET PO SCH (21:57)
[2024-02-03] MEDS: Insulin Regular, Human 100 UNIT/ML 10 ML VIAL SC PRN (06:00)
[2024-02-03 06:11] LABS: Anion Gap 14 mmol/L (10-20); BUN (Urea Nitrogen) 14 mg/dL (8.4-25.7); Calc. Creatinine Clearance 80 mL/min (70-130); Carbon Dioxide 27 mmol/L (23-31); Chloride 104 mmol/L (98-107); Estimated GFR 73; Glucose 105 mg/dL (83-110); Potassium 3.4 mmol/L (3.5-5.1); Sodium 142 mmol/L (136-145)
[2024-02-03] MEDS ORDERED: Spironolactone 25 MG TAB PO SCH (09:07)
[2024-02-03] MEDS: Furosemide 40 MG TAB PO SCH (09:21)
[2024-02-03] MEDS: Spironolactone 25 MG TAB PO SCH (09:21)
[2024-02-03] MEDS: metFORMIN 500 MG TAB PO SCH (09:21)
[2024-02-04 09:20] LABS: #Basophils 0.04 10x3/uL (0.0-0.2); %Basophils 0.8 % (0.0-1.0); %Eosinophils 4.8 % (0.0-10.0); %Lymphocytes 27.3 % (21.0-51.0); %Monocytes 8.2 % (0.0-10.0); %Neutrophils 58.7 % (42.0-75.0); Hematocrit 35.9 % (42.0-52.0); Hemoglobin 10.7 g/dL (14.0-18.0); Mean Corpuscular HGB CONC 29.8 g/dL (32.0-36.0); Mean Corpuscular Hemoglobin 23.2 pg (27.0-31.0); Mean Corpuscular Volume 77.7 fL (78.0-98.0); Mean Platelet Volume 9.7 fL (7.4-10.4); Platelet Count 371 10x3/uL (130-400); RBC Distribution Width 17.2 % (11.5-14.5); Red Blood Cell (RBC) Count 4.62 mill/uL (4.70-6.10)
[2024-02-04 09:30] LABS: Anion Gap 15 mmol/L (10-20); BUN (Urea Nitrogen) 21 mg/dL (8.4-25.7); Calc. Creatinine Clearance 62 mL/min (70-130); Calcium 9.3 mg/dL (7.8-10.44); Carbon Dioxide 24 mmol/L (23-31); Chloride 105 mmol/L (98-107); Estimated GFR 53; Glucose 226 mg/dL (83-110); Magnesium 2.1 mg/dL (1.6-2.6); Potassium 3.5 mmol/L (3.5-5.1); Sodium 140 mmol/L (136-145)
[2024-02-04] MEDS: Spironolactone 25 MG TAB PO SCH (10:02)
[2024-02-05 05:42] LABS: Anion Gap 17 mmol/L (10-20); BUN (Urea Nitrogen) 20 mg/dL (8.4-25.7); Calc. Creatinine Clearance 64 mL/min (70-130); Calcium 9.4 mg/dL (7.8-10.44); Carbon Dioxide 24 mmol/L (23-31); Chloride 105 mmol/L (98-107); Estimated GFR 55; Glucose 154 mg/dL (83-110); Potassium 3.5 mmol/L (3.5-5.1); Sodium 142 mmol/L (136-145)
[2024-02-05] MEDS: Vancomycin (BATCH) 1.5 GM in Premix 1 BAG IVPB SCH (08:43)
[2024-02-05] MEDS ORDERED: CEFAZOLIN 2 GM VIAL ONE (11:01)
[2024-02-05] MEDS ORDERED: Gentamicin 80 MG/2 ML VIAL ONE (11:01)
[2024-02-05] MEDS ORDERED: fentaNYL 50 mcg/mL 1 mL Vial ONE (11:15)
[2024-02-05] MEDS ORDERED: ePHEDrine Sulfate 50 MG/10 ML VIAL ONE (11:15)
[2024-02-05] MEDS ORDERED: Dexamethasone 20 MG/5 ML VIAL ONE (11:15)
[2024-02-05] MEDS ORDERED: Ondansetron PF 4 MG/2 ML Vial ONE (11:15)
[2024-02-05] MEDS ORDERED: PROPOFOL 20 ML ONE (11:16)
[2024-02-05] MEDS ORDERED: Lidocaine 1% PF 5 ML VIAL ONE (11:16)
[2024-02-05] MEDS ORDERED: PHENYLEPHRINE-NS 100 MCG/ML 10 ML SYRINGE ONE ×2 (11:16→11:49)
[2024-02-05] MEDS ORDERED: Glycopyrrolate 0.2 MG/ML 5 ML SYRINGE ONE (11:16)
[2024-02-05] MEDS ORDERED: Electrolyte Replacement Protocol 1 EACH FS SCH (20:59)
[2024-02-06 05:15] LABS: Anion Gap 17 mmol/L (10-20); BUN (Urea Nitrogen) 20 mg/dL (8.4-25.7); Calc. Creatinine Clearance 66 mL/min (70-130); Calcium 9.1 mg/dL (7.8-10.44); Carbon Dioxide 22 mmol/L (23-31); Chloride 106 mmol/L (98-107); Estimated GFR 58; Glucose 122 mg/dL (83-110); Magnesium 2.3 mg/dL (1.6-2.6); Potassium 4.3 mmol/L (3.5-5.1); Sodium 141 mmol/L (136-145)
[2024-02-06 07:54] VITALS: TEMP 97.9
[2024-02-06 12:37] VITALS: BP 118/57
== END 2024-02-06 13:10 | disposition home or self-care (01) | DRG 242 ==
LOC: ERS 00:20 → 2NO 03:20
PROVIDERS: ADMIT Internal Medicine; ATTEND Internal Medicine
PROC: 0JPT0PZ Removal of Cardiac Rhythm Related Device from Trunk Subcutaneous Tissue and Fascia, Open Approach (ICD-10-PCS; principal; 2024-02-05)
PROC: 0JH607Z Insertion of Cardiac Resynchronization Pacemaker Pulse Generator into Chest Subcutaneous Tissue and Fascia, Open Approach (ICD-10-PCS; 2024-02-05)
PROC: 02HL3JZ Insertion of Pacemaker Lead into Left Ventricle, Percutaneous Approach (ICD-10-PCS; 2024-02-05)
PROC: 02PA3MZ Removal of Cardiac Lead from Heart, Percutaneous Approach (ICD-10-PCS; 2024-02-05)
PROC: 3E0102A Introduction of Anti-Infective Envelope into Subcutaneous Tissue, Open Approach (ICD-10-PCS; 2024-02-05)
DX: I13.0 Hypertensive heart and chronic kidney disease with heart failure and stage 1 through stage 4 chronic kidney disease, or unspecified chronic kidney disease (principal); I50.43 Acute on chronic combined systolic (congestive) and diastolic (congestive) heart failure; J96.01 Acute respiratory failure with hypoxia; I25.10 Atherosclerotic heart disease of native coronary artery without angina pectoris; E87.6 Hypokalemia; E11.22 Type 2 diabetes mellitus with diabetic chronic kidney disease; N18.2 Chronic kidney disease, stage 2 (mild); E83.42 Hypomagnesemia; E78.5 Hyperlipidemia, unspecified; D50.9 Iron deficiency anemia, unspecified; J44.9 Chronic obstructive pulmonary disease, unspecified; I48.0 Paroxysmal atrial fibrillation; I25.5 Ischemic cardiomyopathy; Z95.5 Presence of coronary angioplasty implant and graft; Z95.0 Presence of cardiac pacemaker; Z95.1 Presence of aortocoronary bypass graft; Z79.899 Other long term (current) drug therapy; Z79.02 Long term (current) use of antithrombotics/antiplatelets; Z79.82 Long term (current) use of aspirin; Z79.4 Long term (current) use of insulin; Z79.84 Long term (current) use of oral hypoglycemic drugs; Z87.891 Personal history of nicotine dependence; Z91.148 Patient's other noncompliance with medication regimen for other reason
CPT/HCPCS: 33225; 33229; 36415; 36416; 71045; 71275; 80048; 80053; 80061; 83036; 83735; 83880; 84484; 85025; 85379; 93005; 93010; 93306; 93798; 96374; C1769; C1894; C1900; C2621; J1100; J1580; J1644; J1815; J1940; J2405; J2704; J3010; J3370; J7620; Q9967